=== PATIENT | female | born 1950 | race Caucasian/White ===

== ENCOUNTER 2021-03-29 17:49 | Emergency (ER) | payer OTHER ==
--- OUTSIDE RECORDS SUMMARY | 2021-03-29 17:53 | XMS REPORT | Continuity of Care Document ---
:1950 Author Organization [facility] t Address [address] [place] [address] Care Team Providers Name Role Phone PCP, DOES NOT HAVE A Primary Care Physician Unavailable JESSICA Attending Clinician Unavailable JESSICA Attending Clinician Unavailable HUGO Attending Clinician Unavailable Carlos Alberto MONK Attending Clinician Unavailable Fredo BRINK, Mykel Attending Clinician MYKEL YOO Attending Clinician Unavailable Payers Payer Name Policy Type Policy Number Effective Date Expiration Date Tammie rodríguezmiles MAUDE/ALICIA [id number] 2021 MEDICARE ADVANTAGE 00:00:00 Problems Condition Condition Condition Status Onset Resolution Last Treating Co mments Source Name Details Category Date Date Treatment Clinician Date No known No known Disease Unive rs active active ity of problems problems [facility] [place] [place] Allergies, Adverse Reactions, Alerts Allergy Allergy Status Severity Reaction(s) Onset Inactive Treating Comm ents Source Name Type Date Date Clinician Sulfa Propensi Active Rash 2020-04 Univers (Sulfona ty to 2-20 ity of mide adverse 00:00: [place] Antibiot reaction 00 Medica l ics) s Branch SULFA Drug Active Med Rash 2020-04 Univers (SULFONA Class 2-20 ity of MIDE 00:00: [place] ANTIBIOT 00 Medical ICS) Branch Social History Social Habit Start Date Stop Date Quantity Comments Source History of Cigarette Smoker Universi ty of tobacco use [facility] [place] [place] Exposure to Not sure University of SARS-CoV-2 [facility] (event) Branch Tobacco use and 2021-03-27 2021-03-27 Never used Universit y of exposure 00:00:00 00:00:[address] [facility] [place] [place] Alcohol intake 2021-03-27 2021-03-27 2 /d University of 00:00:00 00:00:00 [place] [facility] Sex [birth year] Universit y of 00:00:00 00:00:[address] [facility] [place] Smoking Status Start Date Stop Date Source Current every day smoker 2021-03-27 00:00:00 Uni [address] of [facility] [place] [place] Medications Ordered Filled Start Stop Current Ordering Indication Dosage Frequency Signature Comments Components Source Medication Medication Date Date Medication? Clinician (SIG) Name Name buPROPion 2020-04- No 100mg Take 100 Un [place] 100 mg 2-20 12-20 mg by ity of tablet 09:46: 00:00 mouth 2 [place] 09 :00 (two) Medical times Branch daily. escitalopra 2020-04- No 20mg Take 20 mg Univers m oxalate 2-20 12-20 by mouth ity o f 20 mg 09:46: 00:00 daily. [place] tablet 09 :00 Medical Branch carvediloL 2020-04- No 3.125mg Take 3.125 Univers 3.125 mg 2-20 12-20 mg by ity of tablet 09:46: 00:00 mouth 2 [place] 09 :00 (two) Medical times [place] daily with meals. alendronate 2020-04- No 70mg Take 70 mg Univers 70 mg 2-20 12-20 by mouth ity of tablet 09:46: 00:00 weekly. [place] 09 :00 Medical Branch atorvastati 2020-04- No 40mg Take 40 mg Univers n 40 mg 2-20 12-20 by mouth ity of tablet 09:46: 00:00 at [place] 09 :00 bedtime. Medical Branch buPROPion 2020-04- No 100mg Take 100 Un [place] 100 mg 2-20 12-20 mg by ity of tablet 09:46: 00:00 mouth 2 [place] 09 :00 (two) Medical times Branch daily. escitalopra 2020-04- No 20mg Take 20 mg Univers m oxalate 2-20 12-20 by mouth ity o f 20 mg 09:46: 00:00 daily. [place] tablet 09 :00 Medical Branch carvediloL 2020-04- No 3.125mg Take 3.125 Univers 3.125 mg 2-20 12-20 mg by ity of tablet 09:46: 00:00 mouth 2 [place] 09 :00 (two) Medical times Branch daily with meals. alendronate 2020-04- No 70mg Take 70 mg Univers 70 mg 2-20 12-20 by mouth ity of tablet 09:46: 00:00 weekly. [place] 09 :00 Medical Branch atorvastati 2020-04- No 40mg Take 40 mg Univers n 40 mg 2-20 12-20 by mouth ity of tablet 09:46: 00:00 at [place] 09 :00 bedtime. Medical Branch calcium 2020-04 Yes Take by Univer s carbonate 2-20 mouth. ity of (CALCIUM 09:27: [place] 500 ORAL) 22 Medical Branch calcium 2020-04 Yes Take by Univer s carbonate 2-20 mouth. ity of (CALCIUM 09:27: [place] 500 ORAL) 22 Medical Branch [place]-3-DHA 2020-04 Yes Take by Un [place] -EPA-Fish 2-20 mouth. ity of Oil (FISH 09:25: [place] OIL) 1,000 29 Medical mg (120 Branch mg-180 mg) Cap [place]-3-DHA 2020-04 Yes Take by Un [place] -EPA-Fish 2-20 mouth. ity of Oil (FISH 09:25: [place] OIL) 1,000 29 Medical mg (120 Branch mg-180 mg) Cap vitamin 2020-04 Yes 500ug Take 500 Unive rs B-12 2-20 mcg by ity of (VITAMIN 09:24: mouth [place] B-12) 500 10 daily. Medical mcg tablet Branch vitamin 2020-04 Yes 500ug Take 500 Unive rs B-12 2-20 mcg by ity of (VITAMIN 09:24: mouth [place] B-12) 500 10 daily. Medical mcg tablet Branch escitalopra 2020-04 Yes [id number] 20mg Take 1 Univers m oxalate 2-20 tablet by ity o f 20 mg 00:00: mouth [place] tablet 00 daily. Medical Branch carvediloL 2020-04 Yes [id number] 3.125mg Take 1 Univers 3.125 mg 2-20 tablet by ity of tablet 00:00: mouth 2 00 (two) Medical times Branch daily with meals. buPROPion 2020-04 Yes [id number] 100mg Take 1 U nivers 100 mg 2-20 tablet by ity of tablet 00:00: mouth 2 (two) Medical times Branch daily. atorvastati 2020-04 Yes [id number] 40mg Take 1 Univers n 40 mg 2-20 tablet by ity of tablet 00:00: mouth at [place] 00 bedtime. Medical Branch alendronate 2020-04 Yes [id number] 70mg Take 1 Univers 70 mg 2-20 tablet by ity of tablet 00:00: mouth [place] 00 weekly. Medical Branch escitalopra 2020-04 Yes [id number] 20mg Take 1 Univers m oxalate 2-20 tablet by ity o f 20 mg 00:00: mouth [place] tablet 00 daily. Medical Branch carvediloL 2020-04 Yes [id number] 3.125mg Take 1 Univers 3.125 mg 2-20 tablet by ity of tablet 00:00: mouth 2 [place] 00 (two) Medical times Branch daily with meals. buPROPion 2020-04 Yes [id number] 100mg Take 1 U nivers 100 mg 2-20 tablet by ity of tablet 00:00: mouth 2 [place] 00 (two) Medical times [place] daily. atorvastati 2020-04 Yes [id number] 40mg Take 1 Univers n 40 mg 2-20 tablet by ity of tablet 00:00: mouth at [place] 00 bedtime. Medical Branch alendronate 2020-04 Yes [id number] 70mg Take 1 Univers 70 mg 2-20 tablet by ity of tablet 00:00: mouth [place] 00 weekly. [facility] Branch Immunizations Ordered Filled Immunization Date Status Comments [facility] e Immunization Name Name Influenza High Dose 2021-02-05 Completed Unive rsity of 00:00:[address] [facility] [place] Influenza High Dose 2021-02-05 Completed Unive rsity of 00:00:[address] [facility] [place] Vital Signs Vital Name Observation Time Observation Value Comments Source Systolic blood 2021-03-27 15:16:00 132 mm[Hg] Univer sity of pressure [facility] [place] [place] Diastolic blood 2021-03-27 15:16:00 82 mm[Hg] Unive rsity of pressure [facility] [place] Heart rate 2021-03-27 15:15:00 64 /min [facility] Body temperature 2021-03-27 15:15:00 [facility].89 [facility] height 2021-03-27 15:15:00 162.6 cm [facility] Body weight 2021-03-27 15:15:00 87.091 kg [facility] BMI 2021-03-27 15:15:00 32.96 kg/m2 [facility] Procedures This patient has no known procedures. Encounters Start End Encounter Admission Attending Care Care Encounter Source Date/Time Date/Time Type Type Clinicians Facility Department ID 2021-05-19 2021-05-19 Outpatient R STEFFANIE LOPEZ [facility] [id number] Univers 08:30:00 08:30:00 STEFFANIE LOPEZ [id number] i [facility] 2021-04-19 2021-04-19 [facility] [id number] Univers 10:40:00 10:40:00 ROCIO [id number] ity o [facility] 2021-04-19 2021-04-19 [facility] [id number] Univers 10:40:00 10:40:00 ROCIO garza o [facility] 2021-04-10 2021-04-10 [facility] [id number] Univers 15:00:00 15:00:00 MOLINA [id number] [facility] 2021-04-10 2021-04-10 [facility] [id number] Univers 15:00:00 15:00:00 [facility] 2021-03-30 2021-03-30 [facility] [id number] Univers 09:45:00 09:45:00 MOLINA [id number] [facility] 2021-03-27 2021-03-27 [facility] [id number] Univers 09:30:00 10:00:00 Visit [facility] [id number] it y of Mykel CH[facility] [id number] [place] as CHRISS?BLEA [id number] [place] [address] MEDICAL OFFICE BUILDING 2021-03-27 2021-03-27 [facility] [id number] Univers 09:30:00 09:56:27 VELIA [facility] Results This patient has no known results.
[2021-03-29] MEDS ORDERED: ONDANSETRON 4 MG/2 ML VIAL ONE (18:26)
[2021-03-29] MEDS ORDERED: MORPHINE 4 MG/ML SYR ONE (18:26)
--- NOTE | 2021-03-29 19:35 | RAD REPORT ---
EXAM DESCRIPTION: CT - CTHCSPWOC - 03/29/2021 7:25 pm CLINICAL HISTORY: Trauma, head and neck injury. fall, head injury COMPARISON: <Comparisons> TECHNIQUE: Axial 5 mm thick images of the head were obtained. Axial 2 mm thick images of the cervical spine were obtained with sagittal and coronal reconstruction images generated and reviewed. All CT scans are performed using dose optimization technique as appropriate and may include automated exposure control or mA/KV adjustment according to patient size. FINDINGS: CT HEAD WITHOUT CONTRAST: No acute hemorrhage, hydrocephalus or extra-axial collection is identified.No areas of brain edema or midline shift. Cavum septum pellucidum. The paranasal sinuses and mastoids are clear.The calvarium is intact. CT CERVICAL SPINE WITHOUT CONTRAST: No fracture or subluxation.No prevertebral soft tissues swelling is identified. Multilevel cervical s pondylosis. IMPRESSION: No acute intracranial or cervical spine findings.
--- NOTE | 2021-03-29 19:49 | RAD REPORT ---
EXAM DESCRIPTION: RAD - Shoulder Right 2 View - 03/29/2021 7:21 pm CLINICAL HISTORY: fall COMPARISON: No comparisons FINDINGS: Right shoulder dislocation which is inferior and probably anterior though a transscapular view not performed to confirm. There is a defect with sclerosis at the greater tuberosity. IMPRESSION: Dislocated right shoulder. The defect at the greater tuberosity may reflect a Hill-Sachs deformity and could be chronic if the patient has had a prior dislocation.
--- NOTE | 2021-03-29 19:50 | RAD REPORT ---
EXAM DESCRIPTION: RAD - Chest Single View - 03/29/2021 7:21 pm CLINICAL HISTORY: fall COMPARISON: No comparisons FINDINGS: Lines: None. Lungs: No evidence of edema or pneumonia. Pleural: No significant pleural effusions or pneumothorax. Cardiac: The heart size is within normal limits. Bones: Right shoulder dislocation. Other: IMPRESSION: No acute cardiopulmonary disease. Right shoulder dislocation.
[2021-03-29] MEDS ORDERED: HYDROMORPHONE HCL 2 MG/ML inj ONE (19:57)
[2021-03-29] MEDS ORDERED: DIAZEPAM 10 MG/2 ML INJ SYRINGE ONE (19:58)
--- NOTE | 2021-03-29 21:07 | RAD REPORT ---
EXAM DESCRIPTION: RAD - Shoulder Right 2 View - 03/29/2021 8:50 pm CLINICAL HISTORY: post reduction COMPARISON: Shoulder Right 2 View dated 03/29/2021[place] Right 2 View dated 03/29/2021 FINDINGS/IMPRESSION: Relocated right shoulder. No definite fracture is identified.
--- NOTE | 2021-03-29 21:19 | EDPHYS ---
Physician Documentation [facility] Name: Anali Catherine Age: 70 yrs Sex: Female : 1950 Arrival Date: 03/29/2021 Time: 17:53 Bed 18 Private MD: ED Physician Gerardo Sampson HPI: 03/29 21:19 This 70 yrs old Female presents to ER via EMS with complaints of Fall Injury. jmm 21:19 Details of fall: The patient fell from an upright position, while walking. Onset: The jm symptoms/episode began/occurred acutely, just prior to arrival. Associated injuries: The patient sustained right arm, face. 70-year-old female that presents emerged part with complaints of right arm pain and right shoulder pain following a fall which occurred just prior to arrival. Patient states she slipped after drinking wine. She hit the front of her face and fell on an outstretched hand on her right arm. Historical: - Allergies: 18:14 No Known Allergies; 5 - Immunization history:: Adult Immunizations up to date. - Social history:: Smoking status: . ROS: 21:19 Constitutional: Negative for fever, chills, and weight loss, Cardiovascular: Negative jm for chest pain, palpitations, and edema, Respiratory: Negative for shortness of breath, cough, wheezing, and pleuritic chest pain. 21:19 MS/extremity: Positive for injury or acute deformity. 21:19 Neuro: Positive for headache. 21:19 All other systems are negative. Exam: 21:19 Constitutional: This is a well developed, well nourished patient who is awake, alert, jmm and in no acute distress. 21:19 Eyes: EOMI, no conjunctival erythema appreciated ENT: Moist Mucus Membranes Neck: Trachea midline, Supple Chest/axilla: Normal chest wall appearance and motion. Cardiovascular: Regular rate and rhythm. No edema appreciated Respiratory: Normal respirations, no respiratory distress appreciated Abdomen/GI: Non distended, soft Back: Normal ROM Skin: General appearance color normal 21:19 Head/face: abrasion noted to the nose. 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 Patient holding adduction and internal rotation. 21:19 Skin: Appearance: Color: normal in color. 21:19 Neuro: Orientation: is normal, Mentation: is normal. 21:19 Psych: Behavior/mood is pleasant, cooperative. Vital Signs: 17:55 BP 136 / 53; Pulse 72; Resp 17; Temp 97.6; Pulse Ox 94% ; Weight 104.33 kg; Height 5 5 ft. 6 in. (167.64 cm); Pain 10/10; 17:55 Body Mass Index 37.12 (104.33 kg, 167.64 cm) [facility] Procedures: 21:17 Reduction: of the right shoulder, using traction, manipulation, Immobilized with sling, [facility] Patient tolerated well. Post reduction film - reveals normal alignment. MDM: 18:12 Patient medically screened. [facility] 21:18 Data reviewed: vital signs, nurses notes. Counseling: I had a detailed discussion with [facility] the patient and/or guardian regarding: the historical points, exam findings, and any diagnostic results supporting the discharge/admit diagnosis, radiology results, the need for outpatient follow up, to return to the emergency department if symptoms worsen or persist or if there are any questions or concerns that arise at home. 03/29 18:17 Order name: CT Head C Spine; Complete Time: 19:43 [facility] 03/29 18:17 Order name: Shoulder Right (2 View) XRAY; Complete Time: 19:51 [facility] 03/29 18:17 Order name: Chest Single View XRAY; Complete Time: 19:51 [facility] 03/29 20:23 Order name: Shoulder Right (2 View) XRAY; Complete Time: 21:13 [facility] 03/29 18:17 Order name: Saline Lock; Complete Time: 18:38 [facility] 03/29 20:23 Order name: Sling; Complete Time: 20:31 [facility] Administered Medications: 18:37 Drug: Zofran (Ondansetron) 4 mg Route: IVP; Site: left antecubital; 5 18:38 Drug: morphine 4 mg Route: IVP; Site: left antecubital; 5 20:02 Drug: Valium (diazepam) 2 mg Route: IVP; Site: left antecubital; kd3 20:03 Drug: Dilaudid (HYDROmorphone) 1 mg Route: IVP; Site: left antecubital; kd3 21:22 CANCELLED (Duplicate Order): Propofol 100 mg IVP once [facility] Disposition: 03/30 08:16 Co-signature as Attending Physician, Gerardo Sampson MD I agree with the assessment and kdr plan of care. Disposition Summary: 03/29/21 21:19 Discharge Ordered Location: Home [facility] Condition: Stable [facility] Diagnosis - Other dislocation of right shoulder joint [facility] Followup: [facility] - With: Christoph Sanders MD - When: 2 - 3 days - Reason: Recheck today's complaints, Continuance of care, Re-evaluation by your physician Discharge Instructions: - Discharge Summary Sheet [facility] - Shoulder Dislocation [facility] Forms: - Medication Reconciliation Form [facility] - Thank You Letter [facility] - Antibiotic Education [facility] - Prescription Opioid Use [facility] Prescriptions: - Tylenol-Codeine #3 300 mg-30 mg Oral - take 1 tablet by ORAL route every 4-6 hours; 20 tablet; Refills: 0, Product jm Selection Permitted Signatures: Dispatcher [employer] EDGerardo Sanford MD MD kdr Mickail, Joel, PA PA jmm Rees, Jessica, RN RN jh5 Juliette Lozano RN RN kd3 Corrections: (The following items were deleted from the chart) 03/29 21: 20:51 Conscious Sedation ordered. [facility] 21: 20:51 Propofol 100 mg IVP once ordered. [facility]
--- NOTE | 2021-03-29 21:19 | ER ---
Nurse's Notes [facility] Name: Anali Catherine Age: 70 yrs Sex: Female : 1950 Arrival Date: 03/29/2021 Time: 17:53 Bed 18 Private MD: Diagnosis: Other dislocation of right shoulder joint Presentation: 03/29 17:55 Chief complaint: Patient states: Pt donated blood this morning, went home and consumed jh5 an entire bottle of wine. Tripped and fell onto right shoulder. 10/10 pain to right arm and ribs. Coronavirus screen: Vaccine status: Patient reports receiving the 2nd dose of the covid vaccine. Client denies travel out of the [place] in the last 14 days. Ebola Screen: Patient negative for fever greater than or equal to 101.5 degrees Fahrenheit, and additional compatible Ebola Virus Disease symptoms Patient denies exposure to infectious person. Patient denies travel to an Ebola-affected area in the 21 days before illness onset. Initial Sepsis Screen: Does the patient meet any 2 criteria? No. Patient's initial sepsis screen is negative. Does the patient have a suspected source of infection? No. Patient's initial sepsis screen is negative. Risk Assessment: Do you want to hurt yourself or someone else? Patient reports no desire to harm self or others. Onset of symptoms was March 29, 2021. 17:55 Method Of Arrival: EMS: [place] [id number] 17:55 Acuity: LUIS 3 5 Triage Assessment: 17:58 General: Appears distressed, uncomfortable, well groomed, well developed, well [facility] nourished, Behavior is calm, cooperative, appropriate for age. Pain: Complains of pain in right arm. Historical: - Allergies: 18:14 No Known Allergies; [facility] - Immunization history:: Adult Immunizations up to date. - Social history:: Smoking status: . Screenin:58 Abuse screen: Denies threats or abuse. Denies injuries from another. Nutritional [facility] screening: No deficits noted. Tuberculosis screening: No symptoms or risk factors identified. Fall Risk Fall in past 12 months (25 points). Vital Signs: 17:55 BP 136 / 53; Pulse 72; Resp 17; Temp 97.6; Pulse Ox 94% ; Weight 104.33 kg; Height 5 5 ft. 6 in. (167.64 cm); Pain 10/10; 17:55 Body Mass Index 37.12 (104.33 kg, 167.64 cm) [facility] ED Course: 17:53 Patient arrived in ED. [facility] 17:55 Rossi Kendrick, RN is Primary Nurse. [facility] 17:58 Triage completed. [facility] 17:58 [facility] 17:58 Gerardo Sampson MD is Attending Physician. [facility] 17:59 Arm band placed on left wrist. [facility] 17:59 Patient has correct armband on for positive identification. Bed in low position. Call [facility] light in reach. Side rails up X 1. 18:14 No provider procedures requiring assistance completed. 5 19:21 Shoulder Right (2 View) XRAY In Process Unspecified. EDMS 19:21 Chest Single View XRAY In Process Unspecified. EDMS 19:25 CT Head C Spine In Process Unspecified. EDMS 20:31 Sling applied to right arm. 4 20:50 Shoulder Right (2 View) XRAY In Process Unspecified. EDMS 21:18 Christoph Sanders MD is Referral Physician. m 21:37 IV discontinued. kd3 Administered Medications: 18:37 Drug: Zofran (Ondansetron) 4 mg Route: IVP; Site: left antecubital; [facility] 18:38 Drug: morphine 4 mg Route: IVP; Site: left antecubital; jh5 20:02 Drug: Valium (diazepam) 2 mg Route: IVP; Site: left antecubital; kd3 20:03 Drug: Dilaudid (HYDROmorphone) 1 mg Route: IVP; Site: left antecubital; kd3 21:22 CANCELLED (Duplicate Order): Propofol 100 mg IVP once [facility] Outcome: 21:19 Discharge ordered by . [facility] 21:37 Discharged to home via wheelchair. kd3 21:37 Condition: stable 21:37 Discharge instructions given to patient, family, Instructed on discharge instructions, follow up and referral plans. medication usage, Demonstrated understanding of instructions, follow-up care, medications, Prescriptions given X 1. 21:38 Patient left the ED. kd3 Signatures: Dispatcher [employer] EDMS Endy Armando PA PA jmm Swanson, Donovan ds4 Rossi Kendrick, RN RN jh5 uJliette Lozano, RN RN kd3
[2021-03-29 21:53] VITALS: BP 136/53; TEMP 97.6; O2SAT 94
== END 2021-03-29 21:38 | disposition home or self-care (01) ==
LOC: ER 17:49
PROC: 0RSJXZZ Reposition Right Shoulder Joint, External Approach (ICD-10-PCS; principal; 2021-03-29)
DX: S43.084A Other dislocation of right shoulder joint, initial encounter (principal); W01.0XXA Fall on same level from slipping, tripping and stumbling without subsequent striking against object, initial encounter; Y93.01 Activity, walking, marching and hiking
CPT/HCPCS: 70450; 72125; 71045; 73030 ×2; 96375; 96374; 99284; 23650; J3360; J1170; J2405

== ENCOUNTER 2022-09-29 06:11 | Emergency (ER) | payer OTHER ==
--- OUTSIDE RECORDS SUMMARY | 2022-09-29 06:23 | XMS REPORT | Continuity of Care Document ---
:1950 Author Organization [facility] t Address [address] [facility] [address] [place] [address] Care Team Providers Name Role Phone Velia Yoo MD Primary Care Physician [phone] CUBA ARIAS Attending Clinician Unavailable VELIA YOO Attending Clinician Unavailable PEMA DSOUZA Attending Clinician Unavailable Pema Dsouza MD Attending Clinician Velia Yoo MD Attending Clinician Molina Monk MD Attending Clinician Doctor Unassigned, [place] Attending Clinician Unavailable Adriana Pimentel Attending Clinician ADRIANA WINSTON Attending Clinician Unavailable FABIOLA OLIVEIRA Attending Clinician Unavailable ARJUN MUSTAFA Attending Clinician Unavailable MOLINA MONK Attending Clinician Unavailable Pob, [facility] Main Attending Clinician Unavailable Tutu Tran PT, Cindy Attending Clinician Unavailable Cuba Arias MD Attending Clinician ERIN WELLINGTON Attending Clinician Unavailable Arjun Guajardo Attending Clinician ANALI JORDAN Attending Clinician Unavailable Anali Jordan DO Attending Clinician ELENA CALDERON Attending Clinician Unavailable Bibi EVANGELISTA, Rebekah Carcamo Attending Clinician Unavailable Krishan Aguayo CRNA Attending Clinician Noe Young MD Attending Clinician [phone] Lab, Ang - Db Attending Clinician Unavailable Erin Wellington MD Attending Clinician Noe Bañuelos PA-C Attending Clinician NOE BAÑUELOS Attending Clinician Unavailable PADMINI HARDEN Attending Clinician Unavailable Candace NGO, Radha Attending Clinician Padmini Harden PHD Attending Clinician BERHANE LEDESMA Attending Clinician Unavailable Green LOAN COLLECTOR, Berhane Attending Clinician Ebrahim LOAN COLLECTOR, Rania Attending Clinician ANETONYA COPELAND Attending Clinician Unavailable Marcio LOAN COLLECTOR, Tonya Attending Clinician Steffanie Lopez DO Attending Clinician STEFFANIE LOPEZ Attending Clinician Unavailable STEFFANIE LOPEZ Attending Clinician Unavailable MOLINA MONK Admitting Clinician Unavailable Molina Mokn MD Admitting Clinician ANALI JORDAN Admitting Clinician Unavailable CUBA ARIAS Admitting Clinician Unavailable VELIA YOO Admitting Clinician Unavailable ERIN WELLINGTON Admitting Clinician Unavailable Payers Payer Name Policy Type Policy Number Effective Date Expiration Date Tammie annemiles MAUDE/ALICIA [id number] 2021 MEDICARE ADVANTAGE 00:00:00 Problems Condition Condition Condition Status Onset Resolution Last Treating Co mments Source Name Details Category Date Date Treatment Clinician Date Primary Primary Disease Active Univers osteoarthr osteoarthr 12-13 it y of itis of itis of 00:00: [place] right knee right knee 00 Me dical Branch Diarrhea, Diarrhea, Disease Active Uni vers unspecifie unspecifie 12-13 it y of d type d type 00:00: 00 Medical Branch Acute Acute Disease Active Univers nonintract nonintract 12-13 it y of able able 00:00: [place] headache, headache, 00 Medi min unspecifie unspecifie Br anch d headache d headache type type Myalgia Myalgia Disease Active Univers 12-13 ity of 00:00: 00 Medical Branch Nausea Nausea Disease Active Univers 12-13 ity of 00:00: [place] 00 Medical Branch Secondary Secondary Disease Active Uni vers osteoarthr osteoarthr 5-02 it y of itis of itis of 00:00: [place] right right 00 Medical shoulder shoulder Branch due to due to rotator rotator cuff cuff arthropath arthropath y y Chronic Chronic Disease Active Univers diarrhea diarrhea 4-08 ity of 00:00: [place] 00 Medical Branch Alcohol Alcohol Disease Active Univers abuse abuse 4-08 ity of 00:00: [place] [address] Medical Branch Primary Primary Disease Active Overview: Univ ers osteoarthr osteoarthr 3-29 Formattin ity of itis of itis of 00:00: g of this [place] right right 00 note Medical shoulder shoulder might be Bran ch different from the original. Added automatic ally from request for surgery [id number] Allergies, Adverse Reactions, Alerts Allergy Allergy Status [...] Start Date Stop Date Quantity Comments Source Exposure to 2022-07-15 2022-07-25 Not sure [facility] SARS-CoV-2 00:00:00 09:18:00 [facility] (event) Branch Alcohol intake 2022-07-25 2022-07-25 2 /d University of 00:00:00 00:00:00 [facility] Tobacco use and 2022-05-16 2022-05-16 Smokeless tobacco Un iversity of exposure 00:00:00 00:00:00 non-user [facility] Tobacco Comment 2022-05-16 2022-05-16 Patient has Universi ty of 00:00:00 00:00:00 smoked for 50 [place] Medic al years Branch History of 2021-06-26 Cigarette Smoker Universi ty of tobacco use 00:00:00 [facility] Sex [birth year] Universit y of 00:00:00 00:00:00 [facility] Smoking Status Start Date Stop Date Source Ex-smoker 2022-05-16 00:00:00 2022-05-16 00:00:00 [facility] Medical Branch Medications Ordered Filled Start Stop Current Ordering Indication Dosage Frequency Signature Comments Components Source Medication Medication Date Date Medication? Clinician (SIG) Name Name ondansetron 2022- No 4mg 4 mg, Slow Univers (ZOFRAN 09-29 IV Push, ity of (PF)) 06:45: 05:55 ONCE, 1 [place] injection 4 00 :00 dose, On Medi min mg Sat Branch 09/29/22 at 0145, CHIQUITA NaCl 0.9% 2022- No 500mL at 999 Univ ers (NS) bolus 09-29 mL/hr, 500 it y of infusion 05:45: 07:23 mL, IV [place] 500 mL 00 :00 Infusion, Medical ONCE, 1 Branch dose, On 09/29/22 at 0045, STAT morpHINE (4 No 4mg 4 mg, Slow Univers mg/mL) 09-29 IV Push, ity of injection 4 05:15: 05:12 ONCE, 1 [place] mg 00 :00 dose, On Medical Sat Branch 09/29/22 at 0015, STAT FENTanyl PF 2022- No 50ug 50 mcg, Un [place] (SUBLIMAZE 09-29 Slow IV ity o f (PF)) 04:45: 04:01 Push, [place] injection 00 :00 ONCE, 1 Medical 50 mcg dose, On Branch 09/28/22 at 2345, STAT ondansetron 2022- No 4mg 4 mg, Slow Univers (ZOFRAN 09-29 IV Push, ity of (PF)) 04:00: 04:01 ONCE, 1 [place] injection 4 00 :00 dose, On Medi min mg Fri Branch 09/28/22 at 2300, CHIQUITA ATORVASTATI Yes [id number] 40mg TAKE 1 Univers N 40 mg 5-28 TABLET BY ity of tablet 00:00: MOUTH AT [place] [address] BEDTIME [facility] Branch CARVEDILOL Yes [id number] TAKE 1 U nivers 3.125 mg 5-28 TABLET BY ity of tablet 00:00: MOUTH TWICE Medical DAILY WITH Branch MEALS ATORVASTATI Yes [id number] 40mg TAKE 1 Univers N 40 mg 5-28 TABLET BY ity of tablet 00:00: MOUTH AT 00 BEDTIME Medical Branch CARVEDILOL Yes [id number] TAKE 1 U nivers 3.125 mg 5-28 TABLET BY ity of tablet 00:00: MOUTH TWICE Medical DAILY WITH Branch MEALS betamethaso 2022- No [id number] 6mg U nivers ne acet,sod 07-25 ity of phos 15:45: 14:53 [place] (CELESTONE 00 :00 Medical SOLUSPAN) 6 Branch mg/mL injection 6 mg triamcinolo 2022- No [id number] 40mg U nivers ne 07-25 ity of acetonide 15:45: 14:53 [place] (KENALOG) 00 :00 Medical injection Branch 40 mg triamcinolo 2022- No [id number] 40mg 40 mg, Univers ne 07-25 Intramuscu ity of acetonide 15:45: 14:53 [place], ONCE, [place] (KENALOG) 00 :00 1 dose, On Medi min injection Wed Branch 40 mg 07/25/22 at 1045, Routine betamethaso 2022- No [id number] 6mg 6 mg, Univers ne acet,sod 07-25 Intramuscu i ty of phos 15:45: 14:53 lar, ONCE, [place] (CELESTONE 00 :00 1 dose, On Med ical SOLUSPAN) 6 Wed Branch mg/mL 07/25/22 at injection 6 1045, mg Routine betamethaso 2022- No [id number] 6mg U nivers ne acet,sod 07-25 ity of phos 15:45: 14:53 [place] (CELESTONE 00 :00 Medical SOLUSPAN) 6 Branch mg/mL injection 6 mg triamcinolo 2022- No [id number] 40mg U nivers ne 07-25 ity of acetonide 15:45: 14:53 [place] (KENALOG) 00 :00 Medical injection Branch 40 mg triamcinolo 2022- No [id number] 40mg 40 mg, Univers ne 07-25 Intramuscu ity of acetonide 15:45: 14:53 [place], ONCE, [place] (KENALOG) 00 :00 1 dose, On Medi min injection Wed Branch 40 mg 07/25/22 at 1045, Routine betamethaso 2022- No [id number] 6mg 6 mg, Univers ne acet,sod 07-25 Intramuscu i ty of phos 15:45: 14:53 lar, ONCE, [place] (CELESTONE 00 :00 1 dose, On Med ical SOLUSPAN) 6 Wed Branch mg/mL 07/25/22 at injection 6 1045, mg Routine loratadine/ 2022- No Take by Un [place] pseudoephed 07-25 mouth ity of rine 09:35: 00:00 daily. [place] (CLARITIN-D 06 :00 Medical 12 HOUR Branch ORAL) loratadine/ 0 2022- No Take by Un [place] pseudoephed 07-25 mouth ity of rine 09:35: 00:00 daily. [place] (CLARITIN-D 06 :00 Medical 12 HOUR Branch ORAL) montelukast 2022-0 Yes [id number] 10mg Take 1 Univers 10 mg 4-19 tablet by ity of tablet 00:00: mouth in [place] 00 the Medical morning. [place] montelukast 2022-0 Yes [id number] 10mg Take 1 Univers 10 mg 4-19 tablet by ity of tablet 00:00: mouth in [place] 00 the Medical morning. [place] montelukast 2022-0 Yes [id number] 10mg Take 1 Univers 10 mg 4-19 tablet by ity of tablet 00:00: mouth in [place] 00 the Medical morning. [place] montelukast 2022-0 Yes [id number] 10mg Take 1 Univers 10 mg 4-19 tablet by ity of tablet 00:00: mouth in [place] 00 the Medical morning. [place] montelukast 2022-0 Yes [id number] 10mg Take 1 Univers 10 mg 4-19 tablet by ity of tablet 00:00: mouth in [place] 00 the Medical morning. [place] montelukast 2022-0 Yes [id number] 10mg Take 1 Univers 10 mg 4-19 tablet by ity of tablet 00:00: mouth in [place] 00 the Medical morning. Branch vitamin 2023-0 Yes 500ug Take 1 Univers B-12 500 3-27 tablet by ity of mcg tablet 14:14: mouth in [place] 38 the Medical morning. Branch [place]-3-DHA 2023-0 Yes Take by Uni vers -EPA-Fish 3-27 mouth. ity of Oil 1,000 14:14: [place] mg (120 38 Medical mg-180 mg) Branch Cap calcium 2023-0 Yes 1{tbl} Take 1 Univer s carbonate 3-27 tablet by ity o f (CALCIUM 14:14: mouth [place] 500 ORAL) 38 daily. Medical Branch loratadine/ 2023-0 Yes Take by Uni vers pseudoephed 3-27 mouth ity of rine 14:14: daily. [place] (CLARITIN-D 38 Medical 12 HOUR Branch ORAL) vitamin 2023-0 Yes 500ug Take 1 Univers B-12 500 3-27 tablet by ity of mcg tablet 14:14: mouth in [place] 38 the Medical morning. Branch [place]-3-DHA 2023-0 Yes Take by Uni vers -EPA-Fish 3-27 mouth. ity of Oil 1,000 14:14: [place] mg (120 38 Medical mg-180 mg) Branch Cap calcium 2023-0 Yes 1{tbl} Take 1 Univer s carbonate 3-27 tablet by ity o f (CALCIUM 14:14: mouth [place] 500 ORAL) 38 daily. Medical Branch loratadine/ 2023-0 Yes Take by Uni vers pseudoephed 3-27 mouth ity of rine 14:14: daily. [place] (CLARITIN-D 38 Medical 12 HOUR Branch ORAL) vitamin 2023-0 Yes 500ug Take 1 Univers B-12 500 3-27 tablet by ity of mcg tablet 14:14: mouth in [place] 38 the Medical morning. Branch [place]-3-DHA 2023-0 Yes Take by Uni vers -EPA-Fish 3-27 mouth. ity of Oil 1,000 14:14: [place] mg (120 38 Medical mg-180 mg) Branch Cap calcium 2023-0 Yes 1{tbl} Take 1 Univer s carbonate 3-27 tablet by ity o f (CALCIUM 14:14: mouth [place] 500 ORAL) 38 daily. Medical Branch loratadine/ 2023-0 Yes Take by Uni vers pseudoephed 3-27 mouth ity of rine 14:14: daily. [place] (CLARITIN-D 38 Medical 12 HOUR Branch ORAL) vitamin 2023-0 Yes 500ug Take 1 Univers B-12 500 3-27 tablet by ity of mcg tablet 14:14: mouth in [place] 38 the Medical morning. Branch [place]-3-DHA 2023-0 Yes Take by Uni vers -EPA-Fish 3-27 mouth. ity of Oil 1,000 14:14: [place] mg (120 38 Medical mg-180 mg) Branch Cap calcium 2023-0 Yes 1{tbl} Take 1 Univer s carbonate 3-27 tablet by ity o f (CALCIUM 14:14: mouth [place] 500 ORAL) 38 daily. Medical Branch loratadine/ 2023-0 Yes Take by Uni vers pseudoephed 3-27 mouth ity of rine 14:14: daily. [place] (CLARITIN-D 38 Medical 12 HOUR Branch ORAL) vitamin 2023-0 Yes 500ug Take 1 Univers B-12 500 3-27 tablet by ity of mcg tablet 14:14: mouth in [place] 38 the Medical morning. Branch [place]-3-DHA 2023-0 Yes Take by Uni vers -EPA-Fish 3-27 mouth. ity of Oil 1,000 14:14: [place] mg (120 38 Medical mg-180 mg) Branch Cap calcium 2023-0 Yes 1{tbl} Take 1 Univer s carbonate 3-27 tablet by ity o f (CALCIUM 14:14: mouth [place] 500 ORAL) 38 daily. Medical Branch loratadine/ 2023-0 Yes Take by Uni vers pseudoephed 3-27 mouth ity of rine 14:14: daily. [place] (CLARITIN-D 38 Medical 12 HOUR Branch ORAL) vitamin 2023-0 Yes 500ug Take 1 Univers B-12 500 3-27 tablet by ity of mcg tablet 14:14: mouth in [place] 38 the Medical morning. Branch [place]-3-DHA 2023-0 Yes Take by Uni vers -EPA-Fish 3-27 mouth. ity of Oil 1,000 14:14: [place] mg (120 38 Medical mg-180 mg) Branch Cap calcium 2023-0 Yes 1{tbl} Take 1 Univer s carbonate 3-27 tablet by ity o f (CALCIUM 14:14: mouth [place] 500 ORAL) 38 daily. Medical Branch loratadine/ 2023-0 Yes Take by Uni vers pseudoephed 3-27 mouth ity of rine 14:14: daily. [place] (CLARITIN-D 38 Medical 12 HOUR Branch ORAL) vitamin 2023-0 Yes 500ug Take 1 Univers B-12 500 3-27 tablet by ity of mcg tablet 14:14: mouth in [place] 38 the Medical morning. Branch [place]-3-DHA 2023-0 Yes Take by Uni vers -EPA-Fish 3-27 mouth. ity of Oil 1,000 14:14: [place] mg (120 38 Medical mg-180 mg) Branch Cap calcium 2023-0 Yes 1{tbl} Take 1 Univer s carbonate 3-27 tablet by ity o f (CALCIUM 14:14: mouth [place] 500 ORAL) 38 daily. Medical Branch vitamin 2023-0 Yes 500ug Take 1 Univers B-12 500 3-27 tablet by ity of mcg tablet 14:14: mouth in [place] 38 the Medical morning. Branch [place]-3-DHA 3-0 Yes Take by Uni vers -EPA-Fish 3-27 mouth. ity of Oil 1,000 14:14: [place] mg (120 38 Medical mg-180 mg) Branch Cap calcium 2023-0 Yes 1{tbl} Take 1 Univer s carbonate 3-27 tablet by ity o f (CALCIUM 14:14: mouth [place] 500 ORAL) 38 daily. Medical Branch vitamin 2023-0 Yes 500ug Take 1 Univers B-12 500 3-27 tablet by ity of mcg tablet 14:14: mouth in [place] 38 the Medical morning. Branch [place]-3-DHA 2023-0 Yes Take by Uni vers -EPA-Fish 3-27 mouth. ity of Oil 1,000 14:14: [place] mg (120 38 Medical mg-180 mg) Branch Cap calcium 2023-0 Yes 1{tbl} Take 1 Univer s carbonate 3-27 tablet by ity o f (CALCIUM 14:14: mouth [place] 500 ORAL) 38 daily. Medical Branch vitamin 2023-0 Yes 500ug Take 1 Univers B-12 500 3-27 tablet by ity of mcg tablet 14:14: mouth in [place] 38 the Medical morning. Branch [place]-3-DHA 2023-0 Yes Take by Uni vers -EPA-Fish 3-27 mouth. ity of Oil 1,000 14:14: [place] mg (120 38 Medical mg-180 mg) Branch Cap calcium 2023-0 Yes 1{tbl} Take 1 Univer s carbonate 3-27 tablet by ity o f (CALCIUM 14:14: mouth [place] 500 ORAL) 38 daily. Medical Branch vitamin 2023-0 Yes 500ug Take 1 Univers B-12 500 3-27 tablet by ity of mcg tablet 14:14: mouth in [place] 38 the Medical morning. Branch [place]-3-DHA 2023-0 Yes Take by Uni vers -EPA-Fish 3-27 mouth. ity of Oil 1,000 14:14: [place] mg (120 38 Medical mg-180 mg) Branch Cap calcium 2023-0 Yes 1{tbl} Take 1 Univer s carbonate 3-27 tablet by ity o f (CALCIUM 14:14: mouth [place] 500 ORAL) 38 daily. Medical Branch vitamin 2023-0 Yes 500ug Take 1 Univers B-12 500 3-27 tablet by ity of mcg tablet 14:14: mouth in [place] 38 the Medical morning. Branch [place]-3-DHA 2023-0 Yes Take by Uni vers -EPA-Fish 3-27 mouth. ity of Oil 1,000 14:14: [place] mg (120 38 Medical mg-180 mg) Branch Cap calcium 2023-0 Yes 1{tbl} Take 1 Univer s carbonate 3-27 tablet by ity o f (CALCIUM 14:14: mouth [place] 500 ORAL) 38 daily. Medical Branch vitamin 2023-0 Yes 500ug Take 1 Univers B-12 500 3-27 tablet by ity of mcg tablet 14:14: mouth in [place] 38 the Medical morning. Branch [place]-3-DHA 2023-0 Yes Take by Uni vers -EPA-Fish 3-27 mouth. ity of Oil 1,000 14:14: [place] mg (120 38 Medical mg-180 mg) Branch Cap calcium 2023-0 Yes 1{tbl} Take 1 Univer s carbonate 3-27 tablet by ity o f (CALCIUM 14:14: mouth [place] 500 ORAL) 38 daily. Medical Branch vitamin 2023-0 Yes 500ug Take 1 Univers B-12 500 3-27 tablet by ity of mcg tablet 14:14: mouth in [place] 38 the Medical morning. Branch [place]-3-DHA 2023-0 Yes Take by Uni vers -EPA-Fish 3-27 mouth. ity of Oil 1,000 14:14: [place] mg (120 38 Medical mg-180 mg) Branch Cap calcium 3-0 Yes 1{tbl} Take 1 Univer s carbonate 3-27 tablet by ity o f (CALCIUM 14:14: mouth [place] 500 ORAL) 38 daily. Medical Branch azithromyci 3-0 Yes [id number] 500mg Take 1 Univers n 500 mg 3-27 tablet by ity of tablet 00:00: mouth in [place] 00 the Medical morning. Branch benzonatate 3-0 Yes [id number] 200mg Take 1 Univers 200 mg 3-27 capsule by ity of capsule 00:00: mouth 3 [place] (three) Medical times Branch daily as needed for Cough. azithromyci 3-0 Yes [id number] 500mg Take 1 Univers n 500 mg 3-27 tablet by ity of tablet 00:00: mouth in [place] 00 the Medical morning. Branch benzonatate 3-0 Yes [id number] 200mg Take 1 Univers 200 mg 3-27 capsule by ity of capsule 00:00: mouth 3 [place] (three) Medical times Branch daily as needed for Cough. azithromyci 3-0 Yes [id number] 500mg Take 1 Univers n 500 mg 3-27 tablet by ity of tablet 00:00: mouth in [place] 00 the Medical morning. Branch benzonatate 3-0 Yes [id number] 200mg Take 1 Univers 200 mg 3-27 capsule by ity of capsule 00:00: mouth 3 [place] (three) Medical times Branch daily as needed for Cough. azithromyci 3-0 Yes [id number] 500mg Take 1 Univers n 500 mg 3-27 tablet by ity of tablet 00:00: mouth in [place] 00 the Medical morning. Branch benzonatate 3-0 Yes [id number] 200mg Take 1 Univers 200 mg 3-27 capsule by ity of capsule 00:00: mouth 3 [place] (three) Medical times Branch daily as needed for Cough. azithromyci 3-0 Yes [id number] 500mg Take 1 Univers n 500 mg 3-27 tablet by ity of tablet 00:00: mouth in [place] 00 the Medical morning. Branch benzonatate 3-0 Yes [id number] 200mg Take 1 Univers 200 mg 3-27 capsule by ity of capsule 00:00: mouth 3 [place] 00 (three) Medical times Branch daily as needed for Cough. benzonatate 2023-0 Yes [id number] 200mg Take 1 Univers 200 mg 3-27 capsule by ity of capsule 00:00: mouth (three) Medical times Branch daily as needed for Cough. benzonatate 2023-0 Yes [id number] 200mg Take 1 Univers 200 mg 3-27 capsule by ity of capsule 00:00: mouth (three) Medical times Branch daily as needed for Cough. benzonatate 2023-0 Yes [id number] 200mg Take 1 Univers 200 mg 3-27 capsule by ity of capsule 00:00: mouth (three) Medical times Branch daily as needed for Cough. benzonatate 2023-0 Yes [id number] 200mg Take 1 Univers 200 mg 3-27 capsule by ity of capsule 00:00: mouth (three) Medical times Branch daily as needed for Cough. benzonatate 2023-0 Yes [id number] 200mg Take 1 Univers 200 mg 3-27 capsule by ity of capsule 00:00: mouth (three) Medical times Branch daily as needed for Cough. benzonatate 2023-0 Yes [id number] 200mg Take 1 Univers 200 mg 3-27 capsule by ity of capsule 00:00: mouth (three) Medical times Branch daily as needed for Cough. benzonatate 2023-0 Yes [id number] 200mg Take 1 Univers 200 mg 3-27 capsule by ity of capsule 00:00: mouth (three) Medical times Branch daily as needed for Cough. benzonatate 2023-0 Yes [id number] 200mg Take 1 Univers 200 mg 3-27 capsule by ity of capsule 00:00: mouth (three) Medical times Branch daily as needed for Cough. azithromyci 2023-0 2023- No [id number] 500mg Take 1 Univers n 500 mg 3-27 04-19 tablet by ity o f tablet 00:00: 00:00 mouth in [place] 00 :00 the Medical morning. Branch azithromyci 2023-0 2023- No [id number] 500mg Take 1 Univers n 500 mg 3-27 04-19 tablet by ity o f tablet 00:00: 00:00 mouth in [place] 00 :00 the Medical morning. Branch acetaminoph 2023-0 Yes [id number] 1{tbl} Take 1 [facility] [place] en-codeine 2-27 tablet by ity of (TYLENOL-CO 00:00: mouth [place] DEINE #3) 00 every 4 Medical 300-30 mg (four) Branch tablet hours as needed for Pain (scale 4-6) or Pain (scale 7-10). Indication s: acute pain acetaminoph 2023-0 Yes [id number] 1{tbl} Take 1 [facility] [place] en-codeine 2-27 tablet by ity of (TYLENOL-CO 00:00: mouth [place] DEINE #3) 00 every 4 Medical 300-30 mg (four) Branch tablet hours as needed for Pain (scale 4-6) or Pain (scale 7-10). Indication s: acute pain acetaminoph 2023-0 Yes [id number] 1{tbl} Take 1 [place] en-codeine 2-27 tablet by ity of (TYLENOL-CO 00:00: mouth [place] DEINE #3) 00 every 4 Medical 300-30 mg (four) Branch tablet hours as needed for Pain (scale 4-6) or Pain (scale 7-10). Indication s: acute pain acetaminoph 2023-0 Yes [id number] 1{tbl} Take 1 [facility] [place] en-codeine 2-27 tablet by ity of (TYLENOL-CO 00:00: mouth [place] DEINE #3) 00 every 4 Medical 300-30 mg (four) Branch tablet hours as needed for Pain (scale 4-6) or Pain (scale 7-10). Indication s: acute pain acetaminoph 2023-0 Yes [id number] 1{tbl} Take 1 [facility] [place] en-codeine 2-27 tablet by ity of (TYLENOL-CO 00:00: mouth [place] DEINE #3) 00 every 4 Medical 300-30 mg (four) Branch tablet hours as needed for Pain (scale 4-6) or Pain (scale 7-10). Indication s: acute pain acetaminoph 2023-0 Yes [id number] 1{tbl} Take 1 [place] en-codeine 2-27 tablet by ity of (TYLENOL-CO 00:00: mouth [place] DEINE #3) 00 every 4 Medical 300-30 mg (four) Branch tablet hours as needed for Pain (scale 4-6) or Pain (scale 7-10). Indication s: acute pain acetaminoph 2022-2022- No 4647 1{tbl} Take 1 U nivers en-codeine 06-04- tablet by ity of (TYLENOL-CO 00:00: 00:00 [place] DEINE #3) 00 :00 every 4 Medical 300-30 mg (four) Branch tablet hours as needed for Pain (scale 4-6) or Pain (scale 7-10). Indication s: acute pain acetaminoph 2022- No 4647 1{tbl} Take 1 U nivers en-codeine 06-04- tablet by ity of (TYLENOL-CO 00:00: 00:00 [place] DEINE #3) 00 :00 every 4 Medical 300-30 mg (four) Branch tablet hours as needed for Pain (scale 4-6) or Pain (scale 7-10). Indication s: acute pain lactated Yes 1000mL at 75 Univer s ringers IV 2-20 mL/hr, ity of infusion 17:00: 1,000 mL, [place] 1,000 [place] 00 IV Medical Infusion, Branch CONTINUOUS , Starting on Sat05/28/22 at 1100, Until Discontinu ed, Routine, PACU HYDROcodone 2022-2022- No 1{tbl} 1 tablet, Univers -acetaminop 2-20 02-20 Oral, ity of hen (NORCO 17:00: 19:22 ONCE, 1 [place] 5) 5-325 mg 00 :00 dose, On Medi min tablet 1 Sat Branch tablet 05/28/22 at 1100, Routine, PACU HYDROcodone 2022-0 2022- No 1{tbl} 1 tablet, Univers -acetaminop 2-20 02-20 Oral, ity of hen (NORCO 17:00: 19:22 ONCE, 1 [place] 5) 5-325 mg 00 :00 dose, On Medi min tablet 1 Sat Branch tablet 05/28/22 at 1100, Routine, PACU lactated 2022-0 2022- No 1000mL at 75 Unive rs ringers IV 2-20 02-20 mL/hr, ity of infusion 17:00: 21:55 1,000 mL, [place] 1,000 mL 00 :16 IV Medical Infusion, Branch CONTINUOUS , Starting on Sat05/28/22 at 1100, Until Sat05/28/22 at 1555, Routine, PACU FENTanyl PF 2022-0 Yes 25ug 25 mcg, Uni vers (SUBLIMAZE 2-20 Slow IV ity of (PF)) 16:46: Push, [place] injection 58 Q5MIN PRN, Medi min 25 mcg 4 doses, Branch Starting on Sat05/28/22 at 1046, Until Discontinu ed, Routine, Pain (scale 4-6), PACU HYDROmorphO 0 Yes .2mg 0.2 mg, Uni vers ne 2-20 Slow IV ity of (DILAUDID) 16:46: Push, [place] injection 58 Q5MIN PRN, Medi min 0.2 mg 10 doses, Branch Starting on Sat05/28/22 at 1046, Until Discontinu ed, Routine, Pain (scale 7-10), PACU
Us e approved by (Faculty): PACU USE -ANESTHESI A SERVICE-HY DROMORPHON E INJECTIONS ondansetron 0 Yes 4mg 4 mg, Slow Univers (ZOFRAN 2-20 IV Push, ity of (PF)) 16:46: PRN, 1 [place] injection 4 58 dose, Medical mg Starting Branch on Sat05/28/22 at 1046, Until Discontinu ed, Routine, Nausea and Vomiting (N/V), PACU FENTanyl PF 2022-0 202- No 25ug 25 mcg, [place] (SUBLIMAZE 2-20 02-20 Slow IV ity o f (PF)) 16:46: 21:55 Push, [place] injection 58 :16 Q5MIN PRN, Medi min 25 mcg 4 doses, Branch Starting on Sat05/28/22 at 1046, Until Sat05/28/22 at 1555, Routine, Pain (scale 4-6), PACU HYDROmorphO 2022-0 2022- No .2mg 0.2 mg, [place] ne 2-20 02-20 Slow IV ity of (DILAUDID) 16:46: 21:55 Push, [place] injection 58 :16 Q5MIN PRN, Medi min 0.2 mg 10 doses, Branch Starting on Sat05/28/22 at 1046, Until Sat05/28/22 at 1555, Routine, Pain (scale 7-10), PACU
Us e approved by (Faculty): PACU USE -ANESTHESI A SERVICE-HY DROMORPHON E INJECTIONS ondansetron 2022- No 4mg 4 mg, Slow Univers (ZOFRAN 05-28 IV Push, ity of (PF)) 16:46: 21:55 PRN, 1 [place] injection 4 58 :16 dose, Medical mg Starting Branch on Sat05/28/22 at 1046, Until Sat05/28/22 at 1555, Routine, Nausea and Vomiting (N/V), PACU bupivacaine 2022- No PRN, Unive rs (preserv 05-28 Starting ity of free) 15:12: 16:42 on Sat (SENSORCAIN 00 :41 05/28/22 at [place] dical E MPF) 0.25 0912, Branch % (2.5 Intra-op mg/mL) 30 mL, bupivacaine liposome (PF) (EXPAREL (PF)) 1.3 % (13.3 mg/mL) 20 mg, NaCl 0.9% (NS) 70 mL sodium 2022- No PRN, [facility] chloride 05-28 Starting ity of 0.9 % 14:51: 16:42 on Sat irrigation 00 :41 05/28/22 at Med ical solution 0851, Branch Until Sat05/28/22 at 1042, Intra-op vitamin Yes 500ug Take 500 Unive rs B-12 500 2-20 mcg by ity of mcg tablet 13:55: mouth [place] 12 daily. Medical Branch [place]-3-DHA Yes Take by Uni vers -EPA-Fish 2-20 mouth. ity of Oil 1,000 13:55: [place] mg (120 12 Medical mg-180 mg) Branch Cap calcium Yes 1{tbl} Take 1 Univer s carbonate 2-20 tablet by ity o f (CALCIUM 13:55: mouth [place] 500 ORAL) 12 daily. Medical Branch loratadine/ Yes Take by Uni vers pseudoephed 2-20 mouth ity of rine 13:55: daily. [place] (CLARITIN-D 12 Medical 12 HOUR Branch ORAL) vitamin 2023-0 Yes 500ug Take 500 Unive rs B-12 500 2-20 mcg by ity of mcg tablet 13:55: mouth [place] 12 daily. Medical Branch [place]-3-DHA 2022-0 Yes Take by Uni vers -EPA-Fish 2-20 mouth. ity of Oil 1,000 13:55: [place] mg (120 12 Medical mg-180 mg) Branch Cap calcium 3-0 Yes 1{tbl} Take 1 Univer s carbonate 2-20 tablet by ity o f (CALCIUM 13:55: mouth [place] 500 ORAL) 12 daily. Medical Branch loratadine/ 2022-0 Yes Take by Uni vers pseudoephed 2-20 mouth ity of rine 13:55: daily. [place] (CLARITIN-D 12 Medical 12 HOUR Branch ORAL) vitamin 2023-0 Yes 500ug Take 500 Unive rs B-12 500 2-20 mcg by ity of mcg tablet 13:55: mouth [place] 12 daily. Medical Branch [place]-3-DHA 2022-0 Yes Take by Uni vers -EPA-Fish 2-20 mouth. ity of Oil 1,000 13:55: [place] mg (120 12 Medical mg-180 mg) Branch Cap calcium 2022-0 Yes 1{tbl} Take 1 Univer s carbonate 2-20 tablet by ity o f (CALCIUM 13:55: mouth [place] 500 ORAL) 12 daily. Medical Branch loratadine/ 2022-0 Yes Take by Uni vers pseudoephed 2-20 mouth ity of rine 13:55: daily. [place] (CLARITIN-D 12 Medical 12 HOUR Branch ORAL) vitamin 2023-0 Yes 500ug Take 500 Unive rs B-12 500 2-20 mcg by ity of mcg tablet 13:55: mouth [place] 12 daily. Medical Branch [place]-3-DHA 3-0 Yes Take by Uni vers -EPA-Fish 2-20 mouth. ity of Oil 1,000 13:55: [place] mg (120 12 Medical mg-180 mg) Branch Cap calcium 3-0 Yes 1{tbl} Take 1 Univer s carbonate 2-20 tablet by ity o f (CALCIUM 13:55: mouth [place] 500 ORAL) 12 daily. Medical Branch loratadine/ 3-0 Yes Take by Uni vers pseudoephed 2-20 mouth ity of rine 13:55: daily. [place] (CLARITIN-D 12 Medical 12 HOUR Branch ORAL) vitamin 2023-0 Yes 500ug Take 500 Unive rs B-12 500 2-20 mcg by ity of mcg tablet 13:55: mouth [place] 12 daily. Medical Branch [place]-3-DHA 2023-0 Yes Take by Uni vers -EPA-Fish 2-20 mouth. ity of Oil 1,000 13:55: [place] mg (120 12 Medical mg-180 mg) Branch Cap calcium 2023-0 Yes 1{tbl} Take 1 Univer s carbonate 2-20 tablet by ity o f (CALCIUM 13:55: mouth [place] 500 ORAL) 12 daily. Medical Branch loratadine/ 3-0 Yes Take by Uni vers pseudoephed 2-20 mouth ity of rine 13:55: daily. [place] (CLARITIN-D 12 Medical 12 HOUR Branch ORAL) vitamin 2023-0 Yes 500ug Take 500 Unive rs B-12 500 2-20 mcg by ity of mcg tablet 13:55: mouth [place] 12 daily. Medical Branch [place]-3-DHA 3-0 Yes Take by Uni vers -EPA-Fish 2-20 mouth. ity of Oil 1,000 13:55: [place] mg (120 12 Medical mg-180 mg) Branch Cap calcium 3-0 Yes 1{tbl} Take 1 Univer s carbonate 2-20 tablet by ity o f (CALCIUM 13:55: mouth [place] 500 ORAL) 12 daily. Medical Branch loratadine/ 3-0 Yes Take by Uni vers pseudoephed 2-20 mouth ity of rine 13:55: daily. [place] (CLARITIN-D 12 Medical 12 HOUR Branch ORAL) vitamin 2023-0 Yes 500ug Take 500 Unive rs B-12 500 2-20 mcg by ity of mcg tablet 13:55: mouth [place] 12 daily. Medical Branch [place]-3-DHA 2023-0 Yes Take by Uni vers -EPA-Fish 2-20 mouth. ity of Oil 1,000 13:55: [place] mg (120 12 Medical mg-180 mg) Branch Cap calcium 2023-0 Yes 1{tbl} Take 1 Univer s carbonate 2-20 tablet by ity o f (CALCIUM 13:55: mouth [place] 500 ORAL) 12 daily. Medical Branch loratadine/ 2023-0 Yes Take by Uni vers pseudoephed 2-20 mouth ity of rine 13:55: daily. [place] (CLARITIN-D 12 Medical 12 HOUR Branch ORAL) vitamin 2023-0 Yes 500ug Take 500 Unive rs B-12 500 2-20 mcg by ity of mcg tablet 13:55: mouth [place] 12 daily. Medical Branch [place]-3-DHA 2023-0 Yes Take by Uni vers -EPA-Fish 2-20 mouth. ity of Oil 1,000 13:55: [place] mg (120 12 Medical mg-180 mg) Branch Cap calcium 2023-0 Yes 1{tbl} Take 1 Univer s carbonate 2-20 tablet by ity o f (CALCIUM 13:55: mouth [place] 500 ORAL) 12 daily. Medical Branch loratadine/ 3-0 Yes Take by Uni vers pseudoephed 2-20 mouth ity of rine 13:55: daily. [place] (CLARITIN-D 12 Medical 12 HOUR Branch ORAL) vitamin 2023-0 Yes 500ug Take 500 Unive rs B-12 500 2-20 mcg by ity of mcg tablet 13:55: mouth [place] 12 daily. Medical Branch [place]-3-DHA 2023-0 Yes Take by Uni vers -EPA-Fish 2-20 mouth. ity of Oil 1,000 13:55: [place] mg (120 12 Medical mg-180 mg) Branch Cap calcium 2023-0 Yes 1{tbl} Take 1 Univer s carbonate 2-20 tablet by ity o f (CALCIUM 13:55: mouth [place] 500 ORAL) 12 daily. Medical Branch loratadine/ 3-0 Yes Take by Uni vers pseudoephed 2-20 mouth ity of rine 13:55: daily. [place] (CLARITIN-D 12 Medical 12 HOUR Branch ORAL) vitamin 2023-0 Yes 500ug Take 500 Unive rs B-12 500 2-20 mcg by ity of mcg tablet 13:55: mouth [place] 12 daily. Medical Branch [place]-3-DHA 2023-0 Yes Take by Uni vers -EPA-Fish 2-20 mouth. ity of Oil 1,000 13:55: [place] mg (120 12 Medical mg-180 mg) Branch Cap calcium 2023-0 Yes 1{tbl} Take 1 Univer s carbonate 2-20 tablet by ity o f (CALCIUM 13:55: mouth [place] 500 ORAL) 12 daily. Medical Branch loratadine/ 3-0 Yes Take by Uni vers pseudoephed 2-20 mouth ity of rine 13:55: daily. [place] (CLARITIN-D 12 Medical 12 HOUR Branch ORAL) vitamin 2023-0 Yes 500ug Take 500 Unive rs B-12 500 2-20 mcg by ity of mcg tablet 13:55: mouth [place] 12 daily. Medical Branch [place]-3-DHA 3-0 Yes Take by Uni vers -EPA-Fish 2-20 mouth. ity of Oil 1,000 13:55: [place] mg (120 12 Medical mg-180 mg) Branch Cap calcium 2023-0 Yes 1{tbl} Take 1 Univer s carbonate 2-20 tablet by ity o f (CALCIUM 13:55: mouth [place] 500 ORAL) 12 daily. Medical Branch loratadine/ 3-0 Yes Take by Uni vers pseudoephed 2-20 mouth ity of rine 13:55: daily. [place] (CLARITIN-D 12 Medical 12 HOUR Branch ORAL) vitamin 2023-0 Yes 500ug Take 500 Unive rs B-12 500 2-20 mcg by ity of mcg tablet 13:55: mouth [place] 12 daily. Medical Branch [place]-3-DHA 3-0 Yes Take by Uni vers -EPA-Fish 2-20 mouth. ity of Oil 1,000 13:55: [place] mg (120 12 Medical mg-180 mg) Branch Cap calcium 2023-0 Yes 1{tbl} Take 1 Univer s carbonate 2-20 tablet by ity o f (CALCIUM 13:55: mouth [place] 500 ORAL) 12 daily. Medical Branch loratadine/ 3-0 Yes Take by Uni vers pseudoephed 2-20 mouth ity of rine 13:55: daily. [place] (CLARITIN-D 12 Medical 12 HOUR Branch ORAL) vitamin 2023-0 Yes 500ug Take 500 Unive rs B-12 500 2-20 mcg by ity of mcg tablet 13:55: mouth [place] 12 daily. Medical Branch [place]-3-DHA 2023-0 Yes Take by Uni vers -EPA-Fish 2-20 mouth. ity of Oil 1,000 13:55: [place] mg (120 12 Medical mg-180 mg) Branch Cap calcium 2023-0 Yes 1{tbl} Take 1 Univer s carbonate 2-20 tablet by ity o f (CALCIUM 13:55: mouth [place] 500 ORAL) 12 daily. Medical Branch loratadine/ Yes Take by Uni vers pseudoephed 2-20 mouth ity of rine 13:55: daily. [place] (CLARITIN-D 12 [facility] 12 HOUR Branch ORAL) oxyCODONE-a 2022- No 2{tbl} 2 tablet, [facility] cetaminophe 05-28 Oral, ity of n 13:15: 13:09 ONCE, 1 [place] (PERCOCET) 00 :00 dose, On Medic al 5-325 mg Mon Branch per tablet 05/28/22 at 2 tablet 0715, Routine, DSU Pre-op celecoxib 2022- No 400mg 400 mg, Uni vers (CELEBREX) 05-28 Oral, ity of capsule 400 13:15: 13:09 ONCE, 1 [place] mg 00 :00 dose, On [facility] Branch 05/28/22 at 0715, Routine, DSU Pre-op gabapentin 2022- No 300mg 300 mg, Un [place] (NEURONTIN) 05-28 Oral, ity of tablet 300 13:15: 13:15 ONCE, 1 [place] mg 00 :00 dose, On [facility] Branch 05/28/22 at 0715, Routine, DSU Pre-op lactated 2022- No 1000mL at 42 Unive rs ringers IV 05-28 02-20 mL/hr, ity of infusion 13:15: 13:26 1,000 mL, [place] as 1,000 mL 00 :00 IV Medical Infusion, Branch ONCE, 1 dose, On [facility] 05/28/22 at 0715, Routine, DSU Pre-op oxyCODONE-a 2022- No 2{tbl} 2 tablet, [facility] cetaminophe 05-28 Oral, ity of n 13:15: 13:09 ONCE, 1 [place] (PERCOCET) 00 :00 dose, On Medic al 5-325 mg Mon Branch per tablet 05/28/22 at 2 tablet 0715, Routine, DSU Pre-op celecoxib 2022- No 400mg 400 mg, Uni vers (CELEBREX) 05-28 Oral, ity of capsule 400 13:15: 13:09 ONCE, 1 [place] mg 00 :00 dose, On Medical Mon Branch 05/28/22 at 0715, Routine, DSU Pre-op gabapentin 2022- No 300mg 300 mg, Un [place] (NEURONTIN) 05-2820 Oral, ity of tablet 300 13:15: 13:15 ONCE, 1 [place] mg 00 :00 dose, On Medical [facility] Branch 05/28/22 at 0715, Routine, DSU Pre-op lactated 2022- No 1000mL at 42 Unive rs ringers IV 05-2820 mL/hr, ity of infusion 13:15: 13:26 1,000 mL, [place] 1,000 mL 00 :00 IV Medical Infusion, Branch ONCE, 1 dose, On [facility] 05/28/22 at 0715, Routine, DSU Pre-op aspirin 325 2022-2022- No [id number] 325mg Take 1 [facility] mg tablet 05-28 9100 tablet by ity of 00:00: 04:59 mouth in [place] 00 :00 [facility] and 1 tablet in the evening. Take with meals. Do all this for 28 days. aspirin 325 2022-0 2022- No [id number] 325mg Take 1 [facility] mg tablet 05-28 9100 tablet by ity of 00:00: 04:59 mouth in [place] 00 :00 [facility] and 1 tablet in the evening. Take with meals. Do all this for 28 days. aspirin 325 2022-0 2022- No [id number] 325mg Take 1 [facility] mg tablet 05-28 9100 tablet by ity of 00:00: 04:59 mouth in [place] 00 :00 [facility] and 1 tablet in the evening. Take with meals. Do all this for 28 days. aspirin 325 2022-0 2022- No [id number] 325mg Take 1 [facility] mg tablet 05-28- 9100 tablet by ity of 00:00: 04:59 mouth in [place] 00 :00 [facility] and 1 tablet in the evening. Take with meals. Do all this for 28 days. aspirin 325 2022-0 2022- No [id number] 325mg Take 1 [facility] mg tablet 05-28 9100 tablet by ity of 00:00: 04:59 mouth in [place] 00 :00 the Medical morning Branch and 1 tablet in the evening. Take with meals. Do all this for 28 days. aspirin 325 2023-0 2023- No [id number] 325mg Take 1 [facility] mg tablet 2- 9100 tablet by ity of 00:00: 04:59 mouth in [place] 00 :00 the Medical morning Branch and 1 tablet in the evening. Take with meals. Do all this for 28 days. aspirin 325 2023-0 2023- No [id number] 325mg Take 1 [facility] mg tablet 2- 9100 tablet by ity of 00:00: 04:59 mouth in [place] 00 :00 the [facility] morning Branch and 1 tablet in the evening. Take with meals. Do all this for 28 days. aspirin 325 2023-0 2023- No [id number] 325mg Take 1 [facility] mg tablet 206-26 9100 tablet by ity of 00:00: 04:59 mouth in [place] 00 :00 the [facility] and 1 tablet in the evening. Take with meals. Do all this for 28 days. aspirin 325 2023-0 2023- No [id number] 325mg Take 1 [facility] mg tablet 05-28 9100 tablet by ity of 00:00: 04:59 mouth in [place] 00 :00 the [facility] and 1 tablet in the evening. Take with meals. Do all this for 28 days. aspirin 325 2023-0 2023- No [id number] 325mg Take 1 [facility] mg tablet 206-26 9100 tablet by ity of 00:00: 04:59 mouth in [place] 00 :00 the [facility] and 1 tablet in the evening. Take with meals. Do all this for 28 days. aspirin 325 2023-0 2023- No [id number] 325mg Take 1 [facility] mg tablet 2- 9100 tablet by ity of 00:00: 04:59 mouth in [place] 00 :00 the [facility] and 1 tablet in the evening. Take with meals. Do all this for 28 days. aspirin 325 2023-0 2023- No [id number] 325mg Take 1 [facility] mg tablet 2- 9100 tablet by ity of 00:00: 04:59 mouth in [place] 00 :00 the Medical morning Branch and 1 tablet in the evening. Take with meals. Do all this for 28 days. HYDROcodone 2022- No 4647 1{tbl} Take 1 U nivers -acetaminop 2-20 02-28 tablet by it y of hen 10-325 00:00: 05:59 mouth [place] mg tablet 00 :00 every 6 Medical (six) Branch hours as needed for Pain (scale 4-6) or Pain (scale 7-10) for up to 7 days. Indication s: acute pain HYDROcodone 2022- No 4647 1{tbl} Take 1 U nivers -acetaminop 2-20 02-28 tablet by it y of hen 10-325 00:00: 05:59 mouth [place] mg tablet 00 :00 every 6 Medical (six) Branch hours as needed for Pain (scale 4-6) or Pain (scale 7-10) for up to 7 days. Indication s: acute pain HYDROcodone No 4647 1{tbl} Take 1 U nivers -acetaminop 2-20 02-28 tablet by it y of hen 10-325 00:00: 05:59 mouth [place] mg tablet 00 :00 every 6 Medical (six) Branch hours as needed for Pain (scale 4-6) or Pain (scale 7-10) for up to 7 days. Indication s: acute pain HYDROcodone 2022- No 4647 1{tbl} Take 1 U nivers -acetaminop 2-20 02-28 tablet by it y of hen 10-325 00:00: 05:59 mouth [place] mg tablet 00 :00 every 6 Medical (six) Branch hours as needed for Pain (scale 4-6) or Pain (scale 7-10) for up to 7 days. Indication s: acute pain HYDROcodone 2022- No 4647 1{tbl} Take 1 U nivers -acetaminop 2-20 02-28 tablet by it y of hen 10-325 00:00: 05:59 mouth [place] mg tablet 00 :00 every 6 Medical (six) Branch hours as needed for Pain (scale 4-6) or Pain (scale 7-10) for up to 7 days. Indication s: acute pain HYDROcodone 2022- No 4647 1{tbl} Take 1 U nivers -acetaminop 2-20 02-28 tablet by it y of hen 10-325 00:00: 05:59 mouth [place] mg tablet 00 :00 every 6 Medical (six) Branch hours as needed for Pain (scale 4-6) or Pain (scale 7-10) for up to 7 days. Indication s: acute pain HYDROcodone 2022-0 2023- No 4647 1{tbl} Take 1 U nivers -acetaminop 2-20 02-28 tablet by it y of hen 10-325 00:00: 05:59 mouth [place] mg tablet 00 :00 every 6 Medical (six) Branch hours as needed for Pain (scale 4-6) or Pain (scale 7-10) for up to 7 days. Indication s: acute pain vitamin 2023-0 Yes 500ug Take 500 Unive rs B-12 500 2-08 mcg by ity of mcg tablet 10:12: mouth [place] 54 daily. Medical Branch [place]-3-DHA 2022-0 Yes Take by Uni vers -EPA-Fish 2-08 mouth. ity of Oil 1,000 10:12: [place] mg (120 54 Medical mg-180 mg) Branch Cap calcium 2022-0 Yes 1{tbl} Take 1 Univer s carbonate 2-08 tablet by ity o f (CALCIUM 10:12: mouth [place] 500 ORAL) 54 daily. Medical Branch loratadine/ 2022-0 Yes Take by Uni vers pseudoephed 2-08 mouth ity of rine 10:12: daily. [place] (CLARITIN-D 54 Medical 12 HOUR Branch ORAL) vitamin 3-0 Yes 500ug Take 500 Unive rs B-12 500 2-08 mcg by ity of mcg tablet 10:12: mouth [place] 54 daily. Medical Branch [place]-3-DHA 2022-0 Yes Take by Uni vers -EPA-Fish 2-08 mouth. ity of Oil 1,000 10:12: [place] mg (120 54 Medical mg-180 mg) Branch Cap calcium 3-0 Yes 1{tbl} Take 1 Univer s carbonate 2-08 tablet by ity o f (CALCIUM 10:12: mouth [place] 500 ORAL) 54 daily. Medical Branch loratadine/ 2022-0 Yes Take by Uni vers pseudoephed 2-08 mouth ity of rine 10:12: daily. [place] (CLARITIN-D 54 Medical 12 HOUR Branch ORAL) vitamin 2023-0 Yes 500ug Take 500 Unive rs B-12 500 2-08 mcg by ity of mcg tablet 10:12: mouth [place] 54 daily. Medical Branch [place]-3-DHA 2023-0 Yes Take by Uni vers -EPA-Fish 2-08 mouth. ity of Oil 1,000 10:12: [place] mg (120 54 Medical mg-180 mg) Branch Cap calcium 2023-0 Yes 1{tbl} Take 1 Univer s carbonate 2-08 tablet by ity o f (CALCIUM 10:12: mouth [place] 500 ORAL) 54 daily. Medical Branch loratadine/ 3-0 Yes Take by Uni vers pseudoephed 2-08 mouth ity of rine 10:12: daily. [place] (CLARITIN-D 54 Medical 12 HOUR Branch ORAL) vitamin 2023-0 Yes 500ug Take 500 Unive rs B-12 500 2-08 mcg by ity of mcg tablet 10:12: mouth [place] 54 daily. Medical Branch [place]-3-DHA 3-0 Yes Take by Uni vers -EPA-Fish 2-08 mouth. ity of Oil 1,000 10:12: [place] mg (120 54 Medical mg-180 mg) Branch Cap calcium 3-0 Yes 1{tbl} Take 1 Univer s carbonate 2-08 tablet by ity o f (CALCIUM 10:12: mouth [place] 500 ORAL) 54 daily. Medical Branch loratadine/ 3-0 Yes Take by Uni vers pseudoephed 2-08 mouth ity of rine 10:12: daily. [place] (CLARITIN-D 54 Medical 12 HOUR Branch ORAL) vitamin 2023-0 Yes 500ug Take 500 Unive rs B-12 500 2-08 mcg by ity of mcg tablet 10:12: mouth [place] 54 daily. Medical Branch [place]-3-DHA 2023-0 Yes Take by Uni vers -EPA-Fish 2-08 mouth. ity of Oil 1,000 10:12: [place] mg (120 54 Medical mg-180 mg) Branch Cap calcium 2023-0 Yes 1{tbl} Take 1 Univer s carbonate 2-08 tablet by ity o f (CALCIUM 10:12: mouth [place] 500 ORAL) 54 daily. Medical Branch loratadine/ 2023-0 Yes Take by Uni vers pseudoephed 2-08 mouth ity of rine 10:12: daily. [place] (CLARITIN-D 54 Medical 12 HOUR Branch ORAL) buPROPion 2023-0 Yes [id number] 100mg Take 1 U nivers 100 mg 1-26 tablet by ity of tablet 00:00: mouth in [place] 00 the Medical morning Branch and 1 tablet in the evening. escitalopra 2023-0 Yes [id number] 20mg Take 1 [facility] m oxalate 1-26 tablet by ity o f 20 mg 00:00: mouth in [place] tablet 00 the Medical morning. Branch buPROPion 2023-0 Yes [id number] 100mg Take 1 U nivers 100 mg 1-26 tablet by ity of tablet 00:00: mouth in [place] 00 the Medical morning Branch and 1 tablet in the evening. escitalopra 2023-0 Yes [id number] 20mg Take 1 [facility] m oxalate 1-26 tablet by ity o f 20 mg 00:00: mouth in [place] tablet 00 the Medical morning. Branch buPROPion 3-0 Yes [id number] 100mg Take 1 U nivers 100 mg 1-26 tablet by ity of tablet 00:00: mouth in [place] 00 the Medical morning Branch and 1 tablet in the evening. escitalopra 2023-0 Yes [id number] 20mg Take 1 [facility] m oxalate 1-26 tablet by ity o f 20 mg 00:00: mouth in [place] tablet 00 the Medical morning. Branch buPROPion 3-0 Yes [id number] 100mg Take 1 U nivers 100 mg 1-26 tablet by ity of tablet 00:00: mouth in [place] 00 the Medical morning Branch and 1 tablet in the evening. escitalopra 2023-0 Yes [id number] 20mg Take 1 [facility] m oxalate 1-26 tablet by ity o f 20 mg 00:00: mouth in [place] tablet 00 the Medical morning. Branch buPROPion 3-0 Yes [id number] 100mg Take 1 U nivers 100 mg 1-26 tablet by ity of tablet 00:00: mouth in [place] 00 the Medical morning Branch and 1 tablet in the evening. escitalopra 2023-0 Yes [id number] 20mg Take 1 [facility] m oxalate 1-26 tablet by ity o f 20 mg 00:00: mouth in [place] tablet 00 the Medical morning. Branch buPROPion 2023-0 Yes [id number] 100mg Take 1 U nivers 100 mg 1-26 tablet by ity of tablet 00:00: mouth in [place] 00 the Medical morning Branch and 1 tablet in the evening. escitalopra 2023-0 Yes [id number] 20mg Take 1 [facility] m oxalate 1-26 tablet by ity o f 20 mg 00:00: mouth in [place] tablet 00 the Medical morning. Branch buPROPion 2023-0 Yes [id number] 100mg Take 1 U nivers 100 mg 1-26 tablet by ity of tablet 00:00: mouth in [place] 00 the Medical morning Branch and 1 tablet in the evening. escitalopra 2023-0 Yes [id number] 20mg Take 1 [facility] m oxalate 1-26 tablet by ity o f 20 mg 00:00: mouth in [place] tablet 00 the Medical morning. Branch buPROPion 2023-0 Yes [id number] 100mg Take 1 U nivers 100 mg 1-26 tablet by ity of tablet 00:00: mouth in [place] 00 the Medical morning Branch and 1 tablet in the evening. escitalopra 2023-0 Yes [id number] 20mg Take 1 [facility] m oxalate 1-26 tablet by ity o f 20 mg 00:00: mouth in [place] tablet 00 the Medical morning. Branch buPROPion 3-0 Yes [id number] 100mg Take 1 U nivers 100 mg 1-26 tablet by ity of tablet 00:00: mouth in [place] 00 the Medical morning Branch and 1 tablet in the evening. escitalopra 2023-0 Yes [id number] 20mg Take 1 [facility] m oxalate 1-26 tablet by ity o f 20 mg 00:00: mouth in [place] tablet 00 the Medical morning. Branch buPROPion 2023-0 Yes [id number] 100mg Take 1 U nivers 100 mg 1-26 tablet by ity of tablet 00:00: mouth in [place] 00 the Medical morning Branch and 1 tablet in the evening. escitalopra 2023-0 Yes [id number] 20mg Take 1 [facility] m oxalate 1-26 tablet by ity o f 20 mg 00:00: mouth in [place] tablet 00 the Medical morning. Branch buPROPion 2023-0 Yes [id number] 100mg Take 1 U nivers 100 mg 1-26 tablet by ity of tablet 00:00: mouth in [place] 00 the Medical morning Branch and 1 tablet in the evening. escitalopra 2023-0 Yes [id number] 20mg Take 1 [facility] m oxalate 1-26 tablet by ity o f 20 mg 00:00: mouth in [place] tablet 00 the Medical morning. Branch buPROPion 3-0 Yes [id number] 100mg Take 1 U nivers 100 mg 1-26 tablet by ity of tablet 00:00: mouth in [place] 00 the Medical morning Branch and 1 tablet in the evening. escitalopra 3-0 Yes [id number] 20mg Take 1 [facility] m oxalate 1-26 tablet by ity o f 20 mg 00:00: mouth in [place] tablet 00 the Medical morning. Branch buPROPion 3-0 Yes [id number] 100mg Take 1 U nivers 100 mg 1-26 tablet by ity of tablet 00:00: mouth in [place] 00 the Medical morning Branch and 1 tablet in the evening. escitalopra 3-0 Yes [id number] 20mg Take 1 [facility] m oxalate 1-26 tablet by ity o f 20 mg 00:00: mouth in [place] tablet 00 the Medical morning. Branch buPROPion 2022-0 Yes [id number] 100mg Take 1 U nivers 100 mg 1-26 tablet by ity of tablet 00:00: mouth in [place] 00 the Medical morning Branch and 1 tablet in the evening. escitalopra 3-0 Yes [id number] 20mg Take 1 [facility] m oxalate 1-26 tablet by ity o f 20 mg 00:00: mouth in [place] tablet 00 the Medical morning. Branch buPROPion 3-0 Yes [id number] 100mg Take 1 U nivers 100 mg 1-26 tablet by ity of tablet 00:00: mouth in [place] 00 the Medical morning Branch and 1 tablet in the evening. escitalopra 3-0 Yes [id number] 20mg Take 1 [facility] m oxalate 1-26 tablet by ity o f 20 mg 00:00: mouth in [place] tablet 00 the Medical morning. Branch buPROPion 3-0 Yes [id number] 100mg Take 1 U nivers 100 mg 1-26 tablet by ity of tablet 00:00: mouth in [place] 00 the Medical morning Branch and 1 tablet in the evening. escitalopra 2023-0 Yes [id number] 20mg Take 1 [facility] m oxalate 1-26 tablet by ity o f 20 mg 00:00: mouth in [place] tablet 00 the Medical morning. Branch buPROPion 3-0 Yes [id number] 100mg Take 1 U nivers 100 mg 1-26 tablet by ity of tablet 00:00: mouth in [place] 00 the Medical morning Branch and 1 tablet in the evening. escitalopra 3-0 Yes [id number] 20mg Take 1 [facility] m oxalate 1-26 tablet by ity o f 20 mg 00:00: mouth in [place] tablet 00 the Medical morning. Branch buPROPion 3-0 Yes [id number] 100mg Take 1 U nivers 100 mg 1-26 tablet by ity of tablet 00:00: mouth in [place] 00 the Medical morning Branch and 1 tablet in the evening. escitalopra 3-0 Yes [id number] 20mg Take 1 [facility] m oxalate 1-26 tablet by ity o f 20 mg 00:00: mouth in [place] tablet 00 the Medical morning. Branch buPROPion 3-0 Yes [id number] 100mg Take 1 U nivers 100 mg 1-26 tablet by ity of tablet 00:00: mouth in [place] 00 the Medical morning Branch and 1 tablet in the evening. escitalopra 3-0 Yes [id number] 20mg Take 1 [facility] m oxalate 1-26 tablet by ity o f 20 mg 00:00: mouth in [place] tablet 00 the Medical morning. Branch buPROPion 2022-0 Yes [id number] 100mg Take 1 U nivers 100 mg 1-26 tablet by ity of tablet 00:00: mouth in [place] 00 the Medical morning Branch and 1 tablet in the evening. escitalopra 3-0 Yes [id number] 20mg Take 1 [facility] m oxalate 1-26 tablet by ity o f 20 mg 00:00: mouth in [place] tablet 00 the Medical morning. Branch buPROPion 3-0 Yes [id number] 100mg Take 1 U nivers 100 mg 1-26 tablet by ity of tablet 00:00: mouth in [place] 00 the Medical morning Branch and 1 tablet in the evening. escitalopra 2023-0 Yes [id number] 20mg Take 1 [facility] m oxalate 1-26 tablet by ity o f 20 mg 00:00: mouth in [place] tablet 00 the Medical morning. Branch buPROPion 3-0 Yes [id number] 100mg Take 1 U nivers 100 mg 1-26 tablet by ity of tablet 00:00: mouth in [place] 00 the Medical morning Branch and 1 tablet in the evening. escitalopra 2023-0 Yes [id number] 20mg Take 1 [facility] m oxalate 1-26 tablet by ity o f 20 mg 00:00: mouth in [place] tablet 00 the Medical morning. Branch buPROPion 2023-0 Yes [id number] 100mg Take 1 U nivers 100 mg 1-26 tablet by ity of tablet 00:00: mouth in [place] 00 the Medical morning Branch and 1 tablet in the evening. escitalopra 2023-0 Yes [id number] 20mg Take 1 [facility] m oxalate 1-26 tablet by ity o f 20 mg 00:00: mouth in [place] tablet 00 the Medical morning. Branch buPROPion 2023-0 Yes [id number] 100mg Take 1 U nivers 100 mg 1-26 tablet by ity of tablet 00:00: mouth in [place] 00 the Medical morning Branch and 1 tablet in the evening. escitalopra 2023-0 Yes [id number] 20mg Take 1 [facility] oxalate 1-26 tablet by [facility] o f 20 mg 00:00: mouth in [place] tablet 00 the Medical morning. Branch buPROPion 3-0 Yes [id number] 100mg Take 1 [facility] nivers 100 mg 1-26 tablet by ity of tablet 00:00: mouth in [place] 00 the Medical morning Branch and 1 tablet in the evening. escitalopra 2023-0 Yes [id number] 20mg Take 1 [facility] oxalate 1-26 tablet by ity o f 20 mg 00:00: mouth in [place] tablet 00 the Medical morning. Branch buPROPion 3-0 Yes [id number] 100mg Take 1 [facility] n[facility] 100 mg 1-26 tablet by it[facility] of tablet 00:00: mouth in [place] 00 the Medical morning Branch and 1 tablet in the evening. escitalopra 2023-0 Yes [id number] 20mg Take 1 [facility] oxalate 1-26 tablet by ity o f 20 mg 00:00: mouth in [place] tablet 00 the Medical morning. Branch buPROPion 2023-0 Yes [id number] 100mg Take 1 [facility] 100 mg 1-26 tablet by it[facility] of tablet 00:00: mouth in [place] 00 the Medical morning Branch and 1 tablet in the evening. escitalopra 2023-0 Yes [id number] 20mg Take 1 [facility] oxalate 1-26 tablet by ity o f 20 mg 00:00: mouth in [place] tablet 00 the Medical morning. Branch buPROPion 2023-0 Yes [id number] 100mg Take 1 [facility] 100 mg 1-26 tablet by it[facility] of tablet 00:00: mouth in [place] 00 the Medical morning Branch and 1 tablet in the evening. escitalopra 2023-0 Yes [id number] 20mg Take 1 [facility] oxalate 1-26 tablet by ity o f 20 mg 00:00: mouth in [place] tablet 00 the Medical morning. Branch buPROPion 2023-0 Yes [id number] 100mg Take 1 [facility] 100 mg 1-26 tablet by it[facility] of tablet 00:00: mouth in [place] 00 the Medical morning Branch and 1 tablet in the evening. escitalopra 2023-0 Yes [id number] 20mg Take 1 [facility] oxalate 1-26 tablet by ity o f 20 mg 00:00: mouth in [place] tablet 00 the Medical morning. Branch buPROPion 3-0 Yes [id number] 100mg Take 1 [facility] 100 mg 1-26 tablet by [facility] of tablet 00:00: mouth in [place] 00 the Medical morning Branch and 1 tablet in the evening. escitalopra 3-0 Yes [id number] 20mg Take 1 [facility] oxalate 1-26 tablet by ity o f 20 mg 00:00: mouth in [place] tablet 00 the Medical morning. Branch buPROPion 3-0 Yes [id number] 100mg Take 1 [facility] 100 mg 1-26 tablet by [facility] of tablet 00:00: mouth in [place] 00 the Medical morning Branch and 1 tablet in the evening. escitalopra 2023-0 Yes [id number] 20mg Take 1 [facility] oxalate 1-26 tablet by ity o f 20 mg 00:00: mouth in [place] tablet 00 the Medical morning. Branch buPROPion 3-0 Yes [id number] 100mg Take 1 [facility] 100 mg 1-26 tablet by [facility] of tablet 00:00: mouth in [place] 00 the Medical morning Branch and 1 tablet in the evening. escitalopra 2023-0 Yes [id number] 20mg Take 1 [facility] oxalate 1-26 tablet by ity o f 20 mg 00:00: mouth in [place] tablet 00 the Medical morning. Branch buPROPion 2023-0 Yes [id number] 100mg Take 1 [facility] 100 mg 1-26 tablet by it[facility] of tablet 00:00: mouth in [place] 00 the Medical morning Branch and 1 tablet in the evening. escitalopra 2023-0 Yes [id number] 20mg Take 1 [facility] oxalate 1-26 tablet by ity o f 20 mg 00:00: mouth in [place] tablet 00 the Medical morning. Branch buPROPion 3-0 Yes [id number] 100mg Take 1 [facility] 100 mg 1-26 tablet by [facility] of tablet 00:00: mouth in [place] 00 the Medical morning Branch and 1 tablet in the evening. escitalopra 2023-0 Yes [id number] 20mg Take 1 [facility] oxalate 1-26 tablet by ity o f 20 mg 00:00: mouth in [place] tablet 00 the Medical morning. Branch buPROPion 3-0 Yes [id number] 100mg Take 1 [facility] 100 mg 1-26 tablet by [facility] of tablet 00:00: mouth in [place] 00 the Medical morning Branch and 1 tablet in the evening. escitalopra 3-0 Yes [id number] 20mg Take 1 [facility] oxalate 1-26 tablet by ity o f 20 mg 00:00: mouth in [place] tablet 00 the Medical morning. Branch ALENDRONATE 2021-1 Yes [id number] 70mg TAKE 1 [facility] 70 mg 2-12 TABLET BY it[facility] of tablet 00:00: MOUTH [place] 00 WEEKLY. Medical Branch ALENDRONATE 2021-1 Yes [id number] 70mg TAKE 1 [facility] 70 mg 2-12 TABLET BY [facility] of tablet 00:00: MOUTH [place] 00 WEEKLY. Medical Branch ALENDRONATE 2021-1 Yes [id number] 70mg TAKE 1 [facility] 70 mg 2-12 TABLET BY it[facility] of tablet 00:00: MOUTH [place] 00 WEEKLY. Medical Branch ALENDRONATE 2021-1 Yes [id number] 70mg TAKE 1 [facility] 70 mg 2-12 TABLET BY ity of tablet 00:00: MOUTH [place] 00 WEEKLY. Medical Branch ALENDRONATE 2-1 Yes [id number] 70mg TAKE 1 [facility] 70 mg 2-12 TABLET BY ity of tablet 00:00: MOUTH [place] 00 WEEKLY. Medical Branch ALENDRONATE 2-1 Yes [id number] 70mg TAKE 1 [facility] 70 mg 2-12 TABLET BY [facility]y of tablet 00:00: MOUTH [place] 00 WEEKLY. Medical Branch ALENDRONATE 2-1 Yes [id number] 70mg TAKE 1 [facility] 70 mg 2-12 TABLET BY it[facility] of tablet 00:00: MOUTH [place] 00 WEEKLY. Medical Branch ALENDRONATE 2-1 Yes [id number] 70mg TAKE 1 [facility] 70 mg 2-12 TABLET BY ity of tablet 00:00: MOUTH [place] 00 WEEKLY. Medical Branch ALENDRONATE 2-1 Yes [id number] 70mg TAKE 1 [facility] 70 mg 2-12 TABLET BY [facility]y of tablet 00:00: MOUTH [place] 00 WEEKLY. Medical Branch ALENDRONATE 2-1 Yes [id number] 70mg TAKE 1 [facility] 70 mg 2-12 TABLET BY [facility]y of tablet 00:00: MOUTH [place] 00 WEEKLY. Medical Branch ALENDRONATE 2-1 Yes [id number] 70mg TAKE 1 [facility] 70 mg 2-12 TABLET BY [facility] of tablet 00:00: MOUTH [place] 00 WEEKLY. Medical Branch ALENDRONATE 2-1 Yes [id number] 70mg TAKE 1 [facility] 70 mg 2-12 TABLET BY [facility]y of tablet 00:00: MOUTH [place] 00 WEEKLY. Medical Branch ALENDRONATE 2-1 Yes [id number] 70mg TAKE 1 [facility] 70 mg 2-12 TABLET BY [facility] of tablet 00:00: MOUTH [place] 00 WEEKLY. Medical Branch ALENDRONATE 2-1 Yes [id number] 70mg TAKE 1 [facility] 70 mg 2-12 TABLET BY [facility] of tablet 00:00: MOUTH [place] 00 WEEKLY. Medical Branch ALENDRONATE 2-1 Yes [id number] 70mg TAKE 1 [facility] 70 mg 2-12 TABLET BY [facility] of tablet 00:00: MOUTH [place] 00 WEEKLY. Medical Branch ALENDRONATE 2-1 Yes [id number] 70mg TAKE 1 [facility] 70 mg 2-12 TABLET BY ity of tablet 00:00: MOUTH [place] 00 WEEKLY. Medical Branch ALENDRONATE 2-1 Yes [id number] 70mg TAKE 1 [facility] 70 mg 2-12 TABLET BY ity of tablet 00:00: MOUTH [place] 00 WEEKLY. Medical Branch ALENDRONATE 2-1 Yes [id number] 70mg TAKE 1 [facility] 70 mg 2-12 TABLET BY [facility]y of tablet 00:00: MOUTH [place] 00 WEEKLY. Medical Branch ALENDRONATE 2-1 Yes [id number] 70mg TAKE 1 [facility] 70 mg 2-12 TABLET BY ity of tablet 00:00: MOUTH [place] 00 WEEKLY. Medical Branch ALENDRONATE 2-1 Yes [id number] 70mg TAKE 1 [facility] 70 mg 2-12 TABLET BY ity of tablet 00:00: MOUTH [place] 00 WEEKLY. Medical Branch ALENDRONATE 2-1 Yes [id number] 70mg TAKE 1 [facility] 70 mg 2-12 TABLET BY ity of tablet 00:00: MOUTH [place] 00 WEEKLY. Medical Branch ALENDRONATE 2-1 Yes [id number] 70mg TAKE 1 [facility] 70 mg 2-12 TABLET BY ity of tablet 00:00: MOUTH [place] 00 WEEKLY. Medical Branch ALENDRONATE 2-1 Yes [id number] 70mg TAKE 1 [facility] 70 mg 2-12 TABLET BY ity of tablet 00:00: MOUTH [place] 00 WEEKLY. Medical Branch ALENDRONATE 2021-1 Yes [id number] 70mg TAKE 1 [facility] 70 mg 2-12 TABLET BY ity of tablet 00:00: MOUTH [place] 00 WEEKLY. Medical Branch ALENDRONATE 2021-1 Yes [id number] 70mg TAKE 1 [facility] 70 mg 2-12 TABLET BY ity of tablet 00:00: MOUTH [place] 00 WEEKLY. Medical Branch ALENDRONATE 2021-1 Yes [id number] 70mg TAKE 1 [facility] 70 mg 2-12 TABLET BY ity of tablet 00:00: MOUTH [place] 00 WEEKLY. Medical Branch ALENDRONATE 2021-1 Yes [id number] 70mg TAKE 1 [facility] 70 mg 2-12 TABLET BY ity of tablet 00:00: MOUTH [place] 00 WEEKLY. Medical Branch ALENDRONATE 2-1 Yes [id number] 70mg TAKE 1 [facility] 70 mg 2-12 TABLET BY ity of tablet 00:00: MOUTH [place] 00 WEEKLY. Medical Branch ALENDRONATE 2-1 Yes [id number] 70mg TAKE 1 [facility] 70 mg 2-12 TABLET BY ity of tablet 00:00: MOUTH [place] 00 WEEKLY. Medical Branch ALENDRONATE 2-1 Yes [id number] 70mg TAKE 1 [facility] 70 mg 2-12 TABLET BY ity of tablet 00:00: MOUTH [place] 00 WEEKLY. Medical Branch ALENDRONATE 2-1 Yes [id number] 70mg TAKE 1 [facility] 70 mg 2-12 TABLET BY ity of tablet 00:00: MOUTH [place] 00 WEEKLY. Medical Branch ALENDRONATE 2-1 Yes [id number] 70mg TAKE 1 [facility] 70 mg 2-12 TABLET BY ity of tablet 00:00: MOUTH [place] 00 WEEKLY. Medical Branch ALENDRONATE 2-1 Yes [id number] 70mg TAKE 1 [facility] 70 mg 2-12 TABLET BY ity of tablet 00:00: MOUTH [place] 00 WEEKLY. Medical Branch ALENDRONATE 2022-1 Yes [id number] 70mg TAKE 1 [facility] 70 mg 2-12 TABLET BY ity of tablet 00:00: MOUTH [place] 00 WEEKLY. Medical Branch ALENDRONATE 2021- Yes [id number] 70mg TAKE 1 [facility] 70 mg 2-12 TABLET BY ity of tablet 00:00: MOUTH [place] 00 WEEKLY. Medical Branch ALENDRONATE 2021- Yes [id number] 70mg TAKE 1 [facility] 70 mg 2-12 TABLET BY ity of tablet 00:00: MOUTH [place] 00 WEEKLY. Medical Branch ALENDRONATE 2021- Yes [id number] 70mg TAKE 1 [facility] 70 mg 2-12 TABLET BY ity of tablet 00:00: MOUTH [place] 00 WEEKLY. Medical Branch ALENDRONATE 2021- Yes [id number] 70mg TAKE 1 [facility] 70 mg 2-12 TABLET BY ity of tablet 00:00: MOUTH [place] 00 WEEKLY. Medical Branch ALENDRONATE 2021- Yes [id number] 70mg TAKE 1 [facility] 70 mg 2-12 TABLET BY ity of tablet 00:00: MOUTH [place] 00 WEEKLY. Medical Branch ALENDRONATE 2021- Yes [id number] 70mg TAKE 1 [facility] 70 mg 2-12 TABLET BY ity of tablet 00:00: MOUTH [place] 00 WEEKLY. Medical Branch ALENDRONATE 2021- Yes [id number] 70mg TAKE 1 [facility] 70 mg 2-12 TABLET BY ity of tablet 00:00: MOUTH [place] 00 WEEKLY. Medical Branch ALENDRONATE 2021- Yes [id number] 70mg TAKE 1 [facility] 70 mg 2-12 TABLET BY ity of tablet 00:00: MOUTH [place] 00 WEEKLY. Medical Branch ALENDRONATE 2021- Yes [id number] 70mg TAKE 1 [facility] 70 mg 2-12 TABLET BY ity of tablet 00:00: MOUTH [place] 00 WEEKLY. Medical Branch triamcinolo 2021- Yes [id number] Apply to [facility] ne 1-29 area(s) 2 ity of acetonide 00:00: (two) [place] 0.1 % 00 times Medical ointment daily. Branch triamcinolo 2021- Yes [id number] Apply to [facility] ne 1-29 area(s) 2 ity of acetonide 00:00: (two) [place] 0.1 % 00 times Medical ointment daily. Branch triamcinolo 2021- Yes [id number] Apply to [facility] ne 1-29 area(s) 2 ity of acetonide 00:00: (two) [place] 0.1 % 00 times Medical ointment daily. Branch triamcinolo 2021-04 Yes [id number] Apply to [facility] ne 1-29 area(s) 2 ity of acetonide 00:00: (two) [place] 0.1 % 00 times Medical ointment daily. Branch triamcinolo 2021-04 Yes [id number] Apply to [facility] ne 1-29 area(s) 2 ity of acetonide 00:00: (two) [place] 0.1 % 00 times Medical ointment daily. Branch triamcinolo 2021-04 Yes [id number] Apply to [facility] ne 1-29 area(s) 2 ity of acetonide 00:00: (two) [place] 0.1 % 00 times Medical ointment daily. Branch triamcinolo 2021-04 Yes [id number] Apply to [facility] ne 1-29 area(s) 2 ity of acetonide 00:00: (two) [place] 0.1 % 00 times Medical ointment daily. Branch triamcineladio 2021-04 Yes [id number] Apply to [facility] ne 1-29 area(s) 2 ity of acetonide 00:00: (two) [place] 0.1 % 00 times Medical ointment daily. Branch triamcineladio 2021-04 Yes [id number] Apply to [facility] ne 1-29 area(s) 2 ity of acetonide 00:00: (two) [place] 0.1 % 00 times Medical ointment daily. Branch triamcineladio 2021-04 Yes [id number] Apply to [facility] ne 1-29 area(s) 2 ity of acetonide 00:00: (two) [place] 0.1 % 00 times Medical ointment daily. Branch triamcinolo 2021-04 Yes [id number] Apply to [facility] ne 1-29 area(s) 2 ity of acetonide 00:00: (two) [place] 0.1 % 00 times Medical ointment daily. Branch triamcinolo 2021-04 Yes [id number] Apply to [facility] ne 1-29 area(s) 2 ity of acetonide 00:00: (two) [place] 0.1 % 00 times Medical ointment daily. Branch triamcinolo 2021- Yes [id number] Apply to [facility] ne 1-29 area(s) 2 ity of acetonide 00:00: (two) [place] 0.1 % 00 times Medical ointment daily. Branch triamcinolo 2021-04 Yes [id number] Apply to [facility] ne 1-29 area(s) 2 ity of acetonide 00:00: (two) [place] 0.1 % 00 times Medical ointment daily. Branch triamcinolo 2021-04 Yes [id number] Apply to [facility] ne 1-29 area(s) 2 ity of acetonide 00:00: (two) [place] 0.1 % 00 times Medical ointment daily. Branch triamcinolo 2021-04 Yes [id number] Apply to [facility] ne 1-29 area(s) 2 ity of acetonide 00:00: (two) [place] 0.1 % 00 times Medical ointment daily. Branch triamcinolo 2021-04 Yes [id number] Apply to [facility] ne 1-29 area(s) 2 ity of acetonide 00:00: (two) [place] 0.1 % 00 times Medical ointment daily. Branch triamcineladio 2021-04 Yes [id number] Apply to [facility] ne 1-29 area(s) 2 ity of acetonide 00:00: (two) [place] 0.1 % 00 times Medical ointment daily. Branch triamcineladio 2021-04 Yes [id number] Apply to [facility] ne 1-29 area(s) 2 ity of acetonide 00:00: (two) [place] 0.1 % 00 times Medical ointment daily. Branch triamcineladio 2021-04 Yes [id number] Apply to [facility] ne 1-29 area(s) 2 ity of acetonide 00:00: (two) [place] 0.1 % 00 times Medical ointment daily. Branch triamcinolo 2021-04 Yes [id number] Apply to [facility] ne 1-29 area(s) 2 ity of acetonide 00:00: (two) [place] 0.1 % 00 times Medical ointment daily. Branch triamcinolo 2021-04 Yes [id number] Apply to [facility] ne 1-29 area(s) 2 ity of acetonide 00:00: (two) [place] 0.1 % 00 times Medical ointment daily. Branch triamcinolo 2021- Yes [id number] Apply to [facility] ne 1-29 area(s) 2 ity of acetonide 00:00: (two) [place] 0.1 % 00 times Medical ointment daily. Branch triamcinolo 2021-04 Yes [id number] Apply to [facility] ne 1-29 area(s) 2 ity of acetonide 00:00: (two) [place] 0.1 % 00 times Medical ointment daily. Branch triamcinolo 2021-04 Yes [id number] Apply to [facility] ne 1-29 area(s) 2 ity of acetonide 00:00: (two) [place] 0.1 % 00 times Medical ointment daily. Branch triamcinolo 2021-04 Yes [id number] Apply to [facility] ne 1-29 area(s) 2 ity of acetonide 00:00: (two) [place] 0.1 % 00 times Medical ointment daily. Branch triamcinolo 2021-04 Yes [id number] Apply to [facility] ne 1-29 area(s) 2 ity of acetonide 00:00: (two) [place] 0.1 % 00 times Medical ointment daily. Branch triamcineladio 2021-04 Yes [id number] Apply to [facility] ne 1-29 area(s) 2 ity of acetonide 00:00: (two) [place] 0.1 % 00 times Medical ointment daily. Branch triamcineladio 2021-04 Yes [id number] Apply to [facility] ne 1-29 area(s) 2 ity of acetonide 00:00: (two) [place] 0.1 % 00 times Medical ointment daily. Branch triamcineladio 2021-04 Yes [id number] Apply to [facility] ne 1-29 area(s) 2 ity of acetonide 00:00: (two) [place] 0.1 % 00 times Medical ointment daily. Branch triamcinolo 2021-04 Yes [id number] Apply to [facility] ne 1-29 area(s) 2 ity of acetonide 00:00: (two) [place] 0.1 % 00 times Medical ointment daily. Branch triamcinolo 2021-04 Yes [id number] Apply to [facility] ne 1-29 area(s) 2 ity of acetonide 00:00: (two) [place] 0.1 % 00 times Medical ointment daily. Branch triamcinolo 2021- Yes [id number] Apply to [facility] ne 1-29 area(s) 2 ity of acetonide 00:00: (two) [place] 0.1 % 00 times Medical ointment daily. Branch triamcinolo 2021-04 Yes [id number] Apply to [facility] ne 1-29 area(s) 2 ity of acetonide 00:00: (two) [place] 0.1 % 00 times Medical ointment daily. Branch triamcinolo 2021-04 Yes [id number] Apply to [facility] ne 1-29 area(s) 2 ity of acetonide 00:00: (two) [place] 0.1 % 00 times Medical ointment daily. Branch triamcinolo 2021-04 Yes [id number] Apply to [facility] ne 1-29 area(s) 2 ity of acetonide 00:00: (two) [place] 0.1 % 00 times Medical ointment daily. Branch triamcinolo 2021-04 Yes [id number] Apply to [facility] ne 1-29 area(s) 2 ity of acetonide 00:00: (two) [place] 0.1 % 00 times Medical ointment daily. Branch triamcineladio 2021-04 Yes [id number] Apply to [facility] ne 1-29 area(s) 2 ity of acetonide 00:00: (two) [place] 0.1 % 00 times Medical ointment daily. Branch triamcineladio 2021-04 Yes [id number] Apply to [facility] ne 1-29 area(s) 2 ity of acetonide 00:00: (two) [place] 0.1 % 00 times Medical ointment daily. Branch triamcineladio 2021-04 Yes [id number] Apply to [facility] ne 1-29 area(s) 2 ity of acetonide 00:00: (two) [place] 0.1 % 00 times Medical ointment daily. Branch triamcinolo 2021-04 Yes [id number] Apply to [facility] ne 1-29 area(s) 2 ity of acetonide 00:00: (two) [place] 0.1 % 00 times Medical ointment daily. Branch triamcinolo 2021-04 Yes [id number] Apply to [facility] ne 1-29 area(s) 2 ity of acetonide 00:00: (two) [place] 0.1 % 00 times Medical ointment daily. Branch triamcinolo 2021- Yes [id number] Apply to [facility] ne 1-29 area(s) 2 ity of acetonide 00:00: (two) [place] 0.1 % 00 times Medical ointment daily. Branch triamcinolo 2021-04 Yes [id number] Apply to [facility] ne 1-29 area(s) 2 ity of acetonide 00:00: (two) [place] 0.1 % 00 times Medical ointment daily. Branch triamcinolo 2021-04 [id number] Apply to [facility] ne 1-29 area(s) 2 ity of acetonide 00:00: (two) [place] 0.1 % 00 times Medical ointment daily. Branch PANTOPRAZOL Yes [id number] 40mg TAKE 1 [facility] E 40 mg EC 9-23 TABLET BY ity of tablet 00:00: [facility] DAILY Medical Branch PANTOPRAZOL Yes [id number] 40mg TAKE 1 [facility] E 40 mg EC 9-23 TABLET BY ity of tablet 00:00: [facility] DAILY Medical Branch PANTOPRAZOL 0 Yes [id number] 40mg TAKE 1 [facility] E 40 mg EC 9-23 TABLET BY ity of tablet 00:00: [facility] DAILY Medical Branch PANTOPRAZOL 2021-0 Yes [id number] 40mg TAKE 1 [facility] E 40 mg EC 9-23 TABLET BY ity of tablet 00:00: [facility] DAILY Medical Branch PANTOPRAZOL 2021-0 Yes [id number] 40mg TAKE 1 [facility] E 40 mg EC 9-23 TABLET BY ity of tablet 00:00: [facility] DAILY Medical Branch PANTOPRAZOL 2021-0 Yes [id number] 40mg TAKE 1 [facility] E 40 mg EC 9-23 TABLET BY ity of tablet 00:00: [facility] DAILY Medical Branch PANTOPRAZOL 2021-0 Yes [id number] 40mg TAKE 1 [facility] E 40 mg EC 9-23 TABLET BY ity of tablet 00:00: [facility] DAILY Medical Branch PANTOPRAZOL 2021-0 Yes [id number] 40mg TAKE 1 [facility] E 40 mg EC 9-23 TABLET BY ity of tablet 00:00: [facility] DAILY Medical Branch PANTOPRAZOL 2021-0 Yes [id number] 40mg TAKE 1 [facility] E 40 mg EC 9-23 TABLET BY ity of tablet 00:00: [facility] DAILY Medical Branch PANTOPRAZOL 2021-0 Yes [id number] 40mg TAKE 1 [facility] E 40 mg EC 9-23 TABLET BY ity of tablet 00:00: [facility] DAILY Medical Branch PANTOPRAZOL 2021-0 Yes [id number] 40mg TAKE 1 [facility] E 40 mg EC 9-23 TABLET BY ity of tablet 00:00: [facility] DAILY Medical Branch PANTOPRAZOL 0 Yes [id number] 40mg TAKE 1 [facility] E 40 mg EC 9-23 TABLET BY ity of tablet 00:00: [facility] DAILY Medical Branch PANTOPRAZOL 2021-0 Yes [id number] 40mg TAKE 1 [facility] E 40 mg EC 9-23 TABLET BY ity of tablet 00:00: [facility] DAILY Medical Branch PANTOPRAZOL Yes [id number] 40mg TAKE 1 [facility] E 40 mg EC 9-23 TABLET BY ity of tablet 00:00: [facility] DAILY Medical Branch PANTOPRAZOL 0 Yes [id number] 40mg TAKE 1 [facility] E 40 mg EC 9-23 TABLET BY ity of tablet 00:00: [facility] DAILY Medical Branch PANTOPRAZOL 2021-0 Yes [id number] 40mg TAKE 1 [facility] E 40 mg EC 9-23 TABLET BY ity of tablet 00:00: [facility] DAILY Medical Branch PANTOPRAZOL 2021-0 Yes [id number] 40mg TAKE 1 [facility] E 40 mg EC 9-23 TABLET BY ity of tablet 00:00: [facility] DAILY Medical Branch PANTOPRAZOL 2021-0 Yes [id number] 40mg TAKE 1 [facility] E 40 mg EC 9-23 TABLET BY ity of tablet 00:00: [facility] DAILY Medical Branch PANTOPRAZOL 2021-0 Yes [id number] 40mg TAKE 1 [facility] E 40 mg EC 9-23 TABLET BY ity of tablet 00:00: [facility] DAILY Medical Branch PANTOPRAZOL 2021-0 Yes [id number] 40mg TAKE 1 [facility] E 40 mg EC 9-23 TABLET BY ity of tablet 00:00: [facility] DAILY Medical Branch PANTOPRAZOL 2021-0 Yes [id number] 40mg TAKE 1 [facility] E 40 mg EC 9-23 TABLET BY ity of tablet 00:00: [facility] DAILY Medical Branch PANTOPRAZOL 2021-0 Yes [id number] 40mg TAKE 1 [facility] E 40 mg EC 9-23 TABLET BY ity of tablet 00:00: [facility] DAILY Medical Branch PANTOPRAZOL 2021-0 Yes [id number] 40mg TAKE 1 [facility] E 40 mg EC 9-23 TABLET BY ity of tablet 00:00: [facility] DAILY Medical Branch PANTOPRAZOL 2021-0 Yes [id number] 40mg TAKE 1 [facility] E 40 mg EC 9-23 TABLET BY ity of tablet 00:00: [facility] DAILY Medical Branch PANTOPRAZOL 2021-0 Yes [id number] 40mg TAKE 1 [facility] E 40 mg EC 9-23 TABLET BY ity of tablet 00:00: [facility] DAILY Medical Branch PANTOPRAZOL 2021-0 Yes [id number] 40mg TAKE 1 [facility] E 40 mg EC 9-23 TABLET BY ity of tablet 00:00: [facility] DAILY Medical Branch PANTOPRAZOL 2021-0 Yes [id number] 40mg TAKE 1 [facility] E 40 mg EC 9-23 TABLET BY ity of tablet 00:00: [facility] DAILY Medical Branch PANTOPRAZOL 2021-0 Yes [id number] 40mg TAKE 1 [facility] E 40 mg EC 9-23 TABLET BY ity of tablet 00:00: [facility] DAILY Medical Branch PANTOPRAZOL 2021-0 Yes [id number] 40mg TAKE 1 [facility] E 40 mg EC 9-23 TABLET BY ity of tablet 00:00: [facility] DAILY Medical Branch PANTOPRAZOL 2021-0 Yes [id number] 40mg TAKE 1 [facility] E 40 mg EC 9-23 TABLET BY ity of tablet 00:00: [facility] DAILY Medical Branch PANTOPRAZOL 2021-0 Yes [id number] 40mg TAKE 1 [facility] E 40 mg EC 9-23 TABLET BY ity of tablet 00:00: [facility] DAILY Medical Branch PANTOPRAZOL 2021-0 Yes [id number] 40mg TAKE 1 [facility] E 40 mg EC 9-23 TABLET BY ity of tablet 00:00: [facility] DAILY Medical Branch PANTOPRAZOL 2021-0 Yes [id number] 40mg TAKE 1 [facility] E 40 mg EC 9-23 TABLET BY ity of tablet 00:00: [facility] DAILY Medical Branch PANTOPRAZOL 2021-0 Yes [id number] 40mg TAKE 1 [facility] E 40 mg EC 9-23 TABLET BY ity of tablet 00:00: [facility] DAILY Medical Branch PANTOPRAZOL 2021-0 Yes [id number] 40mg TAKE 1 [facility] E 40 mg EC 9-23 TABLET BY ity of tablet 00:00: [facility] DAILY Medical Branch PANTOPRAZOL 2021-0 Yes [id number] 40mg TAKE 1 [facility] E 40 mg EC 9-23 TABLET BY ity of tablet 00:00: [facility] DAILY Medical Branch PANTOPRAZOL 0 Yes [id number] 40mg TAKE 1 [facility] E 40 mg EC 9-23 TABLET BY ity of tablet 00:00: [facility] DAILY Medical Branch PANTOPRAZOL 2021-0 Yes [id number] 40mg TAKE 1 [facility] E 40 mg EC 9-23 TABLET BY ity of tablet 00:00: [facility] DAILY Medical Branch PANTOPRAZOL Yes [id number] 40mg TAKE 1 [facility] E 40 mg EC 9-23 TABLET BY ity of tablet 00:00: [facility] DAILY Medical Branch PANTOPRAZOL 0 Yes [id number] 40mg TAKE 1 [facility] E 40 mg EC 9-23 TABLET BY ity of tablet 00:00: [facility] DAILY Medical Branch PANTOPRAZOL 2021-0 Yes [id number] 40mg TAKE 1 [facility] E 40 mg EC 9-23 TABLET BY ity of tablet 00:00: [facility] DAILY Medical Branch PANTOPRAZOL 2021-0 Yes [id number] 40mg TAKE 1 [facility] E 40 mg EC 9-23 TABLET BY ity of tablet 00:00: [facility] DAILY Medical Branch PANTOPRAZOL 2021-0 Yes [id number] 40mg TAKE 1 [facility] E 40 mg EC 9-23 TABLET BY ity of tablet 00:00: [facility] DAILY Medical Branch PANTOPRAZOL 2021-0 Yes [id number] 40mg TAKE 1 [facility] E 40 mg EC 9-23 TABLET BY ity of tablet 00:00: [facility] DAILY Medical Branch PANTOPRAZOL 2021-0 Yes [id number] 40mg TAKE 1 [facility] E 40 mg EC 9-23 TABLET BY ity of tablet 00:00: [facility] DAILY Medical Branch PANTOPRAZOL 2021-0 Yes [id number] 40mg TAKE 1 [facility] E 40 mg EC 9-23 TABLET BY ity of tablet 00:00: [facility] DAILY Medical Branch PANTOPRAZOL 2021-0 Yes [id number] 40mg TAKE 1 [facility] E 40 mg EC 9-23 TABLET BY ity of tablet 00:00: [facility] DAILY Medical Branch PANTOPRAZOL 0 Yes [id number] 40mg TAKE 1 [facility] E 40 mg EC 9-23 TABLET BY ity of tablet 00:00: MOUTH DAILY Medical Branch PANTOPRAZOL Yes [id number] 40mg TAKE 1 [facility] E 40 mg EC 9-23 TABLET BY ity of tablet 00:00: MOUTH DAILY Medical Branch betamethaso 0 2021- No [id number] 6mg U nivers ne acet,sod 12-20 ity of phos 21:15: 20:21 [place] (CELESTONE 00 :00 Medical SOLUSPAN) 6 Branch mg/mL injection 6 mg triamcinolo 2021- No [id number] 40mg U nivers ne 12-20 ity of acetonide 21:15: 20:22 [place] (KENALOG) 00 :00 Medical injection Branch 40 mg triamcinolo 2021- No [id number] 40mg 40 mg, [facility] ne 12-20 Intramuscu ity of acetonide 21:15: 20:22 [place], [place]CE, [place]KENALOG[place] 00 :00 1 dose, On Medi min injection Wed Branch 40 mg 12/20/21 at 1615, Routine betamethaso 2021- No [id number] 6mg 6 mg, [facility] ne acet,sod 12-20 Intramuscu i ty of phos 21:15: 20:21 lar, ONCE, [place] (CELESTONE 00 :00 1 dose, On Med ical SOLUSPAN) 6 Wed Branch mg/mL 12/20/21 at injection 6 1615, mg Routine azithromyci Yes [id number] 500mg Take 1 [facility] n 500 mg 9-14 tablet by ity of tablet 00:00: mouth in [place] 00 the Medical morning. Branch azithromyci Yes [id number] 500mg Take 1 [facility] n 500 mg 9-14 tablet by ity of tablet 00:00: mouth in [place] 00 the Medical morning. Branch azithromyci 0 Yes [id number] 500mg Take 1 [facility] n 500 mg 9-14 tablet by ity of tablet 00:00: mouth in [place] 00 the Medical morning. Branch azithromyci Yes [id number] 500mg Take 1 [facility] 500 mg 9-14 tablet by [facility] of tablet 00:00: mouth in [place] 00 the Medical morning. Branch azithromyci Yes [id number] 500mg Take 1 [facility] 500 mg 9-14 tablet by ity of tablet 00:00: mouth in [place] 00 the Medical morning. Branch azithromyci 2021- No [id number] 500mg Take 1 [facility] n 500 mg 9-14 11-29 tablet by ity o f tablet 00:00: 00:00 mouth in [place] 00 :00 the Medical morning. Branch azithromyci 2021- No [id number] 500mg Take 1 [facility] n 500 mg 9-14 -29 tablet by ity o f tablet 00:00: 00:00 mouth in [place] 00 :00 the Medical morning. Branch ondansetron 2021- No [id number] 4mg Take 1 [facility] (ZOFRAN) 4 12-1318 tablet by ity of mg tablet 00:00: 04:59 mouth [place] 00 :00 every 8 Medical (eight) Branch hours as needed for Nausea and Vomiting (N/V) for up to 10 days. ATORVASTATI Yes [id number] 40mg TAKE 1 [facility] N 40 mg 8-22 TABLET BY ity of tablet 00:00: MOUTH AT [place] [address] BEDTIME Medical Branch CARVEDILOL Yes [id number] TAKE 1 [facility] 3.125 mg 8-22 TABLET BY ity of tablet 00:00: MOUTH [place] 00 TWICE Medical DAILY WITH Branch MEALS ATORVASTATI Yes [id number] 40mg TAKE 1 [facility] N 40 mg 8-22 TABLET BY ity of tablet 00:00: MOUTH AT [place] [address] BEDTIME Medical Branch CARVEDILOL Yes [id number] TAKE 1 [facility] 3.125 mg 8-22 TABLET BY ity of tablet 00:00: MOUTH [place] 00 TWICE Medical DAILY WITH Branch MEALS ATORVASTATI Yes [id number] 40mg TAKE 1 [facility] N 40 mg 8-22 TABLET BY ity of tablet 00:00: MOUTH AT [place] [address] BEDTIME Medical Branch CARVEDILOL Yes [id number] TAKE 1 [facility] 3.125 mg 8-22 TABLET BY ity of tablet 00:00: MOUTH TWICE Medical DAILY WITH Branch MEALS ATORVASTATI Yes [id number] 40mg TAKE 1 [facility] N 40 mg 8-22 TABLET BY ity of tablet 00:00: MOUTH AT [place] BEDTIME Medical Branch CARVEDILOL Yes [id number] TAKE 1 [facility] 3.125 mg 8-22 TABLET BY ity of tablet 00:00: MOUTH TWICE Medical DAILY WITH Branch MEALS ATORVASTATI Yes [id number] 40mg TAKE 1 [facility] N 40 mg 8-22 TABLET BY ity of tablet 00:00: MOUTH AT [place] BEDTIME Medical Branch CARVEDILOL Yes [id number] TAKE 1 [facility] 3.125 mg 8-22 TABLET BY ity of tablet 00:00: MOUTH TWICE Medical DAILY WITH Branch MEALS ATORVASTATI Yes [id number] 40mg TAKE 1 [facility] 40 mg 8-22 TABLET BY ity of tablet 00:00: MOUTH AT [place] BEDTIME Medical Branch CARVEDILOL Yes [id number] TAKE 1 [facility] 3.125 mg 8-22 TABLET BY ity of tablet 00:00: MOUTH TWICE Medical DAILY WITH Branch MEALS ATORVASTATI Yes [id number] 40mg TAKE 1 [facility] 40 mg 8-22 TABLET BY ity of tablet 00:00: MOUTH AT [place] BEDTIME Medical Branch CARVEDILOL Yes [id number] TAKE 1 [facility] 3.125 mg 8-22 TABLET BY ity of tablet 00:00: MOUTH TWICE Medical DAILY WITH Branch MEALS ATORVASTATI Yes [id number] 40mg TAKE 1 [facility] 40 mg 8-22 TABLET BY ity of tablet 00:00: MOUTH AT [place] BEDTIME Medical Branch CARVEDILOL Yes [id number] TAKE 1 [facility] 3.125 mg 8-22 TABLET BY ity of tablet 00:00: MOUTH TWICE Medical DAILY WITH Branch MEALS ATORVASTATI Yes [id number] 40mg TAKE 1 [facility] 40 mg 8-22 TABLET BY ity of tablet 00:00: MOUTH AT [place] BEDTIME Medical Branch CARVEDILOL Yes [id number] TAKE 1 [facility] 3.125 mg 8-22 TABLET BY ity of tablet 00:00: MOUTH TWICE Medical DAILY WITH Branch MEALS ATORVASTATI Yes [id number] 40mg TAKE 1 [facility] 40 mg 8-22 TABLET BY ity of tablet 00:00: MOUTH AT [place] BEDTIME Medical Branch CARVEDILOL Yes [id number] TAKE 1 [facility] 3.125 mg 8-22 TABLET BY ity of tablet 00:00: MOUTH TWICE Medical DAILY WITH Branch MEALS ATORVASTATI Yes [id number] 40mg TAKE 1 [facility] 40 mg 8-22 TABLET BY ity of tablet 00:00: MOUTH AT [place] BEDTIME Medical Branch CARVEDILOL Yes [id number] TAKE 1 [facility] 3.125 mg 8-22 TABLET BY ity of tablet 00:00: MOUTH TWICE Medical DAILY WITH Branch MEALS ATORVASTATI Yes [id number] 40mg TAKE 1 [facility] 40 mg 8-22 TABLET BY ity of tablet 00:00: MOUTH AT [place] BEDTIME Medical Branch CARVEDILOL Yes [id number] TAKE 1 [facility] 3.125 mg 8-22 TABLET BY ity of tablet 00:00: MOUTH [place] TWICE Medical DAILY WITH Branch MEALS ATORVASTATI Yes [id number] 40mg TAKE 1 [facility] 40 mg 8-22 TABLET BY ity of tablet 00:00: MOUTH AT [place] BEDTIME Medical Branch CARVEDILOL Yes [id number] TAKE 1 [facility] 3.125 mg 8-22 TABLET BY ity of tablet 00:00: MOUTH [place] TWICE Medical DAILY WITH Branch MEALS ATORVASTATI Yes [id number] 40mg TAKE 1 [facility] 40 mg 8-22 TABLET BY ity of tablet 00:00: MOUTH AT [place] BEDTIME Medical Branch CARVEDILOL Yes [id number] TAKE 1 [facility] 3.125 mg 8-22 TABLET BY ity of tablet 00:00: MOUTH TWICE Medical DAILY WITH Branch MEALS ATORVASTATI Yes [id number] 40mg TAKE 1 [facility] 40 mg 8-22 TABLET BY ity of tablet 00:00: MOUTH AT [place] BEDTIME Medical Branch CARVEDILOL Yes [id number] TAKE 1 [facility] 3.125 mg 8-22 TABLET BY ity of tablet 00:00: MOUTH TWICE Medical DAILY WITH Branch MEALS ATORVASTATI Yes [id number] 40mg TAKE 1 [facility] 40 mg 8-22 TABLET BY ity of tablet 00:00: MOUTH AT [place] BEDTIME Medical Branch CARVEDILOL Yes [id number] TAKE 1 [facility] 3.125 mg 8-22 TABLET BY ity of tablet 00:00: MOUTH TWICE Medical DAILY WITH Branch MEALS ATORVASTATI Yes [id number] 40mg TAKE 1 [facility] 40 mg 8-22 TABLET BY ity of tablet 00:00: MOUTH AT [place] BEDTIME Medical Branch CARVEDILOL Yes [id number] TAKE 1 [facility] 3.125 mg 8-22 TABLET BY ity of tablet 00:00: MOUTH TWICE Medical DAILY WITH Branch MEALS ATORVASTATI Yes [id number] 40mg TAKE 1 [facility] 40 mg 8-22 TABLET BY ity of tablet 00:00: MOUTH AT [place] BEDTIME Medical Branch CARVEDILOL Yes [id number] TAKE 1 [facility] 3.125 mg 8-22 TABLET BY ity of tablet 00:00: MOUTH [place] TWICE Medical DAILY WITH Branch MEALS ATORVASTATI Yes [id number] 40mg TAKE 1 [facility] 40 mg 8-22 TABLET BY ity of tablet 00:00: MOUTH AT [place] BEDTIME Medical Branch CARVEDILOL Yes [id number] TAKE 1 [facility] 3.125 mg 8-22 TABLET BY ity of tablet 00:00: MOUTH TWICE Medical DAILY WITH Branch MEALS ATORVASTATI Yes [id number] 40mg TAKE 1 [facility] 40 mg 8-22 TABLET BY ity of tablet 00:00: MOUTH AT [place] BEDTIME Medical Branch CARVEDILOL Yes [id number] TAKE 1 [facility] 3.125 mg 8-22 TABLET BY ity of tablet 00:00: MOUTH [place] TWICE Medical DAILY WITH Branch MEALS ATORVASTATI Yes [id number] 40mg TAKE 1 [facility] 40 mg 8-22 TABLET BY ity of tablet 00:00: MOUTH AT [place] BEDTIME Medical Branch CARVEDILOL Yes [id number] TAKE 1 [facility] 3.125 mg 8-22 TABLET BY ity of tablet 00:00: MOUTH TWICE Medical DAILY WITH Branch MEALS ATORVASTATI Yes [id number] 40mg TAKE 1 [facility] 40 mg 8-22 TABLET BY ity of tablet 00:00: MOUTH AT [place] BEDTIME Medical Branch CARVEDILOL Yes [id number] TAKE 1 [facility] 3.125 mg 8-22 TABLET BY ity of tablet 00:00: MOUTH TWICE Medical DAILY WITH Branch MEALS ATORVASTATI Yes [id number] 40mg TAKE 1 [facility] 40 mg 8-22 TABLET BY ity of tablet 00:00: MOUTH AT [place] BEDTIME Medical Branch CARVEDILOL Yes [id number] TAKE 1 [facility] 3.125 mg 8-22 TABLET BY ity of tablet 00:00: MOUTH TWICE Medical DAILY WITH Branch MEALS ATORVASTATI Yes [id number] 40mg TAKE 1 [facility] 40 mg 8-22 TABLET BY ity of tablet 00:00: MOUTH AT [place] BEDTIME Medical Branch CARVEDILOL Yes [id number] TAKE 1 [facility] 3.125 mg 8-22 TABLET BY ity of tablet 00:00: MOUTH [place] TWICE Medical DAILY WITH Branch MEALS ATORVASTATI Yes [id number] 40mg TAKE 1 [facility] 40 mg 8-22 TABLET BY ity of tablet 00:00: [facility] [place] [facility] CARVEDILOL Yes [id number] TAKE 1 [facility] 3.125 mg 8-22 TABLET BY ity of tablet 00:00: MOUTH TWICE Medical DAILY WITH Branch MEALS ATORVASTATI Yes [id number] 40mg TAKE 1 [facility] 40 mg 8-22 TABLET BY ity of tablet 00:00: MOUTH AT [place] BEDTIME Medical Branch CARVEDILOL Yes [id number] TAKE 1 [facility] 3.125 mg 8-22 TABLET BY ity of tablet 00:00: MOUTH [place] TWICE Medical DAILY WITH Branch MEALS ATORVASTATI Yes [id number] 40mg TAKE 1 [facility] 40 mg 8-22 TABLET BY ity of tablet 00:00: MOUTH AT [place] BEDTIME Medical Branch CARVEDILOL Yes [id number] TAKE 1 [facility] 3.125 mg 8-22 TABLET BY ity of tablet 00:00: MOUTH TWICE Medical DAILY WITH Branch MEALS ATORVASTATI Yes [id number] 40mg TAKE 1 [facility] 40 mg 8-22 TABLET BY ity of tablet 00:00: MOUTH AT [place] BEDTIME Medical Branch CARVEDILOL Yes [id number] TAKE 1 [facility] 3.125 mg 8-22 TABLET BY ity of tablet 00:00: MOUTH TWICE Medical DAILY WITH Branch MEALS ATORVASTATI Yes [id number] 40mg TAKE 1 [facility] 40 mg 8-22 TABLET BY ity of tablet 00:00: MOUTH AT [place] BEDTIME Medical Branch CARVEDILOL Yes [id number] TAKE 1 [facility] 3.125 mg 8-22 TABLET BY ity of tablet 00:00: MOUTH TWICE Medical DAILY WITH Branch MEALS ATORVASTATI Yes [id number] 40mg TAKE 1 [facility] 40 mg 8-22 TABLET BY ity of tablet 00:00: [facility]OUTH AT [place] [facility] CARVEDILOL Yes [id number] TAKE 1 [facility] 3.125 mg 8-22 TABLET BY ity of tablet 00:00: MOUTH TWICE Medical DAILY WITH Branch MEALS ATORVASTATI Yes [id number] 40mg TAKE 1 [facility] 40 mg 8-22 TABLET BY ity of tablet 00:00: MOUTH AT [place] BEDTIME Medical Branch CARVEDILOL Yes [id number] TAKE 1 [facility] 3.125 mg 8-22 TABLET BY ity of tablet 00:00: MOUTH TWICE Medical DAILY WITH Branch MEALS ATORVASTATI Yes [id number] 40mg TAKE 1 [facility] 40 mg 8-22 TABLET BY ity of tablet 00:00: MOUTH AT [place] BEDTIME Medical Branch CARVEDILOL Yes [id number] TAKE 1 [facility] 3.125 mg 8-22 TABLET BY ity of tablet 00:00: MOUTH [place] TWICE Medical DAILY WITH Branch MEALS ATORVASTATI Yes [id number] 40mg TAKE 1 [facility] 40 mg 8-22 TABLET BY ity of tablet 00:00: MOUTH AT [place] BEDTIME Medical Branch CARVEDILOL Yes [id number] TAKE 1 [facility] 3.125 mg 8-22 TABLET BY ity of tablet 00:00: MOUTH TWICE Medical DAILY WITH Branch MEALS ATORVASTATI Yes [id number] 40mg TAKE 1 [facility] 40 mg 8-22 TABLET BY ity of tablet 00:00: MOUTH AT [place] BEDTIME Medical Branch CARVEDILOL Yes [id number] TAKE 1 [facility] 3.125 mg 8-22 TABLET BY ity of tablet 00:00: MOUTH [place] TWICE Medical DAILY WITH Branch MEALS ATORVASTATI Yes [id number] 40mg TAKE 1 [facility] 40 mg 8-22 TABLET BY ity of tablet 00:00: MOUTH AT [place] BEDTIME Medical Branch CARVEDILOL Yes [id number] TAKE 1 [facility] 3.125 mg 8-22 TABLET BY ity of tablet 00:00: MOUTH [place] TWICE Medical DAILY WITH Branch MEALS ATORVASTATI Yes [id number] 40mg TAKE 1 [facility] 40 mg 8-22 TABLET BY ity of tablet 00:00: MOUTH AT [place] BEDTIME Medical Branch CARVEDILOL Yes [id number] TAKE 1 [facility] 3.125 mg 8-22 TABLET BY ity of tablet 00:00: MOUTH [place] TWICE Medical DAILY WITH Branch MEALS ATORVASTATI Yes [id number] 40mg TAKE 1 [facility] 40 mg 8-22 TABLET BY ity of tablet 00:00: MOUTH AT [place] BEDTIME Medical Branch CARVEDILOL Yes [id number] TAKE 1 [facility] 3.125 mg 8-22 TABLET BY ity of tablet 00:00: MOUTH [place] TWICE Medical DAILY WITH Branch MEALS ATORVASTATI Yes [id number] 40mg TAKE 1 [facility] 40 mg 8-22 TABLET BY ity of tablet 00:00: MOUTH AT [place] BEDTIME Medical Branch CARVEDILOL Yes [id number] TAKE 1 [facility] 3.125 mg 8-22 TABLET BY ity of tablet 00:00: MOUTH [place] TWICE Medical DAILY WITH Branch MEALS ATORVASTATI Yes [id number] 40mg TAKE 1 [facility] 40 mg 8-22 TABLET BY ity of tablet 00:00: MOUTH AT [place] BEDTIME Medical Branch CARVEDILOL Yes [id number] TAKE 1 [facility] 3.125 mg 8-22 TABLET BY ity of tablet 00:00: MOUTH TWICE Medical DAILY WITH Branch MEALS ATORVASTATI Yes [id number] 40mg TAKE 1 [facility] 40 mg 8-22 TABLET BY ity of tablet 00:00: MOUTH AT [place] BEDTIME Medical Branch CARVEDILOL Yes [id number] TAKE 1 [facility] 3.125 mg 8-22 TABLET BY ity of tablet 00:00: MOUTH TWICE Medical DAILY WITH Branch MEALS ATORVASTATI Yes [id number] 40mg TAKE 1 [facility] 40 mg 8-22 TABLET BY ity of tablet 00:00: MOUTH AT [place] BEDTIME Medical Branch CARVEDILOL Yes [id number] TAKE 1 [facility] 3.125 mg 8-22 TABLET BY ity of tablet 00:00: MOUTH [place] TWICE Medical DAILY WITH Branch MEALS ATORVASTATI Yes [id number] 40mg TAKE 1 [facility] 40 mg 8-22 TABLET BY ity of tablet 00:00: MOUTH AT [place] BEDTIME Medical Branch CARVEDILOL Yes [id number] TAKE 1 [facility] 3.125 mg 8-22 TABLET BY ity of tablet 00:00: MOUTH [place] TWICE Medical DAILY WITH Branch MEALS ATORVASTATI Yes [id number] 40mg TAKE 1 [facility] 40 mg 8-22 TABLET BY ity of tablet 00:00: MOUTH AT [place] BEDTIME Medical Branch CARVEDILOL Yes [id number] TAKE 1 [facility] 3.125 mg 8-22 TABLET BY ity of tablet 00:00: MOUTH TWICE Medical DAILY WITH Branch MEALS ATORVASTATI Yes [id number] 40mg TAKE 1 [facility] 40 mg 8-22 TABLET BY ity of tablet 00:00: MOUTH AT [place] BEDTIME Medical Branch CARVEDILOL Yes [id number] TAKE 1 [facility] 3.125 mg 8-22 TABLET BY ity of tablet 00:00: MOUTH [place] TWICE Medical DAILY WITH Branch MEALS ATORVASTATI Yes [id number] 40mg TAKE 1 [facility] 40 mg 8-22 TABLET BY ity of tablet 00:00: MOUTH AT [place] 00 BEDTIME Medical Branch CARVEDILOL Yes [id number] TAKE 1 [facility] 3.125 mg 8-22 TABLET BY ity of tablet 00:00: MOUTH [place] 00 TWICE Medical DAILY WITH Branch MEALS ATORVASTATI Yes [id number] 40mg TAKE 1 [facility] 40 mg 8-22 TABLET BY ity of tablet 00:00: MOUTH AT [place] BEDTIME Medical Branch CARVEDILOL Yes [id number] TAKE 1 [facility] 3.125 mg 8-22 TABLET BY ity of tablet 00:00: MOUTH [place] 00 TWICE Medical DAILY WITH Branch MEALS ATORVASTATI Yes [id number] 40mg TAKE 1 [facility] 40 mg 8-22 TABLET BY ity of tablet 00:00: MOUTH AT [place] 00 BEDTIME Medical Branch CARVEDILOL Yes [id number] TAKE 1 [facility] 3.125 mg 8-22 TABLET BY ity of tablet 00:00: MOUTH [place] 00 TWICE Medical DAILY WITH Branch MEALS ATORVASTATI Yes [id number] 40mg TAKE 1 [facility] 40 mg 8-22 TABLET BY ity of tablet 00:00: MOUTH AT [place] 00 BEDTIME Medical Branch CARVEDILOL Yes [id number] TAKE 1 [facility]ivers 3.125 mg 8-22 TABLET BY ity of tablet 00:00: MOUTH [place] 00 TWICE Medical DAILY WITH Branch MEALS CARVEDILOL 0 3- No [id number] TAKE 1 [facility] 3.125 mg 8-22 05-28 TABLET BY ity o f tablet 00:00: 00:00 MOUTH [place] 00 :00 TWICE Medical DAILY WITH Branch MEALS ATORVASTATI 0 2022- No [id number] 40mg TAKE 1 [facility] N 40 mg 8-22 05-28 TABLET BY ity of tablet 00:00: 23:18 MOUTH AT [place] 00 :10 BEDTIME Medical Branch vitamin Yes 500ug Take 500 Un[facility] rs B-12 6-15 mcg by ity of (VITAMIN 13:50: mouth [place] B-12) 500 17 daily. Medical mcg tablet Branch [place]-3-DHA Yes Take by [facility] vers -EPA-Fish 6-15 mouth. ity of Oil (FISH 13:50: [place] OIL) 1,000 17 Medical mg (120 Branch mg-180 mg) Cap calcium 2022-0 Yes Take by [facility] carbonate 6-15 mouth. ity of (CALCIUM 13:50: [place] 500 ORAL) 17 Medical Branch loratadine/ 2-0 Yes Take by [facility] vers pseudoephed 6-15 mouth ity of rine 13:50: daily. [place] (CLARITIN-D 17 Medical 12 HOUR Branch ORAL) vitamin 2022-0 Yes 500ug Take 500 [facility] rs B-12 6-15 mcg by ity of (VITAMIN 13:50: mouth [place] B-12) 500 17 daily. Medical mcg tablet Branch [place]-3-DHA 2022-0 Yes Take by [facility] vers -EPA-Fish 6-15 mouth. ity of Oil (FISH 13:50: [place] OIL) 1,000 17 Medical mg (120 Branch mg-180 mg) Cap calcium 2022-0 Yes Take by [facility] carbonate 6-15 mouth. ity of (CALCIUM 13:50: [place] 500 ORAL) 17 Medical Branch loratadine/ 2-0 Yes Take by [facility] vers pseudoephed 6-15 mouth ity of rine 13:50: daily. [place] (CLARITIN-D 17 Medical 12 HOUR Branch ORAL) vitamin 2022-0 Yes 500ug Take 500 [facility] rs B-12 6-15 mcg by ity of (VITAMIN 13:50: mouth [place] B-12) 500 17 daily. Medical mcg tablet Branch [place]-3-DHA 2022-0 Yes Take by [facility] vers -EPA-Fish 6-15 mouth. ity of Oil (FISH 13:50: [place] OIL) 1,000 17 Medical mg (120 Branch mg-180 mg) Cap calcium 2022-0 Yes Take by [facility] carbonate 6-15 mouth. ity of (CALCIUM 13:50: [place] 500 ORAL) 17 Medical Branch loratadine/ 2022-0 Yes Take by [facility] vers pseudoephed 6-15 mouth ity of rine 13:50: daily. [place] (CLARITIN-D 17 Medical 12 HOUR Branch ORAL) vitamin 2022-0 Yes 500ug Take 500 Un[facility] rs B-12 6-15 mcg by ity of (VITAMIN 13:50: mouth [place] B-12) 500 17 daily. Medical mcg tablet Branch [place]-3-DHA 2022-0 Yes Take by [facility] vers -EPA-Fish 6-15 mouth. ity of Oil (FISH 13:50: [place] OIL) 1,000 17 Medical mg (120 Branch mg-180 mg) Cap calcium 2022-0 Yes Take by [facility] carbonate 6-15 mouth. ity of (CALCIUM 13:50: [place] 500 ORAL) 17 Medical Branch loratadine/ 2022-0 Yes Take by [facility] pseudoephed 6-15 mouth ity of rine 13:50: daily. [place] (CLARITIN-D 17 Medical 12 HOUR Branch ORAL) vitamin 2022-0 Yes 500ug Take 500 Un[facility] rs B-12 6-15 mcg by ity of (VITAMIN 13:50: mouth [place] B-12) 500 17 daily. Medical mcg tablet Branch [place]-3-DHA 2022-0 Yes Take by [facility] vers -EPA-Fish 6-15 mouth. ity of Oil (FISH 13:50: [place] OIL) 1,000 17 Medical mg (120 Branch mg-180 mg) Cap calcium 2022-0 Yes Take by [facility] carbonate 6-15 mouth. ity of (CALCIUM 13:50: [place] 500 ORAL) 17 Medical Branch loratadine/ 2-0 Yes Take by [facility] pseudoephed 6-15 mouth ity of rine 13:50: daily. [place] (CLARITIN-D 17 Medical 12 HOUR Branch ORAL) vitamin 2022-0 Yes 500ug Take 500 [facility] rs B-12 6-15 mcg by ity of (VITAMIN 13:50: mouth [place] B-12) 500 17 daily. Medical mcg tablet Branch [place]-3-DHA 2022-0 Yes Take by [facility] vers -EPA-Fish 6-15 mouth. ity of Oil (FISH 13:50: [place] OIL) 1,000 17 Medical mg (120 Branch mg-180 mg) Cap calcium 2022-0 Yes Take by [facility] carbonate 6-15 mouth. ity of (CALCIUM 13:50: [place] 500 ORAL) 17 Medical Branch loratadine/ 2022-0 Yes Take by [facility] pseudoephed 6-15 mouth ity of rine 13:50: daily. [place] (CLARITIN-D 17 Medical 12 HOUR Branch ORAL) vitamin 2022-0 Yes 500ug Take 500 Un[facility] rs B-12 6-15 mcg by ity of (VITAMIN 13:50: mouth [place] B-12) 500 17 daily. Medical mcg tablet Branch [place]-3-DHA 2022-0 Yes Take by [facility] vers -EPA-Fish 6-15 mouth. ity of Oil (FISH 13:50: [place] OIL) 1,000 17 Medical mg (120 Branch mg-180 mg) Cap calcium 2022-0 Yes Take by [facility] carbonate 6-15 mouth. ity of (CALCIUM 13:50: [place] 500 ORAL) 17 Medical Branch loratadine/ 2022-0 Yes Take by [facility] pseudoephed 6-15 mouth ity of rine 13:50: daily. [place] (CLARITIN-D 17 Medical 12 HOUR Branch ORAL) vitamin 2022-0 Yes 500ug Take 500 Un[facility] rs B-12 6-15 mcg by ity of (VITAMIN 13:50: mouth [place] B-12) 500 17 daily. Medical mcg tablet Branch [place]-3-DHA 2022-0 Yes Take by [facility] vers -EPA-Fish 6-15 mouth. ity of Oil (FISH 13:50: [place] OIL) 1,000 17 Medical mg (120 Branch mg-180 mg) Cap calcium 2022-0 Yes Take by [facility] carbonate 6-15 mouth. ity of (CALCIUM 13:50: [place] 500 ORAL) 17 Medical Branch loratadine/ 2-0 Yes Take by [facility] pseudoephed 6-15 mouth ity of rine 13:50: daily. [place] (CLARITIN-D 17 Medical 12 HOUR Branch ORAL) vitamin 2022-0 Yes 500ug Take 500 Un[facility] rs B-12 6-15 mcg by ity of (VITAMIN 13:50: mouth [place] B-12) 500 17 daily. Medical mcg tablet Branch [place]-3-DHA 2022-0 Yes Take by [facility] vers -EPA-Fish 6-15 mouth. ity of Oil (FISH 13:50: [place] OIL) 1,000 17 Medical mg (120 Branch mg-180 mg) Cap calcium 2022-0 Yes Take by [facility] carbonate 6-15 mouth. ity of (CALCIUM 13:50: [place] 500 ORAL) 17 Medical Branch loratadine/ 2022-0 Yes Take by [facility] pseudoephed 6-15 mouth ity of rine 13:50: daily. [place] (CLARITIN-D 17 Medical 12 HOUR Branch ORAL) vitamin 2022-0 Yes 500ug Take 500 Un[facility] rs B-12 6-15 mcg by ity of (VITAMIN 13:50: mouth [place] B-12) 500 17 daily. Medical mcg tablet Branch [place]-3-DHA 2022-0 Yes Take by [facility] vers -EPA-Fish 6-15 mouth. ity of Oil (FISH 13:50: [place] OIL) 1,000 17 Medical mg (120 Branch mg-180 mg) Cap calcium 2022-0 Yes Take by [facility] carbonate 6-15 mouth. ity of (CALCIUM 13:50: [place] 500 ORAL) 17 Medical Branch loratadine/ 2-0 Yes Take by [facility] vers pseudoephed 6-15 mouth ity of rine 13:50: daily. [place] (CLARITIN-D 17 Medical 12 HOUR Branch ORAL) vitamin 2022-0 Yes 500ug Take 500 Un[facility] rs B-12 6-15 mcg by ity of (VITAMIN 13:50: mouth [place] B-12) 500 17 daily. Medical mcg tablet Branch [place]-3-DHA 2022-0 Yes Take by [facility] vers -EPA-Fish 6-15 mouth. ity of Oil (FISH 13:50: [place] OIL) 1,000 17 Medical mg (120 Branch mg-180 mg) Cap calcium 2022-0 Yes Take by [facility] carbonate 6-15 mouth. ity of (CALCIUM 13:50: [place] 500 ORAL) 17 Medical Branch loratadine/ 2-0 Yes Take by [facility] pseudoephed 6-15 mouth ity of rine 13:50: daily. [place] (CLARITIN-D 17 Medical 12 HOUR Branch ORAL) vitamin 2022-0 Yes 500ug Take 500 Un[facility] rs B-12 6-15 mcg by ity of (VITAMIN 13:50: mouth [place] B-12) 500 17 daily. Medical mcg tablet Branch [place]-3-DHA 2022-0 Yes Take by [facility] vers -EPA-Fish 6-15 mouth. ity of Oil (FISH 13:50: [place] OIL) 1,000 17 Medical mg (120 Branch mg-180 mg) Cap calcium 2022-0 Yes Take by [facility] carbonate 6-15 mouth. ity of (CALCIUM 13:50: [place] 500 ORAL) 17 Medical Branch loratadine/ 2-0 Yes Take by [facility] pseudoephed 6-15 mouth ity of rine 13:50: daily. [place] (CLARITIN-D 17 Medical 12 HOUR Branch ORAL) vitamin 2022-0 Yes 500ug Take 500 Un[facility] rs B-12 6-15 mcg by ity of (VITAMIN 13:50: mouth [place] B-12) 500 17 daily. Medical mcg tablet Branch [place]-3-DHA 2022-0 Yes Take by [facility] vers -EPA-Fish 6-15 mouth. ity of Oil (FISH 13:50: [place] OIL) 1,000 17 Medical mg (120 Branch mg-180 mg) Cap calcium 2022-0 Yes Take by [facility] carbonate 6-15 mouth. ity of (CALCIUM 13:50: [place] 500 ORAL) 17 Medical Branch loratadine/ 2022-0 Yes Take by [facility] vers pseudoephed 6-15 mouth ity of rine 13:50: daily. [place] (CLARITIN-D 17 Medical 12 HOUR Branch ORAL) vitamin 2022-0 Yes 500ug Take 500 Un[facility] rs B-12 6-15 mcg by ity of (VITAMIN 13:50: mouth [place] B-12) 500 17 daily. Medical mcg tablet Branch [place]-3-DHA 2022-0 Yes Take by [facility] vers -EPA-Fish 6-15 mouth. ity of Oil (FISH 13:50: [place] OIL) 1,000 17 Medical mg (120 Branch mg-180 mg) Cap calcium 2022-0 Yes Take by [facility] carbonate 6-15 mouth. ity of (CALCIUM 13:50: [place] 500 ORAL) 17 Medical Branch loratadine/ 2-0 Yes Take by [facility] vers pseudoephed 6-15 mouth ity of rine 13:50: daily. [place] (CLARITIN-D 17 Medical 12 HOUR Branch ORAL) vitamin 2022-0 Yes 500ug Take 500 Unive rs B-12 6-15 mcg by ity of (VITAMIN 13:50: mouth [place] B-12) 500 17 daily. Medical mcg tablet Branch [place]-3-DHA 2022-0 Yes Take by [facility] vers -EPA-Fish 6-15 mouth. ity of Oil (FISH 13:50: [place] OIL) 1,000 17 Medical mg (120 Branch mg-180 mg) Cap calcium 2022-0 Yes Take by [facility] carbonate 6-15 mouth. ity of (CALCIUM 13:50: [place] 500 ORAL) 17 Medical Branch loratadine/ 2022-0 Yes Take by [facility] vers pseudoephed 6-15 mouth ity of rine 13:50: daily. [place] (CLARITIN-D 17 Medical 12 HOUR Branch ORAL) vitamin 2022-0 Yes 500ug Take 500 Unive rs B-12 6-15 mcg by ity of (VITAMIN 13:50: mouth [place] B-12) 500 17 daily. Medical mcg tablet Branch [place]-3-DHA 2022-0 Yes Take by [facility] vers -EPA-Fish 6-15 mouth. ity of Oil (FISH 13:50: [place] OIL) 1,000 17 Medical mg (120 Branch mg-180 mg) Cap calcium 2022-0 Yes Take by [facility] carbonate 6-15 mouth. ity of (CALCIUM 13:50: [place] 500 ORAL) 17 Medical Branch loratadine/ 2-0 Yes Take by [facility] vers pseudoephed 6-15 mouth ity of rine 13:50: daily. [place] (CLARITIN-D 17 Medical 12 HOUR Branch ORAL) vitamin 2022-0 Yes 500ug Take 500 Unive rs B-12 6-15 mcg by ity of (VITAMIN 13:50: mouth [place] B-12) 500 17 daily. Medical mcg tablet Branch [place]-3-DHA 2022-0 Yes Take by [facility] vers -EPA-Fish 6-15 mouth. ity of Oil (FISH 13:50: [place] OIL) 1,000 17 Medical mg (120 Branch mg-180 mg) Cap calcium 2022-0 Yes Take by [facility] carbonate 6-15 mouth. ity of (CALCIUM 13:50: [place] 500 ORAL) 17 Medical Branch loratadine/ 2021-0 Yes Take by [facility] vers pseudoephed 6-15 mouth ity of rine 13:50: daily. [place] (CLARITIN-D 17 Medical 12 HOUR Branch ORAL) vitamin 2022-0 Yes 500ug Take 500 Unive rs B-12 6-15 mcg by ity of (VITAMIN 13:50: mouth [place] B-12) 500 17 daily. Medical mcg tablet Branch [place]-3-DHA 2-0 Yes Take by [facility] vers -EPA-Fish 6-15 mouth. ity of Oil (FISH 13:50: [place] OIL) 1,000 17 Medical mg (120 Branch mg-180 mg) Cap calcium 2022-0 Yes Take by [facility] carbonate 6-15 mouth. ity of (CALCIUM 13:50: [place] 500 ORAL) 17 Medical Branch loratadine/ 2-0 Yes Take by [facility] vers pseudoephed 6-15 mouth ity of rine 13:50: daily. [place] (CLARITIN-D 17 Medical 12 [facility] ORAL) pantoprazol 2022-0 Yes [id number] 40mg Take 1 [facility] 40 mg EC 3-29 tablet by [facility] tablet 00:00: mouth 00 daily. [facility] pantoprazol 2021-0 2021- No [id number] 40mg Take 1 [facility] 40 mg EC 3-29 - tablet by [facility] tablet 00:00: 00:00 mouth [place] 00 :00 daily. [facility] dicyclomine 2021-0 Yes [id number] 20mg Take 1 [facility] 20 mg 3-24 tablet by [facility] tablet 00:00: mouth (three) Medical times Branch daily as needed for Abdominal pain. dicyclomine 2021-0 Yes [id number] 20mg Take 1 [facility] 20 mg 3-24 tablet by [facility] tablet 00:00: mouth (three) Medical times [facility] daily as needed for Abdominal pain. dicyclomine 2021-0 Yes [id number] 20mg Take 1 [facility] 20 mg 3-24 tablet by [facility] tablet 00:00: mouth (three) [facility] times [facility] daily as needed for Abdominal pain. dicyclomine 2021-0 Yes [id number] 20mg Take 1 [facility] 20 mg 3-24 tablet by [facility] tablet 00:00: mouth (three) Medical times [facility] daily as needed for Abdominal pain. dicyclomine 2021-0 Yes [id number] 20mg Take 1 [facility] 20 mg 3-24 tablet by [facility] tablet 00:00: mouth (three) Medical times [facility] daily as needed for Abdominal pain. dicyclomine 2021-0 Yes [id number] 20mg Take 1 [facility] 20 mg 3-24 tablet by [facility] tablet 00:00: mouth (three) Medical times [facility] daily as needed for Abdominal pain. dicyclomine 2021-0 Yes [id number] 20mg Take 1 [facility] 20 mg 3-24 tablet by [facility] tablet 00:00: mouth (three) Medical times [facility] daily as needed for Abdominal pain. dicyclomine 2022-0 Yes [id number] 20mg Take 1 [facility] 20 mg 3-24 tablet by [facility] tablet 00:00: mouth (three) Medical times [facility] daily as needed for Abdominal pain. dicyclomine 2-0 Yes [id number] 20mg Take 1 [facility] 20 mg 3-24 tablet by [facility] tablet 00:00: mouth (three) Medical times [facility] daily as needed for Abdominal pain. dicyclomine 2022-0 Yes [id number] 20mg Take 1 [facility] 20 mg 3-24 tablet by [facility] tablet 00:00: mouth (three) Medical times [facility] daily as needed for Abdominal pain. dicyclomine 2022-0 Yes [id number] 20mg Take 1 [facility] 20 mg 3-24 tablet by [facility] tablet 00:00: mouth (three) Medical times [facility] daily as needed for Abdominal pain. dicyclomine 2022-0 Yes [id number] 20mg Take 1 [facility] 20 mg 3-24 tablet by [facility] tablet 00:00: mouth (three) Medical times [facility] daily as needed for Abdominal pain. dicyclomine 2022-0 Yes [id number] 20mg Take 1 [facility] 20 mg 3-24 tablet by [facility] tablet 00:00: mouth (three) Medical times [facility] daily as needed for Abdominal pain. dicyclomine 2022-0 Yes [id number] 20mg Take 1 [facility] 20 mg 3-24 tablet by [facility] tablet 00:00: mouth (three) Medical times [facility] daily as needed for Abdominal pain. dicyclomine 2022-0 Yes [id number] 20mg Take 1 [facility] 20 mg 3-24 tablet by [facility] tablet 00:00: mouth (three) Medical times [facility] daily as needed for Abdominal pain. dicyclomine 2022-0 Yes [id number] 20mg Take 1 [facility] 20 mg 3-24 tablet by [facility] tablet 00:00: mouth (three) Medical times [facility] daily as needed for Abdominal pain. dicyclomine 2022-0 Yes [id number] 20mg Take 1 [facility] 20 mg 3-24 tablet by [facility] tablet 00:00: mouth (three) Medical times [facility] daily as needed for Abdominal pain. dicyclomine 2022-0 Yes [id number] 20mg Take 1 [facility] 20 mg 3-24 tablet by [facility] tablet 00:00: mouth (three) Medical times [facility] daily as needed for Abdominal pain. dicyclomine 2022-0 Yes [id number] 20mg Take 1 [facility] 20 mg 3-24 tablet by [facility] tablet 00:00: mouth (three) Medical times [facility] daily as needed for Abdominal pain. dicyclomine 2022-0 Yes [id number] 20mg Take 1 [facility] 20 mg 3-24 tablet by [facility] tablet 00:00: mouth (three) Medical times [facility] daily as needed for Abdominal pain. dicyclomine 2022-0 Yes [id number] 20mg Take 1 [facility] 20 mg 3-24 tablet by [facility] tablet 00:00: mouth (three) Medical times [facility] daily as needed for Abdominal pain. dicyclomine 2022-0 Yes [id number] 20mg Take 1 [facility] 20 mg 3-24 tablet by [facility] tablet 00:00: mouth (three) Medical times [facility] daily as needed for Abdominal pain. dicyclomine 2022-0 Yes [id number] 20mg Take 1 [facility] 20 mg 3-24 tablet by [facility] tablet 00:00: mouth (three) Medical times [facility] daily as needed for Abdominal pain. dicyclomine 2022-0 Yes [id number] 20mg Take 1 [facility] 20 mg 3-24 tablet by [facility] tablet 00:00: mouth (three) Medical times [facility] daily as needed for Abdominal pain. dicyclomine 2022-0 Yes [id number] 20mg Take 1 [facility] 20 mg 3-24 tablet by [facility] tablet 00:00: mouth (three) Medical times [facility] daily as needed for Abdominal pain. dicyclomine 2022-0 Yes [id number] 20mg Take 1 [facility] 20 mg 3-24 tablet by [facility] tablet 00:00: mouth (three) Medical times [facility] daily as needed for Abdominal pain. dicyclomine 2022-0 Yes [id number] 20mg Take 1 [facility] 20 mg 3-24 tablet by [facility] tablet 00:00: mouth (three) Medical times [facility] daily as needed for Abdominal pain. dicyclomine 2022-0 Yes [id number] 20mg Take 1 [facility] 20 mg 3-24 tablet by [facility] tablet 00:00: mouth (three) Medical times [facility] daily as needed for Abdominal pain. dicyclomine 2022-0 Yes [id number] 20mg Take 1 [facility] 20 mg 3-24 tablet by [facility] tablet 00:00: mouth (three) Medical times [facility] daily as needed for Abdominal pain. dicyclomine 2022-0 Yes [id number] 20mg Take 1 [facility] 20 mg 3-24 tablet by [facility] tablet 00:00: mouth (three) Medical times [facility] daily as needed for Abdominal pain. dicyclomine 2022-0 Yes [id number] 20mg Take 1 [facility] 20 mg 3-24 tablet by [facility] tablet 00:00: mouth (three) Medical times [facility] daily as needed for Abdominal pain. dicyclomine 2022-0 Yes [id number] 20mg Take 1 [facility] 20 mg 3-24 tablet by [facility] tablet 00:00: mouth (three) Medical times [facility] daily as needed for Abdominal pain. dicyclomine 2022-0 Yes [id number] 20mg Take 1 [facility] 20 mg 3-24 tablet by [facility] tablet 00:00: mouth (three) Medical times [facility] daily as needed for Abdominal pain. dicyclomine 2022-0 Yes [id number] 20mg Take 1 [facility] 20 mg 3-24 tablet by [facility] tablet 00:00: mouth (three) Medical times [facility] daily as needed for Abdominal pain. dicyclomine 2022-0 Yes [id number] 20mg Take 1 [facility] 20 mg 3-24 tablet by [facility] tablet 00:00: mouth (three) [facility] times [facility] daily as needed for Abdominal pain. dicyclomine 2022-0 Yes [id number] 20mg Take 1 [facility] 20 mg 3-24 tablet by [facility] tablet 00:00: mouth (three) Medical times [facility] daily as needed for Abdominal pain. dicyclomine 2022-0 Yes [id number] 20mg Take 1 [facility] 20 mg 3-24 tablet by [facility] tablet 00:00: mouth (three) [facility] times [facility] daily as needed for Abdominal pain. dicyclomine 2022-0 Yes [id number] 20mg Take 1 [facility] 20 mg 3-24 tablet by [facility] tablet 00:00: mouth (three) Medical times [facility] daily as needed for Abdominal pain. dicyclomine 2022-0 Yes [id number] 20mg Take 1 [facility] 20 mg 3-24 tablet by [facility] tablet 00:00: mouth (three) Medical times [facility] daily as needed for Abdominal pain. dicyclomine 2022-0 Yes [id number] 20mg Take 1 [facility] 20 mg 3-24 tablet by [facility] tablet 00:00: mouth (three) Medical times [facility] daily as needed for Abdominal pain. dicyclomine 2022-0 Yes [id number] 20mg Take 1 [facility] 20 mg 3-24 tablet by [facility] tablet 00:00: mouth (three) Medical times [facility] daily as needed for Abdominal pain. dicyclomine 2022-0 Yes [id number] 20mg Take 1 [facility] 20 mg 3-24 tablet by [facility] tablet 00:00: mouth (three) Medical times [facility] daily as needed for Abdominal pain. dicyclomine 2022-0 Yes [id number] 20mg Take 1 [facility] 20 mg 3-24 tablet by [facility] tablet 00:00: mouth (three) Medical times [facility] daily as needed for Abdominal pain. dicyclomine 2022-0 Yes [id number] 20mg Take 1 [facility] 20 mg 3-24 tablet by [facility] tablet 00:00: mouth (three) Medical times [facility] daily as needed for Abdominal pain. dicyclomine 2022-0 Yes [id number] 20mg Take 1 [facility] 20 mg 3-24 tablet by [facility] tablet 00:00: mouth (three) Medical times [facility] daily as needed for Abdominal pain. dicyclomine 2022-0 Yes [id number] 20mg Take 1 [facility] 20 mg 3-24 tablet by [facility] tablet 00:00: mouth (three) Medical times [facility] daily as needed for Abdominal pain. dicyclomine 2022-0 Yes [id number] 20mg Take 1 [facility] 20 mg 3-24 tablet by [facility] tablet 00:00: mouth (three) Medical times [facility] daily as needed for Abdominal pain. dicyclomine 2022-0 Yes [id number] 20mg Take 1 [facility] 20 mg 3-24 tablet by [facility] tablet 00:00: mouth (three) Medical times [facility] daily as needed for Abdominal pain. dicyclomine 2022-0 Yes [id number] 20mg Take 1 [facility] 20 mg 3-24 tablet by [facility] tablet 00:00: mouth (three) Medical times [facility] daily as needed for Abdominal pain. dicyclomine Yes [id number] 20mg Take 1 [facility] 20 mg 3-24 tablet by [facility] tablet 00:00: mouth 3 [place] 00 (three) Medical times [facility] daily as needed for Abdominal pain. escitalopra 2020-04 Yes [id number] 20mg Take 1 [facility] oxalate 2-20 tablet by [facility] o f 20 mg 00:00: mouth [place] tablet 00 daily. [facility] buPROPion 2020-04 Yes [id number] 100mg Take 1 [facility] 100 mg 2-20 tablet by [facility] tablet 00:00: mouth 2 [place] 00 (two) Medical times [facility] daily. alendronate 2020-04 Yes [id number] 70mg Take 1 [facility] 70 mg 2-20 tablet by [facility] tablet 00:00: mouth [place] 00 weekly. [facility] escitalopra 2020-04 Yes [id number] 20mg Take 1 [facility] oxalate 2-20 tablet by [facility] o f 20 mg 00:00: mouth [place] tablet 00 daily. [facility] buPROPion 2020-04 Yes [id number] 100mg Take 1 [facility] 100 mg 2-20 tablet by [facility] tablet 00:00: mouth 2 [place] 00 (two) Medical times [facility] daily. alendronate 2020-04 Yes [id number] 70mg Take 1 [facility] 70 mg 2-20 tablet by [facility] tablet 00:00: mouth [place] 00 weekly. [facility] escitalopra 2020-04 Yes [id number] 20mg Take 1 [facility] oxalate 2-20 tablet by [facility] o f 20 mg 00:00: mouth [place] tablet 00 daily. [facility] buPROPion 2020-04 Yes [id number] 100mg Take 1 [facility] 100 mg 2-20 tablet by [facility] tablet 00:00: mouth 2 [place] 00 (two) Medical times [facility] daily. alendronate 2020-04 Yes [id number] 70mg Take 1 [facility] 70 mg 2-20 tablet by [facility] tablet 00:00: mouth [place] 00 weekly. [facility] escitalopra 2020-04 Yes [id number] 20mg Take 1 [facility] oxalate 2-20 tablet by [facility] o f 20 mg 00:00: mouth [place] tablet 00 daily. [facility] buPROPion 2020-04 Yes [id number] 100mg Take 1 [facility] 100 mg 2-20 tablet by [facility] tablet 00:00: mouth 2 [place] 00 (two) Medical times [facility] daily. alendronate 2020-04 Yes [id number] 70mg Take 1 [facility] 70 mg 2-20 tablet by [facility] tablet 00:00: mouth [place] 00 weekly. [facility] escitalopra 2020-04 Yes [id number] 20mg Take 1 [facility] oxalate 2-20 tablet by [facility] o f 20 mg 00:00: mouth [place] tablet 00 daily. [facility] buPROPion 2020-04 Yes [id number] 100mg Take 1 [facility] 100 mg 2-20 tablet by [facility] tablet 00:00: mouth 2 [place] 00 (two) Medical times [facility] daily. alendronate 2020-04 Yes [id number] 70mg Take 1 [facility] 70 mg 2-20 tablet by [facility] tablet 00:00: mouth [place] 00 weekly. [facility] escitalopra 2020-04 Yes [id number] 20mg Take 1 [facility] oxalate 2-20 tablet by [facility] o f 20 mg 00:00: mouth [place] tablet 00 daily. [facility] buPROPion 2020-04 Yes [id number] 100mg Take 1 [facility] 100 mg 2-20 tablet by [facility] tablet 00:00: mouth 2 [place] 00 (two) Medical times [facility] daily. alendronate 2020-04 Yes [id number] 70mg Take 1 [facility] 70 mg 2-20 tablet by [facility] tablet 00:00: mouth [place] 00 weekly. [facility] escitalopra 2020-04 Yes [id number] 20mg Take 1 [facility] oxalate 2-20 tablet by [facility] o f 20 mg 00:00: mouth [place] tablet 00 daily. [facility] buPROPion 2020-04 Yes [id number] 100mg Take 1 [facility] 100 mg 2-20 tablet by [facility] tablet 00:00: mouth 2 [place] 00 (two) Medical times [facility] daily. alendronate 2020-04 Yes [id number] 70mg Take 1 [facility] 70 mg 2-20 tablet by [facility] tablet 00:00: mouth [place] 00 weekly. [facility] escitalopra 2020-04 Yes [id number] 20mg Take 1 [facility] oxalate 2-20 tablet by [facility] o f 20 mg 00:00: mouth [place] tablet 00 daily. [facility] buPROPion 2020-04 Yes [id number] 100mg Take 1 [facility] 100 mg 2-20 tablet by [facility] tablet 00:00: mouth 2 [place] 00 (two) Medical times [facility] daily. escitalopra 2020-04 Yes [id number] 20mg Take 1 [facility] oxalate 2-20 tablet by [facility] o f 20 mg 00:00: mouth [place] tablet 00 daily. [facility] buPROPion 2020-04 Yes [id number] 100mg Take 1 [facility] 100 mg 2-20 tablet by [facility] tablet 00:00: mouth 2 [place] 00 (two) Medical times [facility] daily. escitalopra 2020-04 Yes [id number] 20mg Take 1 [facility] oxalate 2-20 tablet by [facility] o f 20 mg 00:00: mouth [place] tablet 00 daily. [facility] buPROPion 2020-04 Yes [id number] 100mg Take 1 [facility] 100 mg 2-20 tablet by [facility] tablet 00:00: mouth 2 [place] 00 (two) Medical times [facility] daily. escitalopra 2020-04 Yes [id number] 20mg Take 1 [facility] oxalate 2-20 tablet by [facility] o f 20 mg 00:00: mouth [place] tablet 00 daily. [facility] buPROPion 2020-04 Yes [id number] 100mg Take 1 [facility] 100 mg 2-20 tablet by [facility] tablet 00:00: mouth 2 [place] 00 (two) Medical times [facility] daily. escitalopra 2020-04 Yes [id number] 20mg Take 1 [facility] oxalate 2-20 tablet by [facility] o f 20 mg 00:00: mouth [place] tablet 00 daily. [facility] buPROPion 2020-04 Yes [id number] 100mg Take 1 [facility] 100 mg 2-20 tablet by [facility] tablet 00:00: mouth 2 [place] 00 (two) Medical times [facility] daily. escitalopra 2020-04 Yes [id number] 20mg Take 1 [facility] oxalate 2-20 tablet by [facility] o f 20 mg 00:00: mouth [place] tablet 00 daily. [facility] buPROPion 2020-04 Yes [id number] 100mg Take 1 [facility] 100 mg 2-20 tablet by [facility] tablet 00:00: mouth 2 [place] 00 (two) Medical times Branch daily. escitalopra 2020-04 Yes [id number] 20mg Take 1 [facility] oxalate 2-20 tablet by [facility] o f 20 mg 00:00: mouth [place] tablet 00 daily. [facility] buPROPion 2020-04 Yes [id number] 100mg Take 1 [facility] 100 mg 2-20 tablet by [facility] of tablet 00:00: mouth 2 [place] 00 (two) Medical times Branch daily. escitalopra 2020-04 Yes [id number] 20mg Take 1 [facility] oxalate 2-20 tablet by [facility] o f 20 mg 00:00: mouth [place] tablet 00 daily. [facility] buPROPion 2020-04 Yes [id number] 100mg Take 1 [facility] 100 mg 2-20 tablet by [facility] of tablet 00:00: mouth 2 [place] 00 (two) Medical times Branch daily. escitalopra 2020-04- No [id number] 20mg Take 1 [facility] oxalate 2-20 -26 tablet by [facility] of 20 mg 00:00: 00:00 mouth [place] tablet 00 :00 daily. [facility] buPROPion 2020-04- No [id number] 100mg Take 1 [facility] 100 mg 2-20 -26 tablet by [facility] of tablet 00:00: 00:00 mouth 2 [place] 00 :00 (two) Medical times Branch daily. alendronate 2020-04- No [id number] 70mg Take 1 [facility] 70 mg 2-20 12-12 tablet by [facility] tablet 00:00: 00:00 mouth [place] 00 :00 weekly. [facility] Immunizations Ordered Filled Immunization Date Status Comments [facility] e Immunization Name Name Influenza High Dose 2021-12-07 Completed [facility]:00 [facility] Influenza High Dose 2021-12-07 Completed [facility] 00:00:00 [facility] Influenza High Dose 2021-12-07 Completed [facility] 00:00:00 [facility] Influenza High Dose 2021-12-07 Completed [facility] 00:00:00 [facility] Influenza High Dose 2021-12-07 Completed [facility] 00:00:00 [facility] Influenza High Dose 2021-12-07 Completed [facility] 00:00:00 [facility] Influenza High Dose 2021-12-07 Completed [facility] 00:00:00 [facility] Influenza High Dose 2021-12-07 Completed [facility] 00:00:00 [place] [facility] Influenza High Dose 2021-12-07 Completed [facility] 00:00:00 [place] [facility] Influenza High Dose 2021-12-07 Completed [facility] 00:00:00 [place] [facility] Influenza High Dose 2021-12-07 Completed [facility] 00:00:00 [place] [facility] Influenza High Dose 2021-12-07 Completed [facility] 00:00:00 [place] [facility] Influenza High Dose 2021-12-07 Completed [facility] 00:00:00 [place] [facility] Influenza High Dose 2021-12-07 Completed [facility] 00:00:00 [place] [facility] Influenza High Dose 2021-12-07 Completed [facility] 00:00:00 [place] [facility] Influenza High Dose 2021-12-07 Completed [facility] 00:00:00 [place] [facility] Influenza High Dose 2021-12-07 Completed [facility] 00:00:00 [place] [facility] Influenza High Dose 2021-12-07 Completed [facility] 00:00:00 [place] [facility] Influenza High Dose 2021-12-07 Completed [facility] 00:00:00 [place] [facility] Influenza High Dose 2021-12-07 Completed [facility] 00:00:00 [place] [facility] Influenza High Dose 2021-12-07 Completed [facility] 00:00:00 [place] [facility] Influenza High Dose 2021-12-07 Completed [facility] 00:00:00 [place] [facility] Influenza High Dose 2021-12-07 Completed [facility] 00:00:00 [place] [facility] Influenza High Dose 2021-12-07 Completed [facility] 00:00:00 [place] [facility] Influenza High Dose 2021-12-07 Completed [facility] 00:00:00 [place] [facility] Influenza High Dose 2021-12-07 Completed [facility] 00:00:00 [place] [facility] Influenza High Dose 2021-12-07 Completed [facility] 00:00:00 [place] [facility] Influenza High Dose 2021-12-07 Completed [facility] 00:00:00 [place] [facility] Influenza High Dose 2021-12-07 Completed [facility] 00:00:00 [place] [facility] Influenza High Dose 2021-12-07 Completed [facility] 00:00:00 [place] [facility] Influenza High Dose 2021-12-07 Completed [facility] 00:00:00 [place] [facility] Influenza High Dose 2021-12-07 Completed [facility] 00:00:00 [place] [facility] Influenza High Dose 2021-12-07 Completed [facility] 00:00:00 [place] [facility] Influenza High Dose 2021-12-07 Completed [facility] 00:00:00 [place] [facility] Influenza High Dose 2021-12-07 Completed [facility] 00:00:00 [place] [facility] Influenza High Dose 2021-12-07 Completed [facility] 00:00:00 [place] [facility] Influenza High Dose 2021-12-07 Completed [facility] 00:00:00 [place] [facility] Influenza High Dose 2021-12-07 Completed [facility] 00:00:00 [place] [facility] Influenza High Dose 2021-12-07 Completed [facility] 00:00:00 [place] [facility] Influenza High Dose 2021-12-07 Completed [facility] 00:00:00 [place] [facility] Influenza High Dose 2021-12-07 Completed [facility] 00:00:00 [place] [facility] Influenza High Dose 2021-12-07 Completed [facility] 00:00:00 [place] [facility] Influenza High Dose 2021-12-07 Completed [facility] 00:00:00 [place] [facility] Influenza High Dose 2021-12-07 Completed [facility] 00:00:00 [place] [facility] Influenza High Dose 2021-12-07 Completed [facility] 00:00:00 [place] [facility] Influenza High Dose 2021-12-07 Completed [facility] 00:00:00 [place] [facility] Influenza High Dose 2021-12-07 Completed [facility] 00:00:00 [place] [facility] Influenza High Dose 2021-12-07 Completed [facility] 00:00:00 [place] [facility] Influenza High Dose 2021-12-07 Completed [facility] 00:00:00 [place] [facility] Influenza High Dose 2021-12-07 Completed [facility] 00:00:00 [place] [facility] Td 2021-12-02 Completed [facility] 00:00:00 [place] [facility] Td 2021-12-02 Completed [facility] 00:00:00 [place] [facility] Td 2021-12-02 Completed [facility] 00:00:00 [place] [facility] Td 2021-12-02 Completed [facility] 00:00:00 [place] [facility] Td 2021-12-02 Completed [facility] 00:00:00 [place] [facility] Td 2021-12-02 Completed [facility] 00:00:00 [place] [facility] Td 2021-12-02 Completed [facility] 00:00:00 [place] [facility] Td 2021-12-02 Completed [facility] 00:00:00 [place] [facility] TD, NOS 2021-12-02 Completed [facility] 00:00:00 [place] [facility] TD, NOS 2021-12-02 Completed [facility] 00:00:00 [place] [facility] TD, NOS 2021-12-02 Completed [facility] 00:00:00 [place] [facility] TD, NOS 2021-12-02 Completed [facility] 00:00:00 [place] [facility] TD, NOS 2021-12-02 Completed [facility] 00:00:00 [place] [facility] TD, NOS 2021-12-02 Completed [facility] 00:00:00 [place] [facility] TD, NOS 2021-12-02 Completed [facility] 00:00:00 [place] [facility] TD, NOS 2021-12-02 Completed [facility] 00:00:00 [place] [facility] TD, NOS 2021-12-02 Completed [facility] 00:00:00 [place] [facility] TD, NOS 2021-12-02 Completed [facility] 00:00:00 [place] [facility] TD, NOS 2021-12-02 Completed [facility] 00:00:00 [place] [facility] TD, NOS 2021-12-02 Completed [facility] 00:00:00 [place] [facility] TD, NOS 2021-12-02 Completed [facility] 00:00:00 [place] [facility] TD, NOS 2021-12-02 Completed [facility] 00:00:00 [place] [facility] TD, NOS 2021-12-02 Completed [facility] 00:00:00 [place] [facility] TD, NOS 2021-12-02 Completed [facility] 00:00:00 [place] [facility] TD, NOS 2021-12-02 Completed [facility] 00:00:00 [place] [facility] TD, NOS 2021-12-02 Completed [facility] 00:00:00 [place] [facility] TD, NOS 2021-12-02 Completed [facility] 00:00:00 [place] [facility] TD, NOS 2021-12-02 Completed [facility] 00:00:00 [place] [facility] TD, NOS 2021-12-02 Completed [facility] 00:00:00 [place] [facility] TD, NOS 2021-12-02 Completed [facility] 00:00:00 [place] [facility] TD, NOS 2021-12-02 Completed [facility] 00:00:00 [place] [facility] TD, NOS 2021-12-02 Completed [facility] 00:00:00 [place] [facility] TD, NOS 2021-12-02 Completed [facility] 00:00:00 [facility] TD, NOS 2021-12-02 Completed [facility] of 00:00:00 [place] [facility] TD, NOS 2021-12-02 Completed [facility] 00:00:00 [place] [facility] TD, NOS 2021-12-02 Completed [facility] of 00:00:00 [facility] TD, NOS 2021-12-02 Completed [facility] 00:00:00 [place] [facility] TD, NOS 2021-12-02 Completed [facility] of 00:00:00 [place] [facility] TD, NOS 2021-12-02 Completed [facility] of 00:00:00 [facility] TD, NOS 2021-12-02 Completed [facility] 00:00:00 [place] [facility] TD, NOS 2021-12-02 Completed [facility] of 00:00:00 [facility] TD, NOS 2021-12-02 Completed [facility] of 00:00:00 [facility] TD, NOS 2021-12-02 Completed [facility] of 00:00:00 [place] [facility] TD, NOS 2021-12-02 Completed [facility] 00:00:00 [place] [facility] TD, NOS 2021-12-02 Completed [facility] of 00:00:00 [facility] Branch TD, NOS 2021-12-02 Completed [facility] of 00:00:00 [facility] Branch TD, NOS 2021-12-02 Completed [facility] of 00:00:00 [facility] Branch TD, NOS 2021-12-02 Completed [facility] of 00:00:00 [facility] Branch TD, NOS 2021-12-02 Completed [facility] of 00:00:00 [facility] TD, NOS 2021-12-02 Completed [facility] of 00:00:00 [facility] SARS-COV-2 COVID-19 2021-09-19 Completed Unive rsity of MODERNA 0.25ML 00:00:00 [place] [facility] BOOSTER VACCINE Branch SARS-COV-2 COVID-19 2021-09-19 Completed [facility]ive rsity of MODERNA 0.25ML 00:00:00 [place] [facility] BOOSTER VACCINE Branch SARS-COV-2 COVID-19 2021-09-19 Completed Unive rsity of MODERNA 0.25ML 00:00:00 [place] [facility] BOOSTER VACCINE Branch SARS-COV-2 COVID-19 2021-09-19 Completed [facility]ive rs[facility] of MODERNA 0.25ML 00:00:00 [place] [facility] BOOSTER VACCINE Branch SARS-COV-2 COVID-19 2021-09-19 Completed [facility]ive rsity of MODERNA 0.25ML 00:00:00 [place] [facility] BOOSTER VACCINE Branch SARS-COV-2 COVID-19 2021-09-19 Completed [facility]ive rs[facility] of MODERNA 0.25ML 00:00:00 [place] [facility] BOOSTER VACCINE Branch SARS-COV-2 COVID-19 2021-09-19 Completed [facility]ive rs[facility] of MODERNA 0.25ML 00:00:00 [place] [facility] BOOSTER VACCINE Branch SARS-COV-2 COVID-19 2021-09-19 Completed [facility] MODERNA 0.25ML 00:00:00 [facility] SARS-COV-2 COVID-19 2021-09-19 Completed [facility] MODERNA 0.25ML 00:00:00 [facility] SARS-COV-2 COVID-19 2021-09-19 Completed [facility] MODERNA 0.25ML 00:00:00 [facility] SARS-COV-2 COVID-19 2021-09-19 Completed [facility] MODERNA 0.25ML 00:00:00 [place] [facility] SARS-COV-2 COVID-19 2021-09-19 Completed [facility] MODERNA 0.25ML 00:00:00 [place] [facility] SARS-COV-2 COVID-19 2021-09-19 Completed [facility] MODERNA 0.25ML 00:00:00 [facility] SARS-COV-2 COVID-19 2021-09-19 Completed [facility] MODERNA 0.25ML 00:00:00 [facility] SARS-COV-2 COVID-19 2021-09-19 Completed [facility] MODERNA 0.25ML 00:00:00 [facility] SARS-COV-2 COVID-19 2021-09-19 Completed [facility] MODERNA 0.25ML 00:00:00 [facility] SARS-COV-2 COVID-19 2021-09-19 Completed [facility] MODERNA 0.25ML 00:00:00 [facility] SARS-COV-2 COVID-19 2021-09-19 Completed [facility] MODERNA 0.25ML 00:00:00 [facility] SARS-COV-2 COVID-19 2021-09-19 Completed [facility] MODERNA 0.25ML 00:00:00 [facility] SARS-COV-2 COVID-19 2021-09-19 Completed [facility] MODERNA 0.25ML 00:00:00 [facility] SARS-COV-2 COVID-19 2021-09-19 Completed [facility] MODERNA 0.25ML 00:00:00 [place] [facility] SARS-COV-2 COVID-19 2021-09-19 Completed [facility] MODERNA 0.25ML 00:00:00 [place] [facility] SARS-COV-2 COVID-19 2021-09-19 Completed [facility] MODERNA 0.25ML 00:00:00 [place] [facility] SARS-COV-2 COVID-19 2021-09-19 Completed [facility] MODERNA 0.25ML 00:00:00 [place] [facility] SARS-COV-2 COVID-19 2021-09-19 Completed [facility] MODERNA 0.25ML 00:00:00 [place] [facility] SARS-COV-2 COVID-19 2021-09-19 Completed [facility] MODERNA 0.25ML 00:00:00 [place] [facility] SARS-COV-2 COVID-19 2021-09-19 Completed [facility] MODERNA 0.25ML 00:00:00 [place] [facility] SARS-COV-2 COVID-19 2021-09-19 Completed [facility] MODERNA 0.25ML 00:00:00 [facility] SARS-COV-2 COVID-19 2021-09-19 Completed [facility] MODERNA 0.25ML 00:00:00 [place] [facility] SARS-COV-2 COVID-19 2021-09-19 Completed [facility] MODERNA 0.25ML 00:00:00 [place] [facility] SARS-COV-2 COVID-19 2021-09-19 Completed [facility] MODERNA 0.25ML 00:00:00 [place] [facility] SARS-COV-2 COVID-19 2021-09-19 Completed [facility] MODERNA 0.25ML 00:00:00 [place] [facility] SARS-COV-2 COVID-19 2021-09-19 Completed [facility] MODERNA 0.25ML 00:00:00 [facility] SARS-COV-2 COVID-19 2021-09-19 Completed [facility] MODERNA 0.25ML 00:00:00 [facility] SARS-COV-2 COVID-19 2021-09-19 Completed [facility] MODERNA 0.25ML 00:00:00 [place] [facility] SARS-COV-2 COVID-19 2021-09-19 Completed [facility] MODERNA 0.25ML 00:00:00 [place] [facility] SARS-COV-2 COVID-19 2021-09-19 Completed [facility] MODERNA 0.25ML 00:00:00 [place] [facility] SARS-COV-2 COVID-19 2021-09-19 Completed [facility] MODERNA 0.25ML 00:00:00 [place] [facility] SARS-COV-2 COVID-19 2021-09-19 Completed [facility] MODERNA 0.25ML 00:00:00 [place] [facility] SARS-COV-2 COVID-19 2021-09-19 Completed [facility] MODERNA 0.25ML 00:00:00 [place] [facility] SARS-COV-2 COVID-19 2021-09-19 Completed [facility] MODERNA 0.25ML 00:00:00 [place] [facility] SARS-COV-2 COVID-19 2021-09-19 Completed [facility] MODERNA 0.25ML 00:00:00 [place] [facility] SARS-COV-2 COVID-19 2021-09-19 Completed [facility] MODERNA 0.25ML 00:00:00 [place] [facility] SARS-COV-2 COVID-19 2021-09-19 Completed [facility] MODERNA 0.25ML 00:00:00 [place] [facility] SARS-COV-2 COVID-19 2021-09-19 Completed [facility] MODERNA 0.25ML 00:00:00 [place] [facility] SARS-COV-2 COVID-19 2021-09-19 Completed [facility] MODERNA 0.25ML 00:00:00 [place] [facility] SARS-COV-2 COVID-19 2021-09-19 Completed [facility] MODERNA 0.25ML 00:00:00 [place] [facility] SARS-COV-2 COVID-19 2021-09-19 Completed [facility] MODERNA 0.25ML 00:00:00 [place] [facility] SARS-COV-2 COVID-19 2021-09-19 Completed [facility] MODERNA 0.25ML 00:00:00 [place] [facility] SARS-COV-2 COVID-19 2021-09-19 Completed [facility] MODERNA 0.25ML 00:00:00 [place] [facility] Influenza High Dose 2021-02-05 Completed [facility] 00:00:00 [facility] Influenza High Dose 2021-02-05 Completed [facility] 00:00:00 [facility] Influenza High Dose 2021-02-05 Completed [facility] 00:00:00 [facility] Influenza High Dose 2021-02-05 Completed [facility] 00:00:00 [facility] Influenza High Dose 2021-02-05 Completed [facility] 00:00:00 [facility] Influenza High Dose 2021-02-05 Completed [facility] 00:00:00 [facility] Influenza High Dose 2021-02-05 Completed [facility] 00:00:00 [facility] Influenza High Dose 2021-02-05 Completed [facility] 00:00:00 [facility] Influenza High Dose 2021-02-05 Completed [facility] 00:00:00 [facility] Influenza High Dose 2021-02-05 Completed [facility] 00:00:00 [facility] Influenza High Dose 2021-02-05 Completed [facility] 00:00:00 [facility] Influenza High Dose 2021-02-05 Completed [facility] 00:00:00 [facility] Influenza High Dose 2021-02-05 Completed [facility] 00:00:00 [facility] Influenza High Dose 2021-02-05 Completed [facility] 00:00:00 [facility] Influenza High Dose 2021-02-05 Completed [facility] 00:00:00 [facility] Influenza High Dose 2021-02-05 Completed [facility] 00:00:00 [facility] Influenza High Dose 2021-02-05 Completed [facility] 00:00:00 [facility] Influenza High Dose 2021-02-05 Completed [facility] 00:00:00 [facility] Influenza High Dose 2021-02-05 Completed [facility] 00:00:00 [facility] Influenza High Dose 2021-02-05 Completed [facility] 00:00:00 [facility] Influenza High Dose 2021-02-05 Completed [facility] 00:00:00 [facility] Influenza High Dose 2021-02-05 Completed [facility] 00:00:00 [facility] Influenza High Dose 2021-02-05 Completed [facility] 00:00:00 [facility] Influenza High Dose 2021-02-05 Completed [facility] 00:00:00 [facility] Influenza High Dose 2021-02-05 Completed [facility] 00:00:00 [facility] Influenza High Dose 2021-02-05 Completed [facility] 00:00:00 [facility] Influenza High Dose 2021-02-05 Completed [facility] 00:00:00 [facility] Influenza High Dose 2021-02-05 Completed [facility] 00:00:00 [facility] Influenza High Dose 2021-02-05 Completed [facility] 00:00:00 [facility] Influenza High Dose 2021-02-05 Completed [facility] 00:00:00 [facility] Influenza High Dose 2021-02-05 Completed [facility] 00:00:00 [facility] Influenza High Dose 2021-02-05 Completed [facility] 00:00:00 [facility] Influenza High Dose 2021-02-05 Completed [facility] 00:00:00 [facility] Influenza High Dose 2021-02-05 Completed [facility] 00:00:00 [facility] Influenza High Dose 2021-02-05 Completed [facility] 00:00:00 [facility] Influenza High Dose 2021-02-05 Completed [facility] 00:00:00 [facility] Influenza High Dose 2021-02-05 Completed [facility] 00:00:00 [facility] Influenza High Dose 2021-02-05 Completed [facility] 00:00:00 [facility] Influenza High Dose 2021-02-05 Completed [facility] 00:00:00 [facility] Influenza High Dose 2021-02-05 Completed [facility] 00:00:00 [facility] Influenza High Dose 2021-02-05 Completed [facility] 00:00:00 [facility] Influenza High Dose 2021-02-05 Completed [facility] 00:00:00 [facility] Influenza High Dose 2021-02-05 Completed [facility] 00:00:00 [facility] Influenza High Dose 2021-02-05 Completed [facility] 00:00:00 [facility] Influenza High Dose 2021-02-05 Completed [facility] 00:00:00 [facility] Influenza High Dose 2021-02-05 Completed [facility] 00:00:00 [facility] Influenza High Dose 2021-02-05 Completed [facility] 00:00:00 [facility] Influenza High Dose 2021-02-05 Completed [facility] 00:00:00 [facility] Influenza High Dose 2021-02-05 Completed [facility] 00:00:00 [facility] Influenza High Dose 2021-02-05 Completed [facility] of 00:00:00 [facility] SARS-COV-2 COVID-19 2021-01-18 Completed [facility] MODERNA 12+ YRS 00:00:00 [place] [facility] SARS-COV-2 COVID-19 2021-01-18 Completed [facility] MODERNA 12+ YRS 00:00:00 [place] [facility] SARS-COV-2 COVID-19 2021-01-18 Completed [facility] MODERNA 12+ YRS 00:00:00 [place] [facility] SARS-COV-2 COVID-19 2021-01-18 Completed [facility] MODERNA 12+ YRS 00:00:00 [place] [facility] SARS-COV-2 COVID-19 2021-01-18 Completed [facility] MODERNA 12+ YRS 00:00:00 [place] [facility] SARS-COV-2 COVID-19 2021-01-18 Completed [facility] MODERNA 12+ YRS 00:00:00 [place] [facility] SARS-COV-2 COVID-19 2021-01-18 Completed [facility] MODERNA 12+ YRS 00:00:00 [place] [facility] SARS-COV-2 COVID-19 2021-01-18 Completed [facility] MODERNA 12+ YRS 00:00:00 [place] [facility] SARS-COV-2 COVID-19 2021-01-18 Completed [facility] MODERNA 12+ YRS 00:00:00 [place] [facility] SARS-COV-2 COVID-19 2021-01-18 Completed [facility] MODERNA 12+ YRS 00:00:00 [place] [facility] SARS-COV-2 COVID-19 2021-01-18 Completed [facility] MODERNA 12+ YRS 00:00:00 [place] [facility] SARS-COV-2 COVID-19 2021-01-18 Completed [facility] MODERNA 12+ YRS 00:00:00 [place] [facility] SARS-COV-2 COVID-19 2021-01-18 Completed [facility] MODERNA 12+ YRS 00:00:00 [place] [facility] SARS-COV-2 COVID-19 2021-01-18 Completed [facility] MODERNA 12+ YRS 00:00:00 [place] [facility] SARS-COV-2 COVID-19 2021-01-18 Completed [facility] MODERNA 12+ YRS 00:00:00 [place] [facility] SARS-COV-2 COVID-19 2021-01-18 Completed [facility] MODERNA 12+ YRS 00:00:00 [place] [facility] SARS-COV-2 COVID-19 2021-01-18 Completed [facility] MODERNA 12+ YRS 00:00:00 [place] [facility] SARS-COV-2 COVID-19 2021-01-18 Completed [facility] MODERNA 12+ YRS 00:00:00 [place] [facility] SARS-COV-2 COVID-19 2021-01-18 Completed [facility] MODERNA 12+ YRS 00:00:00 [place] [facility] SARS-COV-2 COVID-19 2021-01-18 Completed [facility] MODERNA 12+ YRS 00:00:00 [place] [facility] SARS-COV-2 COVID-19 2021-01-18 Completed [facility] MODERNA 12+ YRS 00:00:00 [place] [facility] SARS-COV-2 COVID-19 2021-01-18 Completed [facility] MODERNA 12+ YRS 00:00:00 [place] [facility] SARS-COV-2 COVID-19 2021-01-18 Completed [facility] MODERNA 12+ YRS 00:00:00 [place] [facility] SARS-COV-2 COVID-19 2021-01-18 Completed [facility] MODERNA 12+ YRS 00:00:00 [place] [facility] SARS-COV-2 COVID-19 2021-01-18 Completed [facility] MODERNA 12+ YRS 00:00:00 [place] [facility] SARS-COV-2 COVID-19 2021-01-18 Completed [facility] MODERNA 12+ YRS 00:00:00 [place] [facility] SARS-COV-2 COVID-19 2021-01-18 Completed [facility] MODERNA 12+ YRS 00:00:00 [place] [facility] SARS-COV-2 COVID-19 2021-01-18 Completed [facility] MODERNA 12+ YRS 00:00:00 [place] [facility] SARS-COV-2 COVID-19 2021-01-18 Completed [facility] MODERNA 12+ YRS 00:00:00 [place] [facility] SARS-COV-2 COVID-19 2021-01-18 Completed [facility] MODERNA 12+ YRS 00:00:00 [place] [facility] SARS-COV-2 COVID-19 2021-01-18 Completed [facility] MODERNA 12+ YRS 00:00:00 [place] [facility] SARS-COV-2 COVID-19 2021-01-18 Completed [facility] MODERNA 12+ YRS 00:00:00 [place] [facility] SARS-COV-2 COVID-19 2021-01-18 Completed [facility] MODERNA 12+ YRS 00:00:00 [place] [facility] SARS-COV-2 COVID-19 2021-01-18 Completed [facility] MODERNA 12+ YRS 00:00:00 [place] [facility] SARS-COV-2 COVID-19 2021-01-18 Completed [facility] MODERNA 12+ YRS 00:00:00 [place] [facility] SARS-COV-2 COVID-19 2021-01-18 Completed [facility] MODERNA 12+ YRS 00:00:00 [place] [facility] SARS-COV-2 COVID-19 2021-01-18 Completed [facility] MODERNA 12+ YRS 00:00:00 [place] [facility] SARS-COV-2 COVID-19 2021-01-18 Completed [facility] MODERNA 12+ YRS 00:00:00 [place] [facility] SARS-COV-2 COVID-19 2021-01-18 Completed [facility] MODERNA 12+ YRS 00:00:00 [place] [facility] SARS-COV-2 COVID-19 2021-01-18 Completed [facility] MODERNA 12+ YRS 00:00:00 [place] [facility] SARS-COV-2 COVID-19 2021-01-18 Completed [facility] MODERNA 12+ YRS 00:00:00 [place] [facility] SARS-COV-2 COVID-19 2021-01-18 Completed [facility] MODERNA 12+ YRS 00:00:00 [place] [facility] SARS-COV-2 COVID-19 2021-01-18 Completed [facility] MODERNA 12+ YRS 00:00:00 [place] [facility] SARS-COV-2 COVID-19 2021-01-18 Completed [facility] MODERNA 12+ YRS 00:00:00 [place] [facility] SARS-COV-2 COVID-19 2021-01-18 Completed [facility] MODERNA 12+ YRS 00:00:00 [place] [facility] SARS-COV-2 COVID-19 2021-01-18 Completed [facility] MODERNA 12+ YRS 00:00:00 [place] [facility] SARS-COV-2 COVID-19 2021-01-18 Completed [facility] MODERNA 12+ YRS 00:00:00 [place] [facility] SARS-COV-2 COVID-19 2021-01-18 Completed [facility] MODERNA 12+ YRS 00:00:00 [place] [facility] SARS-COV-2 COVID-19 2021-01-18 Completed [facility] MODERNA 12+ YRS 00:00:00 [place] [facility] SARS-COV-2 COVID-19 2021-01-18 Completed [facility] MODERNA 12+ YRS 00:00:00 [place] [facility] SARS-COV-2 COVID-19 2020-07-21 Completed [facility] MODERNA 12+ YRS 00:00:00 [place] [facility] SARS-COV-2 COVID-19 2020-07-21 Completed [facility] MODERNA 12+ YRS 00:00:00 [place] [facility] SARS-COV-2 COVID-19 2020-07-21 Completed [facility] MODERNA 12+ YRS 00:00:00 [place] [facility] SARS-COV-2 COVID-19 2020-07-21 Completed [facility] MODERNA 12+ YRS 00:00:00 [place] [facility] SARS-COV-2 COVID-19 2020-07-21 Completed [facility] MODERNA 12+ YRS 00:00:00 [place] [facility] SARS-COV-2 COVID-19 2020-07-21 Completed [facility] MODERNA 12+ YRS 00:00:00 [place] [facility] SARS-COV-2 COVID-19 2020-07-21 Completed [facility] MODERNA 12+ YRS 00:00:00 [place] [facility] SARS-COV-2 COVID-19 2020-07-21 Completed [facility] MODERNA 12+ YRS 00:00:00 [place] [facility] SARS-COV-2 COVID-19 2020-07-21 Completed [facility] MODERNA 12+ YRS 00:00:00 [place] [facility] SARS-COV-2 COVID-19 2020-07-21 Completed [facility] MODERNA 12+ YRS 00:00:00 [place] [facility] SARS-COV-2 COVID-19 2020-07-21 Completed [facility] MODERNA 12+ YRS 00:00:00 [place] [facility] SARS-COV-2 COVID-19 2020-07-21 Completed [facility] MODERNA 12+ YRS 00:00:00 [place] [facility] SARS-COV-2 COVID-19 2020-07-21 Completed [facility] MODERNA 12+ YRS 00:00:00 [place] [facility] SARS-COV-2 COVID-19 2020-07-21 Completed [facility] MODERNA 12+ YRS 00:00:00 [place] [facility] SARS-COV-2 COVID-19 2020-07-21 Completed [facility] MODERNA 12+ YRS 00:00:00 [place] [facility] SARS-COV-2 COVID-19 2020-07-21 Completed [facility] MODERNA 12+ YRS 00:00:00 [place] [facility] SARS-COV-2 COVID-19 2020-07-21 Completed [facility] MODERNA 12+ YRS 00:00:00 [place] [facility] SARS-COV-2 COVID-19 2020-07-21 Completed [facility] MODERNA 12+ YRS 00:00:00 [place] [facility] SARS-COV-2 COVID-19 2020-07-21 Completed [facility] of MODERNA 12+ YRS 00:00:00 [place] [facility] SARS-COV-2 COVID-19 2020-07-21 Completed [facility] MODERNA 12+ YRS 00:00:00 [place] [facility] SARS-COV-2 COVID-19 2020-07-21 Completed [facility] MODERNA 12+ YRS 00:00:00 [place] [facility] SARS-COV-2 COVID-19 2020-07-21 Completed [facility] MODERNA 12+ YRS 00:00:00 [place] [facility] SARS-COV-2 COVID-19 2020-07-21 Completed [facility] MODERNA 12+ YRS 00:00:00 [place] [facility] SARS-COV-2 COVID-19 2020-07-21 Completed [facility] MODERNA 12+ YRS 00:00:00 [place] [facility] SARS-COV-2 COVID-19 2020-07-21 Completed [facility] MODERNA 12+ YRS 00:00:00 [place] [facility] SARS-COV-2 COVID-19 2020-07-21 Completed [facility] MODERNA 12+ YRS 00:00:00 [place] [facility] SARS-COV-2 COVID-19 2020-07-21 Completed [facility] MODERNA 12+ YRS 00:00:00 [place] [facility] SARS-COV-2 COVID-19 2020-07-21 Completed [facility] MODERNA 12+ YRS 00:00:00 [place] [facility] SARS-COV-2 COVID-19 2020-07-21 Completed [facility] MODERNA 12+ YRS 00:00:00 [place] [facility] SARS-COV-2 COVID-19 2020-07-21 Completed [facility] MODERNA 12+ YRS 00:00:00 [place] [facility] SARS-COV-2 COVID-19 2020-07-21 Completed [facility] MODERNA 12+ YRS 00:00:00 [place] [facility] SARS-COV-2 COVID-19 2020-07-21 Completed [facility] MODERNA 12+ YRS 00:00:00 [place] [facility] SARS-COV-2 COVID-19 2020-07-21 Completed [facility] MODERNA 12+ YRS 00:00:00 [place] [facility] SARS-COV-2 COVID-19 2020-07-21 Completed [facility] of MODERNA 12+ YRS 00:00:00 [place] [facility] SARS-COV-2 COVID-19 2020-07-21 Completed [facility] MODERNA 12+ YRS 00:00:00 [place] [facility] SARS-COV-2 COVID-19 2020-07-21 Completed [facility] MODERNA 12+ YRS 00:00:00 [place] [facility] SARS-COV-2 COVID-19 2020-07-21 Completed [facility] MODERNA 12+ YRS 00:00:00 [place] [facility] SARS-COV-2 COVID-19 2020-07-21 Completed [facility] MODERNA 12+ YRS 00:00:00 [place] [facility] SARS-COV-2 COVID-19 2020-07-21 Completed [facility] MODERNA 12+ YRS 00:00:00 [place] [facility] SARS-COV-2 COVID-19 2020-07-21 Completed [facility] MODERNA 12+ YRS 00:00:00 [place] [facility] SARS-COV-2 COVID-19 2020-07-21 Completed [facility] MODERNA 12+ YRS 00:00:00 [place] [facility] SARS-COV-2 COVID-19 2020-07-21 Completed [facility] MODERNA 12+ YRS 00:00:00 [place] [facility] SARS-COV-2 COVID-19 2020-07-21 Completed [facility] MODERNA 12+ YRS 00:00:00 [place] [facility] SARS-COV-2 COVID-19 2020-07-21 Completed [facility] MODERNA 12+ YRS 00:00:00 [facility] SARS-COV-2 COVID-19 2020-07-21 Completed [facility] MODERNA 12+ YRS 00:00:00 [facility] SARS-COV-2 COVID-19 2020-07-21 Completed [facility] MODERNA 12+ YRS 00:00:00 [facility] SARS-COV-2 COVID-19 2020-07-21 Completed [facility] MODERNA 12+ YRS 00:00:00 [facility] SARS-COV-2 COVID-19 2020-07-21 Completed [facility] MODERNA 12+ YRS 00:00:00 [place] [facility] SARS-COV-2 COVID-19 2020-07-21 Completed [facility] MODERNA 12+ YRS 00:00:00 [facility] SARS-COV-2 COVID-19 2020-07-21 Completed [facility] MODERNA 12+ YRS 00:00:00 [facility] SARS-COV-2 COVID-19 2020-06-22 Completed [facility] MODERNA 12+ YRS 00:00:00 [facility] SARS-COV-2 COVID-19 2020-06-22 Completed [facility] MODERNA 12+ YRS 00:00:00 [facility] SARS-COV-2 COVID-19 2020-06-22 Completed [facility] MODERNA 12+ YRS 00:00:00 [facility] SARS-COV-2 COVID-19 2020-06-22 Completed [facility] MODERNA 12+ YRS 00:00:00 [place] [facility] SARS-COV-2 COVID-19 2020-06-22 Completed [facility] MODERNA 12+ YRS 00:00:00 [place] [facility] SARS-COV-2 COVID-19 2020-06-22 Completed [facility] MODERNA 12+ YRS 00:00:00 [place] [facility] SARS-COV-2 COVID-19 2020-06-22 Completed [facility] MODERNA 12+ YRS 00:00:00 [place] [facility] SARS-COV-2 COVID-19 2020-06-22 Completed [facility] MODERNA 12+ YRS 00:00:00 [place] [facility] SARS-COV-2 COVID-19 2020-06-22 Completed [facility] MODERNA 12+ YRS 00:00:00 [place] [facility] SARS-COV-2 COVID-19 2020-06-22 Completed [facility] MODERNA 12+ YRS 00:00:00 [place] [facility] SARS-COV-2 COVID-19 2020-06-22 Completed [facility] MODERNA 12+ YRS 00:00:00 [place] [facility] SARS-COV-2 COVID-19 2020-06-22 Completed [facility] MODERNA 12+ YRS 00:00:00 [place] [facility] SARS-COV-2 COVID-19 2020-06-22 Completed [facility] MODERNA 12+ YRS 00:00:00 [place] [facility] SARS-COV-2 COVID-19 2020-06-22 Completed [facility] MODERNA 12+ YRS 00:00:00 [place] [facility] SARS-COV-2 COVID-19 2020-06-22 Completed [facility] MODERNA 12+ YRS 00:00:00 [place] [facility] SARS-COV-2 COVID-19 2020-06-22 Completed [facility] MODERNA 12+ YRS 00:00:00 [place] [facility] SARS-COV-2 COVID-19 2020-06-22 Completed [facility] MODERNA 12+ YRS 00:00:00 [place] [facility] SARS-COV-2 COVID-19 2020-06-22 Completed [facility] MODERNA 12+ YRS 00:00:00 [place] [facility] SARS-COV-2 COVID-19 2020-06-22 Completed [facility] MODERNA 12+ YRS 00:00:00 [place] [facility] SARS-COV-2 COVID-19 2020-06-22 Completed [facility] MODERNA 12+ YRS 00:00:00 [place] [facility] SARS-COV-2 COVID-19 2020-06-22 Completed [facility] MODERNA 12+ YRS 00:00:00 [place] [facility] SARS-COV-2 COVID-19 2020-06-22 Completed [facility] 12+ YRS 00:00:00 [place] [facility] SARS-COV-2 COVID-19 2020-06-22 Completed [facility] 12+ YRS 00:00:00 [place] [facility] SARS-COV-2 COVID-19 2020-06-22 Completed [facility] 12+ YRS 00:00:00 [place] [facility] SARS-COV-2 COVID-19 2020-06-22 Completed [facility] 12+ YRS 00:00:00 [place] [facility] SARS-COV-2 COVID-19 2020-06-22 Completed [facility] 12+ YRS 00:00:00 [place] [facility] SARS-COV-2 COVID-19 2020-06-22 Completed [facility] 12+ YRS 00:00:00 [place] [facility] SARS-COV-2 COVID-19 2020-06-22 Completed [facility] 12+ YRS 00:00:00 [place] [facility] SARS-COV-2 COVID-19 2020-06-22 Completed [facility] 12+ YRS 00:00:00 [place] [facility] SARS-COV-2 COVID-19 2020-06-22 Completed [facility] 12+ YRS 00:00:00 [place] [facility] SARS-COV-2 COVID-19 2020-06-22 Completed [facility] 12+ YRS 00:00:00 [place] [facility] SARS-COV-2 COVID-19 2020-06-22 Completed [facility] 12+ YRS 00:00:00 [place] [facility] SARS-COV-2 COVID-19 2020-06-22 Completed [facility] 12+ YRS 00:00:00 [place] [facility] SARS-COV-2 COVID-19 2020-06-22 Completed [facility] 12+ YRS 00:00:00 [place] [facility] SARS-COV-2 COVID-19 2020-06-22 Completed [facility] 12+ YRS 00:00:00 [place] [facility] SARS-COV-2 COVID-19 2020-06-22 Completed [facility] 12+ YRS 00:00:00 [place] [facility] SARS-COV-2 COVID-19 2020-06-22 Completed [facility] 12+ YRS 00:00:00 [place] [facility] SARS-COV-2 COVID-19 2020-06-22 Completed [facility] 12+ YRS 00:00:00 [place] [facility] SARS-COV-2 COVID-19 2020-06-22 Completed [facility] 12+ YRS 00:00:00 [place] [facility] SARS-COV-2 COVID-19 2020-06-22 Completed [facility] 12+ YRS 00:00:00 [place] [facility] SARS-COV-2 COVID-19 2020-06-22 Completed [facility] 12+ YRS 00:00:00 [place] [facility] SARS-COV-2 COVID-19 2020-06-22 Completed [facility] 12+ YRS 00:00:00 [place] [facility] SARS-COV-2 COVID-19 2020-06-22 Completed [facility] 12+ YRS 00:00:00 [place] [facility] SARS-COV-2 COVID-19 2020-06-22 Completed [facility] 12+ YRS 00:00:00 [place] [facility] SARS-COV-2 COVID-19 2020-06-22 Completed [facility] 12+ YRS 00:00:00 [place] [facility] SARS-COV-2 COVID-19 2020-06-22 Completed [facility] 12+ YRS 00:00:00 [place] [facility] SARS-COV-2 COVID-19 2020-06-22 Completed [facility] 12+ YRS 00:00:00 [place] [facility] SARS-COV-2 COVID-19 2020-06-22 Completed [facility] 12+ YRS 00:00:00 [place] [facility] SARS-COV-2 COVID-19 2020-06-22 Completed [facility] 12+ YRS 00:00:00 [place] [facility] SARS-COV-2 COVID-19 2020-06-22 Completed [facility] 12+ YRS 00:00:00 [place] [facility] Pneumococcal 2018-03-26 Completed [facility] Polysaccharide, 00:00:00 [place] [facility] PPSV23 (PNEUMOVAX) Branch Pneumococcal 2018-03-26 Completed [facility] f Polysaccharide, 00:00:00 [place] [facility] PPSV23 (PNEUMOVAX) Branch Pneumococcal 2018-03-26 Completed [facility] f Polysaccharide, 00:00:00 [place] [facility] PPSV23 (PNEUMOVAX) Branch Pneumococcal 2018-03-26 Completed [facility] f Polysaccharide, 00:00:00 [place] [facility] PPSV23 (PNEUMOVAX) Branch Pneumococcal 2018-03-26 Completed [facility] f Polysaccharide, 00:00:00 [place] [facility] PPSV23 (PNEUMOVAX) Branch Pneumococcal 2018-03-26 Completed [facility] f Polysaccharide, 00:00:00 [place] [facility] PPSV23 (PNEUMOVAX) Branch Pneumococcal 2018-03-26 Completed [facility] f Polysaccharide, 00:00:00 [place] [facility] PPSV23 (PNEUMOVAX) Branch Pneumococcal 2018-03-26 Completed [facility] f Polysaccharide, 00:00:00 [place] [facility] PPSV23 (PNEUMOVAX) Branch Pneumococcal 2018-03-26 Completed [facility] f Polysaccharide, 00:00:00 [place] [facility] PPSV23 (PNEUMOVAX) Branch Pneumococcal 2018-03-26 Completed [facility] f Polysaccharide, 00:00:00 [place] [facility] PPSV23 (PNEUMOVAX) Branch Pneumococcal 2018-03-26 Completed [facility] f Polysaccharide, 00:00:00 [place] [facility] PPSV23 (PNEUMOVAX) Branch Pneumococcal 2018-03-26 Completed [facility] f Polysaccharide, 00:00:00 [place] [facility] PPSV23 (PNEUMOVAX) Branch Pneumococcal 2018-03-26 Completed [facility] o f Polysaccharide, 00:00:00 [place] [facility] PPSV23 (PNEUMOVAX) Branch Pneumococcal 2018-03-26 Completed [facility] f Polysaccharide, 00:00:00 [place] [facility] PPSV23 (PNEUMOVAX) Branch Pneumococcal 2018-03-26 Completed [facility] f Polysaccharide, 00:00:00 [place] [facility] PPSV23 (PNEUMOVAX) Branch Pneumococcal 2018-03-26 Completed [facility] f Polysaccharide, 00:00:00 [place] [facility] PPSV23 (PNEUMOVAX) Branch Pneumococcal 2018-03-26 Completed [facility] f Polysaccharide, 00:00:00 [place] [facility] PPSV23 (PNEUMOVAX) Branch Pneumococcal 2018-03-26 Completed [facility] o f Polysaccharide, 00:00:00 [place] [facility] PPSV23 (PNEUMOVAX) Branch Pneumococcal 2018-03-26 Completed [facility] o f Polysaccharide, 00:00:00 [place] [facility] PPSV23 (PNEUMOVAX) Branch Pneumococcal 2018-03-26 Completed [facility] f Polysaccharide, 00:00:00 [place] [facility] PPSV23 (PNEUMOVAX) Branch Pneumococcal 2018-03-26 Completed [facility] o f Polysaccharide, 00:00:00 [place] [facility] PPSV23 (PNEUMOVAX) Branch Pneumococcal 2018-03-26 Completed [facility] o f Polysaccharide, 00:00:00 [place] [facility] PPSV23 (PNEUMOVAX) Branch Pneumococcal 2018-03-26 Completed [facility] o f Polysaccharide, 00:00:00 [place] [facility] PPSV23 (PNEUMOVAX) Branch Pneumococcal 2018-03-26 Completed [facility] f Polysaccharide, 00:00:00 [place] [facility] PPSV23 (PNEUMOVAX) Branch Pneumococcal 2018-03-26 Completed [facility] f Polysaccharide, 00:00:00 [place] [facility] PPSV23 (PNEUMOVAX) Branch Pneumococcal 2018-03-26 Completed [facility] f Polysaccharide, 00:00:00 [place] [facility] PPSV23 (PNEUMOVAX) Branch Pneumococcal 2018-03-26 Completed [facility] f Polysaccharide, 00:00:00 [place] [facility] PPSV23 (PNEUMOVAX) Branch Pneumococcal 2018-03-26 Completed [facility] f Polysaccharide, 00:00:00 [place] [facility] PPSV23 (PNEUMOVAX) Branch Pneumococcal 2018-03-26 Completed [facility] f Polysaccharide, 00:00:00 [place] [facility] PPSV23 (PNEUMOVAX) Branch Pneumococcal 2018-03-26 Completed [facility] o f Polysaccharide, 00:00:00 [place] [facility] PPSV23 (PNEUMOVAX) Branch Pneumococcal 2018-03-26 Completed [facility] f Polysaccharide, 00:00:00 [place] [facility] PPSV23 (PNEUMOVAX) Branch Pneumococcal 2018-03-26 Completed [facility] o f Polysaccharide, 00:00:00 [place] [facility] PPSV23 (PNEUMOVAX) Branch Pneumococcal 2018-03-26 Completed [facility] o f Polysaccharide, 00:00:00 [place] [facility] PPSV23 (PNEUMOVAX) Branch Pneumococcal 2018-03-26 Completed [facility] f Polysaccharide, 00:00:00 [place] [facility] PPSV23 (PNEUMOVAX) Branch Pneumococcal 2018-03-26 Completed [facility] o f Polysaccharide, 00:00:00 [place] [facility] PPSV23 (PNEUMOVAX) Branch Pneumococcal 2018-03-26 Completed [facility] o f Polysaccharide, 00:00:00 [place] [facility] PPSV23 (PNEUMOVAX) Branch Pneumococcal 2018-03-26 Completed [facility] o f Polysaccharide, 00:00:00 [place] [facility] PPSV23 (PNEUMOVAX) Branch Pneumococcal 2018-03-26 Completed [facility] f Polysaccharide, 00:00:00 [place] [facility] PPSV23 (PNEUMOVAX) Branch Pneumococcal 2018-03-26 Completed [facility] f Polysaccharide, 00:00:00 [place] [facility] PPSV23 (PNEUMOVAX) Branch Pneumococcal 2018-03-26 Completed [facility] f Polysaccharide, 00:00:00 [place] [facility] PPSV23 (PNEUMOVAX) Branch Pneumococcal 2018-03-26 Completed [facility] f Polysaccharide, 00:00:00 [place] [facility] PPSV23 (PNEUMOVAX) Branch Pneumococcal 2018-03-26 Completed [facility] f Polysaccharide, 00:00:00 [place] [facility] PPSV23 (PNEUMOVAX) Branch Pneumococcal 2018-03-26 Completed [facility] f Polysaccharide, 00:00:00 [place] [facility] PPSV23 (PNEUMOVAX) Branch Pneumococcal 2018-03-26 Completed [facility] f Polysaccharide, 00:00:00 [place] [facility] PPSV23 (PNEUMOVAX) Branch Pneumococcal 2018-03-26 Completed [facility] f Polysaccharide, 00:00:00 [place] [facility] PPSV23 (PNEUMOVAX) Branch Pneumococcal 2018-03-26 Completed [facility] f Polysaccharide, 00:00:00 [place] [facility] PPSV23 (PNEUMOVAX) Branch Pneumococcal 2018-03-26 Completed [facility] f Polysaccharide, 00:00:00 [place] [facility] PPSV23 (PNEUMOVAX) Branch Pneumococcal 2018-03-26 Completed [facility] f Polysaccharide, 00:00:00 [place] [facility] PPSV23 (PNEUMOVAX) Branch Pneumococcal 2018-03-26 Completed [facility] f Polysaccharide, 00:00:00 [place] [facility] PPSV23 (PNEUMOVAX) Branch Pneumococcal 2018-03-26 Completed [facility] f Polysaccharide, 00:00:00 [place] [facility] PPSV23 (PNEUMOVAX) Branch Pneumococcal 2015-06-29 Completed [facility] f Polysaccharide, 00:00:00 [place] [facility] PPSV23 (PNEUMOVAX) Branch Pneumococcal 2015-06-29 Completed [facility] f Polysaccharide, 00:00:00 [place] [facility] PPSV23 (PNEUMOVAX) Branch Pneumococcal 2015-06-29 Completed [facility] f Polysaccharide, 00:00:00 [place] [facility] PPSV23 (PNEUMOVAX) Branch Pneumococcal 2015-06-29 Completed [facility] f Polysaccharide, 00:00:00 [place] [facility] PPSV23 (PNEUMOVAX) Branch Pneumococcal 2015-06-29 Completed [facility] f Polysaccharide, 00:00:00 [place] [facility] PPSV23 (PNEUMOVAX) Branch Pneumococcal 2015-06-29 Completed [facility] f Polysaccharide, 00:00:00 [place] [facility] PPSV23 (PNEUMOVAX) Branch Pneumococcal 2015-06-29 Completed [facility] f Polysaccharide, 00:00:00 [place] [facility] PPSV23 (PNEUMOVAX) Branch Pneumococcal 2015-06-29 Completed [facility] f Polysaccharide, 00:00:00 [place] [facility] PPSV23 (PNEUMOVAX) Branch Pneumococcal 2015-06-29 Completed [facility] Polysaccharide, 00:00:00 [place] [facility] PPSV23 (PNEUMOVAX) Branch Pneumococcal 2015-06-29 Completed [facility] f Polysaccharide, 00:00:00 [place] [facility] PPSV23 (PNEUMOVAX) Branch Pneumococcal 2015-06-29 Completed [facility] f Polysaccharide, 00:00:00 [place] [facility] PPSV23 (PNEUMOVAX) Branch Pneumococcal 2015-06-29 Completed [facility] f Polysaccharide, 00:00:00 [place] [facility] PPSV23 (PNEUMOVAX) Branch Pneumococcal 2015-06-29 Completed [facility] f Polysaccharide, 00:00:00 [place] [facility] PPSV23 (PNEUMOVAX) Branch Pneumococcal 2015-06-29 Completed [facility] f Polysaccharide, 00:00:00 [place] [facility] PPSV23 (PNEUMOVAX) Branch Pneumococcal 2015-06-29 Completed [facility] o f Polysaccharide, 00:00:00 [place] [facility] PPSV23 (PNEUMOVAX) Branch Pneumococcal 2015-06-29 Completed [facility] o f Polysaccharide, 00:00:00 [place] [facility] PPSV23 (PNEUMOVAX) Branch Pneumococcal 2015-06-29 Completed [facility] o f Polysaccharide, 00:00:00 [place] [facility] PPSV23 (PNEUMOVAX) Branch Pneumococcal 2015-06-29 Completed [facility] o f Polysaccharide, 00:00:00 [place] [facility] PPSV23 (PNEUMOVAX) Branch Pneumococcal 2015-06-29 Completed [facility] o f Polysaccharide, 00:00:00 [place] [facility] PPSV23 (PNEUMOVAX) Branch Pneumococcal 2015-06-29 Completed [facility] o f Polysaccharide, 00:00:00 [place] [facility] PPSV23 (PNEUMOVAX) Branch Pneumococcal 2015-06-29 Completed [facility] o f Polysaccharide, 00:00:00 [place] [facility] PPSV23 (PNEUMOVAX) Branch Pneumococcal 2015-06-29 Completed [facility] o f Polysaccharide, 00:00:00 [place] [facility] PPSV23 (PNEUMOVAX) Branch Pneumococcal 2015-06-29 Completed [facility] o f Polysaccharide, 00:00:00 [place] [facility] PPSV23 (PNEUMOVAX) Branch Pneumococcal 2015-06-29 Completed [facility] f Polysaccharide, 00:00:00 [place] [facility] PPSV23 (PNEUMOVAX) Branch Pneumococcal 2015-06-29 Completed [facility] o f Polysaccharide, 00:00:00 [place] [facility] PPSV23 (PNEUMOVAX) Branch Pneumococcal 2015-06-29 Completed [facility] o f Polysaccharide, 00:00:00 [place] [facility] PPSV23 (PNEUMOVAX) Branch Pneumococcal 2015-06-29 Completed [facility] o f Polysaccharide, 00:00:00 [place] [facility] PPSV23 (PNEUMOVAX) Branch Pneumococcal 2015-06-29 Completed [facility] o f Polysaccharide, 00:00:00 [place] [facility] PPSV23 (PNEUMOVAX) Branch Pneumococcal 2015-06-29 Completed [facility] o f Polysaccharide, 00:00:00 [place] [facility] PPSV23 (PNEUMOVAX) Branch Pneumococcal 2015-06-29 Completed [facility] o f Polysaccharide, 00:00:00 [place] [facility] PPSV23 (PNEUMOVAX) Branch Pneumococcal 2015-06-29 Completed [facility] o f Polysaccharide, 00:00:00 [place] [facility] PPSV23 (PNEUMOVAX) Branch Pneumococcal 2015-06-29 Completed [facility] o f Polysaccharide, 00:00:00 [place] [facility] PPSV23 (PNEUMOVAX) Branch Pneumococcal 2015-06-29 Completed [facility] f Polysaccharide, 00:00:00 [place] [facility] PPSV23 (PNEUMOVAX) Branch Pneumococcal 2015-06-29 Completed [facility] o f Polysaccharide, 00:00:00 [place] [facility] PPSV23 (PNEUMOVAX) Branch Pneumococcal 2015-06-29 Completed [facility] o f Polysaccharide, 00:00:00 [place] [facility] PPSV23 (PNEUMOVAX) Branch Pneumococcal 2015-06-29 Completed [facility] o f Polysaccharide, 00:00:00 [place] [facility] PPSV23 (PNEUMOVAX) Branch Pneumococcal 2015-06-29 Completed [facility] o f Polysaccharide, 00:00:00 [place] [facility] PPSV23 (PNEUMOVAX) Branch Pneumococcal 2015-06-29 Completed [facility] o f Polysaccharide, 00:00:00 [place] [facility] PPSV23 (PNEUMOVAX) Branch Pneumococcal 2015-06-29 Completed [facility] o f Polysaccharide, 00:00:00 [place] [facility] PPSV23 (PNEUMOVAX) Branch Pneumococcal 2015-06-29 Completed [facility] o f Polysaccharide, 00:00:00 [place] [facility] PPSV23 (PNEUMOVAX) Branch Pneumococcal 2015-06-29 Completed [facility] o f Polysaccharide, 00:00:00 [place] [facility] PPSV23 (PNEUMOVAX) Branch Pneumococcal 2015-06-29 Completed [facility] o f Polysaccharide, 00:00:00 [place] [facility] PPSV23 (PNEUMOVAX) Branch Pneumococcal 2015-06-29 Completed [facility] o f Polysaccharide, 00:00:00 [place] [facility] PPSV23 (PNEUMOVAX) Branch Pneumococcal 2015-06-29 Completed [facility] o f Polysaccharide, 00:00:00 [place] [facility] PPSV23 (PNEUMOVAX) Branch Pneumococcal 2015-06-29 Completed [facility] o f Polysaccharide, 00:00:00 [place] [facility] PPSV23 (PNEUMOVAX) Branch Pneumococcal 2015-06-29 Completed [facility] o f Polysaccharide, 00:00:00 [place] [facility] PPSV23 (PNEUMOVAX) Branch Pneumococcal 2015-06-29 Completed [facility] o f Polysaccharide, 00:00:00 [place] [facility] PPSV23 (PNEUMOVAX) Branch Pneumococcal 2015-06-29 Completed [place] [facility] Pol[facility], 00:00:00 [place] [facility] PPSV23 (PNEUMOVAX) Branch Pneumococcal 2015-06-29 Completed [place] [facility] Polysaccharide, 00:00:00 [place] [facility] PPSV23 (PNEUMOVAX) Branch Pneumococcal 2015-06-29 Completed [place] [facility] Polysaccharide, 00:00:00 [place] [facility] PPSV23 (PNEUMOVAX) Branch Vital Signs Vital Name Observation Time Observation Value Comments Source Systolic blood 2022-09-29 09:34:00 118 mm[Hg] [facility] Diastolic blood 2022-09-29 09:34:00 61 mm[Hg] [facility] Heart rate 2022-09-29 09:34:00 68 /[facility] Body temperature 2022-09-29 09:34:00 35.89 Marj [facility] Respiratory rate 2022-09-29 09:34:00 20 /min [facility] Oxygen saturation in 2022-09-29 09:34:00 96 /min [facility] Arterial blood by [facility] Pulse oximetry Branch Body height 2022-09-29 05:57:00 160 cm [facility] Body weight 2022-09-29 05:57:00 88.451 kg Univers[facility] BMI 2022-09-29 05:57:00 34.54 kg/m2 [facility] Systolic blood 2022-07-25 14:25:00 128 mm[Hg] Un[facility] Diastolic blood 2022-07-25 14:25:00 68 mm[Hg] [facility] rs[facility] Heart rate 2022-07-25 14:25:00 58 /min [facility] Body temperature 2022-07-25 14:25:00 37.06 Marj [facility] 2022-07-25 14:25:00 162.6 cm [facility] Body weight 2022-07-25 14:25:00 89.223 kg [facility] BMI 2022-07-25 14:25:00 33.76 kg/m2 [facility] Oxygen saturation in 2022-07-25 14:25:00 94 /min [facility] blood by [place] [facility] oxim[facility] Systolic blood 2022-07-02 19:13:00 124 mm[Hg] [facility] Diastolic blood 2022-07-02 19:13:00 74 mm[Hg] [facility] Heart rate 2022-07-02 19:13:00 72 /min [facility] Body temperature 2022-07-02 19:13:00 36.89 Marj [facility] Body height 2022-07-02 19:13:00 160 cm [facility] Body weight 2022-07-02 19:13:00 86.183 kg [facility] BMI 2022-07-02 19:13:00 33.66 kg/m2 [facility] [place] [facility] Oxygen saturation in 2022-07-02 19:13:00 95 /min [facility] of Arterial blood by [facility] min Pulse oximetry Branch Systolic blood 2022-06-11 19:12:00 132 mm[Hg] [facility] of [facility] Diastolic blood 2022-06-11 19:12:00 79 mm[Hg] [facility] Heart rate 2022-06-11 19:12:00 59 /min [facility] Body height 2022-06-11 19:12:00 160 cm [facility] Body weight 2022-06-11 19:12:00 85.458 kg [facility] [place] [facility] BMI 2022-06-11 19:12:00 33.37 kg/m2 [facility] [place] [facility] Oxygen saturation in 2022-06-11 19:12:00 97 /min [facility] by [place] [facility] P[facility]xim[facility] Body height 2022-06-07 19:47:00 160 cm [facility] [place] [facility] Body weight 2022-06-07 19:47:00 87.091 kg [facility] [place] [facility] BMI 2022-06-07 19:47:00 34.01 kg/m2 [facility] [place] [facility] Heart rate 2022-05-28 19:40:00 73 /min [facility] [place] [facility] Oxygen saturation in 2022-05-28 19:40:00 96 /min [facility] of Arterial blood by [facility] min Pulse oximetry Branch Respiratory rate 2022-05-28 19:38:00 24 /min [facility] Systolic blood 2022-05-28 19:35:00 130 mm[Hg] [facility] Diastolic blood 2022-05-28 19:35:00 69 mm[Hg] [facility] Body temperature 2022-05-28 16:41:00 36.17 Marj [facility] Body height 2022-05-16 16:15:00 160 cm [facility] Body weight 2022-05-16 16:15:00 87.091 kg [facility] BMI 2022-05-16 16:15:00 34.01 kg/m2 [facility] Systolic blood 2022-05-28 13:23:00 143 mm[Hg] [facility] Diastolic blood 2022-05-28 13:23:00 79 mm[Hg] [facility] Heart rate 2022-05-28 13:23:00 71 /min [facility] Body temperature 2022-05-28 13:23:00 36.22 Marj [facility] Respiratory rate 2022-05-28 13:23:00 17 /min [facility] Oxygen saturation in 2022-05-28 13:23:00 97 /min [facility] of Arterial blood by [facility] Pulse oximetry Branch Body height 2022-05-16 16:15:00 160 cm [facility] Body weight 2022-05-16 16:15:00 87.091 kg [facility] BMI 2022-05-16 16:15:00 34.01 kg/m2 [facility] Systolic blood 2022-04-30 16:54:00 156 mm[Hg] [facility] Diastolic blood 2022-04-30 16:54:00 83 mm[Hg] [facility] Heart rate 2022-04-30 16:54:00 71 /min [facility] Respiratory rate 2022-04-30 16:47:00 19 /min [facility] Body weight 2022-04-30 16:47:00 87.998 kg [facility] BMI 2022-04-30 16:47:00 34.37 kg/m2 [facility] Oxygen saturation in 2022-04-30 16:47:00 95 /min University Arterial blood by [facility] Pulse oximetry Branch Body height 2022-04-27 16:08:00 160 cm [facility] Body weight 2022-04-27 16:08:00 87.408 kg [facility] BMI 2022-04-27 16:08:00 34.14 kg/m2 [facility] Systolic blood 2022-03-06 15:51:00 137 mm[Hg] [facility] Diastolic blood 2022-03-06 15:51:00 72 mm[Hg] [facility] Heart rate 2022-03-06 15:51:00 60 /min [facility] Body temperature 2022-03-06 15:51:00 36.72 Marj [facility] Body height 2022-03-06 15:51:00 160 cm [facility] Body weight 2022-03-06 15:51:00 85.73 kg [facility] BMI 2022-03-06 15:51:00 33.48 kg/m2 [facility] Body height 2022-01-10 18:23:00 160 cm [facility] Body weight 2022-01-10 18:23:00 85.73 kg [facility] BMI 2022-01-10 18:23:00 33.48 kg/m2 [facility] Systolic blood 2021-12-20 19:57:00 107 mm[Hg] [facility] Diastolic blood 2021-12-20 19:57:00 74 mm[Hg] [facility] Heart rate 2021-12-20 19:57:00 80 /min [facility] Body temperature 2021-12-20 19:57:00 36.94 Marj [facility] Body height 2021-12-20 19:57:00 160 cm [facility] Body weight 2021-12-20 19:57:00 85.73 kg [facility] BMI 2021-12-20 19:57:00 33.48 kg/m2 [facility] Procedures Procedure Date / Time Performing Clinician Source Performed HI CLTX SHOULDER DISLC 2022-09-29 07:42:13 Pema Dsouza [facility] W/FX HUMERAL [facility] Medical Bran ch W/MNPJ MODERATE SEDATION 2022-09-29 07:38:38 Pema Dsouza [facility] XR FEMUR 2 VW LEFT 2022-09-29 04:37:59 Pema Dsouza [facility] XR SHOULDER 2+ VW LEFT 2022-09-29 04:37:59 Pema Dsouza [facility] XR TIBIA FIBULA 2 VW 2022-09-29 04:37:59 Pema Dsouza [facility] BILATERAL [facility] CT CERVICAL SPINE WO 2022-09-29 04:23:11 Pema Dsouza [facility] CONTRAST [facility] COMP. METABOLIC PANEL 2022-09-29 04:02:00 Pema Dsouza [facility] ([id number]) Medical Branch ETHANOL 2022-09-29 04:02:00 Meet Pema [facility] CBC WITH DIFF 2022-09-29 04:02:[address] [facility] REFERRAL- 2022-08-06 05:01:00 Doctor Unassigned, [facility] REQUEST/RESPONSE [facility] REFERRAL- 2022-07-19 05:01:00 Doctor Unassigned, [facility] REQUEST/RESPONSE [facility] REFERRAL- 2022-06-27 05:01:00 Doctor Unassigned, [facility] REQUEST/RESPONSE [facility] ASSIGNMENT OF BENEFITS 2022-05-31 14:53:05 Doctor Unassigned, [facility] XR KNEE <3 VW RIGHT 2022-05-28 17:01:43 Molina Monk [facility] TOTAL KNEE ARTHROPLASTY 2022-05-28 13:56:00 [facility] 2022-05-28 13:25:00 Molina Monk [facility] HB ABO GROUPING 2022-05-28 13:25:00 Molina Monk [facility] CBC WITH DIFF 2022-05-25 15:28:00 Molina Monk [facility] URINALYSIS 2022-05-25 15:28:00 Molina Monk [facility] XR CHEST 2 VW 2022-05-25 14:33:56 Molina Monk [facility] ASSIGNMENT OF BENEFITS 2022-05-25 14:08:28 Doctor Unassigned, [facility] Name [facility] 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 2022-05-17 06:01:00 Doctor Unadarwin, [facility] Name [facility] EXTERNAL PROVIDER RECORDS 2022-05-08 06:01:00 Doctor Unassopal, [facility] Name [facility] Encounters Start End Encounter Admission Attending Care Care Encounter Source Date/Time Date/Time Type Type Clinicians Facility Department ID 2023-04-30 2023-04-30 Outpatient Aldo [facility]AS [facility] [id number] Univers 09:20:00 09:20:00 CUBA garza o f [facility] 2022-10-23 2022-10-23 Outpatient Aldo YOO [facility] [id number] Univers 00:00:00 00:00:00 VELIA garza [facility] 2022-09-28 2022-09-29 Emergency X [facility] [place] [employer] [facility] ERT [id number] Univers 22:03:00 05:20:00 PEMA garza [facility] 2022-09-28 2022-09-29 [facility] 1.2.530.096 [id number] Univers 22:03:00 05:20:00 Pema CHI 350.1.13.10 i ty sapp[place] 4.2.7.2.[address] [facility] [id number] [facility] [address] 2022-09-01 2022-09-01 Kermit Yoo [facility] 1.2.840.114 [id number] Univers 00:00:00 00:00:00 Velia HEALTH 350.1.13.10 it y of [place] 4.2.7.2.686 Hollis as CHRISS?BLEA [phone] Oh mane DORSEY [address] MEDICAL OFFICE BUILDING 2022-08-07 2022-08-07 Telephone [facility] 1.2.840.114 10 [id number] Univers 00:00:00 00:00:00 Molina Carcamo HEALTH 350.1.13.10 it y of [place] 4.2.7.2.686 Hollis as CHRISS?BLEA [id number] Oh mane TAPIA [address] MEDICAL OFFICE [facility] 2022-08-06 2022-08-06 Orders Doctor KEAGAN 1.2.840.114 [id number] Univers 00:00:00 00:00:00 Only Unassigned, ANDRES 350.1.13.10 ity of [place] [facility] 4.2.7.2.686 Hollis as [id number] [address] 2022-07-25 2022-07-25 [facility] 1.2.840.[id number] [facility] 09:30:00 09:45:[address] [facility] 350.1.13.10 it y of [place] 4.2.7.2.686 Hollis as CHRISS?BLEA [phone] Oh mane [address] MEDICAL OFFICE [facility] 2022-07-25 2022-07-25 Outpatient [facility] [id number] Univers 09:30:00 09:30:00 VELIA ity of [facility] 2022-07-22 2022-07-22 Telephone [facility] 1.2.840.114 [id number] Univers 00:00:00 00:00:00 Molina Carcamo HEALTH 350.1.13.10 it y of [place] 4.2.7.2.686 Hollis as CHRISS?BLEA [id number] Oh amne TAPIA [address] MEDICAL OFFICE [facility] 2022-07-19 2022-07-19 Telephone [facility] 1.2.128.938 [id number] Univers 00:00:00 00:00:00 Adriana Cho HEALTH 350.1.13.10 it y of [place] 4.2.7.2.686 Hollis as CHRISS?BLEA [phone] Me mane DORSEY 198 [facility] OFFICE [facility] 2022-07-19 2022-07-19 Orders Doctor KEAGAN 1.2.840.114 [id number] Univers 00:00:00 00:00:00 Only Unassigned, ANDRES 350.1.13.10 ity of [place] [facility] 4.2.7.2.686 Hollis as [id number] [address] 2022-07-12 2022-07-12 Office [facility] 1.2.840.114 [id number] Univers 13:00:00 13:15:00 Visit Adriana Cho [facility] 350.1.13.10 it y of [place] 4.2.7.2.686 Hollis as CHRISS?BLEA [phone] Oh mane DORSEY 198 [facility] 2022-07-12 2022-07-12 Outpatient R CATRACHITO [facility] [id number] Univers 13:00:00 13:00:00 ADRIANA [facility] 2022-07-02 2022-07-02 Outpatient R FREDO [facility] [id number] Univers 14:15:00 14:22:13 VELIA [facility] 2022-07-02 2022-07-02 Office [facility] 1.2.840.114 [id number] Univers 14:15:00 14:22:[address] [facility] 350.1.13.10 it y of [place] 4.2.7.2.686 Hollis as CHRISS?BLEA [phone] Me mane DORSEY [address] MEDICAL OFFICE [facility] 2022-06-28 2022-06-28 Telephone Aleshia [facility] 1.2.840.114 [id number] Univers 00:00:00 00:00:00 Molina Carcamo HEALTH 350.1.13.10 it y of [place] 4.2.7.2.686 Hollis as CHRISS?BLEA [id number] Me mane DORSEY 198 [facility] OFFICE [facility] 2022-06-27 2022-06-27 Outpatient R ROXANNE [facility] [id number] Univers 09:45:00 09:45:00 , FABIOLA it y of [facility] 2022-06-27 2022-06-27 Orders Doctor KEAGAN 1.2.840.114 [id number] Univers 00:00:00 00:00:00 Only Unassigned, ANDRES 350.1.13.10 ity of [place] [facility] 4.2.7.2.686 Hollis as [phone] [address] 2022-06-18 2022-06-18 Outpatient [facility] [id number] Univers 08:30:00 08:30:00 ARJUN kayla [facility] 2022-06-11 2022-06-11 Outpatient Aldo [facility] [id number] Univers 13:17:56 23:59:00 ADRIANA garza [facility] 2022-06-11 2022-06-11 Office [facility] 1.2.840.114 [id number] Univers 13:45:00 14:00:00 Visit [facility] 350.1.13.10 it y of [place] 4.2.7.2.686 Hollis as CHRISS?BLEA [phone] Oh mane TAPIA[address] OFFICE [facility] 2022-06-07 2022-06-07 Office [facility] 1.2.840.114 [id number] Univers 14:00:00 14:15:00 Visit [facility] 350.1.13.10 it y of [place] 4.2.7.2.686 Hollis as CHRISS?BLEA [phone] Oh mane [address] MEDICAL OFFICE [facility] 2022-06-07 2022-06-07 Outpatient Aldo [facility] [id number] Univers 14:00:00 14:00:00 ADRIANA kayla [facility] 2022-06-06 2022-06-06 Outpatient Aldo [facility] [id number] Univers 09:30:00 09:30:00 ARJUN colettejavi [facility] 2022-05-31 2022-05-31 Outpatient R [facility] [id number] Univers 09:08:06 23:59:00 MOLINA alvarengajaiv [facility] 2022-05-31 2022-05-31 Orders Doctor KEAGAN 1.2.840.114 [id number] Univers 00:00:00 00:00:00 Only Unassigned, ANDRES 350.1.13.10 ity of [place] [facility] 4.2.7.2.686 Hollis as [phone] [facility] [address] 2022-05-30 2022-05-30 Telephone [facility] 1.2.840.114 10 [id number] Univers 00:00:00 00:00:00 Molina Carcamo HEALTH 350.1.13.10 it y of [place] 4.2.7.2.686 Hollis as CHRISS?BLEA [phone] [address] MEDICAL OFFICE [facility] 2022-05-29 2022-05-29 Telephone [facility] 1.2.840.114 10 [id number] Univers 00:00:00 00:00:00 Molina AGUAYO 350.1.13.10 it y of [place] 4.2.7.2.686 Hollis as CHRISS?BLEA [phone] [address] OFFICE [facility] 2022-05-28 2022-05-28 [facility] 1.2.840.114 [id number] Univers 10:49:42 23:59:00 Encounter Molina CHI 350.1.13.10 ity of [place].2.7.2.[place] [id number] [facility] [address] 2022-05-28 2022-05-28 [facility] [id number] Univers 07:05:00 13:55:00 MOLINA ity of [facility] 2022-05-28 2022-05-28 [facility] 1.2.840.114 [id number] Univers 07:05:00 13:55:00 Encounter Molina CHI 350.1.13.10 ity of [place].2.7.2.686 [place] [id number] [place] [address] 2022-05-28 2022-05-28 Surgery [facility] 1.2.405.592 [id number] Univers 07:35:00 09:58:00 Molina Carlos Alberto CHI 350.1.13.10 i ty of [place] 4.2.7.2.686 [place] [id number] [facility] [address] 2022-05-25 2022-05-25 Marketing Recruiter Lynn, Adc Lab Main [facility] 1.2.8 40.114 [id number] Univers 09:15:00 09:30:00 Visit Molina Monk 350.1.13.10 ity of [place] 4.2.7.2.686 [place] [id number] Oh dical NAL 353 [facility] 2022-05-25 2022-05-25 Outpatient [facility] [id number] Univers 08:12:51 08:14:00 MOLINA garza [facility] 2022-05-25 2022-05-25 Hospital [facility] 1.2.840.114 [id number] Univers 08:12:51 08:14:00 Encounter Molina Carlos Alberto CHI 350.1.13.10 ity of [place] 4.2.7.2.686 [place] [id number] [facility] [address] 2022-05-25 2022-05-25 Orders Doctor KEAGAN 1.2.840.114 [id number] Univers 00:00:00 00:00:00 Only Unassigned, ANDRES 350.1.13.10 ity of [place] HOSPITAL 4.2.7.2.686 Hollis as [id number] [facility] [address] 2022-05-17 2022-05-17 Outpatient R ALESHIA [facility] [id number] Univers 10:15:00 11:39:12 MOLINA colettejavi [facility] 2022-05-17 2022-05-17 Ancillary Cindy Conner [facility] 1 .2.840.114 [id number] Univers 10:15:00 11:39:12 Visit Molina Monk ALON 350.1.13.10 ity of [place] 4.2.7.2.686 [place] [phone] Oh dical NAL 179 [facility] 2022-05-17 2022-05-17 Orders Doctor KEAGAN 1.2.840.114 [id number] Univers 00:00:00 00:00:00 Only Unassigned, ANDRES 350.1.13.10 ity [place] HOSPITAL 4.2.7.2.686 Hollis as [id number] [address] 2022-05-08 2022-05-08 Telephone [facility] 1.2.840.114 10 [id number] Univers 00:00:00 00:00:00 Molina HEALTH 350.1.13.10 it y of [place] 4.2.7.2.686 Hollis as CHRISS?BLEA [phone] Oh mane TAPIADAVINA [address] MEDICAL OFFICE [facility] 2022-05-08 2022-05-08 Orders Doctor KEAGAN 1.2.840.114 [id number] Univers 00:00:00 00:00:00 Only Unassigned, ANDRES 350.1.13.10 ity of [place] HOSPITAL 4.2.7.2.686 [place] as [id number] [address] 2022-05-02 2022-05-02 [facility] 1.2.840.114 [id number] Univers 00:00:00 00:00:00 [facility] 350.1.13.10 it y of [place] 4.2.7.2.686 Hollis as CHRISS?BLEA [phone] Oh lesleemariama DORSEY 044 [facility] OFFICE [facility] 2022-04-30 2022-04-30 Outpatient R [facility] [id number] Univers 10:40:00 11:04:16 CUBA garza o f [facility] 2022-04-30 2022-04-30 Office [facility] 1.2.840.114 [id number] Univers 10:40:00 11:04:16 Visit [place] CHI 350.1.13.10 ity [facility] 4.2.7.2.686 [place] [phone] Oh mane HERNANDEZ 059 [facility] 2022-04-27 2022-04-27 Outpatient [facility] [id number] Univers 10:30:00 10:38:04 MOLINA ity [facility] 2022-04-27 2022-04-27 Office Aleshia [facility] 1.2.032.523 [id number] Univers 10:30:00 10:38:04 Visit Molina Carcamo HEALTH 350.1.13.10 it y of [place] 4.2.7.2.686 [place]is as CHRISS?BLEA [phone] Oh mane DORSEY [address] MEDICAL OFFICE [facility] 2022-04-27 2022-04-27 Prep For Aleshia [facility] 1.2.840.114 [id number] Univers 00:00:00 00:00:00 Surgery Molina Carcamo HEALTH 350.1.13.10 it y of [place] 4.2.7.2.686 [place] as CHRISS?BLEA [phone] Oh mane DORSEY 198 [facility] OFFICE [facility] 2022-04-18 2022-04-18 Telephone [facility] 1.2.840.114 [id number] Univers 00:00:00 00:00:00 Molina Carcamo HEALTH 350.1.13.10 it y of [place] 4.2.7.2.686 Hollis as CHRISS?BLEA [id number] Oh mane DORSEY 198 [facility] OFFICE [facility] 2022-04-10 2022-04-10 Telephone [facility] 1.2.840.114 [id number] Univers 00:00:00 00:00:00 Velia HEALTH 350.1.13.10 it y of [place] 4.2.7.2.686 Hollis as CHRISS?BLEA [id number] Oh mane DORSEY 044 [facility] OFFICE [facility] 2022-03-18 2022-03-18 Refill [facility] 1.2.840.114 [id number] Univers 00:00:00 00:00:00 Velia HEALTH 350.1.13.10 it y of [place] 4.2.7.2.686 Hollis as CHRISS?BLEA [id number] Oh mane DORSEY 044 [facility] OFFICE [facility] 2022-03-06 2022-03-06 Outpatient R FREDO [facility] [id number] Univers 09:45:00 10:02:56 VELIA garza [facility] 2022-03-06 2022-03-06 Office [facility] 1.2.840.114 [id number] Univers 09:45:00 10:02:56 Visit [facility] 350.1.13.10 it y of [place] 4.2.7.2.686 [place] as CHRISS?BLEA [phone] [address] MEDICAL OFFICE [facility] 2022-01-19 2022-01-19 Outpatient [facility] [id number] Univers 00:00:00 00:00:00 MOLINA javi [facility] 2022-01-17 2022-01-17 Outpatient R PRICILA, [facility] [id number] Univers 10:00:00 10:00:00 ERIN [facility] 2022-01-17 2022-01-17 Outpatient R PRICILA, [facility] [id number] Univers 10:00:00 10:00:00 ERIN [facility] 2022-01-17 2022-01-17 Outpatient R WELLINGTON, [facility] [id number] Univers 10:00:00 10:00:00 ERIN [facility] 2022-01-17 2022-01-17 Outpatient R WELLINGTON, [facility] [id number] Univers 10:00:00 10:00:00 ERIN [facility] 2022-01-17 2022-01-17 Outpatient R PRICILA, [facility] [id number] Univers 10:00:00 10:00:00 ERIN [facility] 2022-01-17 2022-01-17 Outpatient R PRICILA, [facility] [id number] Univers 10:00:00 10:00:00 [facility] 2022-01-15 2022-01-15 Telephone [facility] 1.2.840.114 [id number] Univers 00:00:00 00:00:00 [facility] 350.1.13.10 it y of [place] [facility] 4.2.7.2.686 [place] as CHRISS?BLEA [phone] [address] MEDICAL OFFICE [facility] 2022-01-10 2022-01-10 Outpatient [facility] [id number] Univers 13:30:00 13:39:02 MOLINA garza [facility] 2022-01-10 2022-01-10 Office [facility] 1.2.383.341 [id number] Univers 13:30:00 13:39:02 Visit Molina Carcamo [facility] 350.1.13.10 it y of [place] 4.2.7.2.686 Hollis as CHRISS?BLEA [id number] Oh mane TAPIA [address] MEDICAL OFFICE [facility] 2021-12-29 2021-12-29 Refill [facility] 1.2.840.114 [id number] Univers 00:00:00 00:00:[address] [facility] 350.1.13.10 it y of [place] 4.2.7.2.686 [place]is as CHRISS?BLEA [phone] Oh mane [address] OFFICE [facility] 2021-12-20 2021-12-20 Office [facility] 1.2.840.114 [id number] Univers 15:45:00 16:00:[address] [facility] 350.1.13.10 it y of [place] 4.2.7.2.686 Hollis as CHRISS?BLEA [id number] [address] OFFICE [facility] 2021-12-20 2021-12-20 Outpatient [facility] [id number] Univers 15:45:00 15:45:00 VELIA [facility] 2021-12-20 2021-12-20 Outpatient R FREDO [facility] [id number] Univers 15:45:00 15:45:00 VELIA [facility] 2021-12-13 2021-12-13 Outpatient R ROMAN [facility] [id number] Univers 13:30:00 14:47:51 ARJUN [facility] 2021-12-13 2021-12-13 Office [facility] 1.2.840.114 [id number] Univers 13:30:00 14:47:[address] [facility] 350.1.13.10 it y of [place] 4.2.7.2.686 Hollis as CHRISS?BLEA [id number] [address] MEDICAL OFFICE [facility] 2021-12-13 2021-12-13 Outpatient R ROMAN [facility] [id number] Univers 13:30:00 14:47:51 ARJUN alvarengajavi [facility] 2021-12-13 2021-12-13 Henry Yoo [facility] 1.2.991.821 [id number] Univers 00:00:00 00:00:00 [facility] 350.1.13.10 it y of [place] [facility] 4.2.7.2.686 [place] as CHRISS?BLEA [id number] [address] OFFICE [facility] 2021-12-02 2021-12-02 Emergency X NIKKI [facility] ERT [id number] Univers 12:41:00 14:21:00 ANALI garza [facility] 2021-12-02 2021-12-02 Emergency [facility] 1.2.840.114 [id number] Univers 12:41:00 14:21:00 Anali CHI 350.1.13.10 ity of [place] 4.2.7.2.686 [place] [facility] [phone] [facility] [address] 2021-11-24 2021-11-24 Refill [facility] 1.2.840.114 [id number] Univers 00:00:00 00:00:00 [facility] 350.1.13.10 it y of [place] [facility] 4.2.7.2.686 [place] as CHRISS?BLEA [phone] [address] MEDICAL OFFICE [facility] 2021-11-17 2021-11-17 Orders Doctor BOOGIE 1.2.840.114 [id number] Univers 00:00:00 00:00:00 Only Unassigned, ANDRES 350.1.13.10 [facility] 4.2.7.2.686 [place] as [phone] [facility] [address] 2021-11-13 2021-11-13 Outpatient R KVNG [facility] [id number] Univers 11:00:00 11:54:07 ELENA garza [facility] 2021-11-13 2021-11-13 [facility] 1.2.840.114 [id number] Univers 11:00:00 11:54:07 Visit [facility] 350.1.13.10 ity of [place] 4.2.7.2.686 Hollis as CHRISS?BLEA [id number] [address] MEDICAL OFFICE [facility] 2021-11-13 2021-11-13 Outpatient R [facility] [id number] Univers 11:00:00 11:00:00 ELENA ity of [facility] 2021-11-03 2021-11-03 Orders Doctor KEAGAN 1.2.840.114 [id number] Univers 00:00:00 00:00:00 Only Unassigned, ANDRES 350.1.13.10 ity of [place] [facility] 4.2.7.2.686 [place] as [id number] [address] 2021-10-20 2021-10-20 Telephone [facility] 1.2.680.572 [id number] Univers 00:00:00 00:00:00 [facility] 350.1.13.10 ity of [place] 4.2.7.2.686 [place] [id number] [facility] 059 [facility] 2021-10-19 2021-10-19 Telephone [facility] 1.2.840.114 [id number] Univers 00:00:00 00:00:00 [facility] 350.1.13.10 it y of [place] [facility] 4.2.7.2.686 [place] as CHRSIS?BLEA [id number] [address] MEDICAL OFFICE [facility] 2021-10-18 2021-10-18 Outpatient R MANE [facility] [id number] Univers 10:40:00 10:40:00 CUBA garza o f [facility] 2021-10-04 2021-10-04 Outpatient R MANE [facility] [id number] Univers 07:51:09 23:59:00 CUBA alvarengay o f [facility] 2021-10-04 2021-10-04 Outpatient R MANE [facility] [id number] Univers 08:00:00 08:00:00 CUBA alvarengay o f [facility] 2021-09-21 2021-09-21 Outpatient Aldo WINSTON [facility] [id number] Univers 09:20:00 23:59:00 ADRIANA javi [facility] 2021-09-21 2021-09-21 Outpatient Aldo WINSTON [facility] [id number] Univers 08:30:00 09:55:47 [facility] 2021-09-21 2021-09-21 Office [facility] 1.2.840.114 [id number] Univers 08:30:00 09:55:47 Visit Adriana [facility] 350.1.13.10 it y of [place] 4.2.7.2.686 Hollis as CHRISS?BLEA [phone] Oh lesleemariama SUNITA 198 [facility] OFFICE [facility] 2021-09-21 2021-09-21 Outpatient Aldo [facility] [id number] Univers 08:30:00 08:30:00 [facility] 2021-09-20 2021-09-20 Outpatient Aldo HESSALBASTEFANY [facility] [id number] Univers 14:00:00 14:09:24 VELIA [facility] 2021-09-20 2021-09-20 Office [facility] 1.2.840.114 [id number] Univers 14:00:00 14:09:[address] [facility] 350.1.13.10 it y of [place] [facility] 4.2.7.2.686 [place] as CHRISS?BLEA [phone] Oh lesleemariama REGINADAVINA [address] [place] [address] OFFICE [facility] 2021-09-19 2021-09-19 Outpatient Aldo [facility] [id number] Univers 09:42:36 23:59:00 [facility] 2021-09-19 2021-09-19 Outpatient Aldo [facility] [id number] Univers 09:42:36 23:59:00 VELIA [facility] 2021-09-19 2021-09-19 [facility] 1.2.640.968 [id number] Univers 09:40:00 23:59:00 Encounter Velia [place] 350.1.13.10 ity of [place] 4[place]2.7.2.686 [place] [id number] [facility] [address] 2021-09-18 2021-09-18 Outpatient R FREDO [facility] [id number] Univers 11:15:00 11:15:00 VELIA ity of [facility] 2021-09-07 2021-09-07 Orders Doctor KEAGAN 1.2.840.114 [id number] Univers 00:00:00 00:00:00 Only Unassigned, ANDRES 350.1.13.10 ity of [place] [facility] 4.2.7.2.686 Hollis as [phone] [facility] [address] 2021-09-07 2021-09-07 Telephone [facility] 1.2.785.786 [id number] Univers 00:00:00 00:00:00 Adriana S HEALTH 350.1.13.10 it y of [place] 4.2.7.2.686 Hollis as CHRISS?BLEA [phone] Oh dical SUNITA 198 [facility] OFFICE [facility] 2021-09-06 2021-09-06 Telephone [facility] 1.2.674.154 [id number] Univers 00:00:00 00:00:00 Adriana S HEALTH 350.1.13.10 it y of [place] 4.2.7.2.686 [place] as CHRISS?BLEA [phone] Me dical KNDAVINA 198 [facility] 2021-09-05 2021-09-05 Telephone [facility] 1.2.998.904 [id number] Univers 00:00:00 00:00:00 Adriana S HEALTH 350.1.13.10 it y of [place] 4.2.7.2.686 Hollis as CHRISS?BLEA [id number] Oh dical REGINAEY 198 [facility] OFFICE [facility] 2021-08-22 2021-08-22 Telephone Fredo [facility] 1.2.840.114 [id number] Univers 00:00:00 00:00:00 [facility] [id number] it y of [place] [id number] [place] as CHRISS?BLEA [phone] Me dical KNEY [address] MEDICAL OFFICE [facility] 2021-08-18 2021-08-18 Outpatient Aldo MONK [facility] [id number] Univers 10:40:00 23:59:00 [facility] 2021-08-18 2021-08-18 Outpatient Aldo MONK [facility] [id number] Univers 10:40:00 10:40:00 [facility] 2021-08-18 2021-08-18 Office [facility] 1.2.840.114 [id number] Univers 10:00:00 10:15:00 Visit [facility] [id number] it y of [place] [id number] [place] as CHRISS?BLEA [phone] [facility] 198 [facility] OFFICE [facility] 2021-08-18 2021-08-18 Outpatient Aldo CATRACHITO [facility] [id number] Univers 10:00:00 10:00:00 [facility] 2021-08-18 2021-08-18 Outpatient Aldo CATRACHITO [facility] [id number] Univers 10:00:00 10:00:00 [facility] 2021-08-14 2021-08-14 Telephone Fredo [facility] 1.2.840.114 [id number] Univers 00:00:00 00:00:00 [facility] [id number] it y of [place] 4.2.7.2.686 [place] as CHRISS?BLEA [phone] [address] OFFICE [facility] 2021-08-10 2021-08-10 Orders Doctor BOOGIE 1.2.840.114 [id number] Univers 00:00:00 00:00:00 Only Unassigned, ANDRES 350.1.13.10 ity of [place] [facility] 4.2.7.2.686 Hollis as [phone] [address] 2021-08-09 2021-08-09 Transition CYNTHIA Mtz 1.2.840.114 [id number] Univers 00:00:00 00:00:00 of Care Rebekah GHOSH 350.1.13.10 i ty [place]2.[place] [phone] [facility] [address] 2021-08-09 2021-08-09 [facility]phone [facility] 1.2.840.114 [id number] Univers 00:00:00 00:00:[address] [facility] [id number] it y of [place] 4.2.7.2.686 Hollis as CHRISS?BLEA [phone] Oh dical [facility] [address] MEDICAL OFFICE BUILDING 2021-08-09 2021-08-09 Orders Doctor KEAGAN 1.2.840.114 [id number] Univers 00:00:00 00:00:00 Only Unassigned, ANDRES 350.1.13.10 ity of [place] [facility] 4.2.7.2.686 Hollis as [phone] [facility] [address] 2021-08-07 2021-08-08 [facility] [id number] Univers 06:27:00 13:49:00 MOLINA ity of [facility] 2021-08-07 2021-08-08 Hospital [facility] 1.2.840.114 [id number] Univers 06:27:00 13:49:00 Encounter Molina [facility] 350.1.13.10 ity [place] [phone] [facility] [address] 2021-08-08 2021-08-08 Orders Doctor KEAGAN 1.2.840.114 [id number] Univers 00:00:00 00:00:00 Only Unassigned, ANDRES 350.1.13.10 ity of [place] [facility] 4.2.7.2.686 [place] as [id number] [facility] [address] 2021-08-07 2021-08-07 Surgery [facility] 1.2.225.703 [id number] Univers 07:35:00 09:56:00 Molina CHI 350.1.13.10 i ty of [facility] [place].2.7.2.[place] [id number] [facility] [address] 2021-08-07 2021-08-07 Anesthesia Krishan Aguayo [facility] 1.2.840.11 4 [id number] Univers 07:33:00 09:40:00 Event MariamaDee DeeNoe ALON 35 0.1.13.10 ity of [facility] 4.2.7.2.[place] [id number] [facility] [address] 2021-08-07 2021-08-07 Telephone [facility] 1.2.840.114 [id number] Univers 00:00:00 00:00:[address] [facility] 350.1.13.10 it y of [place] 4.2.7.2.686 [place]is as CHRISS?BLEA [phone] Oh dical REGINAEY [address] MEDICAL OFFICE BUILDING 2021-08-07 2021-08-07 Orders Doctor KEAGAN 1.2.840.114 [id number] Univers 00:00:00 00:00:00 Only Unassigned, ANDRES 350.1.13.10 ity of [place] [facility] 4.2.7.2.686 [place] as [phone] [facility] [address] 2021-08-04 2021-08-04 [facility] 1.2.840.114 [id number] Univers 07:54:08 23:59:00 Encounter Molina CHI 350.1.13.10 ity of [facility] 4.2.7.2.[place] [id number] [facility] [address] 2021-08-04 2021-08-04 Marketing Recruiter Lynn, Subha Lab Main [facility] 1.2.8 40.114 [id number] Univers 07:45:00 08:00:00 Visit Molina Monk 350.1.13.10 ity of [place] 4.2.7.2.[place] [id number] Oh dicmariama HERNANDEZ 353 [facility] 2021-08-04 2021-08-04 Outpatient R ALESHIA [facility] [id number] Univers 07:53:46 07:53:46 MOLINA garza [facility] 2021-08-04 2021-08-04 Outpatient R FREDO [facility] [id number] Univers 00:00:00 00:00:00 [facility] 2021-08-04 2021-08-04 Orders Doctor KEAGAN 1.2.840.114 [id number] Univers 00:00:00 00:00:00 Only Unassigned, ANDRES 350.1.13.10 ity of [place] [facility] 4.2.7.2.686 [place] as [id number] [address] 2021-08-02 2021-08-02 Marketing Recruiter Lab, Ang - Db [facility] 1.2.840.1 14 [id number] Univers 13:30:00 13:45:47 Visit [facility] 350.1.13.10 ity of [place] 4.2.7.2.686 [place] as CHRISS?BLEA [phone] [facility] [address] MEDICAL OFFICE BUILDING 2021-08-02 2021-08-02 Marketing Recruiter Lab, Ang - Db [facility] 1.2.840.1 14 [id number] Univers 13:30:00 13:45:00 Visit [facility] 350.1.13.10 ity of [place] 4.2.7.2.686 [place] as CHRISS?BLEA [phone] [facility] [address] MEDICAL OFFICE BUILDING 2021-08-02 2021-08-02 Outpatient [facility] [id number] Univers 13:00:00 13:32:28 [facility] 2021-08-02 2021-08-02 Outpatient [facility] [id number] Univers 13:30:00 13:30:00 [facility] 2021-08-02 2021-08-02 Office [facility] 1.2.840.114 [id number] Univers 13:00:00 13:15:00 Visit [facility] 350.1.13.10 it y of [place] 4.2.7.2.686 [place] as CHRISS?BLEA [phone] [facility] [address] MEDICAL OFFICE BUILDING 2021-08-02 2021-08-02 Outpatient [facility] [id number] Univers 13:00:00 13:00:00 [facility] 2021-07-21 2021-07-21 Outpatient R PRCIILA [facility] [id number] Univers 14:06:43 23:59:00 ERIN garza [facility] 2021-07-21 2021-07-21 [facility] 1.2.909.445 [id number] Univers 14:06:43 23:59:00 Encounter Erin CHI 350.1.13.10 ity of [place] 4.2.7.2.[place] [id number] [facility] [address] 2021-07-17 2021-07-17 Orders Doctor KEAGAN 1.2.840.114 [id number] Univers 00:00:00 00:00:00 Only Unassigned, ANDRES 350.1.13.10 ity of [facility] 4.2.7.2.686 [place] as [id number] [facility] [address] 2021-07-14 2021-07-14 Office ELIDA [place] 1.2.840.114 [id number] Univers 08:30:00 09:00:00 Visit Erin Nielson [facility] 350.1.13.10 i ty of [facility] 4.2.7.2.686 [place] [id number] [facility] [address] 2021-07-14 2021-07-14 Outpatient R PRICILA [facility] [id number] Univers 08:30:00 08:30:00 ERIN kayla [facility] 2021-07-14 2021-07-14 Outpatient Aldo WELLINGTON [facility] [id number] Univers 08:30:00 08:30:00 ERIN garza [facility] 2021-07-12 2021-07-12 Office DOMINIQUE BañuelosIT 1.2.415.256 [id number] Univers 08:45:00 09:15:00 Visit Noe Nielson 350.1.13.10 it y of [facility] 4.2.7.2.686 Hollis as BANK [phone] [facility] BLDG. [address] 2021-07-12 2021-07-12 Outpatient R EDDA [facility] [id number] Univers 08:45:00 08:45:00 NOE alvarengajavi [facility] 2021-07-11 2021-07-11 Outpatient R FINA [facility] [id number] Univers 09:00:00 09:51:40 PADMINI alvarengajavi [facility] 2021-07-11 2021-07-11 Ancillary Radha Maria UNIVERSIT ..840.11 4 [id number] Univers 09:00:00 09:51:40 Visit Padmini Harden Y 350.1.13.10 ity of [place] 4.2.7.2.686 [place] as BANK [phone] [facility] BLDG. [address] 2021-07-04 2021-07-04 Office [facility] 1..840.114 [id number] Univers 10:00:00 10:15:00 Visit [facility] 350.1.13.10 it y of [place] 4.2.7.2.686 [place] as CHRISS?BLEA [phone] Oh lesleemariama DORSEY 044 [facility] OFFICE [facility] 2021-07-04 2021-07-04 Outpatient R FREDO [facility] [id number] Univers 10:00:00 10:00:00 VELIA [facility] 2021-07-04 2021-07-04 [facility] ..840.114 [id number] Univers 00:00:00 00:00:00 Surgery [facility] 350.1.13.10 it y of [place] 4.2.7.2.686 [place] as CHRISS?BLEA [phone] Oh lesleemariama DORSEY 198 [facility] OFFICE [facility] 2021-07-04 2021-07-04 Telephone [facility] ..840.114 [id number] Univers 00:00:00 00:00:00 Molina Brandnew IO 350.1.13.10 it y of [place] 4.2.7.2.686 [place] as CHRISS?BLEA [phone] Oh lesleemariama DORSEY 198 [facility] OFFICE [facility] 2021-06-30 2021-06-30 Outpatient [facility] [id number] Univers 13:26:00 23:59:00 BERHANE [facility] 2021-06-30 2021-06-30 [facility] 1.2.840.114 [id number] Univers 13:26:00 23:59:00 Encounter Berhane HEALTH 350.1.13.10 ity of [place] 4.2.7.2.686 [place] as CHRISS?BLEA [phone] Oh mane DORSEY [address] MEDICAL OFFICE [facility] 2021-06-30 2021-06-30 Urgent Berhane Ledesma [facility] 1.2.840.114 [id number] Univers 13:00:00 13:54:46 Care Pablo Smith HEALTH 350.1.13.10 ity of [place] 4.2.7.2.686 [place] as CHRISS?BLEA [phone] Oh mane DORSEY 370 [facility] OFFICE [facility] 2021-06-30 2021-06-30 Outpatient [facility] [id number] Univers 13:26:00 13:26:00 [facility] 2021-06-29 2021-06-29 Outpatient R MARCIO [facility] [id number] Univers 08:00:00 10:55:25 TONYA itjavi [facility] 2021-06-29 2021-06-29 Office [facility] 1.2.840.114 [id number] Univers 08:00:00 10:55:25 Visit Tonya HEALTH 350.1.13.10 it y of [place] 4.2.7.2.686 [place] as CHRISS?BLEA [phone] Oh mane DORSEY 044 [facility] OFFICE [facility] 2021-06-29 2021-06-29 Marketing Recruiter Lab, Ang - Tyler [facility] 1.2.840.1 14 [id number] Univers 08:45:00 09:00:00 Visit Sheree Buckleya HEALTH 350.1.13.10 ity of [place] 4.2.7.2.686 [place] CHRISS?BLEA [phone] Oh mane DORSEY [address] MEDICAL OFFICE [facility] 2021-06-28 2021-06-28 Telephone Fredo [facility] 1.2.840.114 [id number] Univers 00:00:00 00:00:00 Velia HEALTH 350.1.13.10 it y of [place] 4.2.7.2.686 [place] CHRISS?BLEA [phone] Me dical REGINAEY 044 [facility] OFFICE [facility] 2021-06-27 2021-06-27 Telephone George [facility] 1.2.902.103 [id number] Univers 00:00:00 00:00:00 Shiwan ALON 350.1.13.10 i ty of [place] 4[place]2.7.2.686 [place] [phone] Me dical NAL 085 [facility] 2021-06-18 2021-06-18 [facility] 1.2.840.114 [id number] Univers 00:00:00 00:00:[address] [facility] 350.1.13.10 it y of [place] 4.2.7.2.686 [place] CHRISS?BLEA [phone] Me dical REGINAEY 198 [facility] OFFICE [facility] 2021-06-16 2021-06-16 Office [facility] 1.2.840.114 [id number] Univers 09:30:00 09:45:00 Visit [facility] 350.1.13.10 it y of [place] 4.2.7.2.686 [place] CHRISS?BLEA [phone] Me dical SUNITA 198 [facility] OFFICE [facility] 2021-06-16 2021-06-16 Outpatient R CATRACHITO [facility] [id number] Univers 09:30:00 09:30:00 ADRIANA javi [facility] 2021-06-16 2021-06-16 Orders Doctor KEAGAN 1.2.840.114 [id number] Univers 00:00:00 00:00:00 Only Unassigned, ANDRES 350.1.13.10 ity of [place] [facility] 4.2.7.2.686 [place] as [phone] [address] 2021-06-15 2021-06-15 Outpatient Aldo YOO [facility] [id number] Univers 08:45:00 08:49:40 VELIA garza [facility] 2021-06-15 2021-06-15 Telephone Aleshia [facility] 1.2.840.114 [id number] Univers 00:00:00 00:00:00 Molina AGUAYO 350.1.13.10 it y of [place] 4.2.7.2.686 [place] CHRISS?BLEA [phone] Oh mane DORSEY 198 [facility] OFFICE [facility] 2021-06-07 2021-06-07 Out[facility] [id number] Univers 14:30:00 15:16:35 MOLINA garza [facility] 2021-06-07 2021-06-07 Office [facility] 1.2.715.684 [id number] Univers 14:30:00 15:16:35 Visit Molina AGUAYO 350.1.13.10 it y of [facility] 4.2.7.2.686 [place] CHRISS?BLEA [id number] [address] 2021-06-07 2021-06-07 [facility] [id number] Univers 14:30:00 14:30:00 MOLINA [facility] 2021-06-07 2021-06-07 Telephone [facility] 1.2.084.510 [id number] Univers 00:00:00 00:00:00 Qianina ALON 350.1.13.10 ity of [place] 4.2.7.2.686 [place] [facility] [phone] Oh mane HERNANDEZ 059 [facility] 2021-06-05 2021-06-05 Telephone [facility] 1.2.840.114 [id number] Univers 00:00:00 00:00:00 Molina AGUAYO 350.1.13.10 it y of [place] 4.2.7.2.686 [place] CHRISS?BLEA [phone] Oh mane DORSEY [address] [place] [address] OFFICE [facility] 2021-06-02 2021-06-02 [facility] 1.2.840.114 [id number] Univers 12:31:52 23:59:00 Encounter Steffanie ALON 350.1.13.10 ity of [facility] 4.2.7.2.686 [place] CAMPUS [id number] [address] 2021-06-02 2021-06-02 Outpatient R [facility] 42555 [id number] Univers 12:31:11 23:59:00 MOLINA ity of [facility] 2021-06-02 2021-06-02 Hospital [facility] 1.2.840.114 [id number] Univers 12:31:11 23:59:00 Encounter Molina CHI 350.1.13.10 ity of [place] 4.2.7.2.686 [place] [phone] [facility] [address] 2021-05-30 2021-05-30 Outpatient R STEFFANIE LOPEZ [facility] [id number] Univers 00:00:00 00:00:00 STEFFANIE LOPEZ i ty of [facility] 2021-05-26 2021-05-26 Orders Doctor KEAGAN 1.2.840.114 [id number] Univers 00:00:00 00:00:00 Only Unassigned, ANDRES 350.1.13.10 ity of [place] [facility] 4.2.7.2.686 [place] [phone] [facility] [address] 2021-05-19 2021-05-19 Outpatient R STEFFANIE LOPEZ [facility] [id number] Univers 08:30:00 09:44:33 STEFFANIE LOPEZ i ty of [facility] 2021-05-19 2021-05-19 [facility] 1.2.840.114 [id number] Univers 08:30:00 09:44:33 Visit Steffanie CHI 350.1.13.10 i ty of [place] 4.2.7.2.686 [facility] [phone] Oh dical NAL 085 [facility] 2021-05-19 2021-05-19 Outpatient R STEFFANIE LOPEZ [facility] [id number] Univers 08:30:00 09:44:33 STEFFANIE LOPEZ i ty of [facility] 2021-05-19 2021-05-19 Telephone [facility] 1.2.129.999 [id number] Univers 00:00:00 00:00:00 [facility] 350.1.13.10 it y of [place] 4.2.7.2.686 [place] CHRISS?BLEA [phone] Oh dical KNEY [address] MEDICAL OFFICE [facility] 2021-05-18 2021-05-18 Orders Doctor KEAGAN 1.2.840.114 [id number] Univers 00:00:00 00:00:00 Only Unassigned, ANDRES 350.1.13.10 ity of [place] [facility] 4.2.7.2.686 [place] as [phone] [address] 2021-05-16 2021-05-16 Telephone Aleshia [facility] 1.2.840.114 [id number] Univers 00:00:00 00:00:00 Molina Brandnew IO 350.1.13.10 it y of [facility] 4.2.7.2.686 [place] as CHRISS?BLEA [phone] Oh mane TAPIA[address] OFFICE [facility] 2021-05-11 2021-05-11 Office Adriana Winston [facility] 1.2.840.114 [id number] Univers 08:00:00 08:15:00 Visit MonkTomi chenig Carlos Alberto [facility] 350.1.13.10 ity of [facility] 4.2.7.2.686 [place] CHRISS?BLEA [phone] Oh mane [address] OFFICE [facility] 2021-05-11 2021-05-11 Outpatient R ALESHIA [facility] [id number] Univers 08:00:00 08:00:00 MOLINA [facility] 2021-05-09 2021-05-09 Orders Doctor KEAGAN 1.2.840.114 [id number] Univers 00:00:00 00:00:00 Only Unassigned, ANDRES 350.1.13.10 ity of [place] [facility] 4.2.7.2.686 [place] as [id number] [address] 2021-05-08 2021-05-08 Outpatient R ALESHIA [facility] [id number] Univers 00:00:00 00:00:00 MOLINA [facility] 2021-05-05 2021-05-05 Office [facility] 1.2.840.114 [id number] Univers 09:15:00 09:30:00 Visit [facility] 350.1.13.10 it y of [place] 4.2.7.2.686 [place] CHRISS?BLEA [phone] Oh mane DORSEY [address] MEDICAL OFFICE [facility] 2021-05-05 2021-05-05 Outpatient R CATRACHITO [facility] [id number] Univers 09:15:00 09:15:00 [facility] 2021-05-05 2021-05-05 Outpatient Aldo CATRACHITO [facility] [id number] Univers 09:15:00 09:15:00 [facility] 2021-05-04 2021-05-04 Telephone [facility] 1.2.058.499 [id number] Univers 00:00:00 00:00:00 [facility] HEALTH 350.1.13.10 it y of [place] 4.2.7.2.686 [place] as CHRISS?BLEA [phone] Oh mane DORSEY [address] [place] [address] OFFICE [facility] 2021-05-03 2021-05-03 Telephone Fredo [facility] 1.2.840.114 [id number] Univers 00:00:00 00:00:00 [facility] 350.1.13.10 it y of [place] 4.2.7.2.686 [place] as CHRISS?BLEA [phone] Oh mane DORSEY [address] [place] [address] OFFICE [facility] 2021-04-28 2021-04-28 Office [facility] 1.2.840.114 [id number] Univers 09:15:00 09:30:00 Visit [facility] 350.1.13.10 it y of [place] 4.2.7.2.686 [place] as CHRISS?BLEA [phone] Oh mane DORSEY [address] [place] [address] OFFICE [facility] 2021-04-28 2021-04-28 Outpatient Aldo CATRACHITO [facility] [id number] Univers 09:15:00 09:15:00 [facility] 2021-04-28 2021-04-28 Outpatient Aldo CATRACHITO [facility] [id number] Univers 09:15:00 09:15:00 [facility] 2021-04-27 2021-04-27 Telephone [facility] 1.2.117.440 [id number] Univers 00:00:00 00:00:00 Adriana S HEALTH 350.1.13.10 it y of [place] 4.2.7.2.686 [place] as CHRISS?BLEA [phone] Oh mane DORSEY [address] MEDICAL OFFICE [facility] 2021-04-27 2021-04-27 Orders Doctor KEAGAN 1.2.840.114 [id number] Univers 00:00:00 00:00:00 Only Unassigned, ANDRES 350.1.13.10 ity of [place] [facility] 4.2.7.2.686 [place] as [id number] [address] 2021-04-26 2021-04-26 Telephone [facility] 1.2.840.114 [id number] Univers 00:00:00 00:00:00 Molina L HEALTH 350.1.13.10 it y of [place] 4.2.7.2.686 [place] CHRISS?BLEA [phone] Oh mane DORSEY [address] [place] [address] OFFICE [facility] 2021-04-21 2021-04-21 Outpatient R CATRACHITO [facility] [id number] Univers 09:15:00 10:02:45 ADRIANA ity of [facility] 2021-04-21 2021-04-21 Office Catrachito [facility] 1.2.840.114 [id number] Univers 09:15:00 10:02:45 Visit Adriana Cho HEALTH 350.1.13.10 it y of [place] 4.2.7.2.686 [place] CHRISS?BLEA [phone] Oh mane DORSEY [address] [place] [address] OFFICE [facility] 2021-04-21 2021-04-21 Telephone [facility] 1.2.840.114 [id number] Univers 00:00:00 00:00:00 Molina L HEALTH 350.1.13.10 it y of [place] 4.2.7.2.686 [place] CHRISS?BLEA [phone] Oh mane DORSEY [address] [place] [address] MEDICAL OFFICE [facility] 2021-04-20 2021-04-20 Telephone [facility] 1.2.840.114 [id number] Univers 00:00:00 00:00:00 Molina L HEALTH 350.1.13.10 it y of [place] 4.2.7.2.686 [place] CHRISS?BLEA [phone] Oh mane DORSEY 198 [facility] OFFICE [facility] 2021-04-20 2021-04-20 Telephone Aleshia [facility] 1.2.840.114 [id number] Univers 00:00:00 00:00:00 [facility] 350.1.13.10 it y of [place] 4.2.7.2.686 [place] CHRISS?BLEA [phone] Oh mane DORSEY 198 [facility] OFFICE [facility] 2021-04-19 2021-04-19 Outpatient R MANE, [facility] [id number] Univers 10:40:00 11:19:45 CUBA ity o [facility] 2021-04-19 2021-04-19 Office Mane, [facility] 1.2.840.114 [id number] Univers 10:40:00 11:19:45 Visit [place] [facility] 350.1.13.10 ity of [facility] 4.2.7.2.686 [place] [id number] [address] 2021-04-19 2021-04-19 Outpatient R MANE, [facility] [id number] Univers 10:40:00 11:19:45 CUBA ity o [facility] 2021-04-19 2021-04-19 Outpatient R MANE, [facility] [id number] Univers 10:40:00 11:19:45 MIRNAJUN ity o [facility] 2021-04-19 2021-04-19 Outpatient R MANE, [facility] [id number] Univers 10:40:00 11:19:45 CUBA ity o [facility] 2021-04-19 2021-04-19 Office Mane, [facility] 1.2.840.114 [id number] Univers 10:40:00 11:19:45 Visit [place] CHI 350.1.13.10 ity of [facility] 4.2.7.2.686 [place] [phone] Oh lesleeal NAL 9 [facility] 2021-04-19 2021-04-19 Outpatient R MANE, [facility] [id number] Univers 10:40:00 10:40:00 QIANGJUN ity o f [facility] 2021-04-18 2021-04-18 Orders Doctor KEAGAN 1.2.840.114 [id number] Univers 00:00:00 00:00:00 Only Unassigned, ANDRES 350.1.13.10 ity of [place] [facility] 4.2.7.2.686 [place] [phone] [address] 2021-04-17 2021-04-17 Telephone [facility] 1.2.840.114 [id number] Univers 00:00:00 00:00:00 Molina MAHONEYTON 350.1.13.10 i ty of [place] 4.2.7.2.686 [place] SADI [phone] Oh mane HERNANDEZ [address] [place] [address] 2021-04-13 2021-04-13 Telephone [facility] 1.2.840.114 [id number] Univers 00:00:00 00:00:00 Molina Carcamo HEALTH 350.1.13.10 it y of [place] 4.2.7.2.686 [place] CHRISS?BLEA [phone] Oh mane DORSEY [address] [place] [address] OFFICE [facility] 2021-04-13 2021-04-13 [facility] 1.2.840.114 [id number] Univers 00:00:00 00:00:00 Molina Carcamo HEALTH 350.1.13.10 it y of [place] 4.2.7.2.686 [place] as CHRISS?BLEA [phone] Oh dicmariama DORSEY [address] [place] [address] OFFICE [facility] 2021-04-13 2021-04-13 Telephone [facility] 1.2.840.114 [id number] Univers 00:00:00 00:00:00 Molina Carcamo HEALTH 350.1.13.10 it y of [place] 4.2.7.2.686 [place] as CHRISS?BLEA [phone] Oh dicmariama DORSEY [address] [place] [address] OFFICE [facility] 2021-04-10 2021-04-10 [facility] 1.2.840.114 [id number] Univers 15:20:00 23:59:00 Encounter Molina Carcamo HEALTH 350.1.13.10 ity of [place] 4.2.7.2.686 [place] as CHRISS?BLEA [phone] Oh mane DORSEY [address] MEDICAL OFFICE [facility] 2021-04-10 2021-04-10 [facility] [id number] Univers 15:00:00 16:24:01 [address] Molina Carcamo [facility] 350.1.13.10 it y of [place] 4.2.7.2.686 Hollis as CHRISS?BLEA [phone] Me mane DORSEY [address] MEDICAL OFFICE [facility]ILDING 2021-04-10 2021-04-10 [facility] [id number] Univers 15:00:00 16:24:01 MOLINA javi [facility] 2021-03-27 2021-03-27 [facility] [id number] Univers 09:30:00 10:00:00 Visit [facility] [id number] it y of [place] 4.2.7.2.686 Hollis as CHRISS?BLEA [phone] Oh mane DORSEY 044 [facility] OFFICE [facility] 2021-03-27 2021-03-27 Outpatient [facility] [id number] Univers 09:30:00 09:56:27 VELIA [facility] 2021-03-27 2021-03-27 [facility] [id number] Univers 09:30:00 09:30:00 VELIA [facility] 2021-03-27 2021-03-27 Orders Doctor KEAGAN [id number] Univers 00:00:00 00:00:00 Only Unassigned, ANDRES 350.1.13.10 ity of [place] [facility] 4.2.7.2.686 Hollis as [phone] [address] Results Test Description Test Time Test Comments Results Result Comments Source ETHANOL 2022-09-29 04:47:47 Test Item Value Reference Range Interpretation Comme nts ALCOHOL (test code = 7777033031) 109 mg/dL LUCI (test code = LUCI) <10 [id number] Toxic>100 Depression of TE[employer]ER OF [employer] S[employer] IMPAIRED>400 Fatalities Reported [facility]OLIC PAN[facility] ([id number])2022-09-29 04:47:27 Test Item Value Reference Range Interpretation Comments NA (test code = 132 mmol/L 135-145 L 1675031505) K (test code = 4.0 mmol/L 3.5-5.0 7179653145) CL (test code = 97 mmol/L 98-108 L 9633276219) CO2 TOTAL (test code = 25 mmol/L 23-31 6090638885) AGAP (test code = 10 2-16 3819897527) BUN (test code = 16 mg/dL 7-23 4485064003) GLUCOSE (test code = 116 mg/dL 70-110 H 8684921446) CREATININE (test code = 0.57 mg/dL 0.50-1.04 3057761357) TOTAL BILI (test code = 0.6 mg/dL 0.1-1.7 6416975916) CALCIUM (test code = 9.0 mg/dL 8.6-10.6 7283749387) T PROTEIN (test code = 7.0 g/dL 6.3-8.2 4191985612) ALBUMIN (test code = 4.1 g/dL 3.5-5.0 8994174297) ALK PHOS (test code = 80 U/L 34-122 9643306121) ALTv (test code = 28 U/L 5-35 1742-6) AST(SGOT) (test code = 28 U/L 13-40 1279048662) eGFR (test code = 104.6 mL/min/1.73m2 6624915903) LUCI (test code = LUCI) Association of Glomerular Filtration Rate (GFR) and Staging of Kidney Disease* + --+ --+ ------+| GFR (mL/min/1.73 m2) ?| With Kidney Damage ?| ?Without Kidney Damage+ --------+ --------+ +| ?>90 ?| ?Stage one ?| ? Normal ?+ ---+ ---+ -------+| ?60-89 ?| ?Stage two ?| ? Decreased GFR ? + --+ --+ ------+| ?30-59 ?| ?Stage three ?| ? Stage three ? + --+ --+ ------+| ?15-29 ?| ?Stage four ? | ? Stage four ?+ ---+ ---+ -------+| ?<15 (or dialysis) ? ?| ?Stage five ? | ? Stage five ?+ ---+ ---+ -------+ *Each stage assumes the associated GFR level has been in effect for at least three months. ?Stages 1 to 5, with or without kidney disease, indicate chronic kidney disease. Notes: Determination of stages one and two (with eGFR >59mL/min/1.73 m2) requires estimation of kidney damage for at least three months as defined by structural or functional abnormalities of the kidney, manifested by either:Pathological abnormalities or Markers of kidney damage (including abnormalities in the composition of the blood or urine or abnormalities in imaging tests). Lab Interpretation Abnormal (test code = 58958-0) [facility] WITH [id number] 04:17:25 Test Item Value Reference Range Interpretation Comments WBC (test code = 13.60 See_Comment H [Automated 5576-2) message] The system which generated this result transmit bruno reference range : 4.30 - 11.10 10*3/?L. The reference range was not used to interpret this result as normal/abnormal . RBC (test code = 3.80 See_Comment L [Automated 009-8) message] The system which generated this result transmit bruno reference range : 3.93 - 5.25 10*6/?L. The reference range was not used to interpret this result as normal/abnormal . HGB (test code = 13.0 g/dL 11.6-15.0 718-7) HCT (test code = 38.3 % 35.7-45.2 4544-3) MCV (test code = 100.8 fL 80.6-95.5 H 787-2) MCH (test code = 34.2 pg 25.9-32.8 H 785-6) MCHC (test code = 33.9 g/dL 31.6-35.1 786-4) RDW-SD (test code = 50.6 fL 39.0-49.9 H 20812-8) RDW-CV (test code = 13.7 % 12.0-15.5 788-0) PLT (test code = 254 See_Comment [Automated 587-3) message] The system which generated this result transmit bruno reference range : 166 - 358 10*3/ ?L. The reference range was not u sed to interpret th is result as normal/abnormal . MPV (test code = 9.5 fL 9.5-12.9 13968-0) NRBC/100 WBC (test 0.0 See_Comment [Automat ed code = [id number]) message] The system which generated this result transmit bruno reference range : 0.0 - 10.0 /100 WBCs. The reference range was not used to interpret this result as normal/abnormal . NRBC x10^3 (test code See_Comment [Auto mated = 1142320877) message] The system which generated this result transmit bruno reference range : 10*3/?L. The reference range was not used to interpret this result as normal/abnormal . GRAN MAT (NEUT) % 78.9 % (test code = 770-8) IMM GRAN % (test code 1.10 % = 7782349477) LYMPH % (test code = 8.2 % 736-9) MONO % (test code = 10.1 % 5905-5) EOS % (test code = 1.2 % 713-8) BASO % (test code = 0.5 % 706-2) GRAN MAT x10^3(ANC) 10.74 10*3/uL 1.88-7.09 H (test code = 5567490541) IMM GRAN x10^3 (test 0.15 10*3/uL 0.00-0.06 H code = 4218731909) LYMPH x10^3 (test code 1.11 10*3/uL 1.32-3.29 L = 731-0) MONO x10^3 (test code 1.37 10*3/uL 0.33-0.92 H = 742-7) EOS x10^3 (test code = 0.16 10*3/uL 0.03-0.39 711-2) BASO x10^3 (test code 0.07 10*3/uL 0.01-0.07 = 704-7) Lab Interpretation Abnormal (test code = 42770-2) [facility] - This is a pre-surgical type and screen. ONCE [id number] 14:09:42 Test Item Value Reference Range Interpretation Comments ABO & RH (test code A Positive Performe d at [facility] = 20) Laboratory [facility] [place], [place] [address]Toll Free: [phone] A No. [id number] IAT (test code = Negative Performed a t [facility] 1185) Laboratory [facility] Blood [place] [address]Toll Free: [phone] A No. [id number] [facility] - This is a pre-surgical type and screen. ONCE [id number] 14:09:42 Test Item Value Reference Range Interpretation Comments ABO & RH (test code A Positive Performe d at [facility] = 20) Laboratory [facility] [address] [place] [address] Free: [phone] A No. [id number] IAT (test code = Negative Performed a t [facility] 1185) Laboratory [facility] [address] [place], [place] [address]Toll Free: [phone] A No. [id number] [facility] WITH [id number] 15:39:02 Test Item Value Reference Range Interpretation Comments WBC (test code = 8.29 See_Comment [Automated 0657-2) message] The sy stem which generated this result transmitted reference range : 4.30 - 11.10 10*3/?L. The reference range was not used to interpret this result as normal/abnormal . RBC (test code = 4.15 See_Comment [Automated 703-8) message] The sy stem which generated this result transmitted reference range : 3.93 - 5.25 10*6/?L. The reference range was not used to interpret this result as normal/abnormal . HGB (test code = 13.8 g/dL 11.6-15.0 718-7) HCT (test code = 41.8 % 35.7-45.2 4544-3) MCV (test code = 100.7 fL 80.6-95.5 H 787-2) MCH (test code = 33.3 pg 25.9-32.8 H 785-6) MCHC (test code = 33.0 g/dL 31.6-35.1 786-4) RDW-SD (test code = 54.4 fL 39.0-49.9 H 08464-9) RDW-CV (test code = 14.6 % 12.0-15.5 788-0) PLT (test code = 242 See_Comment [Automated 777-3) message] The sy stem which generated this result transmitted reference range : 166 - 358 10*3/ ?L. The reference r davis was not used to interpret this result as normal/abnormal . MPV (test code = 9.4 fL 9.5-12.9 L 06838-7) NRBC/100 WBC (test 0.0 See_Comment [Automat ed code = 3164602839) message] The system which generated this result transmitted reference range : 0.0 - 10.0 /100 WBCs. The refer ence range was not u sed to interpret th is result as normal/abnormal . NRBC x10^3 (test code See_Comment [Auto mated = 7596263525) message] The s ystem which generated this result transmitted reference range : 10*3/?L. The reference range was not used to interpret this result as normal/abnormal . GRAN MAT (NEUT) % 69.2 % (test code = 770-8) IMM GRAN % (test code 0.50 % = 7245940690) LYMPH % (test code = 14.4 % 736-9) MONO % (test code = 12.3 % 5905-5) EOS % (test code = 3.0 % 713-8) BASO % (test code = 0.6 % 706-2) GRAN MAT x10^3(ANC) 5.74 10*3/uL 1.88-7.09 (test code = 7747105843) IMM GRAN x10^3 (test 0.04 10*3/uL 0.00-0.06 code = 0422492357) LYMPH x10^3 (test code 1.19 10*3/uL 1.32-3.29 L = 731-0) MONO x10^3 (test code 1.02 10*3/uL 0.33-0.92 H = 742-7) EOS x10^3 (test code = 0.25 10*3/uL 0.03-0.39 711-2) BASO x10^3 (test code 0.05 10*3/uL 0.01-0.07 = 704-7) Lab Interpretation Abnormal (test code = 22413-9) [facility]"
--- NOTE | 2022-09-29 08:23 | EDPHYS ---
Physician Documentation [facility] Name: Anali Catherine Age: 72 yrs Sex: Female : 1950 Arrival Date: 09/29/2022 Time: 06:11 Bed DIS2 Private MD: ED Physician Rodri Miramontes HPI: 09/29 08:17 This 72 yrs old Female presents to ER via Wheelchair with complaints of Fall nelson Injury. 08:17 Details of fall: The patient fell from an upright position, while standing. Onset: The nelson symptoms/episode began/occurred yesterday. Associated injuries: The patient sustained upper back injury, injury to the low back, anterior aspect of left shoulder and posterior aspect of left shoulder, decreased range of motion. Severity of symptoms: At their worst the symptoms were mild, in the emergency department the symptoms are unchanged. The patient has not experienced similar symptoms in the past. Historical: - Allergies: 07:17 Sulfa (Sulfonamide Antibiotics); iw ROS: 08:18 Constitutional: Negative for fever, chills, and weight loss, Eyes: Negative for injury, nelson pain, redness, and discharge, ENT: Negative for injury, pain, and discharge, Neck: Negative for injury, pain, and swelling, Cardiovascular: Negative for chest pain, palpitations, and edema, Respiratory: Negative for shortness of breath, cough, wheezing, and pleuritic chest pain, Abdomen/GI: Negative for abdominal pain, nausea, vomiting, diarrhea, and constipation, Back: Negative for injury and pain, : Negative for injury, bleeding, discharge, and swelling, Skin: Negative for injury, rash, and discoloration, Neuro: Negative for headache, weakness, numbness, tingling, and seizure, Psych: Negative for depression, anxiety, suicide ideation, homicidal ideation, and hallucinations, Allergy/Immunology: Negative for hives, rash, and allergies, Endocrine: Negative for neck swelling, polydipsia, polyuria, polyphagia, and marked weight changes, Hematologic/Lymphatic: Negative for swollen nodes, abnormal bleeding, and unusual bruising. 08:18 MS/extremity: Positive for injury or acute deformity, decreased range of motion, of the anterior aspect of left shoulder and posterior aspect of left shoulder. Exam: 08:18 Constitutional: This is a well developed, well nourished patient who is awake, alert, nelson and in no acute distress. Head/Face: Normocephalic, atraumatic. Eyes: Pupils equal round and reactive to light, extra-ocular motions intact. Lids and lashes normal. Conjunctiva and sclera are non-icteric and not injected. Cornea within normal limits. Periorbital areas with no swelling, redness, or edema. ENT: Nares patent. No nasal discharge, no septal abnormalities noted. Tympanic membranes are normal and external auditory canals are clear. Oropharynx with no redness, swelling, or masses, exudates, or evidence of obstruction, uvula midline. Mucous membranes moist. Neck: Trachea midline, no thyromegaly or masses palpated, and no cervical lymphadenopathy. Supple, full range of motion without nuchal rigidity, or vertebral point tenderness. No Meningismus. Chest/axilla: Normal chest wall appearance and motion. Nontender with no deformity. No lesions are appreciated. Cardiovascular: Regular rate and rhythm with a normal S1 and S2. No gallops, murmurs, or rubs. Normal PMI, no JVD. No pulse deficits. Respiratory: Lungs have equal breath sounds bilaterally, clear to auscultation and percussion. No rales, rhonchi or wheezes noted. No increased work of breathing, no retractions or nasal flaring. Abdomen/GI: Soft, non-tender, with normal bowel sounds. No distension or tympany. No guarding or rebound. No evidence of tenderness throughout. Back: No spinal tenderness. No costovertebral tenderness. Full range of motion. Skin: Warm, dry with normal turgor. Normal color with no rashes, no lesions, and no evidence of cellulitis. Neuro: Awake and alert, GCS 15, oriented to person, place, time, and situation. Cranial nerves II-XII grossly intact. Motor strength 5/5 in all extremities. Sensory grossly intact. Cerebellar exam normal. Normal gait. Psych: Awake, alert, with orientation to person, place and time. Behavior, mood, and affect are within normal limits. 08:18 Musculoskeletal/extremity: Extremities: noted in the anterior aspect of left shoulder and posterior aspect of left shoulder: decreased ROM, pain. Vital Signs: 07:16 BP 128 / 65; Pulse 67; Resp 16; Temp 98; Pulse Ox 96% ; iw MDM: 07:20 Patient medically screened. nelson 08:20 Differential diagnosis: abrasion, closed head injury, contusion, fracture, laceration, nelson multiple trauma, sprain, strain. Data reviewed: vital signs, nurses notes, radiologic studies. Consideration of Admission/Observation Escalation of care including admission/observation considered. I considered the following discharge prescriptions or medication management in the emergency department Medications were administered in the Emergency Department. See MAR. Care significantly affected by the following chronic conditions: Hypertension, Obesity. 09/29 07:23 Order name: EKG; Complete Time: :24 nelson Administered Medications: 08:33 Not Given (Patient Refused): NS 0.9% IV 1000 ml IV at 1 bolus Per protocol; 1000 mL iw bolus Disposition Summary: 09/29/22 08:22 Discharge Ordered Location: Home nelson Problem: new nelson Symptoms: have improved nelson Condition: Stable nelson Diagnosis - Fall on same level, unspecified nelson - Unspecified symptoms and signs involving the musculoskeletal system nelson - Other dislocation of left shoulder joint - REDUCED nelson Followup: nelson - With: Private Physician - When: 2 - 3 days - Reason: Recheck today's complaints, Continuance of care, Re-evaluation by your physician Followup: nelson - With: José Miguel Tesfaye MD - When: 2 - 3 days - Reason: Recheck today's complaints, Continuance of care, Re-evaluation by your physician Discharge Instructions: - Discharge Summary Sheet nelson - Contusion nelson - Shoulder Dislocation nelson - Fall Prevention in the Home, Adult nelson - Contusion, [id number]-dj-[id number] nelson - Fall Prevention in the Home, Adult, Rmzi-[id number]-Gflm nelson - Shoulder Dislocation, Xtuw-tj-Skhe nelson Forms: - Medication Reconciliation Form nelson - Thank You Letter nelson - Antibiotic Education nelson - Prescription Opioid Use nelson Signatures: Dispatcher [employer] EDIN Rodri Miramontes MD MD cha Williams, Irene, RN RN iw Corrections: (The following items were deleted from the chart) 08:32 07:24 Head C Spine Cap Wo Con+CT.RAD.BRZ ordered. EDIN EDMS 08: 07:23 Labs collected and sent ordered. [facility] iw 08:33 07:23 EKG - Nurse/Tech ordered. [facility] iw
--- NOTE | 2022-09-29 08:23 | ER ---
Nurse's Notes [facility] Name: Anali Catherine Age: 72 yrs Sex: Female : 1950 Arrival Date: 09/29/2022 Time: 06:11 Bed DIS2 Private MD: Diagnosis: Fall on same level, unspecified;Unspecified symptoms and signs involving the musculoskeletal system;Other dislocation of left shoulder joint-REDUCED Presentation: 09/29 07:15 Chief complaint: Patient states: was at [facility] in [place] and have dislocated left iw shoulder and they put it back in, now she can't walk up her stairs , her brought her here because they couldn't get her into the house. 07:15 Acuity: LUIS 4 iw 07:16 Coronavirus screen: At this time, the client does not indicate any symptoms associated iw with coronavirus-19. Ebola Screen: Patient negative for fever greater than or equal to 101.5 degrees Fahrenheit, and additional compatible Ebola Virus Disease symptoms Patient denies exposure to infectious person. Patient denies travel to an Ebola-affected area in the 21 days before illness onset. No symptoms or risks identified at this time. Risk Assessment: Do you want to hurt yourself or someone else?. 07:16 Method Of Arrival: Wheelchair iw 07:16 Initial Sepsis Screen: Does the patient meet any 2 criteria? No. Patient's initial iw sepsis screen is negative. Does the patient have a suspected source of infection? No. Patient's initial sepsis screen is negative. Onset of symptoms was September 29, 2022. Historical: - Allergies: 07:17 Sulfa (Sulfonamide Antibiotics); iw Assessment: 08:11 Reassessment: pt refused CT, brought to a chair to be evaluated by ERP. iw Vital Signs: 07:16 BP 128 / 65; Pulse 67; Resp 16; Temp 98; Pulse Ox 96% ; iw ED Course: :24 Patient arrived in ED. jj6 07:16 Triage completed. iw 07:17 Arm band placed on. iw 07:20 Rodri Miramontes MD is Attending Physician. nelson 08:21 José Miguel Tesfaye MD is Referral Physician. nelson 08:33 Analilia Alcala RN is Primary Nurse. iw Administered Medications: 08:33 Not Given (Patient Refused): NS 0.9% IV 1000 ml IV at 1 bolus Per protocol; 1000 mL iw bolus Outcome: 08:22 Discharge ordered by MD. damon 08:33 Patient left the ED. iw Signatures: Rodri Miramontes MD MD cha Williams, Irene, RN RN Amy Rolle [email or web address] Corrections: (The following items were deleted from the chart) 07:18 07:16 Pulse 67bpm; Resp 16bpm; Pulse Ox 96%; Temp 98F; iw iw 07:20 07:15 Chief complaint: Patient states: was at [facility] in [place] and have dislocated left iw shoulder and they put it back in, now she can't walk up her stairs iw
[2022-09-29 08:37] VITALS: BP 128/65; TEMP 98; O2SAT 96
== END 2022-09-29 08:33 | disposition home or self-care (01) ==
LOC: ER 06:11
DX: S43.085A Other dislocation of left shoulder joint, initial encounter (principal); R29.91 Unspecified symptoms and signs involving the musculoskeletal system; W18.30XA Fall on same level, unspecified, initial encounter; Z88.2 Allergy status to sulfonamides
CPT/HCPCS: 99281

== ENCOUNTER 2023-11-24 14:47 | Observation (INO) | payer OTHER ==
--- NOTE | 2023-11-24 15:36 | RAD REPORT ---
EXAM DESCRIPTION: CT - Head Brain Wo Cont - 11/24/2023 3:24 pm CLINICAL HISTORY: Dizziness;Headache COMPARISON: No comparisons TECHNIQUE: All CT scans are performed using dose optimization technique as appropriate and may inclu de automated exposure control or mA/KV adjustment according to patient size. FINDINGS: No intracranial hemorrhage, hydrocephalus or extra-axial fluid collection.No areas of brai n edema or evidence of midline shift. Cavum septum pellucidum. Moderate chronic small vessel ischemic changes. Cerebral atrophy. The paranasal sinuses and mastoids are clear. The calvarium is intact. IMPRESSION: No acute intracranial abnormality.
[2023-11-24] MEDS ORDERED: NA CHLORIDE 0.9% 1,000 ML ONE (15:42)
[2023-11-24] MEDS ORDERED: NA CHLORIDE 0.9% 500 ML ONE (15:43)
[2023-11-24 16:21] LABS: Absolute Eosinophils 0.2 K/uL (0-0.5); Absolute Monocytes 0.7 K/uL (0.1-1.3); Absolute Neutrophil 4.3 K/uL (1.8-8.0); Basophils % 0.4 % (0-1.3); Eosinophils % 3.8 % (0-4.4); Hematocrit 40.3 % (36.0-45.0); Hemoglobin 13.6 g/dL (12.0-15.0); Lymphocytes % 16.7 % (15.3-44.8); MCH 33.6 pg (27.0-35.0); MCHC 33.7 g/dL (32.0-36.0); MCV 99.8 fL (80-100); MPV 7.8 fL (7.6-11.3); Monocytes % 10.7 % (3.3-12.3); Neutrophils % 68.4 % (41.7-73.7); Platelets 218 thou/uL (152-406); RBC Red Blood Cell Count 4.04 M/uL (3.86-4.86); Red Cell Distribution Width 13.1 % (12.1-15.2)
[2023-11-24 16:22] LABS: PT Prothrombin Time 11.5 SECONDS (9.4-12.5); Protime INR 1.03
--- NOTE | 2023-11-24 16:39 | RAD REPORT ---
EXAM DESCRIPTION: RAD - Chest Single View - 11/24/2023 4:06 pm CLINICAL HISTORY: COUGH COMPARISON: Chest Single View dated 03/29/2021 FINDINGS: Lines: None. Lungs: No evidence of edema or pneumonia. Pleural: No significant pleural effusions or pneumothorax. Cardiac: The heart size is within normal limits. Mediastinum: Within normal limits. Bones: No acute fractures. Right shoulder arthroplasty. Other: None IMPRESSION: No acute cardiopulmonary disease.
[2023-11-24 16:51] LABS: Albumin 3.7 g/dL (3.4-5.0); Anion Gap 9.7 mEq/L (5.0-15.0); Bilirubin Direct 0.2 mg/dL (0-0.2); Bilirubin Indirect, Calculated 0.6 mg/dL (0.2-0.8); Bilirubin Total 0.8 mg/dL (0.2-1.0); Globulin 3.8 g/dL (2.3-3.5); Magnesium 2.2 mg/dL (1.6-2.4); Potassium 3.7 mEq/L (3.5-5.1); Protein, Total 7.5 g/dL (6.4-8.2); Troponin High Sensitivity 5.4 pg/mL (<58.9)
[2023-11-24 17:16] LABS: Specific Gravity 1.007 (1.005-1.030); Sqamous Epithelial <5 /HPF (None Seen); Urine Bacteria <20 /HPF (<20); Urine Bilirubin NEGATIVE (Negative); Urine Blood Negative (Negative); Urine Clarity Turbid (Clear); Urine Color Light-Yellow (Yellow); Urine Culture Reflex Order NOT NEEDED; Urine Glucose NEGATIVE (Negative); Urine Ketones 1+ (Negative); Urine Microscopic Reflex YN ORDER UMIC; Urine Nitrite 2+ (Negative); Urine Protein NEGATIVE (Negative); Urine RBC <5 /HPF (None Seen); Urine Urobilinogen Normal (Normal); Urine WBC <5 /HPF (<5); Urine WBC Clump Rare /HPF (None Seen); Urine pH 5.5 (5.0-7.0)
--- NOTE | 2023-11-24 18:05 | ER ---
Nurse's Notes [facility] Name: Anlai Catherine Age: 73 yrs Sex: Female : 1950 Arrival Date: 11/24/2023 Time: 14:47 Bed 14 Private MD: Diagnosis: Weakness;Cerebral infarction, unspecified-3 days;Tobacco abuse counseling;Tobacco use;Headache Presentation: 11/23 15:24 Chief complaint: EMS states: HEADACHE, WEAKNESS. Coronavirus screen: At this time, the 2 client does not indicate any symptoms associated with coronavirus-19. Ebola Screen: No symptoms or risks identified at this time. Initial Sepsis Screen: Does the patient meet any 2 criteria? No. Patient's initial sepsis screen is negative. Does the patient have a suspected source of infection? No. Patient's initial sepsis screen is negative. Risk Assessment: Do you want to hurt yourself or someone else? Patient reports no desire to harm self or others. Onset of symptoms. 15:24 Method Of Arrival: EMS: [facility] 15:24 Acuity: LUIS 3 kj2 Triage Assessment: 15:26 General: Appears in no apparent distress. Behavior is calm, cooperative. Pain: 2 Complains of pain in HEADACHE Pain currently is 8 out of 10 on a pain scale. Neuro: Level of Consciousness is awake, alert, Oriented to person, place, time, situation. Cardiovascular: Capillary refill < 3 seconds Patient's skin is warm and dry. Respiratory: Airway is patent Respiratory effort is unlabored. : No deficits noted. Historical: - Allergies: 15:46 Sulfa (Sulfonamide Antibiotics); kj2 - Home Meds: 18:52 albuterol sulfate 90 mcg/actuation Inhl HFA Aerosol Inhaler [Active]; alendronate 70 mg kj2 oral tablet every week [Active]; atorvastatin 40 mg oral tablet 1 tab every day at bedtime [Active]; - PMHx: 15:47 Vertigo; cm10 16:01 Hypertensive disorder; kj2 16:02 Hypercholesterolemia; kj2 - PSHx: 15:47 Cholecystectomy; cm10 - Immunization history:: Adult Immunizations up to date. - Infectious Disease History:: Denies. - Family history:: not pertinent. - Social history:: Smoking status: Patient denies any tobacco usage or history of. Screenin:53 [facility] ED Fall Risk Assessment (Adult) History of falling in the last 3 months, kj2 including since admission. 17:04 [facility] ED Fall Risk Assessment (Adult) History of falling in the last 3 months, cm10 including since admission No falls in past 3 months (0 pts) Confusion or Disorientation No (0 pts) Intoxicated or Sedated No (0 pts) Impaired Gait No (0 pts) Mobility Assist Device Used No (0 pt) Altered Elimination No (0 pt) Score/Fall Risk Level 0 - 2 = Low Risk Oriented to surroundings, Maintained a safe environment, Hourly rounding (assess needs \T\ fall precautionary measures) done. Abuse screen: Denies threats or abuse. Denies injuries from another. Nutritional screening: No deficits noted. Tuberculosis screening: No symptoms or risk factors identified. Assessment: 15:28 General: SEE TRIAGE ASSESSMENT. kj2 17:04 General: Appears in no apparent distress. comfortable, Behavior is calm, cooperative. cm10 Neuro: No deficits noted. Level of Consciousness is awake, alert, obeys commands, Oriented to person, place, time, situation, Appropriate for age. Cardiovascular: No deficits noted. Patient's skin is warm and dry. Rhythm is regular. Respiratory: No deficits noted. Airway is patent Respiratory effort is even, unlabored, Respiratory pattern is regular, symmetrical. Derm: No deficits noted. Skin is intact, Skin is pink, warm \T\ dry. Musculoskeletal: No deficits noted. Range of motion: intact in all extremities. Vital Signs: 15:24 BP 137 / 64; Pulse 68; Resp 20; Temp 98; Pulse Ox 94% on R/A; kj2 15:27 BP 137 / 64; Pulse 68; Resp 20; Temp 98.2; Pulse Ox 94% on R/A; kj2 15:46 Weight 92.99 kg; Height 5 ft. 4 in. ; kj2 16:19 BP 145 / 73; Pulse 57; Resp 18; Pulse Ox 100% ; kj2 17:29 BP 135 / 65; Pulse 60; Resp 20; Pulse Ox 100% on R/A; kj2 18:47 BP 136 / 65; Pulse 55; Resp 18; Pulse Ox 100% on R/A; kj2 19:30 BP 135 / 69; Pulse 59; Resp 17; Temp 98; Pulse Ox 97% on R/A; Pain 0/10; rg5 21:45 BP 117 / 57; Pulse 56; Temp 98; Pulse Ox 96% on R/A; Pain 0/10; rg5 15:46 Body Mass Index 35.19 (92.99 kg, 162.56 cm) kj2 19:30 Pain Scale: Adult rg5 21:45 Pain Scale: Adult rg5 [place] Coma Score: 18:02 Eye Response: spontaneous(4). Motor Response: obeys commands(6). Verbal Response: nelson oriented(5). Total: 15. ED Course: 14:51 Patient arrived in ED. eb 15:01 Rodri Miramontes MD is Attending Physician. nelson 15:24 Larisa Johnson, TONJA is Primary Nurse. kj2 15:25 CT Head Brain wo Cont In Process Unspecified. EDMS 15:26 Triage completed. kj2 16:02 Missed attempt(s): 20 gauge in right antecubital area. kj2 16:07 XRAY Chest (1 view) In Process Unspecified. EDMS 16:13 Lipase Sent. cm10 16:13 Basic Metabolic Panel Sent. cm10 16:13 CBC with Diff Sent. cm10 16:14 LFT's Sent. cm10 16:14 Magnesium Sent. cm10 16:14 NT PRO-BNP Sent. cm10 16:14 PT-INR Sent. cm10 16:14 Troponin HS Sent. cm10 16:14 Initial lab(s) drawn, by tx, sent to lab. Inserted saline lock: 20 gauge in right cm10 forearm, using aseptic technique. Blood collected. Flushed with 10 mL NS. 17:03 EKG done, by ED staff, reviewed by Rodri Miramontes MD. cm10 17:03 Patient has correct armband on for positive identification. Bed in low position. Call cm10 light in reach. Side rails up X 1. Provided Education on: ER process and procedures.. Client placed on continuous cardiac and pulse oximetry monitoring. NIBP monitoring applied. quality assurance monitor body on. 17:28 No provider procedures requiring assistance completed. kj2 17:28 Arm band placed on. kj2 18:03 Marianne Gomez MD is Hospitalizing Provider. nelson 18:36 CT Neck Angio In Process Unspecified. EDMS 18:36 Head angio In Process Unspecified. EDMS 19:06 Report given to TONJA Chua. kj2 Administered Medications: 16:20 Drug: NS 0.9% IV 500 ml IV at bolus once Route: IV; Rate: bolus; Site: right forearm; kj2 17:04 Follow up: Response: No adverse reaction; IV Status: Completed infusion; IV Intake: cm10 500ml 17:20 Follow up: IV Status: Completed infusion; IV Intake: 500ml kj2 16:20 Drug: NS 0.9% IV 1000 ml IV at 125 ml/hr continuous Route: IV; Rate: 125 ml/hr; Site: kj2 right forearm; 18:15 Drug: Famotidine IVP 20 mg IVP once; dilute with 10 mL 0.9% NaCl; give over 2 minutes kj2 Route: IVP; Site: right forearm; 18:56 Follow up: Response: No adverse reaction kj2 18:20 Drug: Aspirin PO Chewable Tablet 162 mg PO once Route: PO; kj2 18:45 Follow up: Response: No adverse reaction; Pain is decreased kj2 18:25 Drug: metoCLOPramide IVP 10 mg IVP once; over 1 to 2 minutes Route: IVP; Site: right kj2 forearm; 18:50 Follow up: Response: No adverse reaction kj2 18:27 Drug: Ketorolac IVP 15 mg IVP once Route: IVP; Site: right forearm; kj2 18:57 Follow up: Response: No adverse reaction; Pain is decreased kj2 18:27 Drug: diphenhydrAMINE IVP 25 mg IVP once Route: IVP; Site: right forearm; kj2 18:57 Follow up: Response: No adverse reaction kj2 18:48 Not Given (Duplicate Order): folic acid1 mg IVPB once hb 18:51 Drug: foLIC Acid PO 2 mg PO once Route: PO; kj2 Medication: 17:05 VIS not applicable for this client. cm10 Intake: 17:04 IV: 500ml; Total: 500ml. cm10 17:20 IV: 500ml; Total: 1000ml. kj2 Outcome: 18:05 Decision to Hospitalize by Provider. nelson 23:37 Patient left the ED. sp Signatures: Dispatcher [employer] EDRodri Frye MD MD cha Pinkerton, Shawna sp Botello, Elizabeth eb Martinez, Clarissa, RN RN cm10 Harshil Madden RN RN rg5 Larisa Johnson, RN RN kj2 Patricia Noland RN hb
--- NOTE | 2023-11-24 18:05 | EDPHYS ---
Physician Documentation [facility] Name: Anali Catherine Age: 73 yrs Sex: Female : 1950 Arrival Date: 11/24/2023 Time: 14:47 Bed 14 Private MD: ED Physician Rodri Miramontes HPI: 11/23 17:56 This 73 yrs old Female presents to ER via EMS with complaints of headache, nelson weakness, right face weak. 17:56 The patient complains of pain to the forehead. The patient describes the headache as nelson constant. The patient's problem is reported as a facial droop, on right. Onset: The symptoms/episode began/occurred 3 day(s) ago. Duration: The episode is continuous. Context: the episode(s) was witnessed, by family. The symptoms are alleviated by nothing. The symptoms are aggravated by nothing. Severity of symptoms: At its worst the pain was moderate, in the emergency department the pain is unchanged. Historical: - Allergies: 15:46 Sulfa (Sulfonamide Antibiotics); kj2 - Home Meds: 18:52 albuterol sulfate 90 mcg/actuation Inhl HFA Aerosol Inhaler [Active]; alendronate 70 mg kj2 oral tablet every week [Active]; atorvastatin 40 mg oral tablet 1 tab every day at bedtime [Active]; - PMHx: 15:47 Vertigo; cm10 16:01 Hypertensive disorder; kj2 16:02 Hypercholesterolemia; kj2 - PSHx: 15:47 Cholecystectomy; cm10 - Immunization history:: Adult Immunizations up to date. - Infectious Disease History:: Denies. - Family history:: not pertinent. - Social history:: Smoking status: Patient denies any tobacco usage or history of. ROS: 17:56 Constitutional: Negative for fever, chills, and weight loss, Eyes: Negative for injury, nelson pain, redness, and discharge, ENT: Negative for injury, pain, and discharge, Neck: Negative for injury, pain, and swelling, Cardiovascular: Negative for chest pain, palpitations, and edema, Respiratory: Negative for shortness of breath, cough, wheezing, and pleuritic chest pain, Abdomen/GI: Negative for abdominal pain, nausea, vomiting, diarrhea, and constipation, Back: Negative for injury and pain, : Negative for injury, bleeding, discharge, and swelling, MS/Extremity: Negative for injury and deformity, Skin: Negative for injury, rash, and discoloration, Psych: Negative for depression, anxiety, suicide ideation, homicidal ideation, and hallucinations, Allergy/Immunology: Negative for hives, rash, and allergies, Endocrine: Negative for neck swelling, polydipsia, polyuria, polyphagia, and marked weight changes, Hematologic/Lymphatic: Negative for swollen nodes, abnormal bleeding, and unusual bruising, 17:56 Neuro: Positive for headache, weakness, Exam: 17:56 Radiologist reports: neg nelson 17:56 Constitutional: The patient appears non-toxic, 17:56 Head/face: Exam is negative for acute changes, 17:56 Chest/axilla: Exam negative for 17:56 Cardiovascular: Exam negative for acute changes, 17:56 ECG was reviewed by the Attending Physician. 17:56 Musculoskeletal/extremity: ROM: no acute changes, intact in all extremities, Circulation is intact in all extremities. Sensation intact. Compartment Syndrome exam of affected extremity: is normal. DVT Exam: no pain, no swelling, no tenderness, negative Homans' sign noted on exam, no appreciated bluish discoloration, no erythema, no increased warmth, Vital Signs: 15:24 BP 137 / 64; Pulse 68; Resp 20; Temp 98; Pulse Ox 94% on R/A; kj2 15:27 BP 137 / 64; Pulse 68; Resp 20; Temp 98.2; Pulse Ox 94% on R/A; kj2 15:46 Weight 92.99 kg; Height 5 ft. 4 in. ; kj2 16:19 BP 145 / 73; Pulse 57; Resp 18; Pulse Ox 100% ; kj2 17:29 BP 135 / 65; Pulse 60; Resp 20; Pulse Ox 100% on R/A; kj2 18:47 BP 136 / 65; Pulse 55; Resp 18; Pulse Ox 100% on R/A; kj2 19:30 BP 135 / 69; Pulse 59; Resp 17; Temp 98; Pulse Ox 97% on R/A; Pain 0/10; rg5 21:45 BP 117 / 57; Pulse 56; Temp 98; Pulse Ox 96% on R/A; Pain 0/10; rg5 15:46 Body Mass Index 35.19 (92.99 kg, 162.56 cm) kj2 19:30 Pain Scale: Adult rg5 21:45 Pain Scale: Adult rg5 [place] Coma Score: 18:02 Eye Response: spontaneous(4). Motor Response: obeys commands(6). Verbal Response: nelson oriented(5). Total: 15. MDM: 15:[address] [facility] 18:02 Data reviewed: vital signs, nurses notes, lab test result(s), EKG, radiologic studies. [facility] Consideration of Admission/Observation Patient was admitted/placed on observation. Escalation of care including admission/observation considered. 18:03 TNKase (Tenecteplase) Screening: Not Applicable. [facility] 11/23 15:06 Order name: Basic Metabolic Panel [facility] 11/23 15:06 Order name: CBC with Diff; Complete Time: 17:45 [facility] 11/23 15:06 Order name: LFT's [facility] 11/23 15:06 Order name: Magnesium [facility] 11/23 15:06 Order name: NT PRO-BNP [facility] 11/23 15:06 Order name: PT-INR; Complete Time: 17:45 [facility] 11/23 15:06 Order name: Troponin HS [facility] 11/23 15:06 Order name: Urinalysis w/ reflexes; Complete Time: 17:45 [facility] 11/23 15:06 Order name: Lipase [facility] 11/23 18:00 Order name: Lipid Profile [facility] 11/23 21:06 Order name: CBC with Automated Diff [facility] 11/23 21:06 Order name: CBC with Automated Diff [facility] 11/23 21:06 Order name: Comprehensive Metabolic Panel [facility] 11/23 21:06 Order name: Comprehensive Metabolic Panel [facility] 11/23 15:06 Order name: XRAY Chest (1 view); Complete Time: 17:45 [facility] 11/23 15:06 Order name: CT Head Brain wo Cont; Complete Time: 17:45 [facility] 11/23 17:55 Order name: CT Neck Angio [facility] 11/23 18:23 Order name: Head angio [facility] 11/23 21:07 Order name: Brain With Cont [facility] 11/23 21:06 Order name: CONS Physician Consult [facility] 11/23 21:06 Order name: Physical Therapy Consult [facility] 11/23 15:06 Order name: Cardiac monitoring; Complete Time: 17:03 [facility] 11/23 15:06 Order name: EKG - Nurse/Tech; Complete Time: 17:03 [facility] 11/23 15:06 Order name: IV Saline Lock; Complete Time: 16:20 [facility] 11/23 15:06 Order name: Labs collected and sent; Complete Time: 16:20 [facility] 11/23 15:06 Order name: O2 Per Protocol; Complete Time: 16:49 [facility] 11/23 15:06 Order name: O2 Sat Monitoring; Complete Time: 16:49 [facility] EC:56 Rate is 58 beats/min. Rhythm is regular. QRS [place] is Normal. WI interval is prolonged [facility] at 222 msec. QRS interval is normal. QT interval is normal. No Q waves. T waves are Normal. No ST changes noted. Clinical impression: Sinus bradycardia and No evidence of ischemia. Administered Medications: 16:20 Drug: NS 0.9% IV 500 ml IV at bolus once Route: IV; Rate: bolus; Site: right forearm; kj2 17:04 Follow up: Response: No adverse reaction; IV Status: Completed infusion; IV Intake: cm10 500ml 17:20 Follow up: IV Status: Completed infusion; IV Intake: 500ml kj2 16:20 Drug: NS 0.9% IV 1000 ml IV at 125 ml/hr continuous Route: IV; Rate: 125 ml/hr; Site: kj2 right forearm; 18:15 Drug: Famotidine IVP 20 mg IVP once; dilute with 10 mL 0.9% NaCl; give over 2 minutes kj2 Route: IVP; Site: right forearm; 18:56 Follow up: Response: No adverse reaction kj2 18:20 Drug: Aspirin PO Chewable Tablet 162 mg PO once Route: PO; kj2 18:45 Follow up: Response: No adverse reaction; Pain is decreased kj2 18:25 Drug: metoCLOPramide IVP 10 mg IVP once; over 1 to 2 minutes Route: IVP; Site: right kj2 forearm; 18:50 Follow up: Response: No adverse reaction kj2 18:27 Drug: Ketorolac IVP 15 mg IVP once Route: IVP; Site: right forearm; kj2 18:57 Follow up: Response: No adverse reaction; Pain is decreased kj2 18:27 Drug: diphenhydrAMINE IVP 25 mg IVP once Route: IVP; Site: right forearm; kj2 18:57 Follow up: Response: No adverse reaction kj2 18:48 Not Given (Duplicate Order): folic acid1 mg IVPB once hb 18:51 Drug: foLIC Acid PO 2 mg PO once Route: PO; kj2 Disposition Summary: 11/24/23 18:05 Hospitalization Ordered Notes: Hospitalization Status: Observation nelson Provider: Marianne Gomez cha Location: Telemetry/MedSurg (observation) nelson Condition: Fair nelson Problem: new nelson Symptoms: have improved nelson Bed/Room Type: Standard nelson Room Assignment: 404(11/24/23 21:28) cg Diagnosis - Weakness nelson - Cerebral infarction, unspecified - 3 days nelson - Tobacco abuse counseling nelson - Tobacco use nelson - Headache nelson Forms: - Medication Reconciliation Form nelson - SBAR form nelson - Leadership Thank You Letter nelson Signatures: Dispatcher [employer] EDMS Rodri Miramontes MD MD cha Garcia, Cindy, RN RN cg Patricia Noland RN RN hb Martinez, Clarissa, RN RN cm10 Larisa Johnson RN RN kj2 Corrections: (The following items were deleted from the chart) 15:06 15:06 BASIC METABOLIC PANEL+C.LAB.BRZ ordered. EDMS EDMS 15:06 15:06 CBC+H.LAB.BRZ ordered. EDMS EDMS 15:06 15:06 HEPATIC FUNCTION+C.LAB.BRZ ordered. EDMS EDMS 15:06 15:06 MAGNESIUM+C.LAB.BRZ ordered. EDMS EDMS 15:06 15:06 PROBNP+C.LAB.BRZ ordered. EDMS EDMS 15:06 15:06 PROTIME (+INR)+COAG.LAB.BRZ ordered. EDMS EDMS 15:06 15:06 Troponin High Sensitivity+C.LAB.BRZ ordered. EDMS EDMS 15:06 15:06 Urinalysis+U.LAB.BRZ ordered. EDMS EDMS 15:06 15:06 LIPASE+C.LAB.BRZ ordered. EDMS EDMS 17:55 17:55 Neck Angio+CT.RAD.BRZ ordered. EDMS EDMS 18:00 17:55 LIPID PROFILE+C.LAB.BRZ ordered. EDMS EDMS 21:28 18:05 nelson cg
[2023-11-24] MEDS ORDERED: METOCLOPRAMIDE 10 MG/2mL INJ ONE (18:11)
[2023-11-24] MEDS ORDERED: FAMOTIDINE 20 MG/2 ML VIAL IV ONE (18:11)
[2023-11-24] MEDS ORDERED: ASPIRIN 81 MG CHEWABLE TABLET ONE (18:11)
[2023-11-24] MEDS ORDERED: DIPHENHYDRAMINE 50 MG/ML VIAL ONE (18:11)
[2023-11-24] MEDS ORDERED: KETOROLAC 30 MG/ML INJ ONE (18:11)
[2023-11-24] MEDS ORDERED: FOLIC ACID 1 MG TABLET ONE (18:49)
--- NOTE | 2023-11-24 18:49 | RAD REPORT ---
EXAM DESCRIPTION: CT - Head angio - 11/24/2023 6:35 pm CLINICAL HISTORY: dizziness COMPARISON: Head Brain Wo Cont dated 11/24/2023 TECHNIQUE: CT angiography of the head was performed with maximum intensity reformatted images. CAROTID STENOSIS REFERENCE USING NASCET CRITERIA: Mild - <50% stenosis. Moderate - 50-69% stenosis. Severe - 70-94% stenosis. Near occlusion - 95-99% stenosis. Occluded - 100% stenosis. All CT scans are performed using dose optimization technique as appropriate and may include automated exposure control or mA/KV adjustment according to patient size. FINDINGS: Anterior circulation: No aneurysm or large vessel occlusion. No hemodynamically significant stenosis. No arteriovenous malf ormation identified. Posterior circulation: No aneurysm or large vessel occlusion. No hemodynamically significant stenosis. No arteriovenous malf ormation identified. IMPRESSION: No significant flow abnormality is detected.
--- NOTE | 2023-11-24 18:52 | RAD REPORT ---
EXAM DESCRIPTION: CT - Neck Angio - 11/24/2023 6:35 pm CLINICAL HISTORY: PAIN COMPARISON: Head C Spine Mpr Wo Con dated 03/29/2021 TECHNIQUE: CT angiography of the neck vessels was performed with maximum intensity reformatted image s. CAROTID STENOSIS REFERENCE USING NASCET CRITERIA: Mild - <50% stenosis. Moderate - 50-69% stenosis. Severe - 70-94% stenosis. Near occlusion - 95-99% stenosis. Occluded - 100% stenosis. All CT scans are performed using dose optimization technique as appropriate and may include automated exposure control or mA/KV adjustment according to patient size. FINDINGS: The aortic arch is not fully included in the field of view. This includes the origin of th e common carotid arteries. No significant flow abnormality is seen of the common carotid bilaterally. Calcified plaque at the di stal common carotid arteries. No significant stenosis is identified involving the cervical segments of both internal carotid arteri es. Calcified plaque is present at both proximal ICAs. Normal flow is seen within both vertebral arteries. Right dominant vertebral artery. IMPRESSION: No significant flow abnormality of the neck vessels is identified. Note that the proxima l aspect of the vertebral arteries and common carotid arteries were not included in the field of view .
--- NOTE | 2023-11-24 20:23 | P.HP ---
Certification for Inpatient Patient admitted to: Observation With expected LOS: <2 Midnights Patient will require the following post-hospital care: None Practitioner: I am a practitioner with admitting privileges, knowledge of patient current condition, hospital course, and medical plan of care. Services: Services provided to patient in accordance with Admission requirements found in Title 42 Section 412.3 of the Code of Federal Regulations Patient History Date of Service: 11/24/23 Reason for admission: Headache, facial weakness History of Present Illness: 73-year-old female with past medical history of HTN, HLD, chronic vertigo, chronic tobacco, chronic alcohol use, liver disease? GRABIEL, previously evaluated by liver team at [facility]; presented to the hospital today after developing headache this morning upon waking up. She states headache was intense rated at about 8-10 out of 10, headache is generalized, no associated photophobia, nausea or vomiting. She states she has not been having similar headaches in the past. She states she still continues to drink, her last alcohol intake was yesterday night. She states he normally drinks about 3 to 4 glasses every day although she admitted to drinking about 4 to 5 cans of beers last night. She states she has been having weakness of the right side of the face as well as the right arm since the last 1 months. She has not seek any intervention or diagnosis for the right-sided weakness. She presented to the hospital today because of the headache. She states she was given pain medication and the headache resolved in the emergency room. She states she still has weakness although no weakness was elicited on the face or right side. She states she feels generalized body weakness when asked again about the right- sided weakness. She denies any dysuria nocturia or urinary frequency. She admits to chronic leg swelling. She denies any diuretic use. On the right in the ED vital signs were stable, urinalysis shows 2+ nitrites but normal WBC and leukocyte esterase, CBC as well as BMP was unremarkable. Chest x-ray shows no acute infiltrate. Head CT was normal. CTA head and neck shows no flow abnormality. She has been admitted for atypical facial weakness although not consistent with her history given to me now Home medications list reviewed: No (Patient did not bring her home med list) - Past Medical/Surgical History Has patient received pneumonia vaccine in the past: No Diabetic: No -: Hypertension -: HLD -: Chronic vertigo -: Liver diseaseof unclear etiology and diagnosis -: Cholecystectomy - Family History Family History: Reviewed- Non-Contributory - Social History Smoking Status: Heavy Tobacco smoker (>10 cigarettes/day) Counseled patient to stop smoking for: more than 10 minutes Smoking therapy provided: Yes Patient receptive to therapy: Yes Alcohol use: Yes CD- Drugs: No Caffeine use: No Place of Residence: Home Review of Systems General: Weakness Cardiovascular: Light Headedness Neurological: Weakness Physical Examination - Physical Exam General: Alert, In no apparent distress, Oriented x3, Cooperative HEENT: Atraumatic, Normocephalic, PERRLA, Mucous membr. moist/pink Neck: Supple, 2+ carotid pulse no bruit, JVD not distended Respiratory: Clear to auscultation bilaterally, Normal air movement Cardiovascular: No edema, Normal pulses, Regular rate/rhythm, Normal S1 S2 Gastrointestinal: Normal bowel sounds, Soft and benign, Non-distended, No ascites, No tenderness Musculoskeletal: No clubbing, No swelling Integumentary: Other (bandai over right moseley , trace right leg edema , non left leg ) Neurological: Normal speech, Normal strength at 5/5 x4 extr, Sensation intact, Cranial nerves 3-12 intact, Normal reflexes 2+, Other (no asymmetrical weakness, no pronator drift) - Studies Laboratory Data (last 24 hrs) 11/24/23 11/24/23 11/24/23 17:55 16:11 16:11 WBC 6.30 Hgb 13.6 Hct 40.3 Plt Count 218 PT 11.5 INR 1.03 Sodium Potassium BUN Creatinine Glucose Magnesium Total Bilirubin AST ALT Alkaline Phosphatase Triglycerides Cancelled Cholesterol Cancelled HDL Cholesterol Cancelled Cholesterol/HDL Ratio Cancelled Lipase 11/24/23 16:11 WBC Hgb Hct Plt Count PT INR Sodium 141 Potassium 3.7 BUN 11 Creatinine 0.67 Glucose 95 Magnesium 2.2 Total Bilirubin 0.8 AST 14 L ALT 31 Alkaline Phosphatase 85 Triglycerides 88 Cholesterol 149 HDL Cholesterol 56 Cholesterol/HDL Ratio 2.66 Lipase 25 Assessment and Plan - Problems (Diagnosis) (1) Weakness Current Visit: Yes Status: Acute (2) UTI (urinary tract infection) Current Visit: Yes Status: Acute (3) Right arm weakness Current Visit: Yes Status: Acute - Plan IMPRESSION Weaknessasymmetrical UTIpresent HTN Headacheresolved Chronic tobacco Chronic alcohol abuse Presumed liver disease Plan Will admit patient to observation No observable facial or right arm weakness, head and neck CTA negative Neurology consult in a.m. Obtain MRI of the brain although low probability for CVA Given positive nitrite in urine, possible UTI causing headache and generalized weakness,, start empirical antibiotics with Rocephin PT and OT in a.m. Obtain home meds and reconcile Lovenox for DVT prophylaxis Monitor for alcohol withdrawal, Ativan as needed Dispo possible home in a.m. Discharge Plan: Home Plan to discharge in: 48 Hours - Advance Directives Does patient have a Living Will: No Does patient have a Durable POA for Healthcare: No - Code Status/Comfort Care Code Status Assessed: Yes Code Status: Full Code Time Spent Managing Pts Care (In Minutes): 65
[2023-11-24] MEDS ORDERED: ALBUTEROL 2.5 MG/3 ML NEB SOL NEB PRN (20:57)
[2023-11-24] MEDS ORDERED: MORPHINE 2 MG/ML SYR IV PRN (20:57)
[2023-11-24] MEDS ORDERED: FLUMAZENIL 0.1 MG/ML (5 mL VIAL) IV PRN (20:57)
[2023-11-24] MEDS ORDERED: LORAZEPAM 1 MG TABLET PO PRN (21:03)
[2023-11-25 00:20] VITALS: BMI 35.2
[2023-11-25] MEDS: D5 0.9 NS 1,000 ML IV SCH (06:00)
[2023-11-25 06:31] LABS: Absolute Eosinophils 0.2 K/uL (0-0.5); Absolute Monocytes 0.7 K/uL (0.1-1.3); Absolute Neutrophil 4.5 K/uL (1.8-8.0); Basophils % 0.6 % (0-1.3); Eosinophils % 3.5 % (0-4.4); Hematocrit 38.9 % (36.0-45.0); Lymphocytes % 15.1 % (15.3-44.8); MCH 33.7 pg (27.0-35.0); MCHC 33.3 g/dL (32.0-36.0); MCV 101.2 fL (80-100); MPV 8.1 fL (7.6-11.3); Monocytes % 10.6 % (3.3-12.3); Neutrophils % 70.2 % (41.7-73.7); Platelets 207 thou/uL (152-406); RBC Red Blood Cell Count 3.84 M/uL (3.86-4.86); Red Cell Distribution Width 13.3 % (12.1-15.2)
[2023-11-25 06:51] LABS: Albumin 3.5 g/dL (3.4-5.0); Albumin/Globulin Ratio 1.1 (1.1-1.8); Anion Gap 9.6 mEq/L (5.0-15.0); Bilirubin Total 0.7 mg/dL (0.2-1.0); Globulin 3.3 g/dL (2.3-3.5); Potassium 3.6 mEq/L (3.5-5.1); Protein, Total 6.8 g/dL (6.4-8.2)
--- NOTE | 2023-11-25 07:31 | P.PN ---
Date of Service: 11/25/23 Subjective: has been dealing with right sided weakness, dizziniess, drooling for a few months developed new severe headache so she came here. Headache continues but improved since arrival to ED. Not as severe. facial sensation ~same on both sides. feels close to her baseline self today ROS: 10 point ROS as noted above, otherwise negative Physical Exam: GEN: Alert, oriented, NAD HEENT: Normal conjunctiva, sclera anicteric CV: Regular rate and rhythm, no edema Pulm: Nonlabored respirations on room air, clear bilaterally ABD: Soft, nontender, nondistended Integumentary: No rashes Neuro: right sided weakness, mild right facial droop vitals reviewed Problem List: Severe headache, improved Right sided weakness Chronic alcohol abuse Presumed liver disease Hypertension hx carpal tunnel syndrome Chronic tobacco use Severe headache, improved Right sided weakness on admission presents with worsening severe headache 10/10 in nature, right sided weakness Has been dealing with weakness for months per patient, family. But headache is completely new. CTA head/neck (11/23): No acute findings. No significant flow abnormalities. CT head (11/23): no intracranial findings. MRI brain (11/23): no acute intracranial findings. Periventricular and deep white matter T2 hyperintensities are nonspecific, may suggest chronic small vessel ischemic changes. Dr. Mojica, neurology consulted to eval continue thiamine, folic acid continue IV hydration tylenol as needed for headache Chronic alcohol abuse Presumed liver disease reports 3-4 drinks a day. Monitor for alcohol withdrawals. PRN ativan Chronic tobacco use cessation advised. Hypertension confirm home meds, restart as appropriate VTE: Lovenox Code: Full Dispo: home, ~1-2 days Pending neuro recs Time Spent Managing Pts Care (In Minutes): 39
[2023-11-25] MEDS: ENOXAPARIN 40 MG/0.4 ML SQ SCH (08:58)
[2023-11-25] MEDS: CEFEPIME 1 GM in NA CHLORIDE 0.9% 100 ML IV SCH (08:58)
[2023-11-25] MEDS: MULTIVITAMIN TAB PO SCH (08:59)
[2023-11-25] MEDS: ACETAMINOPHEN 500 MG TAB PO PRN (08:59)
[2023-11-25] MEDS: FOLIC ACID 1 MG TABLET PO SCH (08:59)
[2023-11-25] MEDS: THIAMINE HCL 100 MG TABLET PO SCH (08:59)
--- NOTE | 2023-11-25 09:21 | RAD REPORT ---
EXAM DESCRIPTION: MRI - Brain W/Wo Cont - 11/25/2023 8:27 am CLINICAL HISTORY: chronic right sided weakness COMPARISON: Noncontrast head CT and CT angiogram 2023 TECHNIQUE: Multiplanar multisequence MRI of the brain performed before and after intravenous adminis tration of 20 mL MultiHance. FINDINGS: Cavum septum pellucidum et vergae. No evidence of acute infarct or other diffusion signal abnormality. No evidence of acute intracranial hemorrhage or abnormal extra-axial fluid collections. Stable prominence of the ventricular caliber which could relate to centrally predominant volume loss. Midline structures are unremarkable. Scattered periventricular and deep white matter T2/FLAIR hyperintensities, nonspecific, but suggestiv e of chronic small vessel ischemic changes. No mass effect or midline shift. No abnormal enhancement. Major vascular flow voids are preserved. Patchy right mastoid air cell opacification. Paranasal sinuses are patent. IMPRESSION: No acute intracranial process. No evidence of abnormal enhancement or mass effect. Stable diffuse prominence of the ventricular caliber, could relate to centrally predominant volume lo ss. Periventricular and deep white matter T2 hyperintensities are nonspecific, may suggest chronic sm all vessel ischemic changes.
[2023-11-25 10:50] VITALS: O2SAT 95
[2023-11-25] MEDS: ONDANSETRON 4 MG/2 ML VIAL IV PRN (11:33)
[2023-11-25 13:37] VITALS: TEMP 96.4
[2023-11-25] MEDS: LOPERAMIDE HCL 2 MG CAPSULE PO STA (14:17)
[2023-11-25 14:46] VITALS: BP 135/68
[2023-11-25] MEDS ORDERED: ATORVASTATIN 40 MG TAB PO SCH (21:00)
--- OUTSIDE RECORDS SUMMARY | 2023-11-26 12:53 | XMS REPORT | Continuity of Care Document ---
Author Name Unknown Address [address] [facility] [address] [place] [address] [facility] Address [address] [facility] [address] [place] [address] Care Team Providers Care Lot Porter Name Role Phone VELIA YOO Primary Care Physician Meenu vaCUBA Alonso Attending Clinician Unavailable VELIA YOO Attending Clinician UnaRENATA Daly Attending Clinician Unavailable Velia Yoo MD Attending Clinician + [phone] POONAM NIETO Attending Clinician Unava Cuba Alonso MD Attending Clinician [phone] Renata Lucas Attending Clinician [phone] Robin Eddy DO Attending Clinician +[phone] ARJUN OWENS Attending Clinician Unavailable Arjun Guajardo Attending Clinician [phone] Victorina Ying Attending Clinician [phone] Lab, Ang - Db Attending Clinician Unavailable Luis Mayes MD Attending Clinician [phone] LUIS MAYES Attending Clinician Unavailabl e [facility] Attending Clinician Unavailable Velia Yoo MD Attending Clinician + [phone] VICTORINA KENDALL Attending Clinician Unavailable Molina Monk MD Attending Clinician [phone] Doctor Unassigned, [place] Attending Clinician U Arian Herrera PA-C Attending Clinician [phone], [facility] Attending Clinician Unavailable ARIAN SANCHEZ Attending Clinician Unavailable Unknown, Attending Attending Clinician Unavailab Adriana Summers Attending Clinician + ADRIANA WINSTON Attending Clinician Unavailable MOLINA MONK Attending Clinician UnavailGRUPO Stiles Attending Clinician Unavailable Grupo Crocker MD Attending Clinician +[phone] PEMA DSOUZA Attending Clinician Unavailable Pema Dsouza MD Attending Clinician + FABIOLA OLIVEIRA Attending Clinician Meenu julioilabertha Pob, [facility] Main Attending Clinician UnavailDariana Tran PT, Cindy Attending Clinician Un available ERIN MCNULTY Attending Clinician Unavailable ANALI JORDAN Attending Clinician Unavailab Anali Archer DO Attending Clinician +[phone] Denae Calderon MD Attending Clinician + Bibi EVANGELISTA, Rebekah Carcamo Attending Clinician Unavail able Krishan Aguayo CRNA Attending Clinician [phone] Noe Young MD Attending Clinicia n Erin Mcnulty MD Attending Clinician [phone] Noe Bañuelos PA-C Attending Clinician +[phone] NOE BAÑUELOS Attending Clinician Unavailable PADMINI HARDEN Attending Clinician Unavailab yue Maria AUD, Radha Attending Clinician +[phone] Francisca PHD, Padmini Carcamo Attending Clinician + [phone] BERHANE FUENTES Attending Clinician Unavailable Berhane Barnes Attending Clinician [phone] [place] Attending Clinician +[phone] TONYA BUCKLEY Attending Clinician Unavailable Tonya Steen Attending Clinician + Steffnaie Lopez DO Attending Clinician +[phone] STEFFANIE LOPEZ Attending Clinician Unavailable STEFFANIE LOPEZ Attending Clinician Unavailable LUIS MAYES Admitting Clinician UnavailVELIA Hernández Admitting Clinician UnaMOLINA Sexton Admitting Clinician UnavailGRUPO Stiles Admitting Clinician Unavailable PEMA DSOUZA Admitting Clinician Unavailable Molina Monk MD Admitting Clinician ANALI JORDAN Admitting Clinician Unavailab CUBA Hussein Admitting Clinician Unavailable ERIN MCNULTY Admitting Clinician Unavailable Payers Payer Name Policy Type Policy Number Effective Date Expirati on Date Source Problems Condition Name Condition Details Condition Category Status Onset Date Resolution Date Last Treatment Date Treating Clinician Comments Source Lung nodule Lung nodule Disease Active 09-02 00:00: 00 [facility] Persistent cough Persistent cough Disease Active 08-27 00:00: 00 [facility] Wheezing Wheezing Disease Active 08-27 00:00: 00 [facility] Bronchitis Bronchitis Disease Active 08-27 00:00: 00 [facility] Primary hypertensi on Primary hypertensi on Disease Active 04-30 00:00: 00 [facility] Nonrheumat ic aortic valve insufficie ncy Nonrheumat ic aortic valve insufficie ncy Disease Active 04-30 00:00: 00 [facility] Mixed hyperlipid emia Mixed hyperlipid emia Disease Active 04-30 00:00: 00 [facility] Obesity (BMI 30-39.9) Obesity (BMI 30-39.9) Disease Active 04-30 00:00: 00 [facility] Cigarette smoker Cigarette smoker Disease Active 04-30 00:00: 00 [facility] Coronary artery calcificat ion Coronary artery calcificat ion Disease Active 04-30 00:00: 00 [facility] Primary osteoarthr itis of right knee Primary osteoarthr itis of right knee Disease Active 12-13 00:00: 00 [facility] Diarrhea, unspecifie d type Diarrhea, unspecifie d type Disease Active 12-13 00:00: 00 [facility] Acute nonintract able headache, unspecifie d headache type Acute nonintract able headache, unspecifie d headache type Disease Active 9-07 00:00: 00 [facility] Myalgia Myalgia Disease Active 9-07 00:00: 00 [facility] Nausea Nausea Disease Active 9-07 00:00: 00 [facility] Secondary osteoarthr 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 Added automatic ally from request for surgery [id number] [facility] Allergies, Adverse Reactions, Alerts Allergy Name Allergy Type Status Severity Reaction(s) Onset Date Inactive Date Treating Clinician Comments Source Sulfa (Sulfona mide Antibiot ics) Propensi ty to adverse reaction s Active Rash 2020-04 00:00: 00 [facility] SULFA (SULFONA MIDE ANTIBIOT ICS) Drug Class Active Med Rash 2020-04- 00:00: 00 [facility] Social History Social Habit Start Date Stop Date Quantity Comments Source Gender identity [facility] Alcoholic beverage intake 2023-09-19 00:00:00 2023-09-19 00:00:00 2 /d [facility] Tobacco use and exposure 2023-08-22 00:00:00 2023-08-22 00:00:00 Smokeless tobacco non-user [facility] Alcohol intake 2023-08-08 00:00:00 2023-08-08 00:00:00 2 /d [facility] History of Social function 2023-03-21 00:00:00 2023-03-21 00:00:00 [facility] Exposure to SARS-CoV-2 (event) 2022-07-15 00:00:00 2022-07-25 09:18:00 Not sure [facility] Tobacco Comment 2022-05-16 00:00:00 2022-05-16 00:00:00 Patient has smoked for 50 years [facility] History of tobacco use 2021-06-26 00:00:00 Cigarette Smoker [facility] Sex assigned at 1950 00:00:00 1950 00:00:00 [facility] Smoking Status Start Date Stop Date Source Ex-smoker 2023-08-22 00:00:00 2023-08-22 00:00:00 [facility] Medications Ordered Medication Name Filled Medication Name Start Date Stop Date Current Medication? Ordering Clinician Indication Dosage Frequency Signature (SIG) Comments Components Source cholestyram ine 4 gram packet 09-22 00:00: 00 12-22 04:59 :00 Yes [id number] 1{packe t} Take 1 Packet by mouth in the morning and 1 Packet at noon and 1 Packet in the evening. Do all this for 90 days. [facility] Cholestyram ine Light 4 gram powder 09-18 00:00: 00 09-22 00:00 :00 No [id number] 4g Take 1 Packet by mouth in the morning and 1 Packet at noon and 1 Packet in the evening. Take with meals. Do all this for 90 days. [facility] fluticasone -vilanteroL (BREO ELLIPTA) 100-25 mcg/dose inhaler disk 08-27 00:00: 00 Yes [id number] 1{puff} Inhale 1 Puff in the morning. [facility] predniSONE 20 mg tablet 08-27 00:00: 00 Yes [id number] 40mg daily for 5 days, 20mg daily for 5 day, then 10mg daily for 5 day, then 5 mg daily for 5 days [facility] predniSONE 5 mg tablet 08-27 00:00: 00 Yes [id number] 40mg daily for 5 days, 20mg daily for 5 day, then 10mg daily for 5 day, then 5 mg daily for 5 days [facility] amoxicillin -clavulanat e (AUGMENTIN) 875-125 mg per tablet 08-27 00:00: 00 09-04 04:59 :00 Yes [id number] 1{tbl} Take 1 tablet by mouth in the morning and 1 tablet in the evening. Do all this for 7 days. [facility] CARVEDILOL 3.125 mg tablet 08-22 00:00: 00 Yes [id number] TAKE 1 TABLET BY MOUTH IN THE MORNING AND 1 TABLET IN THE EVENING WITH MEALS [facility] BUPROPION 100 mg tablet 08-22 00:00: 00 Yes [id number] TAKE 1 TABLET BY MOUTH IN THE MORNING AND 1 TABLET BY MOUTH IN THE EVENING [facility] ESCITALOPRA M OXALATE 20 mg tablet 08-22 00:00: 00 Yes [id number] 20mg TAKE 1 TABLET BY MOUTH IN THE MORNING [facility] betamethaso ne acet,sod phos (CELESTONE SOLUSPAN) 6 mg/mL injection 6 mg 06-23 22:30: 00 06-23 21:40 :00 No [id number] 6mg [facility] triamcinolo ne acetonide (KENALOG) injection 40 mg 06-23 22:30: 00 06-23 21:41 :00 No [id number] 40mg [facility] terbinafine HCL 250 mg tablet 06-23 00:00: 00 Yes [id number] 250mg Take 1 tablet by mouth in the morning. [facility] ATORVASTATI N 40 mg tablet 05-19 00:00: 00 Yes [id number] 40mg TAKE 1 TABLET BY MOUTH AT BEDTIME [facility] fluticasone furoate-jw anteroL (BREO ELLIPTA) 100-25 mcg/dose DsDv 2- 00:00: 00 08-27 00:00 :00 No [id number] 1{puff} Inhale 1 Puff in the morning. [facility] [place]-3-DHA -EPA-Fish Oil 1,000 mg (120 mg-180 mg) Cap 04-30 09:31: 15 04-30 00:00 :00 No Take by mouth. [facility] amoxicillin -clavulanat e (AUGMENTIN) 875-125 mg per tablet 04-30 09:17: 41 04-30 00:00 :00 No 1{tbl} Take 1 tablet by mouth in the morning and 1 tablet in the evening. [facility] buPROPion 100 mg tablet 04-29 00:00: 00 08-22 00:00 :00 No [id number] TAKE 1 TABLET BY MOUTH IN THE MORNING AND 1 TABLET BY MOUTH IN THE EVENING [facility] escitalopra m oxalate 20 mg tablet 04-29 00:00: 00 08-22 00:00 :00 No [id number] 20mg TAKE 1 TABLET BY MOUTH IN THE MORNING [facility] amoxicillin -clavulanat e (AUGMENTIN) 875-125 mg per tablet 04-23 11:20: 53 Yes 1{tbl} Take 1 tablet by mouth in the morning and 1 tablet in the evening. [facility] albuterol 90 mcg/actuati on inhaler 04-20 00:00: 00 Yes [id number] 2{puff} Inhale 2 Puffs every 6 (six) hours as needed for Wheezing or Shortness of Breath. [facility] Guaifenesin 1,200 mg tablet 04-20 00:00: 00 Yes [id number] 1200mg Take 1 tablet by mouth in the morning and 1 tablet in the evening. [facility] predniSONE 20 mg tablet 04-20 00:00: 00 04-30 00:00 :00 No [id number] 20mg Take 1 tablet by mouth in the morning and 1 tablet in the evening. [facility] amoxicillin -clavulanat e (AUGMENTIN) 875-125 mg per tablet 04-20 00:00: 00 04-23 00:00 :00 No [id number] 1{tbl} Take 1 tablet by mouth in the morning and 1 tablet in the evening. [facility] benzonatate (TESSALON PERLES) 100 mg capsule 04-12 00:00: 00 Yes [id number] 100mg Take 1 capsule by mouth every 8 (eight) hours as needed for Cough. [facility] azelastine 137 mcg (0.1 %) nasal spray 2022-04 00:00: 00 Yes [id number] 1{spray } Use 1 [place] in each nostril in the morning and 1 [place] in the evening. Use in each nostril as directed [facility] methylPREDN ISolone (MEDROL, HOLLY,) 4 mg tablets 2022-04 00:00: 00 04-20 00:00 :00 No [id number] Take by mouth SEE-INSTRU CTIONS. follow package directions [facility] benzonatate (TESSALON PERLES) 100 mg capsule 2022-04 00:00: 00 04-12 00:00 :00 No [id number] 100mg Take 1 capsule by mouth every 8 (eight) hours as needed for Cough. [facility] doxycycline hyclate 100 mg tablet 2022-04 00:00: 00 03-29 05:59 :00 No [id number] 100mg Take 1 tablet by mouth in the morning and 1 tablet in the evening. Do all this for 7 days. [facility] escitalopra m oxalate 20 mg tablet 2022-04 00:00: 00 04-29 00:00 :00 No [id number] 20mg TAKE 1 TABLET BY MOUTH IN THE MORNING [facility] buPROPion 100 mg tablet 2022-04 00:00: 00 04-29 00:00 :00 No [id number] TAKE 1 TABLET BY MOUTH IN THE MORNING AND 1 TABLET BY MOUTH IN THE EVENING [facility] carvediloL 3.125 mg tablet 2022-04 00:00: 00 08-22 00:00 :00 No [id number] 3.125mg Take 1 tablet by mouth in the morning and 1 tablet in the evening. Take with meals. Do all this for 90 days. [facility] ALENDRONATE 70 mg tablet 2022-04 00:00: 00 Yes [id number] 70mg TAKE 1 TABLET BY MOUTH WEEKLY. [facility] propofoL IV infusion 10-04 03:57: 00 10-04 03:41 :00 No IV Infusion, TITRATE, Starting on Sat10/03/22 at 2257, Until Discontinu ed, Routine [facility] lactated ringers IV infusion 1,000 mL 10-04 03:45: 00 Yes 1000mL at 150 mL/hr, 1,000 mL, IV Infusion, CONTINUOUS , Starting on Sat10/03/22 at 2245, Until Discontinu ed, CHIQUITA [facility] propofoL IV infusion 100 mg 10-04 03:15: 00 10-04 03:41 :00 No 100mg 100 mg, Slow IV Push, ONCE, On Sat10/03/22 at 2215, For 1 dose [facility] morpHINE (2 mg/mL) injection 6 mg 10-04 02:30: 00 10-04 01:59 :00 No 6mg 6 mg, Slow IV Push, ONCE, 1 dose, On Sat10/03/22 at 2130, STAT [facility] NaCl 0.9% (NS) bolus infusion 1,000 mL 10-04 02:15: 00 10-04 03:25 :00 No 1000mL at 999 mL/hr, 1,000 mL, IV Piggyback, ONCE, 1 dose, On Sat10/03/22 at 2115, STAT [facility] ondansetron (ZOFRAN (PF)) injection 4 mg 10-04 01:30: 00 10-04 01:57 :00 No 4mg 4 mg, Slow IV Push, ONCE, 1 dose, On Sat10/03/22 at 2030, CHIQUITA [facility] ondansetron 4 mg disintegrat ing tablet 10-03 00:00: 00 04-30 00:00 :00 No [id number] 4mg Take 1 tablet by mouth every 12 (twelve) hours as needed for Nausea and Vomiting (N/V). [facility] traMADoL 50 mg tablet 10-03 00:00: 00 10-11 04:59 :00 No [id number] 50mg Take 1 tablet by mouth every 6 (six) hours as needed for Pain (scale 7-10) for up to 7 days. Indication s: acute pain [facility] ondansetron (ZOFRAN (PF)) injection 4 mg 09-29 06:45: 00 09-29 05:55 :00 No 4mg 4 mg, Slow IV Push, ONCE, 1 dose, On 09/29/22 at 0145, CHIQUITA [facility] NaCl 0.9% (NS) bolus infusion 500 mL 09-29 05:45: 00 09-29 07:23 :00 No 500mL at 999 mL/hr, 500 mL, IV Infusion, ONCE, 1 dose, On 09/29/22 at 0045, STAT [facility] morpHINE (4 mg/mL) injection 4 mg 09-29 05:15: 00 09-29 05:12 :00 No 4mg 4 mg, Slow IV Push, ONCE, 1 dose, On 09/29/22 at 0015, STAT [facility] FENTanyl PF (SUBLIMAZE (PF)) injection 50 mcg 09-29 04:45: 00 09-29 04:01 :00 No 50ug 50 mcg, Slow IV Push, ONCE, 1 dose, On 09/28/22 at 2345, STAT [facility] ondansetron (ZOFRAN (PF)) injection 4 mg 09-29 04:00: 00 09-29 04:01 :00 No 4mg 4 mg, Slow IV Push, ONCE, 1 dose, On 09/28/22 at 2300, CHIQUITA [facility] ATORVASTATI N 40 mg tablet 09-02 00:00: 05-19 17:24 :58 No [id number] 40mg TAKE 1 TABLET BY MOUTH AT BEDTIME [facility] CARVEDILOL 3.125 mg tablet 09-02 00:00: 00 02-18 00:00 :00 No [id number] TAKE 1 TABLET BY MOUTH TWICE DAILY WITH MEALS [facility] betamethaso ne acet,sod phos (CELESTONE SOLUSPAN) 6 mg/mL injection 6 mg 07-25 15:45: 00 07-25 14:53 :00 No [id number] 6mg [facility] triamcinolo ne acetonide (KENALOG) injection 40 mg 07-25 15:45: 00 07-25 14:53 :00 No [id number] 40mg [facility] loratadine/ pseudoephed rine (CLARITIN-D 12 HOUR ORAL) 07-25 09:35: 06 07-25 00:00 :00 No Take by mouth daily. [facility] montelukast 10 mg tablet 07-25 00:00: 00 Yes [id number] 10mg Take 1 tablet by mouth in the morning. [facility] vitamin B-12 500 mcg tablet 07-02 14:14: 38 Yes 500ug Take 1 tablet by mouth in the morning. [facility] [place]-3-DHA -EPA-Fish Oil 1,000 mg (120 mg-180 mg) Cap 07-02 14:14: 38 Yes Take by mouth. [facility] calcium carbonate (CALCIUM 500 ORAL) 07-02 14:14: 38 Yes 1{tbl} Take 1 tablet by mouth daily. [facility] [place]-3-DHA -EPA-Fish Oil 1,000 mg (120 mg-180 mg) Cap 07-02 14:14: 38 Yes Take by mouth. [facility] benzonatate 200 mg capsule 07-02 00:00: 00 03-21 00:00 :00 No [id number] 200mg Take 1 capsule by mouth 3 (three) times daily as needed for Cough. [facility] azithromyci n 500 mg tablet 07-02 00:00: 00 07-25 00:00 :00 No [id number] 500mg Take 1 tablet by mouth in the morning. [facility] acetaminoph en-codeine (TYLENOL-CO DEINE #3) 300-30 mg tablet 06-04 00:00: 00 07-02 00:00 :00 No [id number] 1{tbl} Take 1 tablet by mouth every 4 (four) hours as needed for Pain (scale 4-6) or Pain (scale 7-10). Indication s: acute pain [facility] lactated ringers IV infusion 1,000 mL 05-28 17:00: 00 Yes 1000mL at 75 mL/hr, 1,000 mL, IV Infusion, CONTINUOUS , Starting on Sat05/28/22 at 1100, Until Discontinu ed, Routine, PACU [facility] HYDROcodone -acetaminop hen (NORCO 5) 5-325 mg tablet 1 tablet 05-28 17:00: 00 05-28 19:22 :00 No 1{tbl} 1 tablet, Oral, ONCE, 1 dose, On Sat05/28/22 at 1100, Routine, PACU [facility] FENTanyl PF (SUBLIMAZE (PF)) injection 25 mcg 05-28 16:46: 58 Yes 25ug 25 mcg, Slow IV Push, Q5MIN PRN, 4 doses, Starting on Sat05/28/22 at 1046, Until Discontinu ed, Routine, Pain (scale 4-6), PACU [facility] HYDROmorphO ne (DILAUDID) injection 0.2 mg 05-28 16:46: 58 Yes .2mg 0.2 mg, Slow IV Push, Q5MIN PRN, 10 doses, Starting on Sat05/28/22 at 1046, Until Discontinu ed, Routine, Pain (scale 7-10), PACU
Us e approved by (Faculty): PACU USE -ANESTHESI A SERVICE-HY DROMORPHON E INJECTIONS [facility] ondansetron (ZOFRAN (PF)) injection 4 mg 05-28 16:46: 58 Yes 4mg 4 mg, Slow IV Push, PRN, 1 dose, Starting on Sat05/28/22 at 1046, Until Discontinu ed, Routine, Nausea and Vomiting (N/V), PACU [facility] bupivacaine (preserv free) (SENSORCAIN E MPF) 0.25 % (2.5 mg/mL) 30 mL, bupivacaine liposome (PF) (EXPAREL (PF)) 1.3 % (13.3 mg/mL) 20 mg, NaCl 0.9% (NS) 70 mL 05-28 15:12: 00 05-28 16:42 :41 No PRN, Starting on Sat05/28/22 at 0912, Intra-op [facility] sodium chloride 0.9 % irrigation solution 05-28 14:51: 00 05-28 16:42 :41 No PRN, Starting on Sat05/28/22 at 0851, Until Sat05/28/22 at 1042, Intra-op [facility] vitamin B-12 500 mcg tablet 05-28 13:55: 12 Yes 500ug Take 500 mcg by mouth daily. [facility] [place]-3-DHA -EPA-Fish Oil 1,000 mg (120 mg-180 mg) Cap 05-28 13:55: 12 Yes Take by mouth. [facility] calcium carbonate (CALCIUM 500 ORAL) 05-28 13:55: 12 Yes 1{tbl} Take 1 tablet by mouth daily. [facility] oxyCODONE-a cetaminophe n (PERCOCET) 5-325 mg per tablet 2 tablet 05-28 13:15: 00 05-28 13:09 :00 No 2{tbl} 2 tablet, Oral, ONCE, 1 dose, On Sat05/28/22 at 0715, Routine, DSU Pre-op [facility] celecoxib (CELEBREX) capsule 400 mg 05-28 13:15: 00 05-28 13:09 :00 No 400mg 400 mg, Oral, ONCE, 1 dose, On Sat05/28/22 at 0715, Routine, DSU Pre-op [facility] gabapentin (NEURONTIN) tablet 300 mg 05-28 13:15: 00 05-28 13:15 :00 No 300mg 300 mg, Oral, ONCE, 1 dose, On Sat05/28/22 at 0715, Routine, DSU Pre-op [facility] lactated ringers IV infusion 1,000 mL 05-28 13:15: 00 05-28 13:26 :00 No 1000mL at 42 mL/hr, 1,000 mL, IV Infusion, ONCE, 1 dose, On Sat05/28/22 at 0715, Routine, DSU Pre-op [facility] aspirin 325 mg tablet 05-28 00:00: 00 06-26 04:59 :00 No [id number] 9100 325mg Take 1 tablet by mouth in the morning and 1 tablet in the evening. Take with meals. Do all this for 28 days. [facility] HYDROcodone -acetaminop hen 10-325 mg tablet 05-28 00:00: 00 06-05 05:59 :00 No [id number] 1{tbl} Take 1 tablet by mouth every 6 (six) hours as needed for Pain (scale 4-6) or Pain (scale 7-10) for up to 7 days. Indication s: acute pain [facility] vitamin B-12 500 mcg tablet 05-16 10:12: 54 Yes 500ug Take 500 mcg by mouth daily. [facility] [place]-3-DHA -EPA-Fish Oil 1,000 mg (120 mg-180 mg) Cap 05-16 10:12: 54 Yes Take by mouth. [facility] calcium carbonate (CALCIUM 500 ORAL) 05-16 10:12: 54 Yes 1{tbl} Take 1 tablet by mouth daily. [facility] buPROPion 100 mg tablet 05-03 00:00: 00 02-25 00:00 :00 No [id number] 100mg Take 1 tablet by mouth in the morning and 1 tablet in the evening. [facility] escitalopra m oxalate 20 mg tablet 05-03 00:00: 00 02-25 00:00 :00 No [id number] 20mg Take 1 tablet by mouth in the morning. [facility] ALENDRONATE 70 mg tablet 2021-04 00:00: 00 01-31 00:00 :00 No [id number] 70mg TAKE 1 TABLET BY MOUTH WEEKLY. [facility] triamcinolo ne acetonide 0.1 % ointment 2021-04 00:00: 00 Yes [id number] Apply to area(s) 2 (two) times daily. [facility] PANTOPRAZOL E 40 mg EC tablet 12-29 00:00: 00 Yes [id number] 40mg TAKE 1 TABLET BY MOUTH DAILY [facility] betamethaso ne acet,sod phos (CELESTONE SOLUSPAN) 6 mg/mL injection 6 mg 12-20 21:15: 00 12-20 20:21 :00 No [id number] 6mg [facility] triamcinolo ne acetonide (KENALOG) injection 40 mg 12-20 21:15: 00 12-20 20:22 :00 No [id number] 40mg [facility] azithromyci n 500 mg tablet 12-20 00:00: 00 03-06 00:00 :00 No [id number] 500mg Take 1 tablet by mouth in the morning. [facility] ondansetron (ZOFRAN) 4 mg tablet 12-13 00:00: 00 12-24 04:59 :00 No [id number] 4mg Take 1 tablet by mouth every 8 (eight) hours as needed for Nausea and Vomiting (N/V) for up to 10 days. [facility] CARVEDILOL 3.125 mg tablet 11-27 00:00: 00 09-02 00:00 :00 No [id number] TAKE 1 TABLET BY MOUTH TWICE DAILY WITH MEALS [facility] ATORVASTATI N 40 mg tablet 8-22 00:00: 00 09-02 23:18 :10 No [id number] 40mg TAKE 1 TABLET BY MOUTH AT BEDTIME [facility] vitamin B-12 500 mcg tablet 09-20 13:50: 17 Yes 500ug Take 1 tablet by mouth in the morning. [facility] [place]-3-DHA -EPA-Fish Oil (FISH OIL) 1,000 mg (120 mg-180 mg) Cap 09-20 13:50: 17 Yes Take by mouth. [facility] calcium carbonate (CALCIUM 500 ORAL) 09-20 13:50: 17 Yes 1{tbl} Take 1 tablet by mouth daily. [facility] pantoprazol e 40 mg EC tablet 07-04 00:00: 00 Yes [id number] 40mg Take 1 tablet by mouth daily. [facility] dicyclomine 20 mg tablet 3-24 00:00: 00 04-30 00:00 :00 No [id number] 20mg Take 1 tablet by mouth 3 (three) times daily as needed for Abdominal pain. [facility] escitalopra m oxalate 20 mg tablet 2020-04 2-20 00:00: 00 05-03 00:00 :00 No [id number] 20mg Take 1 tablet by mouth daily. [facility] buPROPion 100 mg tablet 2020-04 2-20 00:00: 00 05-03 00:00 :00 No [id number] 100mg Take 1 tablet by mouth 2 (two) times daily. [facility] alendronate 70 mg tablet 2020-04 2-20 00:00: 00 03-19 00:00 :00 No [id number] 70mg Take 1 tablet by mouth weekly. [facility] Immunizations Ordered Immunization Name Filled Immunization Name Date Status Comments Source Influenza High Dose Quad 2021-12-07 00:00:00 Completed [facility] Influenza High Dose Quad 2021-12-07 00:00:00 Completed [facility] Influenza High Dose Quad 2021-12-07 00:00:00 Completed [facility] Influenza High Dose Quad 2021-12-07 00:00:00 [facility]pleted [facility] [facility] Influenza High Dose Quad 2021-12-07 00:00:00 Completed [facility] Influenza High Dose Quad 2021-12-07 00:00:00 Completed [facility] Influenza High Dose Quad 2021-12-07 00:00:00 Completed [facility] Influenza High Dose Quad 2021-12-07 00:00:00 Completed [facility] Influenza High Dose Quad 2021-12-07 00:00:00 Completed [facility] Influenza High Dose Quad 2021-12-07 00:00:00 Completed [facility] Influenza High Dose Quad 2021-12-07 00:00:00 Completed [facility] Influenza High Dose Quad 2021-12-07 00:00:00 Completed [facility] Influenza High Dose Quad 2021-12-07 00:00:00 Completed [facility] Influenza High Dose Quad 2021-12-07 00:00:00 Completed [facility] Influenza High Dose Quad 2021-12-07 00:00:00 Completed [facility] Influenza High Dose Quad 2021-12-07 00:00:00 Completed [facility] Influenza High Dose Quad 2021-12-07 00:00:00 Completed [facility] Influenza High Dose Quad 2021-12-07 00:00:00 Completed [facility] Influenza High Dose Quad 2021-12-07 00:00:00 Completed [facility] Influenza High Dose Quad 2021-12-07 00:00:00 Completed [facility] Influenza High Dose Quad 2021-12-07 00:00:00 Completed [facility] Influenza High Dose Quad 2021-12-07 00:00:00 Completed [facility] Influenza High Dose Quad 2021-12-07 00:00:00 Completed [facility] Influenza High Dose Quad 2021-12-07 00:00:00 Completed [facility] Influenza High Dose Quad 2021-12-07 00:00:00 Completed [facility] Influenza High Dose Quad 2021-12-07 00:00:00 Completed [facility] Influenza High Dose Quad 2021-12-07 00:00:00 Completed [facility] Influenza High Dose Quad 2021-12-07 00:00:00 Completed [facility] Influenza High Dose Quad 2021-12-07 00:00:00 Completed [facility] Influenza High Dose Quad 2021-12-07 00:00:00 Completed [facility] Influenza High Dose Quad 2021-12-07 00:00:00 Completed [facility] Influenza High Dose Quad 2021-12-07 00:00:00 Completed [facility] Influenza High Dose Quad 2021-12-07 00:00:00 Completed [facility] Influenza High Dose Quad 2021-12-07 00:00:00 Completed [facility] Influenza High Dose Quad 2021-12-07 00:00:00 Completed [facility] Influenza High Dose Quad 2021-12-07 00:00:00 Completed [facility] Influenza High Dose Quad 2021-12-07 00:00:00 Completed [facility] Influenza High Dose Quad 2021-12-07 00:00:00 Completed [facility] Influenza High Dose Quad 2021-12-07 00:00:00 Completed [facility] Influenza High Dose Quad 2021-12-07 00:00:00 Completed [facility] Influenza High Dose Quad 2021-12-07 00:00:00 Completed [facility] Influenza High Dose Quad 2021-12-07 00:00:00 Completed [facility] Influenza High Dose Quad 2021-12-07 00:00:00 Completed [facility] Influenza High Dose Quad 2021-12-07 00:00:00 Completed [facility] Influenza High Dose Quad 2021-12-07 00:00:00 Completed [facility] Influenza High Dose Quad 2021-12-07 00:00:00 Completed [facility] Influenza High Dose Quad 2021-12-07 00:00:00 Completed [facility] Influenza High Dose Quad 2021-12-07 00:00:00 Completed [facility] Influenza High Dose Quad 2021-12-07 00:00:00 Completed [facility] Influenza High Dose Quad 2021-12-07 00:00:00 Completed [facility] Influenza High Dose Quad 2021-12-07 00:00:00 Completed [facility] Influenza High Dose Quad 2021-12-07 00:00:00 Completed [facility] Influenza High Dose Quad 2021-12-07 00:00:00 Completed [facility] Influenza High Dose Quad 2021-12-07 00:00:00 Completed [facility] Influenza High Dose Quad 2021-12-07 00:00:00 Completed [facility] Influenza High Dose Quad 2021-12-07 00:00:00 Completed [facility] Influenza High Dose Quad 2021-12-07 00:00:00 Completed [facility] Influenza High Dose Quad 2021-12-07 00:00:00 Completed [facility] Influenza High Dose Quad 2021-12-07 00:00:00 Completed [facility] Influenza High Dose Quad 2021-12-07 00:00:00 Completed [facility] Influenza High Dose Quad 2021-12-07 00:00:00 Completed [facility] Influenza High Dose Quad 2021-12-07 00:00:00 Completed [facility] Influenza High Dose Quad 2021-12-07 00:00:00 Completed [facility] Influenza High Dose Quad 2021-12-07 00:00:00 Completed [facility] Td 2021-12-02 00:00:00 Completed [facility] Td 2021-12-02 00:00:00 Completed [facility] Td 2021-12-02 00:00:00 Completed [facility] Td 2021-12-02 00:00:00 Completed [facility] Td 2021-12-02 00:00:00 Completed [facility] Td 2021-12-02 00:00:00 Completed [facility] Td 2021-12-02 00:00:00 Completed [facility] Td 2021-12-02 00:00:00 Completed [facility] TD, NOS 2021-12-02 00:00:00 Completed [facility] TD, NOS 2021-12-02 00:00:00 Completed [facility] TD, NOS 2021-12-02 00:00:00 Completed [facility] TD, NOS 2021-12-02 00:00:00 Completed [facility] TD, NOS 2021-12-02 00:00:00 Completed [facility] TD, NOS 2021-12-02 00:00:00 Completed [facility] TD, NOS 2021-12-02 00:00:00 Completed [facility] TD, NOS 2021-12-02 00:00:00 Completed [facility] TD, NOS 2021-12-02 00:00:00 Completed [facility] TD, NOS 2021-12-02 00:00:00 Completed [facility] TD, NOS 2021-12-02 00:00:00 Completed [facility] TD, NOS 2021-12-02 00:00:00 Completed [facility] TD, NOS 2021-12-02 00:00:00 Completed [facility] TD, NOS 2021-12-02 00:00:00 Completed [facility] TD, NOS 2021-12-02 00:00:00 Completed [facility] TD, NOS 2021-12-02 00:00:00 Completed [facility] TD, NOS 2021-12-02 00:00:00 Completed [facility] TD, NOS 2021-12-02 00:00:00 Completed [facility] TD, NOS 2021-12-02 00:00:00 Completed [facility] TD, NOS 2021-12-02 00:00:00 Completed [facility] TD, NOS 2021-12-02 00:00:00 Completed [facility] TD, NOS 2021-12-02 00:00:00 Completed [facility] TD, NOS 2021-12-02 00:00:00 Completed [facility] TD, NOS 2021-12-02 00:00:00 Completed [facility] TD, NOS 2021-12-02 00:00:00 Completed [facility] TD, NOS 2021-12-02 00:00:00 Completed [facility] TD, NOS 2021-12-02 00:00:00 Completed [facility] TD, NOS 2021-12-02 00:00:00 Completed [facility] TD, NOS 2021-12-02 00:00:00 Completed [facility] TD, NOS 2021-12-02 00:00:00 Completed [facility] TD, NOS 2021-12-02 00:00:00 Completed [facility] TD, NOS 2021-12-02 00:00:00 Completed [facility] TD, NOS 2021-12-02 00:00:00 Completed [facility] TD, NOS 2021-12-02 00:00:00 Completed [facility] TD, NOS 2021-12-02 00:00:00 Completed [facility] TD, NOS 2021-12-02 00:00:00 Completed [facility] TD, NOS 2021-12-02 00:00:00 Completed [facility] TD, NOS 2021-12-02 00:00:00 Completed [facility] TD, NOS 2021-12-02 00:00:00 Completed [facility] TD, NOS 2021-12-02 00:00:00 Completed [facility] TD, NOS 2021-12-02 00:00:00 Completed [facility] TD, NOS 2021-12-02 00:00:00 Completed [facility] TD, NOS 2021-12-02 00:00:00 Completed [facility] TD, NOS 2021-12-02 00:00:00 Completed [facility] TD, NOS 2021-12-02 00:00:00 Completed [facility] TD, NOS 2021-12-02 00:00:00 Completed [facility] TD, NOS 2021-12-02 00:00:00 Completed [facility] TD, NOS 2021-12-02 00:00:00 Completed [facility] TD, NOS 2021-12-02 00:00:00 Completed [facility] TD, NOS 2021-12-02 00:00:00 Completed [facility] TD, NOS 2021-12-02 00:00:00 Completed [facility] TD, NOS 2021-12-02 00:00:00 Completed [facility] TD, NOS 2021-12-02 00:00:00 Completed [facility] TD, NOS 2021-12-02 00:00:00 Completed [facility] TD, NOS 2021-12-02 00:00:00 Completed [facility] TD, NOS 2021-12-02 00:00:00 Completed [facility] SARS-COV-2 COVID-19 MODERNA 0.25ML BOOSTER VACCINE 2021-09-19 00:00:00 Completed [facility] SARS-COV-2 COVID-19 MODERNA 0.25ML BOOSTER VACCINE 2021-09-19 00:00:00 Completed [facility] SARS-COV-2 COVID-19 MODERNA 0.25ML BOOSTER VACCINE 2021-09-19 00:00:00 Completed [facility] SARS-COV-2 COVID-19 MODERNA 0.25ML BOOSTER VACCINE 2021-09-19 00:00:00 Completed [facility] SARS-COV-2 COVID-19 MODERNA 0.25ML BOOSTER VACCINE 2021-09-19 00:00:00 Completed [facility] SARS-COV-2 COVID-19 MODERNA 0.25ML BOOSTER VACCINE 2021-09-19 00:00:00 Completed [facility] SARS-COV-2 COVID-19 MODERNA 0.25ML BOOSTER VACCINE 2021-09-19 00:00:00 Completed [facility] SARS-COV-2 COVID-19 MODERNA 0.25ML BOOSTER VACCINE 2021-09-19 00:00:00 Completed [facility] SARS-COV-2 COVID-19 MODERNA 0.25ML BOOSTER VACCINE 2021-09-19 00:00:00 Completed [facility] SARS-COV-2 COVID-19 MODERNA 0.25ML BOOSTER VACCINE 2021-09-19 00:00:00 Completed [facility] SARS-COV-2 COVID-19 MODERNA 0.25ML BOOSTER VACCINE 2021-09-19 00:00:00 Completed [facility] SARS-COV-2 COVID-19 MODERNA 0.25ML BOOSTER VACCINE 2021-09-19 00:00:00 Completed [facility] SARS-COV-2 COVID-19 MODERNA 0.25ML BOOSTER VACCINE 2021-09-19 00:00:00 Completed [facility] SARS-COV-2 COVID-19 MODERNA 0.25ML BOOSTER VACCINE 2021-09-19 00:00:00 Completed [facility] SARS-COV-2 COVID-19 MODERNA 0.25ML BOOSTER VACCINE 2021-09-19 00:00:00 Completed [facility] SARS-COV-2 COVID-19 MODERNA 0.25ML BOOSTER VACCINE 2021-09-19 00:00:00 Completed [facility] SARS-COV-2 COVID-19 MODERNA 0.25ML BOOSTER VACCINE 2021-09-19 00:00:00 Completed [facility] SARS-COV-2 COVID-19 MODERNA 0.25ML BOOSTER VACCINE 2021-09-19 00:00:00 Completed [facility] SARS-COV-2 COVID-19 MODERNA 0.25ML BOOSTER VACCINE 2021-09-19 00:00:00 Completed [facility] SARS-COV-2 COVID-19 MODERNA 0.25ML BOOSTER VACCINE 2021-09-19 00:00:00 Completed [facility] SARS-COV-2 COVID-19 MODERNA 0.25ML BOOSTER VACCINE 2021-09-19 00:00:00 Completed [facility] SARS-COV-2 COVID-19 MODERNA 0.25ML BOOSTER VACCINE 2021-09-19 00:00:00 Completed [facility] SARS-COV-2 COVID-19 MODERNA 0.25ML BOOSTER VACCINE 2021-09-19 00:00:00 Completed [facility] SARS-COV-2 COVID-19 MODERNA 0.25ML BOOSTER VACCINE 2021-09-19 00:00:00 Completed [facility] SARS-COV-2 COVID-19 MODERNA 0.25ML BOOSTER VACCINE 2021-09-19 00:00:00 Completed [facility] SARS-COV-2 COVID-19 MODERNA 0.25ML BOOSTER VACCINE 2021-09-19 00:00:00 Completed [facility] SARS-COV-2 COVID-19 MODERNA 0.25ML BOOSTER VACCINE 2021-09-19 00:00:00 Completed [facility] SARS-COV-2 COVID-19 MODERNA 0.25ML BOOSTER VACCINE 2021-09-19 00:00:00 Completed [facility] SARS-COV-2 COVID-19 MODERNA 0.25ML BOOSTER VACCINE 2021-09-19 00:00:00 Completed [facility] SARS-COV-2 COVID-19 MODERNA 0.25ML BOOSTER VACCINE 2021-09-19 00:00:00 Completed [facility] SARS-COV-2 COVID-19 MODERNA 0.25ML BOOSTER VACCINE 2021-09-19 00:00:00 Completed [facility] SARS-COV-2 COVID-19 MODERNA 0.25ML BOOSTER VACCINE 2021-09-19 00:00:00 Completed [facility] SARS-COV-2 COVID-19 MODERNA 0.25ML BOOSTER VACCINE 2021-09-19 00:00:00 Completed [facility] SARS-COV-2 COVID-19 MODERNA 0.25ML BOOSTER VACCINE 2021-09-19 00:00:00 Completed [facility] SARS-COV-2 COVID-19 MODERNA 0.25ML BOOSTER VACCINE 2021-09-19 00:00:00 Completed [facility] SARS-COV-2 COVID-19 MODERNA 0.25ML BOOSTER VACCINE 2021-09-19 00:00:00 Completed [facility] SARS-COV-2 COVID-19 MODERNA 0.25ML BOOSTER VACCINE 2021-09-19 00:00:00 Completed [facility] SARS-COV-2 COVID-19 MODERNA 0.25ML BOOSTER VACCINE 2021-09-19 00:00:00 Completed [facility] SARS-COV-2 COVID-19 MODERNA 0.25ML BOOSTER VACCINE 2021-09-19 00:00:00 Completed [facility] SARS-COV-2 COVID-19 MODERNA 0.25ML BOOSTER VACCINE 2021-09-19 00:00:00 Completed [facility] SARS-COV-2 COVID-19 MODERNA 0.25ML BOOSTER VACCINE 2021-09-19 00:00:00 Completed [facility] SARS-COV-2 COVID-19 MODERNA 0.25ML BOOSTER VACCINE 2021-09-19 00:00:00 Completed [facility] SARS-COV-2 COVID-19 MODERNA 0.25ML BOOSTER VACCINE 2021-09-19 00:00:00 Completed [facility] SARS-COV-2 COVID-19 MODERNA 0.25ML BOOSTER VACCINE 2021-09-19 00:00:00 Completed [facility] SARS-COV-2 COVID-19 MODERNA 0.25ML BOOSTER VACCINE 2021-09-19 00:00:00 Completed [facility] SARS-COV-2 COVID-19 MODERNA 0.25ML BOOSTER VACCINE 2021-09-19 00:00:00 Completed [facility] SARS-COV-2 COVID-19 MODERNA 0.25ML BOOSTER VACCINE 2021-09-19 00:00:00 Completed [facility] SARS-COV-2 COVID-19 MODERNA 0.25ML BOOSTER VACCINE 2021-09-19 00:00:00 Completed [facility] SARS-COV-2 COVID-19 MODERNA 0.25ML BOOSTER VACCINE 2021-09-19 00:00:00 Completed [facility] SARS-COV-2 COVID-19 MODERNA 0.25ML BOOSTER VACCINE 2021-09-19 00:00:00 Completed [facility] SARS-COV-2 COVID-19 MODERNA 0.25ML BOOSTER VACCINE 2021-09-19 00:00:00 Completed [facility] SARS-COV-2 COVID-19 MODERNA 0.25ML BOOSTER VACCINE 2021-09-19 00:00:00 Completed [facility] SARS-COV-2 COVID-19 MODERNA 0.25ML BOOSTER VACCINE 2021-09-19 00:00:00 Completed [facility] SARS-COV-2 COVID-19 MODERNA 0.25ML BOOSTER VACCINE 2021-09-19 00:00:00 Completed [facility] SARS-COV-2 COVID-19 MODERNA 0.25ML BOOSTER VACCINE 2021-09-19 00:00:00 Completed [facility] SARS-COV-2 COVID-19 MODERNA 0.25ML BOOSTER VACCINE 2021-09-19 00:00:00 Completed [facility] SARS-COV-2 COVID-19 MODERNA 0.25ML BOOSTER VACCINE 2021-09-19 00:00:00 Completed [facility] SARS-COV-2 COVID-19 MODERNA 0.25ML BOOSTER VACCINE 2021-09-19 00:00:00 Completed [facility] SARS-COV-2 COVID-19 MODERNA 0.25ML BOOSTER VACCINE 2021-09-19 00:00:00 Completed [facility] SARS-COV-2 COVID-19 MODERNA 0.25ML BOOSTER VACCINE 2021-09-19 00:00:00 Completed [facility] SARS-COV-2 COVID-19 MODERNA 0.25ML BOOSTER VACCINE 2021-09-19 00:00:00 Completed [facility] SARS-COV-2 COVID-19 MODERNA 0.25ML BOOSTER VACCINE 2021-09-19 00:00:00 Completed [facility] SARS-COV-2 COVID-19 MODERNA 0.25ML BOOSTER VACCINE 2021-09-19 00:00:00 Completed [facility] SARS-COV-2 COVID-19 MODERNA 0.25ML BOOSTER VACCINE 2021-09-19 00:00:00 Completed [facility] Influenza High Dose 2021-02-05 00:00:00 Completed [facility] Influenza High Dose 2021-02-05 00:00:00 Completed [facility] Influenza High Dose 2021-02-05 00:00:00 Completed [facility] Influenza High Dose 2021-02-05 00:00:00 Completed [facility] Influenza High Dose 2021-02-05 00:00:00 Completed [facility] Influenza High Dose 2021-02-05 00:00:00 Completed [facility] Influenza High Dose 2021-02-05 00:00:00 Completed [facility] Influenza High Dose 2021-02-05 00:00:00 Completed [facility] Influenza High Dose 2021-02-05 00:00:00 Completed [facility] Influenza High Dose 2021-02-05 00:00:00 Completed [facility] Influenza High Dose 2021-02-05 00:00:00 Completed [facility] Influenza High Dose 2021-02-05 00:00:00 Completed [facility] Influenza High Dose 2021-02-05 00:00:00 Completed [facility] Influenza High Dose 2021-02-05 00:00:00 Completed [facility] Influenza High Dose 2021-02-05 00:00:00 Completed [facility] Influenza High Dose 2021-02-05 00:00:00 Completed [facility] Influenza High Dose 2021-02-05 00:00:00 Completed [facility] Influenza High Dose 2021-02-05 00:00:00 Completed [facility] Influenza High Dose 2021-02-05 00:00:00 Completed [facility] Influenza High Dose 2021-02-05 00:00:00 Completed [facility] [facility] Influenza High Dose 2021-02-05 00:00:00 Completed [facility] Influenza High Dose 2021-02-05 00:00:00 Completed [facility] Influenza High Dose 2021-02-05 00:00:00 Completed [facility] Influenza High Dose 2021-02-05 00:00:00 Completed [facility] Influenza High Dose 2021-02-05 00:00:00 Completed [facility] Influenza High Dose 2021-02-05 00:00:00 Completed [facility] Influenza High Dose 2021-02-05 00:00:00 Completed [facility] Influenza High Dose 2021-02-05 00:00:00 Completed [facility] Influenza High Dose 2021-02-05 00:00:00 Completed [facility] Influenza High Dose 2021-02-05 00:00:00 Completed [facility] Influenza High Dose 2021-02-05 00:00:00 Completed [facility] Influenza High Dose 2021-02-05 00:00:00 Completed [facility] Influenza High Dose 2021-02-05 00:00:00 Completed [facility] Influenza High Dose 2021-02-05 00:00:00 Completed [facility] Influenza High Dose 2021-02-05 00:00:00 Completed [facility] Influenza High Dose 2021-02-05 00:00:00 Completed [facility] Influenza High Dose 2021-02-05 00:00:00 Completed [facility] Influenza High Dose 2021-02-05 00:00:00 Completed [facility] Influenza High Dose 2021-02-05 00:00:00 Completed [facility] Influenza High Dose 2021-02-05 00:00:00 Completed [facility] Influenza High Dose 2021-02-05 00:00:00 Completed [facility] Influenza High Dose 2021-02-05 00:00:00 Completed [facility] Influenza High Dose 2021-02-05 00:00:00 Completed [facility] Influenza High Dose 2021-02-05 00:00:00 Completed [facility] Influenza High Dose 2021-02-05 00:00:00 Completed [facility] Influenza High Dose 2021-02-05 00:00:00 Completed [facility] Influenza High Dose 2021-02-05 00:00:00 Completed [facility] Influenza High Dose 2021-02-05 00:00:00 Completed [facility] Influenza High Dose 2021-02-05 00:00:00 Completed [facility] Influenza High Dose 2021-02-05 00:00:00 Completed [facility] Influenza High Dose 2021-02-05 00:00:00 Completed [facility] Influenza High Dose 2021-02-05 00:00:00 Completed [facility] Influenza High Dose 2021-02-05 00:00:00 Completed [facility] Influenza High Dose 2021-02-05 00:00:00 Completed [facility] Influenza High Dose 2021-02-05 00:00:00 Completed [facility] Influenza High Dose 2021-02-05 00:00:00 Completed [facility] Influenza High Dose 2021-02-05 00:00:00 Completed [facility] Influenza High Dose 2021-02-05 00:00:00 Completed [facility] Influenza High Dose 2021-02-05 00:00:00 Completed [facility] Influenza High Dose 2021-02-05 00:00:00 Completed [facility] Influenza High Dose 2021-02-05 00:00:00 Completed [facility] Influenza High Dose 2021-02-05 00:00:00 Completed [facility] Influenza High Dose 2021-02-05 00:00:00 Completed [facility] Influenza High Dose 2021-02-05 00:00:00 Completed [facility] SARS-COV-2 COVID-19 MODERNA 12+ YRS VACCINE 2021-01-18 00:00:00 Completed [facility] SARS-COV-2 COVID-19 MODERNA 12+ YRS VACCINE 2021-01-18 00:00:00 Completed [facility] SARS-COV-2 COVID-19 MODERNA 12+ YRS VACCINE 2021-01-18 00:00:00 Completed [facility] SARS-COV-2 COVID-19 MODERNA 12+ YRS VACCINE 2021-01-18 00:00:00 Completed [facility] SARS-COV-2 COVID-19 MODERNA 12+ YRS VACCINE 2021-01-18 00:00:00 Completed [facility] SARS-COV-2 COVID-19 MODERNA 12+ YRS VACCINE 2021-01-18 00:00:00 Completed [facility] SARS-COV-2 COVID-19 MODERNA 12+ YRS VACCINE 2021-01-18 00:00:00 Completed [facility] SARS-COV-2 COVID-19 MODERNA 12+ YRS VACCINE 2021-01-18 00:00:00 Completed [facility] SARS-COV-2 COVID-19 MODERNA 12+ YRS VACCINE 2021-01-18 00:00:00 Completed [facility] SARS-COV-2 COVID-19 MODERNA 12+ YRS VACCINE 2021-01-18 00:00:00 Completed [facility] SARS-COV-2 COVID-19 MODERNA 12+ YRS VACCINE 2021-01-18 00:00:00 Completed [facility] SARS-COV-2 COVID-19 MODERNA 12+ YRS VACCINE 2021-01-18 00:00:00 Completed [facility] SARS-COV-2 COVID-19 MODERNA 12+ YRS VACCINE 2021-01-18 00:00:00 Completed [facility] SARS-COV-2 COVID-19 MODERNA 12+ YRS VACCINE 2021-01-18 00:00:00 Completed [facility] SARS-COV-2 COVID-19 MODERNA 12+ YRS VACCINE 2021-01-18 00:00:00 Completed [facility] SARS-COV-2 COVID-19 MODERNA 12+ YRS VACCINE 2021-01-18 00:00:00 Completed [facility] SARS-COV-2 COVID-19 MODERNA 12+ YRS VACCINE 2021-01-18 00:00:00 Completed [facility] SARS-COV-2 COVID-19 MODERNA 12+ YRS VACCINE 2021-01-18 00:00:00 Completed [facility] SARS-COV-2 COVID-19 MODERNA 12+ YRS VACCINE 2021-01-18 00:00:00 Completed [facility] SARS-COV-2 COVID-19 MODERNA 12+ YRS VACCINE 2021-01-18 00:00:00 Completed [facility] SARS-COV-2 COVID-19 MODERNA 12+ YRS VACCINE 2021-01-18 00:00:00 Completed [facility] SARS-COV-2 COVID-19 MODERNA 12+ YRS VACCINE 2021-01-18 00:00:00 Completed [facility] SARS-COV-2 COVID-19 MODERNA 12+ YRS VACCINE 2021-01-18 00:00:00 Completed [facility] SARS-COV-2 COVID-19 MODERNA 12+ YRS VACCINE 2021-01-18 00:00:00 Completed [facility] SARS-COV-2 COVID-19 MODERNA 12+ YRS VACCINE 2021-01-18 00:00:00 Completed [facility] SARS-COV-2 COVID-19 MODERNA 12+ YRS VACCINE 2021-01-18 00:00:00 Completed [facility] SARS-COV-2 COVID-19 MODERNA 12+ YRS VACCINE 2021-01-18 00:00:00 Completed [facility] SARS-COV-2 COVID-19 MODERNA 12+ YRS VACCINE 2021-01-18 00:00:00 Completed [facility] SARS-COV-2 COVID-19 MODERNA 12+ YRS VACCINE 2021-01-18 00:00:00 Completed [facility] SARS-COV-2 COVID-19 MODERNA 12+ YRS VACCINE 2021-01-18 00:00:00 Completed [facility] SARS-COV-2 COVID-19 MODERNA 12+ YRS VACCINE 2021-01-18 00:00:00 Completed [facility] SARS-COV-2 COVID-19 MODERNA 12+ YRS VACCINE 2021-01-18 00:00:00 Completed [facility] SARS-COV-2 COVID-19 MODERNA 12+ YRS VACCINE 2021-01-18 00:00:00 Completed [facility] SARS-COV-2 COVID-19 MODERNA 12+ YRS VACCINE 2021-01-18 00:00:00 Completed [facility] SARS-COV-2 COVID-19 MODERNA 12+ YRS VACCINE 2021-01-18 00:00:00 Completed [facility] SARS-COV-2 COVID-19 MODERNA 12+ YRS VACCINE 2021-01-18 00:00:00 Completed [facility] SARS-COV-2 COVID-19 MODERNA 12+ YRS VACCINE 2021-01-18 00:00:00 Completed [facility] SARS-COV-2 COVID-19 MODERNA 12+ YRS VACCINE 2021-01-18 00:00:00 Completed [facility] SARS-COV-2 COVID-19 MODERNA 12+ YRS VACCINE 2021-01-18 00:00:00 Completed [facility] SARS-COV-2 COVID-19 MODERNA 12+ YRS VACCINE 2021-01-18 00:00:00 Completed [facility] SARS-COV-2 COVID-19 MODERNA 12+ YRS VACCINE 2021-01-18 00:00:00 Completed [facility] SARS-COV-2 COVID-19 MODERNA 12+ YRS VACCINE 2021-01-18 00:00:00 Completed [facility] SARS-COV-2 COVID-19 MODERNA 12+ YRS VACCINE 2021-01-18 00:00:00 Completed [facility] SARS-COV-2 COVID-19 MODERNA 12+ YRS VACCINE 2021-01-18 00:00:00 Completed [facility] SARS-COV-2 COVID-19 MODERNA 12+ YRS VACCINE 2021-01-18 00:00:00 Completed [facility] SARS-COV-2 COVID-19 MODERNA 12+ YRS VACCINE 2021-01-18 00:00:00 Completed [facility] SARS-COV-2 COVID-19 MODERNA 12+ YRS VACCINE 2021-01-18 00:00:00 Completed [facility] SARS-COV-2 COVID-19 MODERNA 12+ YRS VACCINE 2021-01-18 00:00:00 Completed [facility] SARS-COV-2 COVID-19 MODERNA 12+ YRS VACCINE 2021-01-18 00:00:00 Completed [facility] SARS-COV-2 COVID-19 MODERNA 12+ YRS VACCINE 2021-01-18 00:00:00 Completed [facility] SARS-COV-2 COVID-19 MODERNA 12+ YRS VACCINE 2021-01-18 00:00:00 Completed [facility] SARS-COV-2 COVID-19 MODERNA 12+ YRS VACCINE 2021-01-18 00:00:00 Completed [facility] SARS-COV-2 COVID-19 MODERNA 12+ YRS VACCINE 2021-01-18 00:00:00 Completed [facility] SARS-COV-2 COVID-19 MODERNA 12+ YRS VACCINE 2021-01-18 00:00:00 Completed [facility] SARS-COV-2 COVID-19 MODERNA 12+ YRS VACCINE 2021-01-18 00:00:00 Completed [facility] SARS-COV-2 COVID-19 MODERNA 12+ YRS VACCINE 2021-01-18 00:00:00 Completed [facility] SARS-COV-2 COVID-19 MODERNA 12+ YRS VACCINE 2021-01-18 00:00:00 Completed [facility] SARS-COV-2 COVID-19 MODERNA 12+ YRS VACCINE 2021-01-18 00:00:00 Completed [facility] SARS-COV-2 COVID-19 MODERNA 12+ YRS VACCINE 2021-01-18 00:00:00 Completed [facility] SARS-COV-2 COVID-19 MODERNA 12+ YRS VACCINE 2021-01-18 00:00:00 Completed [facility] SARS-COV-2 COVID-19 MODERNA 12+ YRS VACCINE 2021-01-18 00:00:00 Completed [facility] SARS-COV-2 COVID-19 MODERNA 12+ YRS VACCINE 2021-01-18 00:00:00 Completed [facility] SARS-COV-2 COVID-19 MODERNA 12+ YRS VACCINE 2021-01-18 00:00:00 Completed [facility] SARS-COV-2 COVID-19 MODERNA 12+ YRS VACCINE 2021-01-18 00:00:00 Completed [facility] SARS-COV-2 COVID-19 MODERNA 12+ YRS VACCINE 2020-07-21 00:00:00 Completed [facility] SARS-COV-2 COVID-19 MODERNA 12+ YRS VACCINE 2020-07-21 00:00:00 Completed [facility] SARS-COV-2 COVID-19 MODERNA 12+ YRS VACCINE 2020-07-21 00:00:00 Completed [facility] SARS-COV-2 COVID-19 MODERNA 12+ YRS VACCINE 2020-07-21 00:00:00 Completed [facility] SARS-COV-2 COVID-19 MODERNA 12+ YRS VACCINE 2020-07-21 00:00:00 Completed [facility] SARS-COV-2 COVID-19 MODERNA 12+ YRS VACCINE 2020-07-21 00:00:00 Completed [facility] SARS-COV-2 COVID-19 MODERNA 12+ YRS VACCINE 2020-07-21 00:00:00 Completed [facility] SARS-COV-2 COVID-19 MODERNA 12+ YRS VACCINE 2020-07-21 00:00:00 Completed [facility] SARS-COV-2 COVID-19 MODERNA 12+ YRS VACCINE 2020-07-21 00:00:00 Completed [facility] SARS-COV-2 COVID-19 MODERNA 12+ YRS VACCINE 2020-07-21 00:00:00 Completed [facility] SARS-COV-2 COVID-19 MODERNA 12+ YRS VACCINE 2020-07-21 00:00:00 Completed [facility] SARS-COV-2 COVID-19 MODERNA 12+ YRS VACCINE 2020-07-21 00:00:00 Completed [facility] SARS-COV-2 COVID-19 MODERNA 12+ YRS VACCINE 2020-07-21 00:00:00 Completed [facility] SARS-COV-2 COVID-19 MODERNA 12+ YRS VACCINE 2020-07-21 00:00:00 Completed [facility] SARS-COV-2 COVID-19 MODERNA 12+ YRS VACCINE 2020-07-21 00:00:00 Completed [facility] SARS-COV-2 COVID-19 MODERNA 12+ YRS VACCINE 2020-07-21 00:00:00 Completed [facility] SARS-COV-2 COVID-19 MODERNA 12+ YRS VACCINE 2020-07-21 00:00:00 Completed [facility] SARS-COV-2 COVID-19 MODERNA 12+ YRS VACCINE 2020-07-21 00:00:00 Completed [facility] SARS-COV-2 COVID-19 MODERNA 12+ YRS VACCINE 2020-07-21 00:00:00 Completed [facility] SARS-COV-2 COVID-19 MODERNA 12+ YRS VACCINE 2020-07-21 00:00:00 Completed [facility] SARS-COV-2 COVID-19 MODERNA 12+ YRS VACCINE 2020-07-21 00:00:00 Completed [facility] SARS-COV-2 COVID-19 MODERNA 12+ YRS VACCINE 2020-07-21 00:00:00 Completed [facility] SARS-COV-2 COVID-19 MODERNA 12+ YRS VACCINE 2020-07-21 00:00:00 Completed [facility] SARS-COV-2 COVID-19 MODERNA 12+ YRS VACCINE 2020-07-21 00:00:00 Completed [facility] SARS-COV-2 COVID-19 MODERNA 12+ YRS VACCINE 2020-07-21 00:00:00 Completed [facility] SARS-COV-2 COVID-19 MODERNA 12+ YRS VACCINE 2020-07-21 00:00:00 Completed [facility] SARS-COV-2 COVID-19 MODERNA 12+ YRS VACCINE 2020-07-21 00:00:00 Completed [facility] SARS-COV-2 COVID-19 MODERNA 12+ YRS VACCINE 2020-07-21 00:00:00 Completed [facility] SARS-COV-2 COVID-19 MODERNA 12+ YRS VACCINE 2020-07-21 00:00:00 Completed [facility] SARS-COV-2 COVID-19 MODERNA 12+ YRS VACCINE 2020-07-21 00:00:00 Completed [facility] SARS-COV-2 COVID-19 MODERNA 12+ YRS VACCINE 2020-07-21 00:00:00 Completed [facility] SARS-COV-2 COVID-19 MODERNA 12+ YRS VACCINE 2020-07-21 00:00:00 Completed [facility] SARS-COV-2 COVID-19 MODERNA 12+ YRS VACCINE 2020-07-21 00:00:00 Completed [facility] SARS-COV-2 COVID-19 MODERNA 12+ YRS VACCINE 2020-07-21 00:00:00 Completed [facility] SARS-COV-2 COVID-19 MODERNA 12+ YRS VACCINE 2020-07-21 00:00:00 Completed [facility] SARS-COV-2 COVID-19 MODERNA 12+ YRS VACCINE 2020-07-21 00:00:00 Completed [facility] SARS-COV-2 COVID-19 MODERNA 12+ YRS VACCINE 2020-07-21 00:00:00 Completed [facility] SARS-COV-2 COVID-19 MODERNA 12+ YRS VACCINE 2020-07-21 00:00:00 Completed [facility] SARS-COV-2 COVID-19 MODERNA 12+ YRS VACCINE 2020-07-21 00:00:00 Completed [facility] SARS-COV-2 COVID-19 MODERNA 12+ YRS VACCINE 2020-07-21 00:00:00 Completed [facility] SARS-COV-2 COVID-19 MODERNA 12+ YRS VACCINE 2020-07-21 00:00:00 Completed [facility] SARS-COV-2 COVID-19 MODERNA 12+ YRS VACCINE 2020-07-21 00:00:00 Completed [facility] SARS-COV-2 COVID-19 MODERNA 12+ YRS VACCINE 2020-07-21 00:00:00 Completed [facility] SARS-COV-2 COVID-19 MODERNA 12+ YRS VACCINE 2020-07-21 00:00:00 Completed [facility] SARS-COV-2 COVID-19 MODERNA 12+ YRS VACCINE 2020-07-21 00:00:00 Completed [facility] SARS-COV-2 COVID-19 MODERNA 12+ YRS VACCINE 2020-07-21 00:00:00 Completed [facility] SARS-COV-2 COVID-19 MODERNA 12+ YRS VACCINE 2020-07-21 00:00:00 Completed [facility] SARS-COV-2 COVID-19 MODERNA 12+ YRS VACCINE 2020-07-21 00:00:00 Completed [facility] SARS-COV-2 COVID-19 MODERNA 12+ YRS VACCINE 2020-07-21 00:00:00 Completed [facility] SARS-COV-2 COVID-19 MODERNA 12+ YRS VACCINE 2020-07-21 00:00:00 Completed [facility] SARS-COV-2 COVID-19 MODERNA 12+ YRS VACCINE 2020-07-21 00:00:00 Completed [facility] SARS-COV-2 COVID-19 MODERNA 12+ YRS VACCINE 2020-07-21 00:00:00 Completed [facility] SARS-COV-2 COVID-19 MODERNA 12+ YRS VACCINE 2020-07-21 00:00:00 Completed [facility] SARS-COV-2 COVID-19 MODERNA 12+ YRS VACCINE 2020-07-21 00:00:00 Completed [facility] SARS-COV-2 COVID-19 MODERNA 12+ YRS VACCINE 2020-07-21 00:00:00 Completed [facility] SARS-COV-2 COVID-19 MODERNA 12+ YRS VACCINE 2020-07-21 00:00:00 Completed [facility] SARS-COV-2 COVID-19 MODERNA 12+ YRS VACCINE 2020-07-21 00:00:00 Completed [facility] SARS-COV-2 COVID-19 MODERNA 12+ YRS VACCINE 2020-07-21 00:00:00 Completed [facility] SARS-COV-2 COVID-19 MODERNA 12+ YRS VACCINE 2020-07-21 00:00:00 Completed [facility] SARS-COV-2 COVID-19 MODERNA 12+ YRS VACCINE 2020-07-21 00:00:00 Completed [facility] SARS-COV-2 COVID-19 MODERNA 12+ YRS VACCINE 2020-07-21 00:00:00 Completed [facility] SARS-COV-2 COVID-19 MODERNA 12+ YRS VACCINE 2020-07-21 00:00:00 Completed [facility] SARS-COV-2 COVID-19 MODERNA 12+ YRS VACCINE 2020-07-21 00:00:00 Completed [facility] SARS-COV-2 COVID-19 MODERNA 12+ YRS VACCINE 2020-07-21 00:00:00 Completed [facility] SARS-COV-2 COVID-19 MODERNA 12+ YRS VACCINE 2020-06-22 00:00:00 Completed [facility] SARS-COV-2 COVID-19 MODERNA 12+ YRS VACCINE 2020-06-22 00:00:00 Completed [facility] SARS-COV-2 COVID-19 MODERNA 12+ YRS VACCINE 2020-06-22 00:00:00 Completed [facility] SARS-COV-2 COVID-19 MODERNA 12+ YRS VACCINE 2020-06-22 00:00:00 Completed [facility] SARS-COV-2 COVID-19 MODERNA 12+ YRS VACCINE 2020-06-22 00:00:00 Completed [facility] SARS-COV-2 COVID-19 MODERNA 12+ YRS VACCINE 2020-06-22 00:00:00 Completed [facility] SARS-COV-2 COVID-19 MODERNA 12+ YRS VACCINE 2020-06-22 00:00:00 Completed [facility] SARS-COV-2 COVID-19 MODERNA 12+ YRS VACCINE 2020-06-22 00:00:00 Completed [facility] SARS-COV-2 COVID-19 MODERNA 12+ YRS VACCINE 2020-06-22 00:00:00 Completed [facility] SARS-COV-2 COVID-19 MODERNA 12+ YRS VACCINE 2020-06-22 00:00:00 Completed [facility] SARS-COV-2 COVID-19 MODERNA 12+ YRS VACCINE 2020-06-22 00:00:00 Completed [facility] SARS-COV-2 COVID-19 MODERNA 12+ YRS VACCINE 2020-06-22 00:00:00 Completed [facility] SARS-COV-2 COVID-19 MODERNA 12+ YRS VACCINE 2020-06-22 00:00:00 Completed [facility] SARS-COV-2 COVID-19 MODERNA 12+ YRS VACCINE 2020-06-22 00:00:00 Completed [facility] SARS-COV-2 COVID-19 MODERNA 12+ YRS VACCINE 2020-06-22 00:00:00 Completed [facility] SARS-COV-2 COVID-19 MODERNA 12+ YRS VACCINE 2020-06-22 00:00:00 Completed [facility] SARS-COV-2 COVID-19 MODERNA 12+ YRS VACCINE 2020-06-22 00:00:00 Completed [facility] SARS-COV-2 COVID-19 MODERNA 12+ YRS VACCINE 2020-06-22 00:00:00 Completed [facility] SARS-COV-2 COVID-19 MODERNA 12+ YRS VACCINE 2020-06-22 00:00:00 Completed [facility] SARS-COV-2 COVID-19 MODERNA 12+ YRS VACCINE 2020-06-22 00:00:00 Completed [facility] SARS-COV-2 COVID-19 MODERNA 12+ YRS VACCINE 2020-06-22 00:00:00 Completed [facility] SARS-COV-2 COVID-19 MODERNA 12+ YRS VACCINE 2020-06-22 00:00:00 Completed [facility] SARS-COV-2 COVID-19 MODERNA 12+ YRS VACCINE 2020-06-22 00:00:00 Completed [facility] SARS-COV-2 COVID-19 MODERNA 12+ YRS VACCINE 2020-06-22 00:00:00 Completed [facility] SARS-COV-2 COVID-19 MODERNA 12+ YRS VACCINE 2020-06-22 00:00:00 Completed [facility] SARS-COV-2 COVID-19 MODERNA 12+ YRS VACCINE 2020-06-22 00:00:00 Completed [facility] SARS-COV-2 COVID-19 MODERNA 12+ YRS VACCINE 2020-06-22 00:00:00 Completed [facility] SARS-COV-2 COVID-19 MODERNA 12+ YRS VACCINE 2020-06-22 00:00:00 Completed [facility] SARS-COV-2 COVID-19 MODERNA 12+ YRS VACCINE 2020-06-22 00:00:00 Completed [facility] SARS-COV-2 COVID-19 MODERNA 12+ YRS VACCINE 2020-06-22 00:00:00 Completed [facility] SARS-COV-2 COVID-19 MODERNA 12+ YRS VACCINE 2020-06-22 00:00:00 Completed [facility] SARS-COV-2 COVID-19 MODERNA 12+ YRS VACCINE 2020-06-22 00:00:00 Completed [facility] SARS-COV-2 COVID-19 MODERNA 12+ YRS VACCINE 2020-06-22 00:00:00 Completed [facility] SARS-COV-2 COVID-19 MODERNA 12+ YRS VACCINE 2020-06-22 00:00:00 Completed [facility] SARS-COV-2 COVID-19 MODERNA 12+ YRS VACCINE 2020-06-22 00:00:00 Completed [facility] SARS-COV-2 COVID-19 MODERNA 12+ YRS VACCINE 2020-06-22 00:00:00 Completed [facility] SARS-COV-2 COVID-19 MODERNA 12+ YRS VACCINE 2020-06-22 00:00:00 Completed [facility] SARS-COV-2 COVID-19 MODERNA 12+ YRS VACCINE 2020-06-22 00:00:00 Completed [facility] SARS-COV-2 COVID-19 MODERNA 12+ YRS VACCINE 2020-06-22 00:00:00 Completed [facility] SARS-COV-2 COVID-19 MODERNA 12+ YRS VACCINE 2020-06-22 00:00:00 Completed [facility] SARS-COV-2 COVID-19 MODERNA 12+ YRS VACCINE 2020-06-22 00:00:00 Completed [facility] SARS-COV-2 COVID-19 MODERNA 12+ YRS VACCINE 2020-06-22 00:00:00 Completed [facility] SARS-COV-2 COVID-19 MODERNA 12+ YRS VACCINE 2020-06-22 00:00:00 Completed [facility] SARS-COV-2 COVID-19 MODERNA 12+ YRS VACCINE 2020-06-22 00:00:00 Completed [facility] SARS-COV-2 COVID-19 MODERNA 12+ YRS VACCINE 2020-06-22 00:00:00 Completed [facility] SARS-COV-2 COVID-19 MODERNA 12+ YRS VACCINE 2020-06-22 00:00:00 Completed [facility] SARS-COV-2 COVID-19 MODERNA 12+ YRS VACCINE 2020-06-22 00:00:00 Completed [facility] SARS-COV-2 COVID-19 MODERNA 12+ YRS VACCINE 2020-06-22 00:00:00 Completed [facility] SARS-COV-2 COVID-19 MODERNA 12+ YRS VACCINE 2020-06-22 00:00:00 Completed [facility] SARS-COV-2 COVID-19 MODERNA 12+ YRS VACCINE 2020-06-22 00:00:00 Completed [facility] SARS-COV-2 COVID-19 MODERNA 12+ YRS VACCINE 2020-06-22 00:00:00 Completed [facility] SARS-COV-2 COVID-19 MODERNA 12+ YRS VACCINE 2020-06-22 00:00:00 Completed [facility] SARS-COV-2 COVID-19 MODERNA 12+ YRS VACCINE 2020-06-22 00:00:00 Completed [facility] SARS-COV-2 COVID-19 MODERNA 12+ YRS VACCINE 2020-06-22 00:00:00 Completed [facility] SARS-COV-2 COVID-19 MODERNA 12+ YRS VACCINE 2020-06-22 00:00:00 Completed [facility] SARS-COV-2 COVID-19 MODERNA 12+ YRS VACCINE 2020-06-22 00:00:00 Completed [facility] SARS-COV-2 COVID-19 MODERNA 12+ YRS VACCINE 2020-06-22 00:00:00 Completed [facility] SARS-COV-2 COVID-19 MODERNA 12+ YRS VACCINE 2020-06-22 00:00:00 Completed [facility] SARS-COV-2 COVID-19 MODERNA 12+ YRS VACCINE 2020-06-22 00:00:00 Completed [facility] SARS-COV-2 COVID-19 MODERNA 12+ YRS VACCINE 2020-06-22 00:00:00 Completed [facility] SARS-COV-2 COVID-19 MODERNA 12+ YRS VACCINE 2020-06-22 00:00:00 Completed [facility] SARS-COV-2 COVID-19 MODERNA 12+ YRS VACCINE 2020-06-22 00:00:00 Completed [facility] SARS-COV-2 COVID-19 MODERNA 12+ YRS VACCINE 2020-06-22 00:00:00 Completed [facility] SARS-COV-2 COVID-19 MODERNA 12+ YRS VACCINE 2020-06-22 00:00:00 Completed [facility] Pneumococcal Polysaccharide, PPSV23 (PNEUMOVAX) 2018-03-26 00:00:00 Completed [facility] Pneumococcal Polysaccharide, PPSV23 (PNEUMOVAX) 2018-03-26 00:00:00 Completed [facility] Pneumococcal Polysaccharide, PPSV23 (PNEUMOVAX) 2018-03-26 00:00:00 Completed [facility] Pneumococcal Polysaccharide, PPSV23 (PNEUMOVAX) 2018-03-26 00:00:00 Completed [facility] Pneumococcal Polysaccharide, PPSV23 (PNEUMOVAX) 2018-03-26 00:00:00 Completed [facility] Pneumococcal Polysaccharide, PPSV23 (PNEUMOVAX) 2018-03-26 00:00:00 Completed [facility] Pneumococcal Polysaccharide, PPSV23 (PNEUMOVAX) 2018-03-26 00:00:00 Completed [facility] Pneumococcal Polysaccharide, PPSV23 (PNEUMOVAX) 2018-03-26 00:00:00 Completed [facility] Pneumococcal Polysaccharide, PPSV23 (PNEUMOVAX) 2018-03-26 00:00:00 Completed [facility] Pneumococcal Polysaccharide, PPSV23 (PNEUMOVAX) 2018-03-26 00:00:00 Completed [facility] Pneumococcal Polysaccharide, PPSV23 (PNEUMOVAX) 2018-03-26 00:00:00 Completed [facility] Pneumococcal Polysaccharide, PPSV23 (PNEUMOVAX) 2018-03-26 00:00:00 Completed [facility] Pneumococcal Polysaccharide, PPSV23 (PNEUMOVAX) 2018-03-26 00:00:00 Completed [facility] Pneumococcal Polysaccharide, PPSV23 (PNEUMOVAX) 2018-03-26 00:00:00 Completed [facility] Pneumococcal Polysaccharide, PPSV23 (PNEUMOVAX) 2018-03-26 00:00:00 Completed [facility] Pneumococcal Polysaccharide, PPSV23 (PNEUMOVAX) 2018-03-26 00:00:00 Completed [facility] Pneumococcal Polysaccharide, PPSV23 (PNEUMOVAX) 2018-03-26 00:00:00 Completed [facility] Pneumococcal Polysaccharide, PPSV23 (PNEUMOVAX) 2018-03-26 00:00:00 Completed [facility] Pneumococcal Polysaccharide, PPSV23 (PNEUMOVAX) 2018-03-26 00:00:00 Completed [facility] Pneumococcal Polysaccharide, PPSV23 (PNEUMOVAX) 2018-03-26 00:00:00 Completed [facility] Pneumococcal Polysaccharide, PPSV23 (PNEUMOVAX) 2018-03-26 00:00:00 Completed [facility] Pneumococcal Polysaccharide, PPSV23 (PNEUMOVAX) 2018-03-26 00:00:00 Completed [facility] Pneumococcal Polysaccharide, PPSV23 (PNEUMOVAX) 2018-03-26 00:00:00 Completed [facility] Pneumococcal Polysaccharide, PPSV23 (PNEUMOVAX) 2018-03-26 00:00:00 Completed [facility] Pneumococcal Polysaccharide, PPSV23 (PNEUMOVAX) 2018-03-26 00:00:00 Completed [facility] Pneumococcal Polysaccharide, PPSV23 (PNEUMOVAX) 2018-03-26 00:00:00 Completed [facility] Pneumococcal Polysaccharide, PPSV23 (PNEUMOVAX) 2018-03-26 00:00:00 Completed [facility] Pneumococcal Polysaccharide, PPSV23 (PNEUMOVAX) 2018-03-26 00:00:00 Completed [facility] Pneumococcal Polysaccharide, PPSV23 (PNEUMOVAX) 2018-03-26 00:00:00 Completed [facility] Pneumococcal Polysaccharide, PPSV23 (PNEUMOVAX) 2018-03-26 00:00:00 Completed [facility] Pneumococcal Polysaccharide, PPSV23 (PNEUMOVAX) 2018-03-26 00:00:00 Completed [facility] Pneumococcal Polysaccharide, PPSV23 (PNEUMOVAX) 2018-03-26 00:00:00 Completed [facility] Pneumococcal Polysaccharide, PPSV23 (PNEUMOVAX) 2018-03-26 00:00:00 Completed [facility] Pneumococcal Polysaccharide, PPSV23 (PNEUMOVAX) 2018-03-26 00:00:00 Completed [facility] Pneumococcal Polysaccharide, PPSV23 (PNEUMOVAX) 2018-03-26 00:00:00 Completed [facility] Pneumococcal Polysaccharide, PPSV23 (PNEUMOVAX) 2018-03-26 00:00:00 Completed [facility] Pneumococcal Polysaccharide, PPSV23 (PNEUMOVAX) 2018-03-26 00:00:00 Completed [facility] Pneumococcal Polysaccharide, PPSV23 (PNEUMOVAX) 2018-03-26 00:00:00 Completed [facility] Pneumococcal Polysaccharide, PPSV23 (PNEUMOVAX) 2018-03-26 00:00:00 Completed [facility] Pneumococcal Polysaccharide, PPSV23 (PNEUMOVAX) 2018-03-26 00:00:00 Completed [facility] Pneumococcal Polysaccharide, PPSV23 (PNEUMOVAX) 2018-03-26 00:00:00 Completed [facility] Pneumococcal Polysaccharide, PPSV23 (PNEUMOVAX) 2018-03-26 00:00:00 Completed [facility] Pneumococcal Polysaccharide, PPSV23 (PNEUMOVAX) 2018-03-26 00:00:00 Completed [facility] Pneumococcal Polysaccharide, PPSV23 (PNEUMOVAX) 2018-03-26 00:00:00 Completed [facility] Pneumococcal Polysaccharide, PPSV23 (PNEUMOVAX) 2018-03-26 00:00:00 Completed [facility] Pneumococcal Polysaccharide, PPSV23 (PNEUMOVAX) 2018-03-26 00:00:00 Completed [facility] Pneumococcal Polysaccharide, PPSV23 (PNEUMOVAX) 2018-03-26 00:00:00 Completed [facility] Pneumococcal Polysaccharide, PPSV23 (PNEUMOVAX) 2018-03-26 00:00:00 Completed [facility] Pneumococcal Polysaccharide, PPSV23 (PNEUMOVAX) 2018-03-26 00:00:00 Completed [facility] Pneumococcal Polysaccharide, PPSV23 (PNEUMOVAX) 2018-03-26 00:00:00 Completed [facility] Pneumococcal Polysaccharide, PPSV23 (PNEUMOVAX) 2018-03-26 00:00:00 Completed [facility] Pneumococcal Polysaccharide, PPSV23 (PNEUMOVAX) 2018-03-26 00:00:00 Completed [facility] Pneumococcal Polysaccharide, PPSV23 (PNEUMOVAX) 2018-03-26 00:00:00 Completed [facility] Pneumococcal Polysaccharide, PPSV23 (PNEUMOVAX) 2018-03-26 00:00:00 Completed [facility] Pneumococcal Polysaccharide, PPSV23 (PNEUMOVAX) 2018-03-26 00:00:00 Completed [facility] Pneumococcal Polysaccharide, PPSV23 (PNEUMOVAX) 2018-03-26 00:00:00 Completed [facility] Pneumococcal Polysaccharide, PPSV23 (PNEUMOVAX) 2018-03-26 00:00:00 Completed [facility] Pneumococcal Polysaccharide, PPSV23 (PNEUMOVAX) 2018-03-26 00:00:00 Completed [facility] Pneumococcal Polysaccharide, PPSV23 (PNEUMOVAX) 2018-03-26 00:00:00 Completed [facility] Pneumococcal Polysaccharide, PPSV23 (PNEUMOVAX) 2018-03-26 00:00:00 Completed [facility] Pneumococcal Polysaccharide, PPSV23 (PNEUMOVAX) 2018-03-26 00:00:00 Completed [facility] Pneumococcal Polysaccharide, PPSV23 (PNEUMOVAX) 2018-03-26 00:00:00 Completed [facility] Pneumococcal Polysaccharide, PPSV23 (PNEUMOVAX) 2018-03-26 00:00:00 Completed [facility] Pneumococcal Polysaccharide, PPSV23 (PNEUMOVAX) 2018-03-26 00:00:00 Completed [facility] Pneumococcal Polysaccharide, PPSV23 (PNEUMOVAX) 2015-06-29 00:00:00 Completed [facility] Pneumococcal Polysaccharide, PPSV23 (PNEUMOVAX) 2015-06-29 00:00:00 Completed [facility] Pneumococcal Polysaccharide, PPSV23 (PNEUMOVAX) 2015-06-29 00:00:00 Completed [facility] Pneumococcal Polysaccharide, PPSV23 (PNEUMOVAX) 2015-06-29 00:00:00 Completed [facility] Pneumococcal Polysaccharide, PPSV23 (PNEUMOVAX) 2015-06-29 00:00:00 Completed [facility] Pneumococcal Polysaccharide, PPSV23 (PNEUMOVAX) 2015-06-29 00:00:00 Completed [facility] Pneumococcal Polysaccharide, PPSV23 (PNEUMOVAX) 2015-06-29 00:00:00 Completed [facility] Pneumococcal Polysaccharide, PPSV23 (PNEUMOVAX) 2015-06-29 00:00:00 Completed [facility] Pneumococcal Polysaccharide, PPSV23 (PNEUMOVAX) 2015-06-29 00:00:00 Completed [facility] Pneumococcal Polysaccharide, PPSV23 (PNEUMOVAX) 2015-06-29 00:00:00 Completed [facility] Pneumococcal Polysaccharide, PPSV23 (PNEUMOVAX) 2015-06-29 00:00:00 Completed [facility] Pneumococcal Polysaccharide, PPSV23 (PNEUMOVAX) 2015-06-29 00:00:00 Completed [facility] Pneumococcal Polysaccharide, PPSV23 (PNEUMOVAX) 2015-06-29 00:00:00 Completed [facility] Pneumococcal Polysaccharide, PPSV23 (PNEUMOVAX) 2015-06-29 00:00:00 Completed [facility] Pneumococcal Polysaccharide, PPSV23 (PNEUMOVAX) 2015-06-29 00:00:00 Completed [facility] Pneumococcal Polysaccharide, PPSV23 (PNEUMOVAX) 2015-06-29 00:00:00 Completed [facility] Pneumococcal Polysaccharide, PPSV23 (PNEUMOVAX) 2015-06-29 00:00:00 Completed [facility] Pneumococcal Polysaccharide, PPSV23 (PNEUMOVAX) 2015-06-29 00:00:00 Completed [facility] Pneumococcal Polysaccharide, PPSV23 (PNEUMOVAX) 2015-06-29 00:00:00 Completed [facility] Pneumococcal Polysaccharide, PPSV23 (PNEUMOVAX) 2015-06-29 00:00:00 Completed [facility] Pneumococcal Polysaccharide, PPSV23 (PNEUMOVAX) 2015-06-29 00:00:00 Completed [facility] Pneumococcal Polysaccharide, PPSV23 (PNEUMOVAX) 2015-06-29 00:00:00 Completed [facility] Pneumococcal Polysaccharide, PPSV23 (PNEUMOVAX) 2015-06-29 00:00:00 Completed [facility] Pneumococcal Polysaccharide, PPSV23 (PNEUMOVAX) 2015-06-29 00:00:00 Completed [facility] Pneumococcal Polysaccharide, PPSV23 (PNEUMOVAX) 2015-06-29 00:00:00 Completed [facility] Pneumococcal Polysaccharide, PPSV23 (PNEUMOVAX) 2015-06-29 00:00:00 Completed [facility] Pneumococcal Polysaccharide, PPSV23 (PNEUMOVAX) 2015-06-29 00:00:00 Completed [facility] Pneumococcal Polysaccharide, PPSV23 (PNEUMOVAX) 2015-06-29 00:00:00 Completed [facility] Pneumococcal Polysaccharide, PPSV23 (PNEUMOVAX) 2015-06-29 00:00:00 Completed [facility] Pneumococcal Polysaccharide, PPSV23 (PNEUMOVAX) 2015-06-29 00:00:00 Completed [facility] Pneumococcal Polysaccharide, PPSV23 (PNEUMOVAX) 2015-06-29 00:00:00 Completed [facility] Pneumococcal Polysaccharide, PPSV23 (PNEUMOVAX) 2015-06-29 00:00:00 Completed [facility] Pneumococcal Polysaccharide, PPSV23 (PNEUMOVAX) 2015-06-29 00:00:00 Completed [facility] Pneumococcal Polysaccharide, PPSV23 (PNEUMOVAX) 2015-06-29 00:00:00 Completed [facility] Pneumococcal Polysaccharide, PPSV23 (PNEUMOVAX) 2015-06-29 00:00:00 Completed [facility] Pneumococcal Polysaccharide, PPSV23 (PNEUMOVAX) 2015-06-29 00:00:00 Completed [facility] Pneumococcal Polysaccharide, PPSV23 (PNEUMOVAX) 2015-06-29 00:00:00 Completed [facility] Pneumococcal Polysaccharide, PPSV23 (PNEUMOVAX) 2015-06-29 00:00:00 Completed [facility] Pneumococcal Polysaccharide, PPSV23 (PNEUMOVAX) 2015-06-29 00:00:00 Completed [facility] Pneumococcal Polysaccharide, PPSV23 (PNEUMOVAX) 2015-06-29 00:00:00 Completed [facility] Pneumococcal Polysaccharide, PPSV23 (PNEUMOVAX) 2015-06-29 00:00:00 Completed [facility] Pneumococcal Polysaccharide, PPSV23 (PNEUMOVAX) 2015-06-29 00:00:00 Completed [facility] Pneumococcal Polysaccharide, PPSV23 (PNEUMOVAX) 2015-06-29 00:00:00 Completed [facility] Pneumococcal Polysaccharide, PPSV23 (PNEUMOVAX) 2015-06-29 00:00:00 Completed [facility] Pneumococcal Polysaccharide, PPSV23 (PNEUMOVAX) 2015-06-29 00:00:00 Completed [facility] Pneumococcal Polysaccharide, PPSV23 (PNEUMOVAX) 2015-06-29 00:00:00 Completed [facility] Pneumococcal Polysaccharide, PPSV23 (PNEUMOVAX) 2015-06-29 00:00:00 Completed [facility] Pneumococcal Polysaccharide, PPSV23 (PNEUMOVAX) 2015-06-29 00:00:00 Completed [facility] Pneumococcal Polysaccharide, PPSV23 (PNEUMOVAX) 2015-06-29 00:00:00 Completed [facility] Pneumococcal Polysaccharide, PPSV23 (PNEUMOVAX) 2015-06-29 00:00:00 [facility]pleted [facility] [facility] Pneumococcal Polysaccharide, PPSV23 (PNEUMOVAX) 2015-06-29 00:00:00 Completed [facility] Pneumococcal Polysaccharide, PPSV23 (PNEUMOVAX) 2015-06-29 00:00:00 Completed [facility] Pneumococcal Polysaccharide, PPSV23 (PNEUMOVAX) 2015-06-29 00:00:00 Completed [facility] Pneumococcal Polysaccharide, PPSV23 (PNEUMOVAX) 2015-06-29 00:00:00 Completed [facility] Pneumococcal Polysaccharide, PPSV23 (PNEUMOVAX) 2015-06-29 00:00:00 Completed [facility] Pneumococcal Polysaccharide, PPSV23 (PNEUMOVAX) 2015-06-29 00:00:00 Completed [facility] Pneumococcal Polysaccharide, PPSV23 (PNEUMOVAX) 2015-06-29 00:00:00 Completed [facility] Pneumococcal Polysaccharide, PPSV23 (PNEUMOVAX) 2015-06-29 00:00:00 Completed [facility] Pneumococcal Polysaccharide, PPSV23 (PNEUMOVAX) 2015-06-29 00:00:00 Completed [facility] Pneumococcal Polysaccharide, PPSV23 (PNEUMOVAX) 2015-06-29 00:00:00 Completed [facility] Pneumococcal Polysaccharide, PPSV23 (PNEUMOVAX) 2015-06-29 00:00:00 Completed [facility] Pneumococcal Polysaccharide, PPSV23 (PNEUMOVAX) 2015-06-29 00:00:00 Completed [facility] Pneumococcal Polysaccharide, PPSV23 (PNEUMOVAX) 2015-06-29 00:00:00 Completed [facility] Pneumococcal Polysaccharide, PPSV23 (PNEUMOVAX) 2015-06-29 00:00:00 Completed [facility] Influenza High Dose Unknown Completed [facility] Pneumococcal Polysaccharide, PPSV23 (PNEUMOVAX) Unknown Completed [facility] Pneumococcal Polysaccharide, PPSV23 (PNEUMOVAX) Unknown Completed [facility] SARS-COV-2 COVID-19 MODERNA 12+ YRS VACCINE Unknown Completed [facility] SARS-COV-2 COVID-19 MODERNA 12+ YRS VACCINE Unknown Completed [facility] SARS-COV-2 COVID-19 MODERNA 12+ YRS VACCINE Unknown Completed [facility] SARS-COV-2 COVID-19 MODERNA 0.25ML BOOSTER VACCINE Unknown Completed [facility] TD, NOS Unknown Completed [facility] Influenza High Dose Quad Unknown Completed [facility] Influenza High Dose Unknown Completed [facility] Pneumococcal Polysaccharide, PPSV23 (PNEUMOVAX) Unknown Completed [facility] Pneumococcal Polysaccharide, PPSV23 (PNEUMOVAX) Unknown Completed [facility] SARS-COV-2 COVID-19 MODERNA 12+ YRS VACCINE Unknown Completed [facility] SARS-COV-2 COVID-19 MODERNA 12+ YRS VACCINE Unknown Completed [facility] SARS-COV-2 COVID-19 MODERNA 12+ YRS VACCINE Unknown Completed [facility] SARS-COV-2 COVID-19 MODERNA 0.25ML BOOSTER VACCINE Unknown Completed [facility] TD, NOS Unknown Completed [facility] Influenza High Dose Quad Unknown Completed [facility] Influenza High Dose Unknown Completed [facility] Pneumococcal Polysaccharide, PPSV23 (PNEUMOVAX) Unknown Completed [facility] Pneumococcal Polysaccharide, PPSV23 (PNEUMOVAX) Unknown Completed [facility] SARS-COV-2 COVID-19 MODERNA 12+ YRS VACCINE Unknown Completed [facility] SARS-COV-2 COVID-19 MODERNA 12+ YRS VACCINE Unknown Completed [facility] SARS-COV-2 COVID-19 MODERNA 12+ YRS VACCINE Unknown Completed [facility] SARS-COV-2 COVID-19 MODERNA 0.25ML BOOSTER VACCINE Unknown Completed [facility] TD, NOS Unknown Completed [facility] Influenza High Dose Quad Unknown Completed [facility] Influenza High Dose Unknown Completed [facility] Pneumococcal Polysaccharide, PPSV23 (PNEUMOVAX) Unknown Completed [facility] Pneumococcal Polysaccharide, PPSV23 (PNEUMOVAX) Unknown Completed [facility] SARS-COV-2 COVID-19 MODERNA 12+ YRS VACCINE Unknown Completed [facility] SARS-COV-2 COVID-19 MODERNA 12+ YRS VACCINE Unknown Completed [facility] SARS-COV-2 COVID-19 MODERNA 12+ YRS VACCINE Unknown Completed [facility] SARS-COV-2 COVID-19 MODERNA 0.25ML BOOSTER VACCINE Unknown Completed [facility] TD, NOS Unknown Completed [facility] Influenza High Dose Quad Unknown Completed [facility] Influenza High Dose Unknown Completed [facility] Pneumococcal Polysaccharide, PPSV23 (PNEUMOVAX) Unknown Completed [facility] Pneumococcal Polysaccharide, PPSV23 (PNEUMOVAX) Unknown Completed [facility] SARS-COV-2 COVID-19 MODERNA 12+ YRS VACCINE Unknown Completed [facility] SARS-COV-2 COVID-19 MODERNA 12+ YRS VACCINE Unknown Completed [facility] SARS-COV-2 COVID-19 MODERNA 12+ YRS VACCINE Unknown Completed [facility] SARS-COV-2 COVID-19 MODERNA 0.25ML BOOSTER VACCINE Unknown Completed [facility] TD, NOS Unknown Completed [facility] Influenza High Dose Quad Unknown Completed [facility] Influenza High Dose Unknown Completed [facility] Pneumococcal Polysaccharide, PPSV23 (PNEUMOVAX) Unknown Completed [facility] Pneumococcal Polysaccharide, PPSV23 (PNEUMOVAX) Unknown Completed [facility] SARS-COV-2 COVID-19 MODERNA 12+ YRS VACCINE Unknown Completed [facility] SARS-COV-2 COVID-19 MODERNA 12+ YRS VACCINE Unknown Completed [facility] SARS-COV-2 COVID-19 MODERNA 12+ YRS VACCINE Unknown Completed [facility] SARS-COV-2 COVID-19 MODERNA 0.25ML BOOSTER VACCINE Unknown Completed [facility] TD, NOS Unknown Completed [facility] Influenza High Dose Quad Unknown Completed [facility] Influenza High Dose Unknown Completed [facility] Pneumococcal Polysaccharide, PPSV23 (PNEUMOVAX) Unknown Completed [facility] Pneumococcal Polysaccharide, PPSV23 (PNEUMOVAX) Unknown Completed [facility] SARS-COV-2 COVID-19 MODERNA 12+ YRS VACCINE Unknown Completed [facility] SARS-COV-2 COVID-19 MODERNA 12+ YRS VACCINE Unknown Completed [facility] SARS-COV-2 COVID-19 MODERNA 12+ YRS VACCINE Unknown Completed [facility] SARS-COV-2 COVID-19 MODERNA 0.25ML BOOSTER VACCINE Unknown Completed [facility] TD, NOS Unknown Completed [facility] Influenza High Dose Quad Unknown Completed [facility] Influenza High Dose Unknown Completed [facility] Pneumococcal Polysaccharide, PPSV23 (PNEUMOVAX) Unknown Completed [facility] Pneumococcal Polysaccharide, PPSV23 (PNEUMOVAX) Unknown Completed [facility] SARS-COV-2 COVID-19 MODERNA 12+ YRS VACCINE Unknown Completed [facility] SARS-COV-2 COVID-19 MODERNA 12+ YRS VACCINE Unknown Completed [facility] SARS-COV-2 COVID-19 MODERNA 12+ YRS VACCINE Unknown Completed [facility] SARS-COV-2 COVID-19 MODERNA 0.25ML BOOSTER VACCINE Unknown Completed [facility] TD, NOS Unknown Completed [facility] Influenza High Dose Quad Unknown Completed [facility] Influenza High Dose Unknown Completed [facility] Pneumococcal Polysaccharide, PPSV23 (PNEUMOVAX) Unknown Completed [facility] Pneumococcal Polysaccharide, PPSV23 (PNEUMOVAX) Unknown Completed [facility] SARS-COV-2 COVID-19 MODERNA 12+ YRS VACCINE Unknown Completed [facility] SARS-COV-2 COVID-19 MODERNA 12+ YRS VACCINE Unknown Completed [facility] SARS-COV-2 COVID-19 MODERNA 12+ YRS VACCINE Unknown Completed [facility] SARS-COV-2 COVID-19 MODERNA 0.25ML BOOSTER VACCINE Unknown Completed [facility] TD, NOS Unknown Completed [facility] Influenza High Dose Quad Unknown Completed [facility] Influenza High Dose Unknown Completed [facility] Pneumococcal Polysaccharide, PPSV23 (PNEUMOVAX) Unknown Completed [facility] Pneumococcal Polysaccharide, PPSV23 (PNEUMOVAX) Unknown Completed [facility] SARS-COV-2 COVID-19 MODERNA 12+ YRS VACCINE Unknown Completed [facility] SARS-COV-2 COVID-19 MODERNA 12+ YRS VACCINE Unknown Completed [facility] SARS-COV-2 COVID-19 MODERNA 12+ YRS VACCINE Unknown Completed [facility] SARS-COV-2 COVID-19 MODERNA 0.25ML BOOSTER VACCINE Unknown Completed [facility] TD, NOS Unknown Completed [facility] Influenza High Dose Quad Unknown Completed [facility] Influenza High Dose Unknown Completed [facility] Pneumococcal Polysaccharide, PPSV23 (PNEUMOVAX) Unknown Completed [facility] Pneumococcal Polysaccharide, PPSV23 (PNEUMOVAX) Unknown Completed [facility] SARS-COV-2 COVID-19 MODERNA 12+ YRS VACCINE Unknown Completed [facility] SARS-COV-2 COVID-19 MODERNA 12+ YRS VACCINE Unknown Completed [facility] SARS-COV-2 COVID-19 MODERNA 12+ YRS VACCINE Unknown Completed [facility] SARS-COV-2 COVID-19 MODERNA 0.25ML BOOSTER VACCINE Unknown Completed [facility] TD, NOS Unknown Completed [facility] Influenza High Dose Quad Unknown Completed [facility] Influenza High Dose Unknown Completed [facility] Pneumococcal Polysaccharide, PPSV23 (PNEUMOVAX) Unknown Completed [facility] Pneumococcal Polysaccharide, PPSV23 (PNEUMOVAX) Unknown Completed [facility] SARS-COV-2 COVID-19 MODERNA 12+ YRS VACCINE Unknown Completed [facility] SARS-COV-2 COVID-19 MODERNA 12+ YRS VACCINE Unknown Completed [facility] SARS-COV-2 COVID-19 MODERNA 12+ YRS VACCINE Unknown Completed [facility] SARS-COV-2 COVID-19 MODERNA 0.25ML BOOSTER VACCINE Unknown Completed [facility] TD, NOS Unknown Completed [facility] Influenza High Dose Quad Unknown Completed [facility] Influenza High Dose Unknown Completed [facility] Pneumococcal Polysaccharide, PPSV23 (PNEUMOVAX) Unknown Completed [facility] Pneumococcal Polysaccharide, PPSV23 (PNEUMOVAX) Unknown Completed [facility] SARS-COV-2 COVID-19 MODERNA 12+ YRS VACCINE Unknown Completed [facility] SARS-COV-2 COVID-19 MODERNA 12+ YRS VACCINE Unknown Completed [facility] SARS-COV-2 COVID-19 MODERNA 12+ YRS VACCINE Unknown Completed [facility] SARS-COV-2 COVID-19 MODERNA 0.25ML BOOSTER VACCINE Unknown Completed [facility] TD, NOS Unknown Completed [facility] Influenza High Dose Quad Unknown Completed [facility] Influenza High Dose Unknown Completed [facility] Pneumococcal Polysaccharide, PPSV23 (PNEUMOVAX) Unknown Completed [facility] Pneumococcal Polysaccharide, PPSV23 (PNEUMOVAX) Unknown Completed [facility] SARS-COV-2 COVID-19 MODERNA 12+ YRS VACCINE Unknown Completed [facility] SARS-COV-2 COVID-19 MODERNA 12+ YRS VACCINE Unknown Completed [facility] SARS-COV-2 COVID-19 MODERNA 12+ YRS VACCINE Unknown Completed [facility] SARS-COV-2 COVID-19 MODERNA 0.25ML BOOSTER VACCINE Unknown Completed [facility] TD, NOS Unknown Completed [facility] Influenza High Dose Quad Unknown Completed [facility] Influenza High Dose Unknown Completed [facility] Pneumococcal Polysaccharide, PPSV23 (PNEUMOVAX) Unknown Completed [facility] Pneumococcal Polysaccharide, PPSV23 (PNEUMOVAX) Unknown Completed [facility] SARS-COV-2 COVID-19 MODERNA 12+ YRS VACCINE Unknown Completed [facility] SARS-COV-2 COVID-19 MODERNA 12+ YRS VACCINE Unknown Completed [facility] SARS-COV-2 COVID-19 MODERNA 12+ YRS VACCINE Unknown Completed [facility] SARS-COV-2 COVID-19 MODERNA 0.25ML BOOSTER VACCINE Unknown Completed [facility] TD, NOS Unknown Completed [facility] Influenza High Dose Quad Unknown Completed [facility] Influenza High Dose Unknown Completed [facility] Pneumococcal Polysaccharide, PPSV23 (PNEUMOVAX) Unknown Completed [facility] Pneumococcal Polysaccharide, PPSV23 (PNEUMOVAX) Unknown Completed [facility] SARS-COV-2 COVID-19 MODERNA 12+ YRS VACCINE Unknown Completed [facility] SARS-COV-2 COVID-19 MODERNA 12+ YRS VACCINE Unknown Completed [facility] SARS-COV-2 COVID-19 MODERNA 12+ YRS VACCINE Unknown Completed [facility] SARS-COV-2 COVID-19 MODERNA 0.25ML BOOSTER VACCINE Unknown Completed [facility] TD, NOS Unknown Completed [facility] Influenza High Dose Quad Unknown Completed [facility] Influenza High Dose Unknown Completed [facility] Pneumococcal Polysaccharide, PPSV23 (PNEUMOVAX) Unknown Completed [facility] Pneumococcal Polysaccharide, PPSV23 (PNEUMOVAX) Unknown Completed [facility] SARS-COV-2 COVID-19 MODERNA 12+ YRS VACCINE Unknown Completed [facility] SARS-COV-2 COVID-19 MODERNA 12+ YRS VACCINE Unknown Completed [facility] SARS-COV-2 COVID-19 MODERNA 12+ YRS VACCINE Unknown Completed [facility] SARS-COV-2 COVID-19 MODERNA 0.25ML BOOSTER VACCINE Unknown Completed [facility] TD, NOS Unknown Completed [facility] Influenza High Dose Quad Unknown Completed [facility] Influenza High Dose Unknown Completed [facility] Pneumococcal Polysaccharide, PPSV23 (PNEUMOVAX) Unknown Completed [facility] Pneumococcal Polysaccharide, PPSV23 (PNEUMOVAX) Unknown Completed [facility] SARS-COV-2 COVID-19 MODERNA 12+ YRS VACCINE Unknown Completed [facility] SARS-COV-2 COVID-19 MODERNA 12+ YRS VACCINE Unknown Completed [facility] SARS-COV-2 COVID-19 MODERNA 12+ YRS VACCINE Unknown Completed [facility] SARS-COV-2 COVID-19 MODERNA 0.25ML BOOSTER VACCINE Unknown Completed [facility] TD, NOS Unknown Completed [facility] Influenza High Dose Quad Unknown Completed [facility] Influenza High Dose Unknown Completed [facility] Pneumococcal Polysaccharide, PPSV23 (PNEUMOVAX) Unknown Completed [facility] Pneumococcal Polysaccharide, PPSV23 (PNEUMOVAX) Unknown Completed [facility] SARS-COV-2 COVID-19 MODERNA 12+ YRS VACCINE Unknown Completed [facility] SARS-COV-2 COVID-19 MODERNA 12+ YRS VACCINE Unknown Completed [facility] SARS-COV-2 COVID-19 MODERNA 12+ YRS VACCINE Unknown Completed [facility] SARS-COV-2 COVID-19 MODERNA 0.25ML BOOSTER VACCINE Unknown Completed [facility] TD, NOS Unknown Completed [facility] Influenza High Dose Quad Unknown Completed [facility] Influenza High Dose Unknown Completed [facility] Pneumococcal Polysaccharide, PPSV23 (PNEUMOVAX) Unknown Completed [facility] Pneumococcal Polysaccharide, PPSV23 (PNEUMOVAX) Unknown Completed [facility] SARS-COV-2 COVID-19 MODERNA 12+ YRS VACCINE Unknown Completed [facility] SARS-COV-2 COVID-19 MODERNA 12+ YRS VACCINE Unknown Completed [facility] SARS-COV-2 COVID-19 MODERNA 12+ YRS VACCINE Unknown Completed [facility] SARS-COV-2 COVID-19 MODERNA 0.25ML BOOSTER VACCINE Unknown Completed [facility] TD, NOS Unknown Completed [facility] Influenza High Dose Quad Unknown Completed [facility] Influenza High Dose Unknown Completed [facility] Pneumococcal Polysaccharide, PPSV23 (PNEUMOVAX) Unknown Completed [facility] Pneumococcal Polysaccharide, PPSV23 (PNEUMOVAX) Unknown Completed [facility] SARS-COV-2 COVID-19 MODERNA 12+ YRS VACCINE Unknown Completed [facility] SARS-COV-2 COVID-19 MODERNA 12+ YRS VACCINE Unknown Completed [facility] SARS-COV-2 COVID-19 MODERNA 12+ YRS VACCINE Unknown Completed [facility] SARS-COV-2 COVID-19 MODERNA 0.25ML BOOSTER VACCINE Unknown Completed [facility] TD, NOS Unknown Completed [facility] Influenza High Dose Quad Unknown Completed [facility] Influenza High Dose Unknown Completed [facility] Pneumococcal Polysaccharide, PPSV23 (PNEUMOVAX) Unknown Completed [facility] Pneumococcal Polysaccharide, PPSV23 (PNEUMOVAX) Unknown Completed [facility] SARS-COV-2 COVID-19 MODERNA 12+ YRS VACCINE Unknown Completed [facility] SARS-COV-2 COVID-19 MODERNA 12+ YRS VACCINE Unknown Completed [facility] SARS-COV-2 COVID-19 MODERNA 12+ YRS VACCINE Unknown Completed [facility] SARS-COV-2 COVID-19 MODERNA 0.25ML BOOSTER VACCINE Unknown Completed [facility] TD, NOS Unknown Completed [facility] Influenza High Dose Quad Unknown Completed [facility] Influenza High Dose Unknown Completed [facility] Pneumococcal Polysaccharide, PPSV23 (PNEUMOVAX) Unknown Completed [facility] Pneumococcal Polysaccharide, PPSV23 (PNEUMOVAX) Unknown Completed [facility] SARS-COV-2 COVID-19 MODERNA 12+ YRS VACCINE Unknown Completed [facility] SARS-COV-2 COVID-19 MODERNA 12+ YRS VACCINE Unknown Completed [facility] SARS-COV-2 COVID-19 MODERNA 12+ YRS VACCINE Unknown Completed [facility] SARS-COV-2 COVID-19 MODERNA 0.25ML BOOSTER VACCINE Unknown Completed [facility] TD, NOS Unknown Completed [facility] Influenza High Dose Quad Unknown Completed [facility] Influenza High Dose Unknown Completed [facility] Pneumococcal Polysaccharide, PPSV23 (PNEUMOVAX) Unknown Completed [facility] Pneumococcal Polysaccharide, PPSV23 (PNEUMOVAX) Unknown Completed [facility] SARS-COV-2 COVID-19 MODERNA 12+ YRS VACCINE Unknown Completed [facility] SARS-COV-2 COVID-19 MODERNA 12+ YRS VACCINE Unknown Completed [facility] SARS-COV-2 COVID-19 MODERNA 12+ YRS VACCINE Unknown Completed [facility] SARS-COV-2 COVID-19 MODERNA 0.25ML BOOSTER VACCINE Unknown Completed [facility] TD, NOS Unknown Completed [facility] Influenza High Dose Quad Unknown Completed [facility] Influenza High Dose Unknown Completed [facility] Pneumococcal Polysaccharide, PPSV23 (PNEUMOVAX) Unknown Completed [facility] Pneumococcal Polysaccharide, PPSV23 (PNEUMOVAX) Unknown Completed [facility] SARS-COV-2 COVID-19 MODERNA 12+ YRS VACCINE Unknown Completed [facility] SARS-COV-2 COVID-19 MODERNA 12+ YRS VACCINE Unknown Completed [facility] SARS-COV-2 COVID-19 MODERNA 12+ YRS VACCINE Unknown Completed [facility] SARS-COV-2 COVID-19 MODERNA 0.25ML BOOSTER VACCINE Unknown Completed [facility] TD, NOS Unknown Completed [facility] Influenza High Dose Quad Unknown Completed [facility] Influenza High Dose Unknown Completed [facility] Pneumococcal Polysaccharide, PPSV23 (PNEUMOVAX) Unknown Completed [facility] Pneumococcal Polysaccharide, PPSV23 (PNEUMOVAX) Unknown Completed [facility] SARS-COV-2 COVID-19 MODERNA 12+ YRS VACCINE Unknown Completed [facility] SARS-COV-2 COVID-19 MODERNA 12+ YRS VACCINE Unknown Completed [facility] SARS-COV-2 COVID-19 MODERNA 12+ YRS VACCINE Unknown Completed [facility] SARS-COV-2 COVID-19 MODERNA 0.25ML BOOSTER VACCINE Unknown Completed [facility] TD, NOS Unknown Completed [facility] Influenza High Dose Quad Unknown Completed [facility] Influenza High Dose Unknown Completed [facility] Pneumococcal Polysaccharide, PPSV23 (PNEUMOVAX) Unknown Completed [facility] Pneumococcal Polysaccharide, PPSV23 (PNEUMOVAX) Unknown Completed [facility] SARS-COV-2 COVID-19 MODERNA 12+ YRS VACCINE Unknown Completed [facility] SARS-COV-2 COVID-19 MODERNA 12+ YRS VACCINE Unknown Completed [facility] SARS-COV-2 COVID-19 MODERNA 12+ YRS VACCINE Unknown Completed [facility] SARS-COV-2 COVID-19 MODERNA 0.25ML BOOSTER VACCINE Unknown Completed [facility] TD, NOS Unknown Completed [facility] Influenza High Dose Quad Unknown Completed [facility] Influenza High Dose Unknown Completed [facility] Pneumococcal Polysaccharide, PPSV23 (PNEUMOVAX) Unknown Completed [facility] Pneumococcal Polysaccharide, PPSV23 (PNEUMOVAX) Unknown Completed [facility] SARS-COV-2 COVID-19 MODERNA 12+ YRS VACCINE Unknown Completed [facility] SARS-COV-2 COVID-19 MODERNA 12+ YRS VACCINE Unknown Completed [facility] SARS-COV-2 COVID-19 MODERNA 12+ YRS VACCINE Unknown Completed [facility] SARS-COV-2 COVID-19 MODERNA 0.25ML BOOSTER VACCINE Unknown Completed [facility] TD, NOS Unknown Completed [facility] Influenza High Dose Quad Unknown Completed [facility] Influenza High Dose Unknown Completed [facility] Pneumococcal Polysaccharide, PPSV23 (PNEUMOVAX) Unknown Completed [facility] Pneumococcal Polysaccharide, PPSV23 (PNEUMOVAX) Unknown Completed [facility] SARS-COV-2 COVID-19 MODERNA 12+ YRS VACCINE Unknown Completed [facility] SARS-COV-2 COVID-19 MODERNA 12+ YRS VACCINE Unknown Completed [facility] SARS-COV-2 COVID-19 MODERNA 12+ YRS VACCINE Unknown Completed [facility] SARS-COV-2 COVID-19 MODERNA 0.25ML BOOSTER VACCINE Unknown Completed [facility] TD, NOS Unknown Completed [facility] Influenza High Dose Quad Unknown Completed [facility] Influenza High Dose Unknown Completed [facility] Pneumococcal Polysaccharide, PPSV23 (PNEUMOVAX) Unknown Completed [facility] Pneumococcal Polysaccharide, PPSV23 (PNEUMOVAX) Unknown Completed [facility] SARS-COV-2 COVID-19 MODERNA 12+ YRS VACCINE Unknown Completed [facility] SARS-COV-2 COVID-19 MODERNA 12+ YRS VACCINE Unknown Completed [facility] SARS-COV-2 COVID-19 MODERNA 12+ YRS VACCINE Unknown Completed [facility] SARS-COV-2 COVID-19 MODERNA 0.25ML BOOSTER VACCINE Unknown Completed [facility] TD, NOS Unknown Completed [facility] Influenza High Dose Quad Unknown Completed [facility] Influenza High Dose Unknown Completed [facility] Pneumococcal Polysaccharide, PPSV23 (PNEUMOVAX) Unknown Completed [facility] Pneumococcal Polysaccharide, PPSV23 (PNEUMOVAX) Unknown Completed [facility] SARS-COV-2 COVID-19 MODERNA 12+ YRS VACCINE Unknown Completed [facility] SARS-COV-2 COVID-19 MODERNA 12+ YRS VACCINE Unknown Completed [facility] SARS-COV-2 COVID-19 MODERNA 12+ YRS VACCINE Unknown Completed [facility] SARS-COV-2 COVID-19 MODERNA 0.25ML BOOSTER VACCINE Unknown Completed [facility] TD, NOS Unknown Completed [facility] Influenza High Dose Quad Unknown Completed [facility] Influenza High Dose Unknown Completed [facility] Pneumococcal Polysaccharide, PPSV23 (PNEUMOVAX) Unknown Completed [facility] Pneumococcal Polysaccharide, PPSV23 (PNEUMOVAX) Unknown Completed [facility] SARS-COV-2 COVID-19 MODERNA 12+ YRS VACCINE Unknown Completed [facility] SARS-COV-2 COVID-19 MODERNA 12+ YRS VACCINE Unknown Completed [facility] SARS-COV-2 COVID-19 MODERNA 12+ YRS VACCINE Unknown Completed [facility] SARS-COV-2 COVID-19 MODERNA 0.25ML BOOSTER VACCINE Unknown Completed [facility] TD, NOS Unknown Completed [facility] Influenza High Dose Quad Unknown Completed [facility] Influenza High Dose Unknown Completed [facility] Pneumococcal Polysaccharide, PPSV23 (PNEUMOVAX) Unknown Completed [facility] Pneumococcal Polysaccharide, PPSV23 (PNEUMOVAX) Unknown Completed [facility] SARS-COV-2 COVID-19 MODERNA 12+ YRS VACCINE Unknown Completed [facility] SARS-COV-2 COVID-19 MODERNA 12+ YRS VACCINE Unknown Completed [facility] SARS-COV-2 COVID-19 MODERNA 12+ YRS VACCINE Unknown Completed [facility] SARS-COV-2 COVID-19 MODERNA 0.25ML BOOSTER VACCINE Unknown Completed [facility] TD, NOS Unknown Completed [facility] Influenza High Dose Quad Unknown Completed [facility] Influenza High Dose Unknown Completed [facility] Pneumococcal Polysaccharide, PPSV23 (PNEUMOVAX) Unknown Completed [facility] Pneumococcal Polysaccharide, PPSV23 (PNEUMOVAX) Unknown Completed [facility] SARS-COV-2 COVID-19 MODERNA 12+ YRS VACCINE Unknown Completed [facility] SARS-COV-2 COVID-19 MODERNA 12+ YRS VACCINE Unknown Completed [facility] SARS-COV-2 COVID-19 MODERNA 12+ YRS VACCINE Unknown Completed [facility] SARS-COV-2 COVID-19 MODERNA 0.25ML BOOSTER VACCINE Unknown Completed [facility] TD, NOS Unknown Completed [facility] Influenza High Dose Quad Unknown Completed [facility] Influenza High Dose Unknown Completed [facility] Pneumococcal Polysaccharide, PPSV23 (PNEUMOVAX) Unknown Completed [facility] Pneumococcal Polysaccharide, PPSV23 (PNEUMOVAX) Unknown Completed [facility] SARS-COV-2 COVID-19 MODERNA 12+ YRS VACCINE Unknown Completed [facility] SARS-COV-2 COVID-19 MODERNA 12+ YRS VACCINE Unknown Completed [facility] SARS-COV-2 COVID-19 MODERNA 12+ YRS VACCINE Unknown Completed [facility] SARS-COV-2 COVID-19 MODERNA 0.25ML BOOSTER VACCINE Unknown Completed [facility] TD, NOS Unknown Completed [facility] Influenza High Dose Quad Unknown Completed [facility] Influenza High Dose Unknown Completed [facility] Pneumococcal Polysaccharide, PPSV23 (PNEUMOVAX) Unknown Completed [facility] Pneumococcal Polysaccharide, PPSV23 (PNEUMOVAX) Unknown Completed [facility] SARS-COV-2 COVID-19 MODERNA 12+ YRS VACCINE Unknown Completed [facility] SARS-COV-2 COVID-19 MODERNA 12+ YRS VACCINE Unknown Completed [facility] SARS-COV-2 COVID-19 MODERNA 12+ YRS VACCINE Unknown Completed [facility] SARS-COV-2 COVID-19 MODERNA 0.25ML BOOSTER VACCINE Unknown Completed [facility] TD, NOS Unknown Completed [facility] Influenza High Dose Quad Unknown Completed [facility] Influenza High Dose Unknown Completed [facility] Pneumococcal Polysaccharide, PPSV23 (PNEUMOVAX) Unknown Completed [facility] Pneumococcal Polysaccharide, PPSV23 (PNEUMOVAX) Unknown Completed [facility] SARS-COV-2 COVID-19 MODERNA 12+ YRS VACCINE Unknown Completed [facility] SARS-COV-2 COVID-19 MODERNA 12+ YRS VACCINE Unknown Completed [facility] SARS-COV-2 COVID-19 MODERNA 12+ YRS VACCINE Unknown Completed [facility] SARS-COV-2 COVID-19 MODERNA 0.25ML BOOSTER VACCINE Unknown Completed [facility] TD, NOS Unknown Completed [facility] Influenza High Dose Quad Unknown Completed [facility] Influenza High Dose Unknown Completed [facility] Pneumococcal Polysaccharide, PPSV23 (PNEUMOVAX) Unknown Completed [facility] Pneumococcal Polysaccharide, PPSV23 (PNEUMOVAX) Unknown Completed [facility] SARS-COV-2 COVID-19 MODERNA 12+ YRS VACCINE Unknown Completed [facility] SARS-COV-2 COVID-19 MODERNA 12+ YRS VACCINE Unknown Completed [facility] SARS-COV-2 COVID-19 MODERNA 12+ YRS VACCINE Unknown Completed [facility] SARS-COV-2 COVID-19 MODERNA 0.25ML BOOSTER VACCINE Unknown Completed [facility] TD, NOS Unknown Completed [facility] Influenza High Dose Quad Unknown Completed [facility] Influenza High Dose Unknown Completed [facility] Pneumococcal Polysaccharide, PPSV23 (PNEUMOVAX) Unknown Completed [facility] Pneumococcal Polysaccharide, PPSV23 (PNEUMOVAX) Unknown Completed [facility] SARS-COV-2 COVID-19 MODERNA 12+ YRS VACCINE Unknown Completed [facility] SARS-COV-2 COVID-19 MODERNA 12+ YRS VACCINE Unknown Completed [facility] SARS-COV-2 COVID-19 MODERNA 12+ YRS VACCINE Unknown Completed [facility] SARS-COV-2 COVID-19 MODERNA 0.25ML BOOSTER VACCINE Unknown Completed [facility] TD, NOS Unknown Completed [facility] Influenza High Dose Quad Unknown Completed [facility] Influenza High Dose Unknown Completed [facility] Pneumococcal Polysaccharide, PPSV23 (PNEUMOVAX) Unknown Completed [facility] Pneumococcal Polysaccharide, PPSV23 (PNEUMOVAX) Unknown Completed [facility] SARS-COV-2 COVID-19 MODERNA 12+ YRS VACCINE Unknown Completed [facility] SARS-COV-2 COVID-19 MODERNA 12+ YRS VACCINE Unknown Completed [facility] SARS-COV-2 COVID-19 MODERNA 12+ YRS VACCINE Unknown Completed [facility] SARS-COV-2 COVID-19 MODERNA 0.25ML BOOSTER VACCINE Unknown Completed [facility] TD, NOS Unknown Completed [facility] Influenza High Dose Quad Unknown Completed [facility] Influenza High Dose Unknown Completed [facility] Pneumococcal Polysaccharide, PPSV23 (PNEUMOVAX) Unknown Completed [facility] Pneumococcal Polysaccharide, PPSV23 (PNEUMOVAX) Unknown Completed [facility] SARS-COV-2 COVID-19 MODERNA 12+ YRS VACCINE Unknown Completed [facility] SARS-COV-2 COVID-19 MODERNA 12+ YRS VACCINE Unknown Completed [facility] SARS-COV-2 COVID-19 MODERNA 12+ YRS VACCINE Unknown Completed [facility] SARS-COV-2 COVID-19 MODERNA 0.25ML BOOSTER VACCINE Unknown Completed [facility] TD, NOS Unknown Completed [facility] Influenza High Dose Quad Unknown Completed [facility] Influenza High Dose Unknown Completed [facility] Pneumococcal Polysaccharide, PPSV23 (PNEUMOVAX) Unknown Completed [facility] Pneumococcal Polysaccharide, PPSV23 (PNEUMOVAX) Unknown Completed [facility] SARS-COV-2 COVID-19 MODERNA 12+ YRS VACCINE Unknown Completed [facility] SARS-COV-2 COVID-19 MODERNA 12+ YRS VACCINE Unknown Completed [facility] SARS-COV-2 COVID-19 MODERNA 12+ YRS VACCINE Unknown Completed [facility] SARS-COV-2 COVID-19 MODERNA 0.25ML BOOSTER VACCINE Unknown Completed [facility] TD, NOS Unknown Completed [facility] Influenza High Dose Quad Unknown Completed [facility] Influenza High Dose Unknown Completed [facility] Pneumococcal Polysaccharide, PPSV23 (PNEUMOVAX) Unknown Completed [facility] Pneumococcal Polysaccharide, PPSV23 (PNEUMOVAX) Unknown Completed [facility] SARS-COV-2 COVID-19 MODERNA 12+ YRS VACCINE Unknown Completed [facility] SARS-COV-2 COVID-19 MODERNA 12+ YRS VACCINE Unknown Completed [facility] SARS-COV-2 COVID-19 MODERNA 12+ YRS VACCINE Unknown Completed [facility] SARS-COV-2 COVID-19 MODERNA 0.25ML BOOSTER VACCINE Unknown Completed [facility] TD, NOS Unknown Completed [facility] Influenza High Dose Quad Unknown Completed [facility] Influenza High Dose Unknown Completed [facility] Pneumococcal Polysaccharide, PPSV23 (PNEUMOVAX) Unknown Completed [facility] Pneumococcal Polysaccharide, PPSV23 (PNEUMOVAX) Unknown Completed [facility] SARS-COV-2 COVID-19 MODERNA 12+ YRS VACCINE Unknown Completed [facility] SARS-COV-2 COVID-19 MODERNA 12+ YRS VACCINE Unknown Completed [facility] SARS-COV-2 COVID-19 MODERNA 12+ YRS VACCINE Unknown Completed [facility] SARS-COV-2 COVID-19 MODERNA 0.25ML BOOSTER VACCINE Unknown Completed [facility] TD, NOS Unknown Completed [facility] Influenza High Dose Quad Unknown Completed [facility] Influenza High Dose Unknown Completed [facility] Pneumococcal Polysaccharide, PPSV23 (PNEUMOVAX) Unknown Completed [facility] Pneumococcal Polysaccharide, PPSV23 (PNEUMOVAX) Unknown Completed [facility] SARS-COV-2 COVID-19 MODERNA 12+ YRS VACCINE Unknown Completed [facility] SARS-COV-2 COVID-19 MODERNA 12+ YRS VACCINE Unknown Completed [facility] SARS-COV-2 COVID-19 MODERNA 12+ YRS VACCINE Unknown Completed [facility] SARS-COV-2 COVID-19 MODERNA 0.25ML BOOSTER VACCINE Unknown Completed [facility] TD, NOS Unknown Completed [facility] Influenza High Dose Quad Unknown Completed [facility] Influenza High Dose Unknown Completed [facility] Pneumococcal Polysaccharide, PPSV23 (PNEUMOVAX) Unknown Completed [facility] Pneumococcal Polysaccharide, PPSV23 (PNEUMOVAX) Unknown Completed [facility] SARS-COV-2 COVID-19 MODERNA 12+ YRS VACCINE Unknown Completed [facility] SARS-COV-2 COVID-19 MODERNA 12+ YRS VACCINE Unknown Completed [facility] SARS-COV-2 COVID-19 MODERNA 12+ YRS VACCINE Unknown Completed [facility] SARS-COV-2 COVID-19 MODERNA 0.25ML BOOSTER VACCINE Unknown Completed [facility] TD, NOS Unknown Completed [facility] Influenza High Dose Quad Unknown Completed [facility] Influenza High Dose Unknown Completed [facility] Pneumococcal Polysaccharide, PPSV23 (PNEUMOVAX) Unknown Completed [facility] Pneumococcal Polysaccharide, PPSV23 (PNEUMOVAX) Unknown Completed [facility] SARS-COV-2 COVID-19 MODERNA 12+ YRS VACCINE Unknown Completed [facility] SARS-COV-2 COVID-19 MODERNA 12+ YRS VACCINE Unknown Completed [facility] SARS-COV-2 COVID-19 MODERNA 12+ YRS VACCINE Unknown Completed [facility] SARS-COV-2 COVID-19 MODERNA 0.25ML BOOSTER VACCINE Unknown Completed [facility] TD, NOS Unknown Completed [facility] Influenza High Dose Quad Unknown Completed [facility] Influenza High Dose Unknown Completed [facility] Pneumococcal Polysaccharide, PPSV23 (PNEUMOVAX) Unknown Completed [facility] Pneumococcal Polysaccharide, PPSV23 (PNEUMOVAX) Unknown Completed [facility] SARS-COV-2 COVID-19 MODERNA 12+ YRS VACCINE Unknown Completed [facility] SARS-COV-2 COVID-19 MODERNA 12+ YRS VACCINE Unknown Completed [facility] SARS-COV-2 COVID-19 MODERNA 12+ YRS VACCINE Unknown Completed [facility] SARS-COV-2 COVID-19 MODERNA 0.25ML BOOSTER VACCINE Unknown Completed [facility] TD, NOS Unknown Completed [facility] Influenza High Dose Quad Unknown Completed [facility] Influenza High Dose Unknown Completed [facility] Pneumococcal Polysaccharide, PPSV23 (PNEUMOVAX) Unknown Completed [facility] Pneumococcal Polysaccharide, PPSV23 (PNEUMOVAX) Unknown Completed [facility] SARS-COV-2 COVID-19 MODERNA 12+ YRS VACCINE Unknown Completed [facility] SARS-COV-2 COVID-19 MODERNA 12+ YRS VACCINE Unknown Completed [facility] SARS-COV-2 COVID-19 MODERNA 12+ YRS VACCINE Unknown Completed [facility] SARS-COV-2 COVID-19 MODERNA 0.25ML BOOSTER VACCINE Unknown Completed [facility] TD, NOS Unknown Completed [facility] Influenza High Dose Quad Unknown Completed [facility] Influenza High Dose Unknown Completed [facility] Pneumococcal Polysaccharide, PPSV23 (PNEUMOVAX) Unknown Completed [facility] Pneumococcal Polysaccharide, PPSV23 (PNEUMOVAX) Unknown Completed [facility] SARS-COV-2 COVID-19 MODERNA 12+ YRS VACCINE Unknown Completed [facility] SARS-COV-2 COVID-19 MODERNA 12+ YRS VACCINE Unknown Completed [facility] SARS-COV-2 COVID-19 MODERNA 12+ YRS VACCINE Unknown Completed [facility] SARS-COV-2 COVID-19 MODERNA 0.25ML BOOSTER VACCINE Unknown Completed [facility] TD, NOS Unknown Completed [facility] Influenza High Dose Quad Unknown Completed [facility] Influenza High Dose Unknown Completed [facility] Pneumococcal Polysaccharide, PPSV23 (PNEUMOVAX) Unknown Completed [facility] Pneumococcal Polysaccharide, PPSV23 (PNEUMOVAX) Unknown Completed [facility] SARS-COV-2 COVID-19 MODERNA 12+ YRS VACCINE Unknown Completed [facility] SARS-COV-2 COVID-19 MODERNA 12+ YRS VACCINE Unknown Completed [facility] SARS-COV-2 COVID-19 MODERNA 12+ YRS VACCINE Unknown Completed [facility] SARS-COV-2 COVID-19 MODERNA 0.25ML BOOSTER VACCINE Unknown Completed [facility] TD, NOS Unknown Completed [facility] Influenza High Dose Quad Unknown Completed [facility] Influenza High Dose Unknown Completed [facility] Pneumococcal Polysaccharide, PPSV23 (PNEUMOVAX) Unknown Completed [facility] Pneumococcal Polysaccharide, PPSV23 (PNEUMOVAX) Unknown Completed [facility] SARS-COV-2 COVID-19 MODERNA 12+ YRS VACCINE Unknown Completed [facility] SARS-COV-2 COVID-19 MODERNA 12+ YRS VACCINE Unknown Completed [facility] SARS-COV-2 COVID-19 MODERNA 12+ YRS VACCINE Unknown Completed [facility] SARS-COV-2 COVID-19 MODERNA 0.25ML BOOSTER VACCINE Unknown Completed [facility] TD, NOS Unknown Completed [facility] Influenza High Dose Quad Unknown Completed [facility] Influenza High Dose Unknown Completed [facility] Pneumococcal Polysaccharide, PPSV23 (PNEUMOVAX) Unknown Completed [facility] Pneumococcal Polysaccharide, PPSV23 (PNEUMOVAX) Unknown Completed [facility] SARS-COV-2 COVID-19 MODERNA 12+ YRS VACCINE Unknown Completed [facility] SARS-COV-2 COVID-19 MODERNA 12+ YRS VACCINE Unknown Completed [facility] SARS-COV-2 COVID-19 MODERNA 12+ YRS VACCINE Unknown Completed [facility] SARS-COV-2 COVID-19 MODERNA 0.25ML BOOSTER VACCINE Unknown Completed [facility] TD, NOS Unknown Completed [facility] Influenza High Dose Quad Unknown Completed [facility] Influenza High Dose Unknown Completed [facility] Pneumococcal Polysaccharide, PPSV23 (PNEUMOVAX) Unknown Completed [facility] Pneumococcal Polysaccharide, PPSV23 (PNEUMOVAX) Unknown Completed [facility] SARS-COV-2 COVID-19 MODERNA 12+ YRS VACCINE Unknown Completed [facility] SARS-COV-2 COVID-19 MODERNA 12+ YRS VACCINE Unknown Completed [facility] SARS-COV-2 COVID-19 MODERNA 12+ YRS VACCINE Unknown Completed [facility] SARS-COV-2 COVID-19 MODERNA 0.25ML BOOSTER VACCINE Unknown Completed [facility] TD, NOS Unknown Completed [facility] Influenza High Dose Quad Unknown Completed [facility] Influenza High Dose Unknown Completed [facility] Pneumococcal Polysaccharide, PPSV23 (PNEUMOVAX) Unknown Completed [facility] Pneumococcal Polysaccharide, PPSV23 (PNEUMOVAX) Unknown Completed [facility] SARS-COV-2 COVID-19 MODERNA 12+ YRS VACCINE Unknown Completed [facility] SARS-COV-2 COVID-19 MODERNA 12+ YRS VACCINE Unknown Completed [facility] SARS-COV-2 COVID-19 MODERNA 12+ YRS VACCINE Unknown Completed [facility] SARS-COV-2 COVID-19 MODERNA 0.25ML BOOSTER VACCINE Unknown Completed [facility] TD, NOS Unknown Completed [facility] Influenza High Dose Quad Unknown Completed [facility] Influenza High Dose Unknown Completed [facility] Pneumococcal Polysaccharide, PPSV23 (PNEUMOVAX) Unknown Completed [facility] Pneumococcal Polysaccharide, PPSV23 (PNEUMOVAX) Unknown Completed [facility] SARS-COV-2 COVID-19 MODERNA 12+ YRS VACCINE Unknown Completed [facility] SARS-COV-2 COVID-19 MODERNA 12+ YRS VACCINE Unknown Completed [facility] SARS-COV-2 COVID-19 MODERNA 12+ YRS VACCINE Unknown Completed [facility] SARS-COV-2 COVID-19 MODERNA 0.25ML BOOSTER VACCINE Unknown Completed [facility] TD, NOS Unknown Completed [facility] Influenza High Dose Quad Unknown Completed [facility] Influenza High Dose Unknown Completed [facility] Pneumococcal Polysaccharide, PPSV23 (PNEUMOVAX) Unknown Completed [facility] Pneumococcal Polysaccharide, PPSV23 (PNEUMOVAX) Unknown Completed [facility] SARS-COV-2 COVID-19 MODERNA 12+ YRS VACCINE Unknown Completed [facility] SARS-COV-2 COVID-19 MODERNA 12+ YRS VACCINE Unknown Completed [facility] SARS-COV-2 COVID-19 MODERNA 12+ YRS VACCINE Unknown Completed [facility] SARS-COV-2 COVID-19 MODERNA 0.25ML BOOSTER VACCINE Unknown Completed [facility] TD, NOS Unknown Completed [facility] Influenza High Dose Quad Unknown Completed [facility] Influenza High Dose Unknown Completed [facility] Pneumococcal Polysaccharide, PPSV23 (PNEUMOVAX) Unknown Completed [facility] Pneumococcal Polysaccharide, PPSV23 (PNEUMOVAX) Unknown Completed [facility] SARS-COV-2 COVID-19 MODERNA 12+ YRS VACCINE Unknown Completed [facility] SARS-COV-2 COVID-19 MODERNA 12+ YRS VACCINE Unknown Completed [facility] SARS-COV-2 COVID-19 MODERNA 12+ YRS VACCINE Unknown Completed [facility] SARS-COV-2 COVID-19 MODERNA 0.25ML BOOSTER VACCINE Unknown Completed [facility] TD, NOS Unknown Completed [facility] Influenza High Dose Quad Unknown Completed [facility] Influenza High Dose Unknown Completed [facility] Pneumococcal Polysaccharide, PPSV23 (PNEUMOVAX) Unknown Completed [facility] Pneumococcal Polysaccharide, PPSV23 (PNEUMOVAX) Unknown Completed [facility] SARS-COV-2 COVID-19 MODERNA 12+ YRS VACCINE Unknown Completed [facility] SARS-COV-2 COVID-19 MODERNA 12+ YRS VACCINE Unknown Completed [facility] SARS-COV-2 COVID-19 MODERNA 12+ YRS VACCINE Unknown Completed [facility] SARS-COV-2 COVID-19 MODERNA 0.25ML BOOSTER VACCINE Unknown Completed [facility] TD, NOS Unknown Completed [facility] Influenza High Dose Quad Unknown Completed [facility] Influenza High Dose Unknown Completed [facility] Pneumococcal Polysaccharide, PPSV23 (PNEUMOVAX) Unknown Completed [facility] Pneumococcal Polysaccharide, PPSV23 (PNEUMOVAX) Unknown Completed [facility] SARS-COV-2 COVID-19 MODERNA 12+ YRS VACCINE Unknown Completed [facility] SARS-COV-2 COVID-19 MODERNA 12+ YRS VACCINE Unknown Completed [facility] SARS-COV-2 COVID-19 MODERNA 12+ YRS VACCINE Unknown Completed [facility] SARS-COV-2 COVID-19 MODERNA 0.25ML BOOSTER VACCINE Unknown Completed [facility] TD, NOS Unknown Completed [facility] Influenza High Dose Quad Unknown Completed [facility] Influenza High Dose Unknown Completed [facility] Pneumococcal Polysaccharide, PPSV23 (PNEUMOVAX) Unknown Completed [facility] Pneumococcal Polysaccharide, PPSV23 (PNEUMOVAX) Unknown Completed [facility] SARS-COV-2 COVID-19 MODERNA 12+ YRS VACCINE Unknown Completed [facility] SARS-COV-2 COVID-19 MODERNA 12+ YRS VACCINE Unknown Completed [facility] SARS-COV-2 COVID-19 MODERNA 12+ YRS VACCINE Unknown Completed [facility] SARS-COV-2 COVID-19 MODERNA 0.25ML BOOSTER VACCINE Unknown Completed [facility] TD, NOS Unknown Completed [facility] Influenza High Dose Quad Unknown Completed [facility] Influenza High Dose Unknown Completed [facility] Pneumococcal Polysaccharide, PPSV23 (PNEUMOVAX) Unknown Completed [facility] Pneumococcal Polysaccharide, PPSV23 (PNEUMOVAX) Unknown Completed [facility] SARS-COV-2 COVID-19 MODERNA 12+ YRS VACCINE Unknown Completed [facility] SARS-COV-2 COVID-19 MODERNA 12+ YRS VACCINE Unknown Completed [facility] SARS-COV-2 COVID-19 MODERNA 12+ YRS VACCINE Unknown Completed [facility] SARS-COV-2 COVID-19 MODERNA 0.25ML BOOSTER VACCINE Unknown Completed [facility] TD, NOS Unknown Completed [facility] Influenza High Dose Quad Unknown Completed [facility] Influenza High Dose Unknown Completed [facility] Pneumococcal Polysaccharide, PPSV23 (PNEUMOVAX) Unknown Completed [facility] Pneumococcal Polysaccharide, PPSV23 (PNEUMOVAX) Unknown Completed [facility] SARS-COV-2 COVID-19 MODERNA 12+ YRS VACCINE Unknown Completed [facility] SARS-COV-2 COVID-19 MODERNA 12+ YRS VACCINE Unknown Completed [facility] SARS-COV-2 COVID-19 MODERNA 12+ YRS VACCINE Unknown Completed [facility] SARS-COV-2 COVID-19 MODERNA 0.25ML BOOSTER VACCINE Unknown Completed [facility] TD, NOS Unknown Completed [facility] Influenza High Dose Quad Unknown Completed [facility] Influenza High Dose Unknown Completed [facility] Pneumococcal Polysaccharide, PPSV23 (PNEUMOVAX) Unknown Completed [facility] Pneumococcal Polysaccharide, PPSV23 (PNEUMOVAX) Unknown Completed [facility] SARS-COV-2 COVID-19 MODERNA 12+ YRS VACCINE Unknown Completed [facility] SARS-COV-2 COVID-19 MODERNA 12+ YRS VACCINE Unknown Completed [facility] SARS-COV-2 COVID-19 MODERNA 12+ YRS VACCINE Unknown Completed [facility] SARS-COV-2 COVID-19 MODERNA 0.25ML BOOSTER VACCINE Unknown Completed [facility] TD, NOS Unknown Completed [facility] Influenza High Dose Quad Unknown Completed [facility] Influenza High Dose Unknown Completed [facility] Pneumococcal Polysaccharide, PPSV23 (PNEUMOVAX) Unknown Completed [facility] Pneumococcal Polysaccharide, PPSV23 (PNEUMOVAX) Unknown Completed [facility] SARS-COV-2 COVID-19 MODERNA 12+ YRS VACCINE Unknown Completed [facility] SARS-COV-2 COVID-19 MODERNA 12+ YRS VACCINE Unknown Completed [facility] SARS-COV-2 COVID-19 MODERNA 12+ YRS VACCINE Unknown Completed [facility] SARS-COV-2 COVID-19 MODERNA 0.25ML BOOSTER VACCINE Unknown Completed [facility] TD, NOS Unknown Completed [facility] Influenza High Dose Quad Unknown Completed [facility] Vital Signs Vital Name Observation Time Observation Value Comments S ource Systolic blood pressure 2023-09-19 15:00:00 123 mm[Hg] [facility] Diastolic blood pressure 2023-09-19 15:00:00 65 mm[Hg] [facility] Heart rate 2023-09-19 15:00:00 62 /min [facility] Body temperature 2023-09-19 15:00:00 36.17 Marj [facility] Respiratory rate 2023-09-19 15:00:00 18 /min [facility] Body height 2023-09-19 15:00:00 162.6 cm [facility] Body weight 2023-09-19 15:00:00 93.26 kg [facility] BMI 2023-09-19 15:00:00 35.29 kg/m2 [facility] Oxygen saturation in Arterial blood by Pulse oximetry 2023-09-19 15:00:00 97 /min [facility] Systolic blood pressure 2023-09-03 18:40:00 124 mm[Hg] [facility] Diastolic blood pressure 2023-09-03 18:40:00 60 mm[Hg] [facility] Heart rate 2023-09-03 18:40:00 69 /min [facility] Body temperature 2023-09-03 18:40:00 37.06 Marj [facility] Respiratory rate 2023-09-03 18:40:00 18 /min [facility] Body height 2023-09-03 18:40:00 162.6 cm [facility] Body weight 2023-09-03 18:40:00 92.942 kg [facility] BMI 2023-09-03 18:40:00 35.17 kg/m2 [facility] Oxygen saturation in Arterial blood by Pulse oximetry 2023-09-03 18:40:00 93 /min [facility] Systolic blood pressure 2023-08-28 18:25:00 130 mm[Hg] [facility] Diastolic blood pressure 2023-08-28 18:25:00 56 mm[Hg] [facility] Heart rate 2023-08-28 18:25:00 59 /min [facility] Body temperature 2023-08-28 18:25:00 36.83 Marj [facility] Respiratory rate 2023-08-28 18:25:00 18 /min [facility] Body height 2023-08-28 18:25:00 162.6 cm [facility] Body weight 2023-08-28 18:25:00 94.439 kg [facility] BMI 2023-08-28 18:25:00 35.74 kg/m2 [facility] Oxygen saturation in Arterial blood by Pulse oximetry 2023-08-28 18:25:00 94 /min [facility] Systolic blood pressure 2023-08-22 13:07:00 134 mm[Hg] [facility] Diastolic blood pressure 2023-08-22 13:07:00 75 mm[Hg] [facility] Heart rate 2023-08-22 13:07:00 65 /min [facility] Body temperature 2023-08-22 13:07:00 36.06 Marj [facility] Respiratory rate 2023-08-22 13:07:00 18 /min [facility] Body height 2023-08-22 13:07:00 162.6 cm [facility] Body weight 2023-08-22 13:07:00 90.175 kg [facility] BMI 2023-08-22 13:07:00 34.12 kg/m2 [facility] Oxygen saturation in Arterial blood by Pulse oximetry 2023-08-22 13:07:00 96 /min [facility] Systolic blood pressure 2023-08-08 18:10:00 138 mm[Hg] [facility] Diastolic blood pressure 2023-08-08 18:10:00 82 mm[Hg] [facility] Heart rate 2023-08-08 18:05:00 61 /min [facility] Body temperature 2023-08-08 18:05:00 37 Marj [facility] Body height 2023-08-08 18:05:00 162.6 cm [facility] Body weight 2023-08-08 18:05:00 90.311 kg [facility] BMI 2023-08-08 18:05:00 34.18 kg/m2 [facility] Oxygen saturation in Arterial blood by Pulse oximetry 2023-08-08 18:05:00 98 /min [facility] Systolic blood pressure 2023-06-24 21:14:00 121 mm[Hg] [facility] Diastolic blood pressure 2023-06-24 21:14:00 71 mm[Hg] [facility] Heart rate 2023-06-24 21:14:00 69 /min [facility] Body temperature 2023-06-24 21:14:00 36.83 Marj [facility] Body weight 2023-06-24 21:14:00 93.441 kg [facility] BMI 2023-06-24 21:14:00 35.36 kg/m2 [facility] Systolic blood pressure 2023-05-09 15:39:00 145 mm[Hg] [facility] Diastolic blood pressure 2023-05-09 15:39:00 78 mm[Hg] [facility] Heart rate 2023-05-09 15:30:00 61 /min [facility] Body temperature 2023-05-09 15:30:00 36.67 Marj [facility] Body height 2023-05-09 15:30:00 [facility]23-05-09 15:30:00 92.08 kg [facility] BMI 2023-05-09 15:30:00 34.84 [facility] in Arterial blood by Pulse oximetry 2023-05-09 15:30:00 95 /min [facility] Systolic blood pressure 2023-04-30 15:13:00 138 mm[Hg] [facility] Diastolic blood pressure 2023-04-30 15:13:00 69 mm[Hg] [facility] Heart rate 2023-04-30 15:13:00 58 /min [facility] Respiratory rate 2023-04-30 15:13:00 17 /min [facility] Body height 2023-04-30 15:13:00 162.6 cm [facility] Body weight 2023-04-30 15:13:00 92.761 kg [facility] BMI 2023-04-30 15:13:00 35.10 [facility] in Arterial blood by Pulse oximetry 2023-04-30 15:13:00 96 /min [facility] Systolic blood pressure 2023-04-23 17:11:00 146 mm[Hg] [facility] Diastolic blood pressure 2023-04-23 17:11:00 71 mm[Hg] [facility] Heart rate 2023-04-23 17:10:00 58 /min [facility] Body temperature 2023-04-23 17:10:00 36.5 Marj [facility] Body height 2023-04-23 17:10:00 162.6 cm Univ [facility]-04-23 17:10:00 91.627 kg [facility] BMI 2023-04-23 17:10:00 34.67 kg/m2 [facility] O[facility] saturation in Arterial blood by Pulse oximetry 2023-04-23 17:10:00 96 /min [facility] Systolic blood pressure 2023-04-20 16:51:00 120 mm[Hg] [facility] Diastolic blood pressure 2023-04-20 16:51:00 70 mm[Hg] [facility] Heart rate 2023-04-20 16:51:00 64 /min [facility] Body temperature 2023-04-20 16:51:00 37.06 Marj [facility] Body height 2023-04-20 16:51:00 162.6 cm [facility] Body weight 2023-04-20 16:51:00 90.719 kg [facility] BMI 2023-04-20 16:51:00 34.33 kg/m2 [facility] Oxygen saturation in Arterial blood by Pulse oximetry 2023-04-20 16:51:00 95 /min [facility] Systolic blood pressure 2023-03-21 19:12:00 136 mm[Hg] [facility] Diastolic blood pressure 2023-03-21 19:12:00 80 mm[Hg] [facility] Heart rate 2023-03-21 19:12:00 59 /min [facility] Body temperature 2023-03-21 19:12:00 37.11 Marj [facility] Respiratory rate 2023-03-21 19:12:00 18 /min [facility] Body height 2023-03-21 19:12:00 162.6 cm [facility] Body weight 2023-03-21 19:12:00 90.039 kg [facility] BMI 2023-03-21 19:12:00 34.07 kg/m2 [facility] Oxygen saturation in Arterial blood by Pulse oximetry 2023-03-21 19:12:00 98 /min [facility] Body height 2022-11-15 13:55:00 160 cm [facility] Body weight 2022-11-15 13:55:00 88.451 kg [facility] BMI 2022-11-15 13:55:00 34.54 kg/m2 [facility] Systolic blood pressure 2022-10-11 13:21:00 138 mm[Hg] [facility] Diastolic blood pressure 2022-10-11 13:21:00 88 mm[Hg] [facility] Heart rate 2022-10-11 13:21:00 80 /min [facility] Body height 2022-10-11 13:21:00 160 cm [facility] Body weight 2022-10-11 13:21:00 88.451 kg [facility] BMI 2022-10-11 13:21:00 34.54 kg/m2 [facility] Oxygen saturation in Arterial blood by Pulse oximetry 2022-10-11 13:21:00 96 /min [facility] Systolic blood pressure 2022-10-04 05:23:00 124 mm[Hg] [facility] Diastolic blood pressure 2022-10-04 05:23:00 64 mm[Hg] [facility] Heart rate 2022-10-04 05:23:00 65 /min [facility] Body temperature 2022-10-04 05:23:00 37.06 Marj [facility] Respiratory rate 2022-10-04 05:23:00 23 /min [facility] Oxygen saturation in Arterial blood by Pulse oximetry 2022-10-04 05:23:00 93 /min [facility] Body height 2022-10-04 03:37:06 160 cm [facility] Body weight 2022-10-04 03:37:06 88.451 kg [facility] BMI 2022-10-04 03:37:06 34.54 kg/m2 [facility] Systolic blood pressure 2022-09-29 09:34:00 118 mm[Hg] [facility] Diastolic blood pressure 2022-09-29 09:34:00 61 mm[Hg] [facility] Heart rate 2022-09-29 09:34:00 68 /min [facility] Body temperature 2022-09-29 09:34:00 35.89 Marj [facility] Respiratory rate 2022-09-29 09:34:00 20 /min [facility] Oxygen saturation in Arterial blood by Pulse oximetry 2022-09-29 09:34:00 96 /min [facility] Body height 2022-09-29 05:57:00 160 cm [facility] Body weight 2022-09-29 05:57:00 88.451 kg [facility] BMI 2022-09-29 05:57:00 34.54 kg/m2 [facility] Systolic blood pressure 2022-07-25 14:25:00 128 mm[Hg] [facility] Diastolic blood pressure 2022-07-25 14:25:00 68 mm[Hg] [facility] Heart rate 2022-07-25 14:25:00 58 /min [facility] Body temperature 2022-07-25 14:25:00 37.06 Marj [facility] Body height 2022-07-25 14:25:00 162.6 cm [facility] Body weight 2022-07-25 14:25:00 89.223 kg [facility] BMI 2022-07-25 14:25:00 33.76 kg/m2 [facility] Oxygen saturation in Arterial blood by Pulse oximetry 2022-07-25 14:25:00 94 /min [facility] Systolic blood pressure 2022-07-02 19:13:00 124 mm[Hg] [facility] Diastolic blood pressure 2022-07-02 19:13:00 74 mm[Hg] [facility] Heart rate 2022-07-02 19:13:00 72 /min [facility] Body temperature 2022-07-02 19:13:00 36.89 Marj [facility] Body height 2022-07-02 19:13:00 160 cm [facility] Body weight 2022-07-02 19:13:00 86.183 kg [facility] BMI 2022-07-02 19:13:00 33.66 kg/m2 [facility] Oxygen saturation in Arterial blood by Pulse oximetry 2022-07-02 19:13:00 95 /min [facility] Systolic blood pressure 2022-06-11 19:12:00 132 mm[Hg] [facility] Diastolic blood pressure 2022-06-11 19:12:00 79 mm[Hg] [facility] Heart rate 2022-06-11 19:12:00 59 /min [facility] Body height 2022-06-11 19:12:00 160 cm [facility] Body weight 2022-06-11 19:12:00 85.458 kg [facility] BMI 2022-06-11 19:12:00 33.37 kg/m2 [facility] Oxygen saturation in Arterial blood by Pulse oximetry 2022-06-11 19:12:00 97 /min [facility] Body height 2022-06-07 19:47:00 160 cm [facility] Body weight 2022-06-07 19:47:00 87.091 kg [facility] BMI 2022-06-07 19:47:00 34.01 kg/m2 [facility] Heart rate 2022-05-28 19:40:00 73 /min [facility] Oxygen saturation in Arterial blood by Pulse oximetry 2022-05-28 19:40:00 96 /min [facility] Respiratory rate 2022-05-28 19:38:00 24 /min [facility] Systolic blood pressure 2022-05-28 19:35:00 130 mm[Hg] [facility] Diastolic blood pressure 2022-05-28 19:35:00 69 mm[Hg] [facility] Body temperature 2022-05-28 16:41:00 36.17 Marj [facility] Body height 2022-05-16 16:15:00 160 cm [facility] Body weight 2022-05-16 16:15:00 87.091 kg [facility] BMI 2022-05-16 16:15:00 34.01 kg/m2 [facility] Systolic blood pressure 2022-05-28 13:23:00 143 mm[Hg] [facility] Diastolic blood pressure 2022-05-28 13:23:00 79 mm[Hg] [facility] Heart rate 2022-05-28 13:23:00 71 /min [facility] Body temperature 2022-05-28 13:23:00 36.22 Marj [facility] Respiratory rate 2022-05-28 13:23:00 17 /min [facility] Oxygen saturation in Arterial blood by Pulse oximetry 2022-05-28 13:23:00 97 /min [facility] Body height 2022-05-16 16:15:00 160 cm [facility] Body weight 2022-05-16 16:15:00 87.091 kg [facility] BMI 2022-05-16 16:15:00 34.01 kg/m2 [facility] Systolic blood pressure 2022-04-30 16:54:00 156 mm[Hg] [facility] Diastolic blood pressure 2022-04-30 16:54:00 83 mm[Hg] [facility] Heart rate 2022-04-30 16:54:00 71 /min [facility] Respiratory rate 2022-04-30 16:47:00 19 /min [facility] Body weight 2022-04-30 16:47:00 87.998 kg [facility] BMI 2022-04-30 16:47:00 34.37 kg/m2 [facility] Oxygen saturation in Arterial blood by Pulse oximetry 2022-04-30 16:47:00 95 /min [facility] Body height 2022-04-27 16:08:00 160 cm [facility] Body weight 2022-04-27 16:08:00 87.408 kg [facility] BMI 2022-04-27 16:08:00 34.14 kg/m2 [facility] Systolic blood pressure 2022-03-06 15:51:00 137 mm[Hg] [facility] Diastolic blood pressure 2022-03-06 15:51:00 72 mm[Hg] [facility] Heart rate 2022-03-06 15:51:00 60 /min [facility] Body temperature 2022-03-06 15:51:00 36.72 Marj [facility] Body height 2022-03-06 15:51:00 160 cm [facility] Body weight 2022-03-06 15:51:00 85.73 kg [facility] BMI 2022-03-06 15:51:00 33.48 kg/m2 [facility] Body height 2022-01-10 18:23:00 160 cm [facility] Body weight 2022-01-10 18:23:00 85.73 kg [facility] BMI 2022-01-10 18:23:00 33.48 kg/m2 [facility] Systolic blood pressure 2021-12-20 19:57:00 107 mm[Hg] [facility] Diastolic blood pressure 2021-12-20 19:57:00 74 mm[Hg] [facility] Heart rate 2021-12-20 19:57:00 80 /min [facility] Body temperature 2021-12-20 19:57:00 36.94 Marj [facility] Body height 2021-12-20 19:57:00 160 cm [facility] Body weight 2021-12-20 19:57:00 85.73 kg [facility] BMI 2021-12-20 19:57:00 33.48 kg/m2 [facility] Procedures Procedure Date / Time Performed Performing Clinician Source MEDICAL RELEASE/CLEARANCE FORMS 2023-06-06 06:01:00 Doctor Unassigned, [place] [facility] BI SCREENING TOMOSYNTHESIS RIGHT 2023-05-02 17:05:00 Velia Yoo [facility] LIPID PANEL (30830)(TOTAL CHOLESTEROL, TRIGLYCERIDES, HDL) 2023-04-30 16:11:00 Cuba Gilliam [facility] HB ECG ROUTINE & RHYTHM STRIP 2023-04-30 15:15:29 Cuba Gilliam [facility] CONSENT/REFUSAL FOR DIAGNOSIS AND TREATMENT 2023-04-30 15:01:17 Doctor Unassigned, [place] [facility] ASSIGNMENT OF BENEFITS 2023-04-30 15:01:01 Docto r Unassigned, [place] [facility] POCT MOLECULAR FLU 2023-04-20 17:04:00 Unknown, Attend ing [facility] XR CHEST 2 VW 2023-03-22 17:32:00 Victorina Kendall [facility] AUTHORIZATION FOR RELEASE OF PHI 2022-12-18 05:01:00 Doctor Unassigned, [place] [facility] MR SHOULDER LEFT WO CONTRAST 2022-10-20 14:30:31 Molina Monk [facility] PATIENT FINANCIAL POLICY 2022-10-11 13:14:07 Doctor Unassigned, [place] [facility] ED ORTHOPEDIC INJURY TREATMENT - UPPER EXTREMITY 2022-10-04 04:30:10 Grupo Crocker [facility] COMP. METABOLIC PANEL (06214) 2022-10-04 01:55:00 Grupo Crocker [facility] CBC WITH DIFF 2022-10-04 01:55:00 Grupo Crocker [facility] XR SHOULDER 2+ VW LEFT 2022-10-04 01:37:00 Lenora Crocker [facility] MA CLTX SHOULDER DISLC W/FX HUMERAL TUBRST W/MNPJ 2022-09-29 07:42:13 Pema Dsouza [facility] MODERATE SEDATION 2022-09-29 07:38:38 Pema Dsouza [facility] XR FEMUR 2 VW LEFT 2022-09-29 04:37:59 Pema Dsouza [facility] XR SHOULDER 2+ VW LEFT 2022-09-29 04:37:59 Silverio Dsouza [facility] XR TIBIA FIBULA 2 VW BILATERAL 2022-09-29 04:37:59 Pema Dsouza [facility] CT CERVICAL SPINE WO CONTRAST 2022-09-29 04:23:11 Pema Dsouza [facility] COMP. METABOLIC PANEL (55020) 2022-09-29 04:02:00 Pema Dsouza [facility] ETHANOL 2022-09-29 04:02:00 Pema Dsouza [facility] CBC WITH DIFF 2022-09-29 04:02:00 Pema Dsouza [facility] REFERRAL- REQUEST/RESPONSE 2022-08-06 05:01:00 Doctor Unassigned, [place] [facility] REFERRAL- REQUEST/RESPONSE 2022-07-19 05:01:00 Doctor Unassigned, [place] [facility] REFERRAL- REQUEST/RESPONSE 2022-06-27 05:01:00 Doctor Unassigned, [place] [facility] ASSIGNMENT OF BENEFITS 2022-05-31 14:53:05 Docto r Unassigned, [place] [facility] XR KNEE <3 VW RIGHT 2022-05-28 17:01:43 Leo Monk [facility] TOTAL KNEE ARTHROPLASTY 2022-05-28 13:56:00 Molina Monk [facility] HB ABO GROUPING 2022-05-28 13:25:00 Molina Monk [facility] HB ABO GROUPING 2022-05-28 13:25:00 Molina Monk [facility] CBC WITH DIFF 2022-05-25 15:28:00 [facility] 2022-05-25 15:28:00 [facility]W 2022-05-25 14:33:56 Molina Monk [facility] ASSIGNMENT OF BENEFITS 2022-05-25 14:08:28 Docto r Unassigned, [place] [facility] 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 2022-05-17 06:01:00 Doc tor Unassigned, [place] [facility] EXTERNAL PROVIDER RECORDS 2022-05-08 06:01:00 Do ctor Unassigned, [place] [facility] Encounters Start Date/Time End Date/Time Encounter Type Admission Type Attending Clinicians Care Facility Care Department Encounter ID Source 2023-11-15 00:00:00 2023-11-15 14:03:34 Telephone Velia Yoo [facility] 1.2.840.114 350.1.13.10 4.2.7.2.686 [id number] [facility] 2023-11-01 09:00:00 2023-11-01 09:00:00 [id number] 2023-10-30 00:00:00 2023-10-31 08:26:49 Telephone [facility] 1.2840.114 350.1.13.10 4.2.7.2.686 [id number] [facility] 2023-10-24 00:00:00 2023-10-24 11:22:18 Telephone [facility] 1.2840.114 350.1.13.10 4.2.7.2.686 [id number] [facility] 2023-10-03 09:00:00 2023-10-03 09:00:00 [facility] [id number] [facility] 2023-09-23 00:00:00 2023-09-23 10:10:44 Telephone [facility] 1.840.114 350.1.13.10 4.2.7.2.686 [id number] [facility] 2023-09-19 00:00:00 2023-09-19 12:50:21 Telephone [facility] 1.2840.114 350.1.13.10 4.2.7.2.686 [id number] [facility] 2023-09-19 10:00:00 2023-09-19 10:30:00 Office Visit [facility] 1.2840.114 350.1.13.10 4.2.7.2.686 [id number] [facility] 2023-09-19 10:00:00 2023-09-19 10:00:00 Outpatient R TANGELA [facility] [id number] [facility] 2023-09-18 11:30:00 2023-09-18 11:30:00 Outpatient R ARNAVSTEFANY VELIA [facility] [id number] [facility] 2023-09-10 00:00:00 2023-09-10 10:47:34 Letter (Out) Robin Eddy [facility] 1..840.114 350.1.13.10 4.2.7.2.686 [id number] [facility] 2023-09-03 15:00:00 2023-09-03 15:00:00 Outpatient R ROMEOARJUN Fairbanks [facility] [id number] [facility] 2023-09-03 13:30:00 2023-09-03 13:51:52 Outpatient R ROMEOARJUN Fairbanks [facility] [id number] [facility] 2023-09-03 13:30:00 2023-09-03 13:51:52 Office Visit RomeoArjun fairbanks [facility] 1.840.114 350.1.13.10 4.2.7.2.686 [id number] [facility] 2023-08-27 00:00:00 2023-08-30 11:19:25 Telephone Victorina Kendall [facility] 1..840.114 350.1.13.10 4.2.7.2.686 [id number] [facility] 2023-08-28 13:55:15 2023-08-28 23:59:00 Outpatient R ROMEOARJUN Fairbanks [facility] [id number] [facility] 2023-08-28 13:55:15 2023-08-28 23:59:00 Hospital Encounter RomeoArjun fairbanks [facility] 1..840.114 350.1.13.10 4.2.7.2.686 [id number] [facility] 2023-08-28 13:30:00 2023-08-28 13:52:54 Office Visit Roman Arjun [facility] 1.2.840.114 350.1.13.10 4.2.7.2.686 [id number] [facility] 2023-08-26 10:00:00 2023-08-26 10:07:48 Outpatient Aldo JOEL RENATA [facility] [id number] [facility] 2023-08-26 10:00:00 2023-08-26 10:07:48 Reactor Technician Visit Jesus Barr [facility] 1..840.114 350.1.13.10 4.2.7.2.686 [id number] [facility] 2023-08-25 08:17:00 2023-08-25 23:59:00 Hospital Encounter Luis Mayes [facility] 1..840.114 350.1.13.10 4.2.7.2.686 [id number] [facility] 2023-08-25 00:00:00 2023-08-25 23:59:00 Outpatient LUIS CHIU [facility] [id number] [facility] 2023-08-22 08:30:00 2023-08-22 08:45:00 Reactor Technician Visit [facility] Renata Joel [facility] 1.840.114 350.1.13.10 4.2.7.2.686 [id number] [facility] 2023-08-22 08:30:00 2023-08-22 08:30:00 Outpatient RENATA BECKFORD [facility] [id number] [facility] 2023-08-22 08:00:00 2023-08-22 08:30:00 Office Visit Renata Joel [facility] 1.2840.114 350.1.13.10 4.2.7.2.686 [id number] [facility] 2023-08-13 00:00:00 2023-08-14 12:26:12 Telephone Enoch Victorina Fairbanks [facility] 1.2840.114 350.1.13.10 4.2.7.2.686 [id number] [facility] 2023-08-14 00:00:00 2023-08-14 09:17:04 Telephone ArnavstefanyVelia [facility] 1.2840.114 350.1.13.10 4.2.7.2.686 [id number] [facility] 2023-08-09 15:30:00 2023-08-09 15:45:00 Reactor Technician Visit Lab, Jesus Kendall Victorina [facility] 1.2840.114 350.1.13.10 4.2.7.2.686 [id number] [facility] 2023-08-09 15:30:00 2023-08-09 15:30:00 Outpatient VICTORINA FARRAR [facility] [id number] [facility] 2023-08-09 09:15:00 2023-08-09 13:44:17 Reactor Technician Visit Lab, Jesus Kendall Victorina [facility] 1.2840.114 350.1.13.10 4.2.7.2.686 [id number] [facility] 2023-08-08 13:00:00 2023-08-08 14:04:55 Outpatient R VICTORINA KENDALL [facility] [id number] [facility] 2023-08-08 13:00:00 2023-08-08 14:04:55 Office Visit Victorina Kendall [facility] 1..840.114 350.1.13.10 4.2.7.2.686 [id number] [facility] 2023-08-08 13:30:00 2023-08-08 13:30:00 Outpatient VELIA MCARTHUR [facility] [id number] [facility] 2023-08-05 00:00:00 2023-08-05 00:00:00 Refill Velia Yoo [facility]ISS?[facility] 1..840.114 350.1.13.10 4.2.7.2.686 [id number] [facility] 2023-07-23 00:00:00 2023-07-23 00:00:00 Refill JudieVelia lord [facility] 1.840.114 350.1.13.10 4.2.7.2.686 [id number] [facility] 2023-07-11 00:00:00 2023-07-11 00:00:00 Telephone Cuba Gilliam [facility] 1..840.114 350.1.13.10 4.2.7.2.686 [id number] [facility] 2023-06-24 16:15:00 2023-06-24 16:31:41 Outpatient VELIA MCARTHUR [facility] [id number] [facility] 2023-06-24 16:15:00 2023-06-24 16:31:41 Office Visit Velia Yoo [facility]ISS?[facility] 1..840.114 350.1.13.10 4.2.7.2.686 [id number] [facility] 2023-06-06 00:00:00 2023-06-06 00:00:00 Telephone Molina Monk [facility] 1.840.114 350.1.13.10 4.2.7.2.686 [id number] [facility] 2023-06-06 00:00:00 2023-06-06 00:00:00 Telephone [place] [facility]illiam [facility] 1..114 350.1.13.10 4.2.7.2.686 [id number] [facility] 2023-06-06 00:00:00 2023-06-06 00:00:00 Orders Only Doctor Unassigned, [place] [facility] 1..114 350.1.13.10 4.2.7.2.686 [id number] [facility] 2023-05-17 00:00:00 2023-05-17 00:00:00 Refill Velia Yoo [facility] 1..114 350.1.13.10 4.2.7.2.686 [id number] [facility] 2023-05-13 00:00:00 2023-05-13 00:00:00 Refill Arian Sanchez [facility] 1..114 350.1.13.10 4.2.7.2.686 [id number] [facility] 2023-05-09 10:15:00 2023-05-09 10:30:00 Office Visit Velia Yoo [facility]ISS?[facility] 1..114 350.1.13.10 4.2.7.2.686 [id number] [facility] 2023-05-09 10:15:00 2023-05-09 10:15:00 Outpatient VELIA MCARTHUR [facility] [id number] [facility] 2023-05-02 10:41:48 2023-05-02 23:59:00 Outpatient R VELIA YOO [facility] [id number] [facility] 2023-05-02 10:40:00 2023-05-02 23:59:00 Hospital Encounter Velia Yoo [facility] 1.114 350.1.13.10 4.2.7.2.686 [id number] [facility] 2023-04-30 09:45:00 2023-04-30 10:19:52 Reactor Technician Visit 2, [facility] 1.84.114 350.1.13.10 4.2.7.2.686 [id number] [facility] 2023-04-30 09:20:00 2023-04-30 09:39:42 [facility] [id number] [facility] 2023-04-30 09:20:00 2023-04-30 09:39:42 [facility] 1.84.114 350.1.13.10 4.2.7.2.686 [id number] 059 [id number] [facility] 2023-04-30 00:00:00 2023-04-30 00:00:00 Orders Only Doctor Unassigned, [place] [facility] 1.114 350.1.13.10 4.2.7.2.686 [id number] [id number] [facility] 2023-04-30 00:00:2023-04-30 00:00:00 Telephone [place] [facility] 1.84.114 350.1.13.10 4.2.7.2.686 [id number] 059 [id number] [facility] 2023-04-28 00:00:00 2023-04-28 00:00:00 Refill Judiealbastefany Velia [facility]RA[facility] [place] MEDICAL OFFICE BUILDING 1.84.114 350.1.13.10 4.2.7.2.686 [id number] 044 [id number] [facility] 2023-04-23 11:30:00 2023-04-23 11:45:00 Office Visit Velia Yoo [facility] MEDICAL OFFICE BUILD[facility] 1.84.114 350.1.13.10 4.2.7.2.686 [id number] 044 [id number] [facility] 2023-04-23 11:30:00 2023-04-23 11:30:00 Outpatient R VELIA YOO [facility] [id number] [facility] 2023-04-21 00:00:00 2023-04-21 00:00:00 Refill Judiepop [facility]?HIEN [facility] MEDICAL OFFICE BUILDING 1.84.114 350.1.13.10 4.2.7.2.686 [id number] 044 [id number] [facility] 2023-04-20 10:40:00 2023-04-20 11:22:28 Outpatient R ARIAN SANCHEZ [facility] [id number] [facility] 2023-04-20 10:40:00 2023-04-20 11:22:28 Urgent Care Arian Sanchez Unknown, Attending [facility] MEDICAL OFFICE BUILDING 1.84.114 350.1.13.10 4.2.7.2.686 [id number] [facility] 2023-04-12 00:00:00 2023-04-12 00:00:00 Telephone HaoVelia [facility] 1.2.840.114 350.1.13.10 4.2.7.2.686 [id number] 044 [id number] [facility] 2023-04-11 00:00:00 2023-04-11 00:00:00 Telephone Victorina Kendall [facility] 1.2.840.114 350.1.13.10 4.2.7.2.686 [id number] 044 [id number] [facility] 2023-03-22 10:21:46 2023-03-22 23:59:00 Outpatient R VICTORINA KENDALL [facility] [id number] [facility] 2023-03-22 10:21:46 2023-03-22 23:59:00 Hospital Encounter Victorina Kendall [facility] 1..840.114 350.1.13.10 4.2.7.2.686 [id number] [facility] 2023-03-21 13:00:00 2023-03-21 13:42:28 Outpatient R ENOCHVICTORINA [facility] [id number] [facility] 2023-03-21 13:00:00 2023-03-21 13:42:28 Office Visit Victorina Kendall [facility] 1..840.114 350.1.13.10 4.2.7.2.686 [id number] 044 [id number] [facility] 2023-03-21 08:00:00 2023-03-21 08:00:00 Outpatient R VELIA YOO [facility] [id number] [facility] 2023-03-12 00:00:00 2023-03-12 00:00:00 Refill Velia Yoo [facility] CHRISS?HIEN [facility] MEDICAL OFFICE BUILDING 1.2840.114 350.1.13.10 4.2.7.2.686 [id number] 044 [id number] [facility] 2023-02-24 00:00:00 2023-02-24 00:00:00 RefVelia Campos [facility] CHRISS?ABRAZO [facility]PU[facility]iki [facility] MEDICAL OFFICE BUILDING 1.2840.114 350.1.13.10 4.2.7.2.686 [id number] 044 [id number] [facility] 2023-02-15 00:00:00 2023-02-15 00:00:00 RefVelia Campos [facility] CHRISS?[facility] MEDICAL OFFICE BUILDING 1.2840.114 350.1.13.10 4.2.7.2.686 [id number] 044 [id number] [facility] 2023-01-30 00:00:00 2023-01-30 00:00:00 Kermit Yoo Critical access hospital CHRISS?[facility] MEDICAL OFFICE BUILDING 1.2840.114 350.1.13.10 4.2.7.2.686 [id number] 044 [id number] [facility] 2022-12-18 00:00:00 2022-12-18 00:00:00 Orders Only Doctor Unassigned, [place] [facility] 1.2840.114 350.1.13.10 4.2.7.2.686 [id number] [id number] [facility] 2022-11-28 00:00:00 2022-11-28 00:00:00 Velia Gallagher [facility] CHRISS?[facility] MEDICAL OFFICE BUILDING 1.2840.114 350.1.13.10 4.2.7.2.686 [id number] [id number] [facility] 2022-11-15 09:30:00 2022-11-15 09:45:00 Office Visit Adriana Winston [facility] MEDICAL OFFICE BUILDING 1.2.840.114 350.1.13.10 4.2.7.2.686 [id number] [facility] 2022-11-15 09:30:00 2022-11-15 09:30:00 Outpatient R ADRIANA WINSTON [facility] [id number] [facility] 2022-11-01 00:00:00 2022-11-01 00:00:00 Telephone MonkTomiig Carlos Alberto [facility] CHRISS?[facility] MEDICAL OFFICE BUILDING 1.2.840.114 350.1.13.10 4.2.7.2.686 [id number] [facility] 2022-10-30 00:00:00 2022-10-30 00:00:00 Telephone Molina Monk [facility] CHRISS?[facility] MEDICAL OFFICE BUILDING 1.2.840.114 350.1.13.10 4.2.7.2.686 [id number] 198 [id number] [facility] 2022-10-25 00:00:00 2022-10-25 00:00:00 Telephone Molina Monk [facility] MEDICAL OFFICE BUILDING 1.2.840.114 350.1.13.10 4.2.7.2.686 [id number] 198 [id number] [facility] 2022-10-23 00:00:00 2022-10-23 00:00:00 Outpatient VELIA MCARTHUR [facility] [id number] [facility] 2022-10-20 08:38:05 2022-10-20 23:59:00 Outpatient R MOLINA MONK [facility] [id number] [facility] 2022-10-20 08:38:05 2022-10-20 23:59:00 Hospital Encounter Molina Monk [facility] 1.0.114 350.1.13.10 4.2.7.2.686 [id number] [facility] 2022-10-19 10:45:00 2022-10-19 10:45:00 Outpatient R ADRIANA WINSTON [facility] [id number] [facility] 2022-10-16 00:00:00 2022-10-16 00:00:00 Telephone Molina Monk [facility]?HIEN [facility] MEDICAL OFFICE BUILDING 1.84114 350.1.13.10 4.2.7.2.686 [id number] 198 [id number] [facility] 2022-10-11 08:00:00 2022-10-11 08:42:33 Outpatient R MOLINA MONK [facility] [id number] [facility] 2022-10-11 08:00:00 2022-10-11 08:42:33 Office Visit Molina Monk [facility]?HIEN [facility] MEDICAL OFFICE BUILDING 1.84114 350.1.13.10 4.2.7.2.686 [id number] 198 [id number] [facility] 2022-10-11 00:00:00 2022-10-11 00:00:00 Orders Only Doctor Unassigned, [place] [facility] 1.114 350.1.13.10 4.2.7.2.686 [id number] [facility] 2022-10-03 20:06:00 2022-10-04 00:43:00 Emergency X [employer] CROCKER [facility] ERT [id number] [facility] 2022-10-03 20:06:00 2022-10-04 00:43:00 Emergency [employer]upo Crocker [facility] 1.0.114 350.1.13.10 4.2.7.2.686 [id number] [id number] [facility] 2022-10-04 00:00:00 2022-10-04 00:00:00 Telephone Molina Monk [facility] CHRISS?HIEN [facility] MEDICAL OFFICE BUILDING 1.2840.114 350.1.13.10 4.2.7.2.686 [id number] 198 [id number] [facility] 2022-10-03 00:00:00 2022-10-03 00:00:00 Telephone Velia Yoo [facility] CHRISS?ABRAZO SCOTT[place]ALE [employer] [facility] MEDICAL OFFICE BUILDING 1.84.114 350.1.13.10 4.2.7.2.686 [id number] 044 [id number] [facility] 2022-09-28 22:03:00 2022-09-29 05:20:00 Emergency X CHASITY PEMA [facility] ERT [id number] [facility] 2022-09-28 22:03:00 2022-09-29 05:20:00 Emergency Pema Dsouza [facility] 1.84.114 350.1.13.10 4.2.7.2.686 [id number] 084 [id number] [facility] 2022-09-01 00:00:00 2022-09-01 00:00:00 Refill Velia Yoo [facility] MEDICAL OFFICE BUILDING 1.840.114 350.1.13.10 4.2.7.2.686 [id number] 044 [id number] [facility] 2022-08-07 00:00:00 2022-08-07 00:00:00 Telephone Molina Monk [facility] CHRISS?HIEN [facility] MEDICAL OFFICE BUILDING 1.2840.114 350.1.13.10 4.2.7.2.686 [id number] 198 [id number] [facility] 2022-08-06 00:00:00 2022-08-06 00:00:00 Orders Only Doctor Unassigned, [place] [facility] 1.840.114 350.1.13.10 4.2.7.2.686 [id number] [id number] [facility] 2022-07-25 09:30:00 2022-07-25 09:45:00 Office Visit Velia Yoo [facility]?HIEN [facility] MEDICAL OFFICE BUILDING 1.2840.114 350.1.13.10 4.2.7.2.686 [id number] 044 [id number] [facility] 2022-07-25 09:30:00 2022-07-25 09:30:00 Outpatient R VELIA YOO [facility] [id number] [facility] 2022-07-22 00:00:00 2022-07-22 00:00:00 Telephone Molina Monk [facility] MEDICAL OFFICE BUILDING 1..114 350.1.13.10 4.2.7.2.686 [id number] 198 [id number] [facility] 2022-07-19 00:00:00 2022-07-19 00:00:00 [facility] MEDICAL OFFICE BUILDING 1..114 350.1.13.10 4.2.7.2.686 [id number] 198 [id number] [facility] 2022-07-19 00:00:00 2022-07-19 00:00:00 Orders Only Doctor Unassigned, [place] [facility] 1.2840.114 350.1.13.10 4.2.7.2.686 [id number] [id number] [facility] 2022-07-12 13:00:00 2022-07-12 13:15:00 Office Visit Catrachito [facility]?ABRAZO SCOTTSDALE [employer]PU[employer]iki [facility] MEDICAL OFFICE BUILDING 1.0.114 350.1.13.10 4.2.7.2.686 [id number] [facility] 2022-07-12 13:00:00 2022-07-12 13:00:00 Outpatient ADRIANA HIGGINS [facility] [id number] [facility] 2022-07-02 14:15:00 2022-07-02 14:22:13 Outpatient VELIA MCARTHUR [facility] [id number] [facility] 2022-07-02 14:15:00 2022-07-02 14:22:13 Office Visit Velia Yoo davian [facility]?HIEN [facility] MEDICAL OFFICE BUILDING 1.2.840.114 350.1.13.10 4.2.7.2.686 [id number] [id number] [facility] 2022-06-28 00:00:00 2022-06-28 00:00:00 Telephone Molina Monk [facility] MEDICAL OFFICE BUILDING 1.2.840.114 350.1.13.10 4.2.7.2.686 [id number] [facility] 2022-06-27 09:45:00 2022-06-27 09:45:00 Outpatient FABIOLA BECERRA [facility] [id number] [facility] 2022-06-27 00:00:00 2022-06-27 00:00:00 Orders Only Doctor Unassigned, [place] [facility] 1.2.840.114 350.1.13.10 4.2.7.2.686 [id number] [id number] [facility] 2022-06-18 08:30:00 2022-06-18 08:30:00 Outpatient ARJUN NOVA [facility] [id number] [facility] 2022-06-11 13:17:56 2022-06-11 23:59:00 Outpatient ADRIANA HIGGINS [facility] [id number] [facility] 2022-06-11 13:45:00 2022-06-11 14:00:00 Office Visit Adriana Winston [facility] CHRISS?[facility] BUILD[facility] 1.840.114 350.1.13.10 4.2.7.2.686 [id number] 198 [id number] [facility] 2022-06-07 14:00:00 2022-06-07 14:15:00 Office Visit Catrachito [facility] CHRISS?[facility] OFF[facility] BUILDING 1.84.114 350.1.13.10 4.2.7.2.686 [id number] [facility] 2022-06-07 14:00:00 2022-06-07 14:00:00 Outpatient R CATRACHITOSHAUNATT [facility] [id number] [facility] 2022-06-06 09:30:00 2022-06-06 09:30:00 Outpatient R ARJUN OWENS [facility] [id number] [facility] 2022-06-04 00:00:00 2022-06-04 00:00:00 Refill Molina Monk [facility] MEDICAL OFFICE BUILDING 1.840.114 350.1.13.10 4.2.7.2.686 [id number] 198 [id number] [facility] 2022-05-31 09:08:06 2022-05-31 23:59:00 Outpatient R MOLINA MONK [facility] [id number] [facility] 2022-05-31 00:00:00 2022-05-31 00:00:00 Orders Only Doctor Unassigned, [place] [facility] .840.114 350.1.13.10 4.2.7.2.686 [id number] [id number] [facility] 2022-05-30 00:00:00 2022-05-30 00:00:00 Telephone Molina Monk [facility]?ABRAZO [facility] MEDICAL OFFICE BUILDING 1.840.114 350.1.13.10 4.2.7.2.686 [id number] 198 [id number] [facility] 2022-05-29 00:00:00 2022-05-29 00:00:00 Telephone Molina Monk [facility] 1.2840.114 350.1.13.10 4.2.7.2.686 [id number] [facility] 2022-05-28 10:49:42 2022-05-28 23:59:00 Hospital Encounter Molina Monk [facility] 1.0.114 350.1.13.10 4.2.7.2.686 [id number] [facility] 2022-05-28 07:05:00 2022-05-28 13:55:00 Outpatient R MONK, MOLINA [facility] SOR [id number] [facility] 2022-05-28 07:05:00 2022-05-28 13:55:00 Hospital Encounter Molina Monk [facility] [place] 1.0.114 350.1.13.10 4.2.7.2.686 [id number] [id number] [facility] 2022-05-28 07:35:00 2022-05-28 09:58:00 Surgery Molina Monk [facility] [place] 1.20.114 350.1.13.10 4.2.7.2.686 [id number] [facility] 2022-05-25 09:15:00 2022-05-25 09:30:00 Reactor Technician Visit Pob, Adc Lab Main Molina Monk [facility] PROFESSIO NAL BUILDING 1.2840.114 350.1.13.10 4.2.7.2.686 [id number] [facility] 2022-05-25 08:12:51 2022-05-25 08:14:00 Outpatient R TOMI MONKIG [facility] [id number] [facility] 2022-05-25 08:12:51 2022-05-25 08:14:00 Hospital Encounter Molina Monk [facility] 1.2840.114 350.1.13.10 4.2.7.2.686 [id number] [facility] 2022-05-25 00:00:00 2022-05-25 00:00:00 Orders Only Doctor Unassigned, [place] [facility] 1.20.114 350.1.13.10 4.2.7.2.686 [id number] [facility] 2022-05-17 10:15:00 2022-05-17 11:39:12 Outpatient R MONK, MOLINA [facility] [id number] [facility] 2022-05-17 10:15:00 2022-05-17 11:39:12 Ancillary Visit Cindy Conner [facility] PROFESSIO NAL BUILDING 1..114 350.1.13.10 4.2.7.2.686 [id number] [facility] 2022-05-17 00:00:00 2022-05-17 00:00:00 Orders Only Doctor Unassigned, [place] [facility] 1.20.114 350.1.13.10 4.2.7.2.686 [id number] [facility] 2022-05-08 00:00:00 2022-05-08 00:00:00 Telephone Molina Monk [facility] 1.2.114 350.1.13.10 4.2.7.2.686 [id number] 198 [id number] [facility] 2022-05-08 00:00:00 2022-05-08 00:00:00 Orders Only Doctor Unassigned, [place] [facility] 1.114 350.1.13.10 4.2.7.2.686 [id number] [facility] 2022-05-02 00:00:00 2022-05-02 00:00:00 RefVelia Campos [facility] MEDICAL OFFICE BUILDING 1.114 350.1.13.10 4.2.7.2.686 [id number] [facility] 2022-04-30 10:40:00 2022-04-30 11:04:16 [facility] [id number] [facility] 2022-04-30 10:40:00 2022-04-30 11:04:16 [facility] 1.114 350.1.13.10 4.2.7.2.686 [id number] [facility] 2022-04-27 10:30:00 2022-04-27 10:38:04 Outpatient R MOLINA MONK [facility] [id number] [facility] 2022-04-27 10:30:00 2022-04-27 10:38:04 Office Visit Molina Monk [facility] MEDICAL OFFICE BUILDING 1.84114 350.1.13.10 4.2.7.2.686 [id number] [facility] 2022-04-27 00:00:00 2022-04-27 00:00:00 Prep For Surgery Molina Monk [facility] MEDICAL OFFICE BUILDING 1.84.114 350.1.13.10 4.2.7.2.686 [id number] [facility] 2022-04-18 00:00:00 2022-04-18 00:00:00 Telephone Molina Monk [facility]?HIEN [facility] MEDICAL OFFICE BUILDING 1.2.840.114 350.1.13.10 4.2.7.2.686 [id number] [facility] 2022-04-10 00:00:00 2022-04-10 00:00:00 Telephone Velia Yoo [facility] CHRISS?HIEN [facility] MEDICAL OFFICE BUILDING 1.2.840.114 350.1.13.10 4.2.7.2.686 [id number] [id number] [facility] 2022-03-18 00:00:00 2022-03-18 00:00:00 Refill Velia Yoo [facility] CHRISS?[facility] 1.2.840.114 350.1.13.10 4.2.7.2.686 [id number] 044 [id number] [facility] 2022-03-06 09:45:00 2022-03-06 10:02:56 Outpatient R VELIA YOO [facility] [id number] [facility] 2022-03-06 09:45:00 2022-03-06 10:02:56 Office Visit Velia Yoo [facility] CHRISS?[facility] [facility] 1.2.840.114 350.1.13.10 4.2.7.2.686 [id number] [id number] [facility] 2022-01-19 00:00:00 2022-01-19 00:00:00 Outpatient R MOLINA MONK [facility] [id number] [facility] 2022-01-17 10:00:00 2022-01-17 10:00:00 Outpatient ERIN PICKARD [facility] [id number] [facility] 2022-01-17 10:00:00 2022-01-17 10:00:00 Outpatient ERIN PICKARD [facility] [id number] [facility] 2022-01-17 10:00:00 2022-01-17 10:00:00 Outpatient R ERIN MCNULTY [facility] [id number] [facility] 2022-01-17 10:00:00 2022-01-17 10:00:00 Outpatient R ERIN MCNULTY [facility] [id number] [facility] 2022-01-17 10:00:00 2022-01-17 10:00:00 Outpatient R ERIN MCNULTY [facility] [id number] [facility] 2022-01-17 10:00:00 2022-01-17 10:00:00 Outpatient R ERIN MCNULTY [facility] [id number] [facility] 2022-01-15 00:00:00 2022-01-15 00:00:00 Velia Wolfe [facility] MEDICAL OFFICE BUILDING 1.2.840.114 350.1.13.10 4.2.7.2.686 [id number] [facility] 2022-01-10 13:30:00 2022-01-10 13:39:02 Outpatient R MOLINA MONK [facility] [id number] [facility] 2022-01-10 13:30:00 2022-01-10 13:39:02 Office Visit Molina Monk [facility] MEDICAL OFFICE BUILDING 1.2.840.114 350.1.13.10 4.2.7.2.686 [id number] [facility] 2021-12-29 00:00:00 2021-12-29 00:00:00 Refill Velia Yoo [facility] MEDICAL OFFICE BUILDING 1.2.840.114 350.1.13.10 4.2.7.2.686 [id number] [facility] 2021-12-20 15:45:00 2021-12-20 16:00:00 Office Visit Velia Yoo [facility] 1.2.840.114 350.1.13.10 4.2.7.2.686 [id number] [facility] 2021-12-20 15:45:00 2021-12-20 15:45:00 Outpatient R VELIA YOO [facility] [id number] [facility] 2021-12-20 15:45:00 2021-12-20 15:45:00 Outpatient R VELIA YOO [facility] [id number] [facility] 2021-12-13 13:30:00 2021-12-13 14:47:51 Outpatient R ARJUN OWENS [facility] [id number] [facility] 2021-12-13 13:30:00 2021-12-13 14:47:51 [facility] 1.2.840.114 350.1.13.10 4.2.7.2.686 [id number] [facility] 2021-12-13 13:30:00 2021-12-13 14:47:51 Outpatient R ARJUN OWENS [facility] [id number] [facility] 2021-12-13 00:00:00 2021-12-13 00:00:00 Abstract [facility] 1.2.840.114 350.1.13.10 4.2.7.2.686 [id number] [facility] 2021-12-02 12:41:00 2021-12-02 14:21:00 Emergency X ANALI JORDAN [facility] ERT [id number] [facility] 2021-12-02 12:41:00 2021-12-02 14:21:00 Emergency Anali Jordan [facility] 1.2.840.114 350.1.13.10 4.2.7.2.686 [id number] [facility] 2021-11-24 00:00:00 2021-11-24 00:00:00 RefVelia Campos [facility] MED[facility] OFF[facility] BUILD[facility] 1.2.840.114 350.1.13.10 4.2.7.2.686 [id number] [facility] 2021-11-17 00:00:00 2021-11-17 00:00:00 Orders Only Doctor Unassigned, [place] [facility] 1.2.840.114 350.1.13.10 4.2.7.2.686 [id number] [facility] 2021-11-13 11:00:00 2021-11-13 11:54:07 Office Visit Rakesh [facility] MEDICAL OFFICE BUILDING 1..840.114 350.1.13.10 4.2.7.2.686 [id number] [facility] 2021-11-13 11:00:00 2021-11-13 11:54:07 Outpatient Aldo [facility] [id number] [facility] 2021-11-13 11:00:00 2021-11-13 11:00:00 Outpatient Aldo [facility] [id number] [facility] 2021-11-03 00:00:00 2021-11-03 00:00:00 Orders Only Doctor Unassigned, [place] [facility] 1.2840.114 350.1.13.10 4.2.7.2.686 [id number] [facility] 2021-10-20 00:00:00 2021-10-20 00:00:00 Telephone [place] [facility] 1.2.840.114 350.1.13.10 4.2.7.2.686 [id number] [facility] 2021-10-19 00:00:00 2021-10-19 00:00:00 Telephone Velia Yoo [facility] 1.2.840.114 350.1.13.10 4.2.7.2.686 [id number] [facility] 2021-10-18 10:40:00 2021-10-18 10:40:00 [facility] [id number] [facility] 2021-10-04 07:51:09 2021-10-04 23:59:00 [id number] [facility] 2021-10-04 08:00:00 2021-10-04 08:00:00 [facility] [id number] [facility] 2021-09-21 09:20:00 2021-09-21 23:59:00 Outpatient ADRIANA HIGGINS [facility] [id number] [facility] 2021-09-21 08:30:00 2021-09-21 09:55:47 Outpatient R ADRIANA WINSTON [facility] [id number] [facility] 2021-09-21 08:30:00 2021-09-21 09:55:47 [facility] 1.2.840.114 350.1.13.10 4.2.7.2.686 [id number] [facility] 2021-09-21 08:30:00 2021-09-21 08:30:00 Outpatient R ADRIANA WINSTON [facility] [id number] [facility] 2021-09-20 14:00:00 2021-09-20 14:09:24 Outpatient VELIA MCARTHUR [facility] [id number] [facility] 2021-09-20 14:00:00 2021-09-20 14:09:24 Office Visit Velia Yoo [facility] 1.840.114 350.1.13.10 4.2.7.2.686 [id number] [facility] 2021-09-19 09:42:36 2021-09-19 23:59:00 Outpatient VELIA MCARTHUR [facility] [id number] [facility] 2021-09-19 09:42:36 2021-09-19 23:59:00 Outpatient VELIA MCARTHUR [facility] [id number] [facility] 2021-09-19 09:40:00 2021-09-19 23:59:00 Hospital Encounter Velia Yoo davian [facility] 1.84.114 350.1.13.10 4.2.7.2.686 [id number] [facility] 2021-09-18 11:15:00 2021-09-18 11:15:00 Outpatient VELIA MCARTHUR [facility] [id number] [facility] 2021-09-07 00:00:00 2021-09-07 00:00:00 Orders Only Doctor Unassigned, [place] [facility] 1.84.114 350.1.13.10 4.2.7.2.686 [id number] [facility] 2021-09-07 00:00:00 2021-09-07 00:00:00 Telephone Adriana Winston [facility] 1.840.114 350.1.13.10 4.2.7.2.686 [id number] [facility] 2021-09-06 00:00:00 2021-09-06 00:00:00 Telephone Adriana Winston [facility] 1.2.840.114 350.1.13.10 4.2.7.2.686 [id number] [facility] 2021-09-05 00:00:00 2021-09-05 00:00:00 Telephone Adriana Winston [facility] 1.2.840.114 350.1.13.10 4.2.7.2.686 [id number] [facility] 2021-08-22 00:00:00 2021-08-22 00:00:00 Telephone Velia Yoo [facility] 1.2.840.114 350.1.13.10 4.2.7.2.686 [id number] [facility] 2021-08-18 10:40:00 2021-08-18 23:59:00 Outpatient R MOLINA MONK [facility] [id number] [facility] 2021-08-18 10:40:00 2021-08-18 10:40:00 Outpatient R MOLINA MONK [facility] [id number] [facility] 2021-08-18 10:00:00 2021-08-18 10:15:00 Office Visit Adriana Winston [facility] 1.2.840.114 350.1.13.10 4.2.7.2.686 [id number] [facility] 2021-08-18 10:00:00 2021-08-18 10:00:00 [facility] [id number] [facility] 2021-08-18 10:00:00 2021-08-18 10:00:00 Outpatient R ADRIANA WINSTON [facility] [id number] [facility] 2021-08-14 00:00:00 2021-08-14 00:00:00 Telephone Hao Velia Hogue [facility] 1.2840.114 350.1.13.10 4.2.7.2.686 [id number] [facility] 2021-08-10 00:00:00 2021-08-10 00:00:00 Orders Only Doctor Unassigned, [place] [facility] 1.20.114 350.1.13.10 4.2.7.2.686 [id number] [id number] [facility] 2021-08-09 00:00:00 2021-08-09 00:00:00 Transition of Care Rebekah Mtz [facility] 1..114 350.1.13.10 4.2.7.2.686 [id number] [facility] 2021-08-09 00:00:00 2021-08-09 00:00:00 Telephone Molina Monk [facility] 1.284.114 350.1.13.10 4.2.7.2.686 [id number] [facility] 2021-08-09 00:00:00 2021-08-09 00:00:00 Orders Only Doctor Unassigned, [place] [facility] 1.20.114 350.1.13.10 4.2.7.2.686 [id number] [id number] [facility] 2021-08-07 06:27:00 2021-08-08 13:49:00 Outpatient R MOLINA MONK [facility] SOR [id number] [facility] 2021-08-07 06:27:00 2021-08-08 13:49:00 Hospital Encounter Molina Monk [facility] 1.2.840.114 350.1.13.10 4.2.7.2.686 [id number] [facility] 2021-08-08 00:00:00 2021-08-08 00:00:00 Orders Only Doctor Unassigned, [place] [facility] 1.2.840.114 350.1.13.10 4.2.7.2.686 [id number] [id number] [facility] 2021-08-07 07:35:00 2021-08-07 09:56:00 Surgery MonkMolina [facility] 1.2840.114 350.1.13.10 4.2.7.2.686 [id number] [facility] 2021-08-07 07:33:00 2021-08-07 09:40:00 Anesthesia Event Krishan Aguayo Fernando [facility] 1.2840.114 350.1.13.10 4.2.7.2.686 [id number] [facility] 2021-08-07 00:00:00 2021-08-07 00:00:00 Telephone Molina Monk [facility] 1.2840.114 350.1.13.10 4.2.7.2.686 [id number] [facility] 2021-08-07 00:00:00 2021-08-07 00:00:00 Orders Only Doctor Unassigned, [place] [facility] 1.2.840.114 350.1.13.10 4.2.7.2.686 [id number] [id number] [facility] 2021-08-04 07:54:08 2021-08-04 23:59:00 Hospital Encounter MonkMolina [facility] 1.2.840.114 350.1.13.10 4.2.7.2.686 [id number] [facility] 2021-08-04 07:45:00 2021-08-04 08:00:00 Reactor Technician Visit Pob, Adc Lab Main Molina Monk [facility] BUILD[facility] 1..840.114 350.1.13.10 4.2.7.2.686 [id number] [facility] 2021-08-04 07:53:46 2021-08-04 07:53:46 Outpatient MOLINA HU [facility] [id number] [facility] 2021-08-04 00:00:00 2021-08-04 00:00:00 Outpatient VELIA MCARTHUR [facility] [id number] [facility] 2021-08-04 00:00:00 2021-08-04 00:00:00 Orders Only Doctor Unassigned, [place] [facility] 1.840.114 350.1.13.10 4.2.7.2.686 [id number] [facility] 2021-08-02 13:30:00 2021-08-02 13:45:47 Reactor Technician Visit Lab, Jesus Winston [facility] BU[facility] 1.840.114 350.1.13.10 4.2.7.2.686 [id number] [facility] 2021-08-02 13:30:00 2021-08-02 13:45:00 Reactor Technician Visit [facility] 1.840.114 350.1.13.10 4.2.7.2.686 [id number] [facility] 2021-08-02 13:00:00 2021-08-02 13:32:28 Outpatient ADRIANA HIGGINS [facility] [id number] [facility] 2021-08-02 13:30:00 2021-08-02 13:30:00 Outpatient R ADRIANA WINSTON [facility] [id number] [facility] 2021-08-02 13:00:00 2021-08-02 13:15:00 Office Visit Adriana Winston [facility] 1.2.114 350.1.13.10 4.2.7.2.686 [id number] [facility] 2021-08-02 13:00:00 2021-08-02 13:00:00 Outpatient R ADRIANA WINSTON [facility] [id number] [facility] 2021-07-21 14:06:43 2021-07-21 23:59:00 Outpatient R ERIN MCNULTY [facility] [id number] [facility] 2021-07-21 14:06:43 2021-07-21 23:59:00 Hospital Encounter Erin Mcnulty [facility] 1..114 350.1.13.10 4.2.7.2.686 [id number] [facility] 2021-07-17 00:00:00 2021-07-17 00:00:00 Orders Only Doctor Unassigned, [place] [facility] 1.0.114 350.1.13.10 4.2.7.2.686 [id number] [id number] [facility] 2021-07-14 08:30:00 2021-07-14 09:00:00 Office Visit Erin Mcnulty [facility] 1..114 350.1.13.10 4.2.7.2.686 [id number] [facility] 2021-07-14 08:30:00 2021-07-14 08:30:00 Outpatient R ERIN MCNULTY [facility] [id number] [facility] 2021-07-14 08:30:00 2021-07-14 08:30:00 Outpatient R ERIN MCNULTY [facility] [id number] [facility] 2021-07-12 08:45:00 2021-07-12 09:15:00 Office Visit Noe Bañuelos [facility]. 1..840.114 350.1.13.10 4.2.7.2.686 [id number] [facility] 2021-07-12 08:45:00 2021-07-12 08:45:00 Outpatient R NOE BAÑUELOS [facility] [id number] [facility] 2021-07-11 09:00:00 2021-07-11 09:51:40 Outpatient PADMINI CUELLO [facility] [id number] [facility] 2021-07-11 09:00:00 2021-07-11 09:51:40 [facility] ..840.114 350.1.13.10 4.2.7.2.686 [id number] [facility] 2021-07-04 10:00:00 2021-07-04 10:15:00 Office Visit Velia Yoo [facility] 1..840.114 350.1.13.10 4.2.7.2.686 [id number] [facility] 2021-07-04 10:00:00 2021-07-04 10:00:00 Outpatient R VELIA YOO [facility] [id number] [facility] 2021-07-04 00:00:00 2021-07-04 00:00:00 Prep For Surgery Molina Monk [facility]ILD[facility] 1..840.114 350.1.13.10 4.2.7.2.686 [id number] [facility] 2021-07-04 00:00:00 2021-07-04 00:00:00 Telephone Molina Monk [facility] 1..840.114 350.1.13.10 4.2.7.2.686 [id number] [facility] 2021-06-30 13:26:00 2021-06-30 23:59:00 Outpatient R BERHANE FUENTES [facility] [id number] [facility] 2021-06-30 13:26:00 2021-06-30 23:59:00 Hospital Encounter Alfredo Berhane [facility] 1..840.114 350.1.13.10 4.2.7.2.686 [id number] [facility] 2021-06-30 13:00:00 2021-06-30 13:54:46 Urgent Care Berhane Fuentes Pablo [facility] OFF[facility] BUILD[facility] 1..840.114 350.1.13.10 4.2.7.2.686 [id number] [facility] 2021-06-30 13:26:00 2021-06-30 13:26:00 Outpatient R BERHANE FUENTES [facility] [id number] [facility] 2021-06-29 08:00:00 2021-06-29 10:55:25 Outpatient R CAROLTONYA COPELAND [facility] [id number] [facility] 2021-06-29 08:00:00 2021-06-29 10:55:25 [facility] MED[facility] OFF[facility] BUILD[facility] 1..840.114 350.1.13.10 4.2.7.2.686 [id number] [facility] 2021-06-29 08:45:00 2021-06-29 09:00:00 Reactor Technician Visit Lab, Tonya Guzman [facility] MED[facility] OFFICE BUILDING 1.2.840.114 350.1.13.10 4.2.7.2.686 [id number] [facility] 2021-06-28 00:00:00 2021-06-28 00:00:00 Telephone ArnavstefanyVelia [facility] [place] MED[facility] OFFICE BUILDING 1.2.840.114 350.1.13.10 4.2.7.2.686 [id number] [facility] 2021-06-27 00:00:00 2021-06-27 00:00:00 Telephone Steffanie Lopez [facility] BUILDING 1..840.114 350.1.13.10 4.2.7.2.686 [id number] [facility] 2021-06-18 00:00:00 2021-06-18 00:00:00 Refill Catrachito Adriana [facility] MED[facility] OFFICE BUILDING 1.2.840.114 350.1.13.10 4.2.7.2.686 [id number] [facility] 2021-06-16 09:30:00 2021-06-16 09:45:00 Office Visit Adri[facility] [place] [facility] MED[facility] OFFICE BUILDING 1.2.840.114 350.1.13.10 4.2.7.2.686 [id number] [facility] 2021-06-16 09:30:00 2021-06-16 09:30:00 Outpatient R CATRACHITO ADRIANA [facility] [id number] [facility] 2021-06-16 00:00:00 2021-06-16 00:00:00 Orders Only Doctor Unassigned, [place] [facility] 1.2.840.114 350.1.13.10 4.2.7.2.686 [id number] [facility] 2021-06-15 08:45:00 2021-06-15 08:49:40 Outpatient R VELIA YOO [facility] [id number] [facility] 2021-06-15 00:00:00 2021-06-15 00:00:00 Telephone Tomi Monknegrita Carcamo [facility] MEDICAL OFFICE BUILDING 1.84114 350.1.13.10 4.2.7.2.686 [id number] [facility] 2021-06-07 14:30:00 2021-06-07 15:16:35 Outpatient R MOLINA MONK [facility] [id number] [facility] 2021-06-07 14:30:00 2021-06-07 15:16:35 Office Visit Tomi Monknegrita Carcamo [facility]?HIEN [facility] MEDICAL OFFICE BUILDING 1.84114 350.1.13.10 4.2.7.2.686 [id number] [facility] 2021-06-07 14:30:00 2021-06-07 14:30:00 Outpatient R MOLINA MONK [facility] [id number] [facility] 2021-06-07 00:00:00 2021-06-07 00:00:00 Telephone Cuba Gilliam [facility] BUILDING 1.84.114 350.1.13.10 4.2.7.2.686 [id number] [facility] 2021-06-05 00:00:00 2021-06-05 00:00:00 Telephone Anastacio Molina Carcamo [facility] [place] [facility] MEDICAL OFFICE BUILDING 1.84114 350.1.13.10 4.2.7.2.686 [id number] [facility] 2021-06-02 12:31:52 2021-06-02 23:59:00 Hospital Encounter Steffanie Lopez [facility] 1.840.114 350.1.13.10 4.2.7.2.686 [id number] [facility] 2021-06-02 12:31:11 2021-06-02 23:59:00 Outpatient R MOLINA MONK [facility] [id number] [facility] 2021-06-02 12:31:11 2021-06-02 23:59:00 Hospital Encounter Molina Monk [facility] 1..840.114 350.1.13.10 4.2.7.2.686 [id number] [facility] 2021-05-30 00:00:00 2021-05-30 00:00:00 Outpatient R STEFFANIE LOPEZ SHIWAN [facility] [id number] [facility] 2021-05-26 00:00:00 2021-05-26 00:00:00 Orders Only Doctor Unassigned, [place] [facility] 1..840.114 350.1.13.10 4.2.7.2.686 [id number] [facility] 2021-05-19 08:30:00 2021-05-19 09:44:33 Outpatient R STEFFANIE LOPEZ [facility] [id number] [facility] 2021-05-19 08:30:00 2021-05-19 09:44:33 Office Visit Steffanie Lopez [facility] PROFESSIO [facility] 1..840.114 350.1.13.10 4.2.7.2.686 [id number] [facility] 2021-05-19 08:30:00 2021-05-19 09:44:33 Outpatient STEFFANIE SCHMIDT [facility] [id number] [facility] 2021-05-19 00:00:00 2021-05-19 00:00:00 Telephone Adriana Winston [facility] MEDICAL OFFICE BUILDING 1.2.840.114 350.1.13.10 4.2.7.2.686 [id number] [facility] 2021-05-18 00:00:00 2021-05-18 00:00:00 Orders Only Doctor Unassigned, [place] [facility] 1.840.114 350.1.13.10 4.2.7.2.686 [id number] [facility] 2021-05-16 00:00:00 2021-05-16 00:00:00 Telephone Molina Monk [facility] MEDICAL OFFICE BUILDING 1..840.114 350.1.13.10 4.2.7.2.686 [id number] [facility] 2021-05-11 08:00:00 2021-05-11 08:15:00 Office Visit Adriana Winston [facility] MEDICAL OFFICE BUILDING 1.2.840.114 350.1.13.10 4.2.7.2.686 [id number] [facility] 2021-05-11 08:00:00 2021-05-11 08:00:00 Outpatient MOLINA HU [facility] [id number] [facility] 2021-05-09 00:00:00 2021-05-09 00:00:00 Orders Only Doctor Unassigned, [place] [facility] 1.2840.114 350.1.13.10 4.2.7.2.686 [id number] [facility] 2021-05-08 00:00:00 2021-05-08 00:00:00 Outpatient R MOLINA MONK [facility] [id number] [facility] 2021-05-05 09:15:00 2021-05-05 09:30:00 Office Visit Catrachito [facility] 1.2.840.114 350.1.13.10 4.2.7.2.686 [id number] 198 [id number] [facility] 2021-05-05 09:15:00 2021-05-05 09:15:00 Outpatient R CATRACHITO [facility] [id number] [facility] 2021-05-05 09:15:00 2021-05-05 09:15:00 Outpatient R CATRACHITO ADRIANA [facility] [id number] [facility] 2021-05-04 00:00:00 2021-05-04 00:00:00 Telephone Catrachito [facility] CHRISS?HIEN [facility] MEDICAL OFFICE BUILDING 1.2.840.114 350.1.13.10 4.2.7.2.686 [id number] [facility] 2021-05-03 00:00:00 2021-05-03 00:00:00 Telephone Velia Yoo [facility] 1.2.840.114 350.1.13.10 4.2.7.2.686 [id number] [facility] 2021-04-28 09:15:00 2021-04-28 09:30:00 Office Visit Catrachito [facility] CH[facility]ISS?[facility] [place] MEDICAL OFFICE BUILDING 1.2.840.114 350.1.13.10 4.2.7.2.686 [id number] [facility] 2021-04-28 09:15:00 2021-04-28 09:15:00 Outpatient R CATRACHITO [facility] [id number] [facility] 2021-04-28 09:15:00 2021-04-28 09:15:00 Outpatient ADRIANA HIGGINS [facility] [id number] [facility] 2021-04-27 00:00:00 2021-04-27 00:00:00 [facility] MEDICAL OFFICE BUILDING 1.840.114 350.1.13.10 4.2.7.2.686 [id number] [facility] 2021-04-27 00:00:00 2021-04-27 00:00:00 Orders Only Doctor Unassigned, [place] [facility] 1.84.114 350.1.13.10 4.2.7.2.686 [id number] [facility] 2021-04-26 00:00:00 2021-04-26 00:00:00 Telephone Molina Monk Carlos Alberto [facility] MEDICAL OFFICE BUILDING 1.84.114 350.1.13.10 4.2.7.2.686 [id number] [facility] 2021-04-21 09:15:00 2021-04-21 10:02:45 Outpatient ADRIANA HIGGINS [facility] [id number] [facility] 2021-04-21 09:15:00 2021-04-21 10:02:45 [facility] MEDICAL OFFICE BUILDING 1.840.114 350.1.13.10 4.2.7.2.686 [id number] [facility] 2021-04-21 00:00:00 2021-04-21 00:00:00 Telephone AnastacioTominegrita Carcamo [facility] MEDICAL OFFICE BUILDING 1.840.114 350.1.13.10 4.2.7.2.686 [id number] [facility] 2021-04-20 00:00:00 2021-04-20 00:00:00 Telephone Molina Monk [facility]ISS?[facility] 1.2.840.114 350.1.13.10 4.2.7.2.686 [id number] [facility] 2021-04-20 00:00:00 2021-04-20 00:00:00 Telephone Molina Monk [facility] CH[facility]ISS?[facility] 1.284.114 350.1.13.10 4.2.7.2.686 [id number] [facility] 2021-04-19 10:40:00 2021-04-19 11:19:45 [facility] [id number] 2021-04-19 10:40:00 2021-04-19 11:19:45 Office Visit Mane, [facility] 1.84.114 350.1.13.10 4.2.7.2.686 [id number] [facility] 2021-04-19 10:40:00 2021-04-19 11:19:45 [facility] R [facility] [id number] [facility] 2021-04-19 10:40:00 2021-04-19 11:19:45 Out[facility] R [facility] [id number] [facility] 2021-04-19 10:40:00 2021-04-19 11:19:45 Out[facility] R MAN[facility] [id number] [facility] 2021-04-19 10:40:00 2021-04-19 11:19:45 Office Visit Mane, [facility] BU[facility] 1.2.840.114 350.1.13.10 4.2.7.2.686 [id number] [facility] 2021-04-19 10:40:00 2021-04-19 10:40:00 [facility] [id number] [facility] 2021-04-18 00:00:00 2021-04-18 00:00:00 Orders Only Doctor Unassigned, [place] [facility] 1.2840.114 350.1.13.10 4.2.7.2.686 [id number] [facility] 2021-04-17 00:00:00 2021-04-17 00:00:00 Telephone Molina Monk [facility] 1.2.840.114 350.1.13.10 4.2.7.2.686 [id number] [facility] 2021-04-13 00:00:00 2021-04-13 00:00:00 Telephone Molina [facility] 1.2.840.114 350.1.13.10 4.2.7.2.686 [id number] [facility] 2021-04-13 00:00:00 2021-04-13 00:00:00 Telephone MonkMolina [facility] 1.2.840.114 350.1.13.10 4.2.7.2.686 [id number] [facility] 2021-04-13 00:00:00 2021-04-13 00:00:00 Telephone AnastacioMolina [facility] 1.2.840.114 350.1.13.10 4.2.7.2.686 [id number] [facility] 2021-04-10 15:20:00 2021-04-10 23:59:00 Hospital Encounter Molina Monk [facility] 1..840.114 350.1.13.10 4.2.7.2.686 [id number] [facility] 2021-04-10 15:00:00 2021-04-10 16:24:01 Office Visit [facility] 1..840.114 350.1.13.10 4.2.7.2.686 [id number] [facility] 2021-04-10 15:00:00 2021-04-10 16:24:01 Outpatient R MOLINA MONK [facility] [id number] [facility] 2021-03-27 09:30:00 2021-03-27 10:00:00 Office Visit Velia Yoo [facility] MED[facility] 1..840.114 350.1.13.10 4.2.7.2.686 [id number] [facility] 2021-03-27 09:30:00 2021-03-27 09:56:27 [facility] [facility] [id number] [facility] 2021-03-27 09:30:00 2021-03-27 09:30:00 Outpatient [facility] [id number] [facility] 2021-03-27 00:00:00 2021-03-27 00:00:00 Orders Only Doctor Unassigned, [place] [facility] 1..840.114 [id number] [facility] Results Test Description Test Time Test Comments Results Resul t Comments Source BI SCREENING TOMOSYNTHESIS RIGHT 2023-04-09 5 19:15:35 Examination:BI SCREENING TOMOSYNTHESIS RIGHT History:Patient is 73 year old and is seen for: ?Screening. Computer-aided detection (CAD) utilized. Comparisons: 09/19/2021 BI SCREENING TOMOSYNTHESIS RIGHT Findings:RightThe right breast has scattered areas of fibroglandular density. There is no evidence of suspicious masses, calcifications, or other abnormal findings in the right breast. Impression:No mammographic evidence of malignancy. Recommendation:Pily leslie mammographic follow-up BI-RADS Category: Right 1 - Negative [facility]OL[facility] ([id number])2022-10-04 02:16:35* Test Item Value Reference Range Interpretation Comme nts NA (test code = 1824029944) 137 mmol/L 135-145 K (test code = 4256207068) 4.1 mmol/L 3.5-5.0 CL (test code = 0521842416) 102 mmol/L 98-108 CO2 TOTAL (test code = 8868014071) 25 mmol/L 23-31 AGAP (test code = 4327290442) 10 2-16 BUN (test code = 2982795352) 19 mg/dL 7-23 GLUCOSE (test code = 2048156427) 106 mg/dL 70-110 CREATININE (test code = 0794276593) 0.60 mg/dL 0.50-1.04 TOTAL BILI (test code = 6660743624) 0.7 mg/dL 0.1-1.1 CALCIUM (test code = 0377508696) 9.1 mg/dL 8.6-10.6 T PROTEIN (test code = 2364837815) 6.9 g/dL 6.3-8.2 ALBUMIN (test code = 5132982617) 4.0 g/dL 3.5-5.0 ALK PHOS (test code = 1062057583) 101 U/L 34-122 ALTv (test code = 1742-6) 62 U/L 5-35 H AST(SGOT) (test code = 3451717723) 29 U/L 13-40 eGFR (test code = 5395404944) 98.5 mL/min/1.73m2 LUCI (test code = LUCI) Association of [...] or abnormalities in imaging tests). Lab Interpretation (test code = 70885-9) Abnormal [facility] WITH [id number] 02:05:55* Test Item Value Reference Range Interpretation Comme nts WBC (test code = 6690-2) 8.82 See_Comment [Automated [employer]] The system which generated this result transmitted reference range: 4.30 - 11.10 10*3/?L. The reference range was not used to interpret this result as normal/abnormal. RBC (test code = 789-8) 3.60 See_Comment L [Automated [employer]] The system which generated this result transmitted reference range: 3.93 - 5.25 10*6/?L. The reference range was not used to interpret this result as normal/abnormal. HGB (test code = 718-7) 12.4 g/dL 11.6-15.0 HCT (test code = 4544-3) 36.6 % 35.7-45.2 MCV (test code = 787-2) 101.7 fL 80.6-95.5 H MCH (test code = 785-6) 34.4 pg 25.9-32.8 H MCHC (test code = 786-4) 33.9 g/dL 31.6-35.1 RDW-SD (test code = 45422-3) 49.9 fL 39.0-49.9 RDW-CV (test code = 788-0) 13.2 % 12.0-15.5 PLT (test code = 777-3) 244 See_Comment [Automated messa ge] The system which generated this result transmitted reference range: 166 - 358 10*3/?L. The reference range was not used to interpret this result as normal/abnormal. MPV (test code = 63781-4) 9.6 fL 9.5-12.9 NRBC/100 WBC (test code = 1723102927) 0.0 See_Comment [Automated [employer] ssage] The system which generated this result transmitted reference range: 0.0 - 10.0 /100 WBCs. The reference range was not used to interpret this result as normal/abnormal. NRBC x10^3 (test code = 0772933918) See_Comment [Automated [employer]ano[employer] ge] The system which generated this result transmitted reference range: 10*3/?L. The reference range was not used to interpret this result as normal/abnormal. GRAN MAT (NEUT) % (test code = 770-8) 70.6 % IMM GRAN % (test code = 2779663437) 0.80 % LYMPH % (test code = 736-9) 12.5 % MONO % (test code = 5905-5) 12.2 % EOS % (test code = 713-8) 3.2 % BASO % (test code = 706-2) 0.7 % GRAN MAT x10^3(ANC) (test code = 4292192480) 6.23 10*3/uL 1.88-7.09 IMM GRAN x10^3 (test code = 3780473321) 0.07 10*3/uL 0.00-0.06 H LYMPH x10^3 (test code = 731-0) 1.10 10*3/uL 1.32-3.29 L MONO x10^3 (test code = 742-7) 1.08 10*3/uL 0.33-0.92 H EOS x10^3 (test code = 711-2) 0.28 10*3/uL 0.03-0.39 BASO x10^3 (test code = 704-7) 0.06 10*3/uL 0.01-0.07 Lab Interpretation (test code = 16205-3) [facility]normal [facility]47[facility]47* Test Item Value Reference Range Interpretation Comme nts ALCOHOL (test code = 1481682241) 109 mg/dL LUCI (test code = LUCI) <10 [id number] Toxic>100 Depression of PHOTOGRAMMETRY AIRPLANE PILOT>400 Fatalities Reported [facility]OLIC PANEL ([id number])2022-09-29 04:47:27* Test Item Value Reference Range Interpretation Comme nts NA (test code = 3896102164) 132 mmol/L 135-145 L K (test code = 7364690229) 4.0 mmol/L 3.5-5.0 CL (test code = 1906071392) 97 mmol/L 98-108 L CO2 TOTAL (test code = 0618773426) 25 mmol/L 23-31 AGAP (test code = 5475803016) 10 2-16 BUN (test code = 6385185893) 16 mg/dL 7-23 GLUCOSE (test code = 1045703206) 116 mg/dL 70-110 H CREATININE (test code = 4589272804) 0.57 mg/dL 0.50-1.04 TOTAL BILI (test code = 4137939086) 0.6 mg/dL 0.1-1.1 CALCIUM (test code = 8134178003) 9.0 mg/dL 8.6-10.6 T PROTEIN (test code = 5252528664) 7.0 g/dL 6.3-8.2 ALBUMIN (test code = 9080137947) 4.1 g/dL 3.5-5.0 ALK PHOS (test code = 0293448123) 80 U/L 34-122 ALTv (test code = 1742-6) 28 U/L 5-35 AST(SGOT) (test code = 5384650956) 28 U/L 13-40 eGFR (test code = 2712459921) 104.6 mL/min/1.73m2 LUCI (test code = LUCI) Association of [...] or abnormalities in imaging tests). Lab Interpretation (test code = 20017-6) Abnormal [facility] WITH [id number] 04:17:25* Test Item Value Reference Range Interpretation Comme nts WBC (test code = 6690-2) 13.60 See_Comment H [Automated message] The system which generated this result transmitted reference range: 4.30 - 11.10 10*3/?L. The reference range was not used to interpret this result as normal/abnormal. RBC (test code = 789-8) 3.80 See_Comment L [Automated message] The system which generated this result transmitted reference range: 3.93 - 5.25 10*6/?L. The reference range was not used to interpret this result as normal/abnormal. HGB (test code = 718-7) 13.0 g/dL 11.6-15.0 HCT (test code = 4544-3) 38.3 % 35.7-45.2 MCV (test code = 787-2) 100.8 fL 80.6-95.5 H MCH (test code = 785-6) 34.2 pg 25.9-32.8 H MCHC (test code = 786-4) 33.9 g/dL 31.6-35.1 RDW-SD (test code = 11140-8) 50.6 fL 39.0-49.9 H RDW-CV (test code = 788-0) 13.7 % 12.0-15.5 PLT (test code = 777-3) 254 See_Comment [Automated message] The system which generated this result transmitted reference range: 166 - 358 10*3/?L. The reference range was not used to interpret this result as normal/abnormal. MPV (test code = 67295-2) 9.5 fL 9.5-12.9 NRBC/100 WBC (test code = 5675836550) 0.0 See_Comment [Automated message] The system which generated this result transmitted reference range: 0.0 - 10.0 /100 WBCs. The reference range was not used to interpret this result as normal/abnormal. NRBC x10^3 (test code = 7900994919) See_Comment [Automated message] The system which generated this result transmitted reference range: 10*3/?L. The reference range was not used to interpret this result as normal/abnormal. GRAN MAT (NEUT) % (test code = 770-8) 78.9 % IMM GRAN % (test code = 4879841021) 1.10 % LYMPH % (test code = 736-9) 8.2 % MONO % (test code = 5905-5) 10.1 % EOS % (test code = 713-8) 1.2 % BASO % (test code = 706-2) 0.5 % GRAN MAT x10^3(ANC) (test code = 3646739506) 10.74 10*3/uL 1.88-7.09 H IMM GRAN x10^3 (test code = 7645985505) 0.15 10*3/uL 0.00-0.06 H LYMPH x10^3 (test code = 731-0) 1.11 10*3/uL 1.32-3.29 L MONO x10^3 (test code = 742-7) 1.37 10*3/uL 0.33-0.92 H EOS x10^3 (test code = 711-2) 0.16 10*3/uL 0.03-0.39 BASO x10^3 (test code = 704-7) 0.07 10*3/uL 0.01-0.07 Lab Interpretation (test code = 59070-4) Abnormal [facility] - This is a pre-surgical type and screen. ONCE [id number] 14:09:42* Test Item Value Reference Range Interpretation Comme nts ABO & RH (test code = 20) A Positive Performed at [facility] Laboratory [facility] Blood [address] Free: [phone] No. [id number] IAT (test code = 1185) Negative Performed at [facility] Blood [place] [address]Toll Free: [phone] No. [id number] [facility] - This is a pre-surgical type and screen. ONCE [id number] 14:09:42* Test Item Value Reference Range Interpretation Comme nts ABO & RH (test code = 20) A Positive Performed at [facility] Blood [address] Free: [phone] No. [id number] IAT (test code = 1185) Negative Performed at [facility] Laboratory [facility] Blood [place] [address]Toll Free: [phone] No. [id number] [facility] WITH [id number] 15:39:02* Test Item Value Reference Range Interpretation Comme nts WBC (test code = 6690-2) 8.29 See_Comment [Automated messa ge] The system which generated this result transmitted reference range: 4.30 - 11.10 10*3/?L. The reference range was not used to interpret this result as normal/abnormal. RBC (test code = 789-8) 4.15 See_Comment [Automated messa ge] The system which generated this result transmitted reference range: 3.93 - 5.25 10*6/?L. The reference range was not used to interpret this result as normal/abnormal. HGB (test code = 718-7) 13.8 g/dL 11.6-15.0 HCT (test code = 4544-3) 41.8 % 35.7-45.2 MCV (test code = 787-2) 100.7 fL 80.6-95.5 H MCH (test code = 785-6) 33.3 pg 25.9-32.8 H MCHC (test code = 786-4) 33.0 g/dL 31.6-35.1 RDW-SD (test code = 98616-3) 54.4 fL 39.0-49.9 H RDW-CV (test code = 788-0) 14.6 % 12.0-15.5 PLT (test code = 777-3) 242 See_Comment [Automated messa ge] The system which generated this result transmitted reference range: 166 - 358 10*3/?L. The reference range was not used to interpret this result as normal/abnormal. MPV (test code = 33223-7) 9.4 fL 9.5-12.9 L NRBC/100 WBC (test code = 7463972220) 0.0 See_Comment [Automated [employer] ssage] The system which generated this result transmitted reference range: 0.0 - 10.0 /100 WBCs. The reference range was not used to interpret this result as normal/abnormal. NRBC x10^3 (test code = 3340681450) See_Comment [Automated messa ge] The system which generated this result transmitted reference range: 10*3/?L. The reference range was not used to interpret this result as normal/abnormal. GRAN MAT (NEUT) % (test code = 770-8) 69.2 % IMM GRAN % (test code = 3324430462) 0.50 % LYMPH % (test code = 736-9) 14.4 % MONO % (test code = 5905-5) 12.3 % EOS % (test code = 713-8) 3.0 % BASO % (test code = 706-2) 0.6 % GRAN MAT x10^3(ANC) (test code = 3317343831) 5.74 10*3/uL 1.88-7.09 IMM GRAN x10^3 (test code = 7170863836) 0.04 10*3/uL 0.00-0.06 LYMPH x10^3 (test code = 731-0) 1.19 10*3/uL 1.32-3.29 L MONO x10^3 (test code = 742-7) 1.02 10*3/uL 0.33-0.92 H EOS x10^3 (test code = 711-2) 0.25 10*3/uL 0.03-0.39 BASO x10^3 (test code = 704-7) 0.05 10*3/uL 0.01-0.07 Lab Interpretation (test code = 27200-5) Abnormal [facility] Notes Date/Time Note Provider Source 2023-11-15 14:01:45 Spoke with Patients and confirmed that the chest Xray was done in August. Patient voiced understanding. Gia Fuentes RN [facility] 2023-11-15 12:10:12 Spouse of Anali Catherine is a 73 year old female is orders be placed for "Chest Scan" for lung cancer. Please contact Spouse or patient to confirm needs [phone] (home) Sandra Ku [facility] 2023-10-31 08:26:29 Patient is scheduled for 10/31 at 9AM Leana Mcallister [facility] 2023-10-30 16:02:48 Route to [facility] to schedule TTE Susanne Townsend RN [facility] 2023-10-30 14:53:10 Ordered [facility] 2023-10-30 12:56:34 Pt is calling wants new orders for the echo the last one and they didn't get them done Please advise [phone] (home) Asad Frey [facility] 2023-10-24 11:48:08 I called patient and relayed provider's msg to stop cholestyramine and use imodium for diarrhea, and she needs to see her PCP if cat scratch shows signs of infection: reddening pain or pus coming from the site then she needs to see her PCP. Patient voiced understanding of instructions. Luis White RN [facility] 2023-10-24 09:39:50 Anali Catherine is a 73 year old female Pt is calling stating that the medication cholestyramine 4 gram packet that cost her 160.00. The medication has caused her to have swollen on her legs, ankles and feet. Her cat scratched her on the ankle and on water came out no blood. Pt needs to speak with the Dr or nurse. Since the medication has not worked and she needs to know what to do next. Mala Avalos [facility] 2023-09-23 11:47:35 Addended by: RENATA LUCAS on: 09/23/2023 11:47 AM Modules accepted: Orders [facility] 2023-09-23 09:13:07 Anali Catherine is a 73 year old female [facility] calling for a medication clarification on Cholestyramine Light 4 gram powder, states the directions say package but quantity is in grams. The medication comes as a can and package. Please advise Vicky Hernandez [facility] 2023-09-19 12:49:16 I called pharmacy to clarify Rx. Patient will be dispensed 3 packets of Cholestyramine daily for 90 days. Luis White RN [facility] 2023-09-19 11:11:18 Anali Catherine is a 73 year old female [facility]'s pharmacy calling requesting clarification on rx Cholestyramine Light 4 gram powder. Please call to discuss. Please advise. Izabella Patel [facility] 2023-08-30 11:19:04 Closing encounter, no documentation. Wendy Pepe RN [facility] 2023-08-26 10:00:00 Patient presented with specimen for drop-off and was identified by and name. Collection information/ total volume were documented accordingly. The following specimens were sent to [facility] laboratories per lab order on 08/26/2023 : 24 hour urine Random urine Stool 2 Swab Other T [facility] 2023-08-22 08:30:00 Patient received their stool kit and was told how to collect and where to drop off specimen. [facility] 2023-08-14 12:25:49 Ct Cantor MA 08/14/2023 9:18 AM CDT .Notified Patient of Test Results and Recommendations T [facility] 2023-08-14 09:16:27 Results given to SOP Patient is feeling better this morning T [facility] 2023-08-14 09:13:49 Images from the original note were not included. Cmp: Kidney markers- within acceptable limits Electrolytes including sodium and potassium within acceptable limits Liver enzymes- ALT a little elevated. Avoid alcohol if consuming. Avoid fried/fatty/greasy foods. Follow-up with GI Cbc: no anemia or wbc abnormality MCV/MCH elevated. Recommend multivitamin with b12 and folate Stool culture negative C diff negative Hep a/b/c- negative Tsh normal Lipase normal Patient Communication Not Released T [facility] 2023-08-14 08:22:11 Anali Catherine is a 73 year old female Patients called stating his has an upset stomach and still need to discuss results from this past . Please contact [phone] (home) Josh Mckinley [facility] 2023-08-13 14:07:14 Attempted to contact patient, left message on voicemail [facility] 2023-08-13 13:42:24 Copied from [facility] #[id number]. Topic: Clinical - Medical Advice >> August 13, 2023 1:41 PM Patient [employer] wrote: Spouse is calling due to him getting a call from nurse and possible lab results he said. Vernell Lopez [facility] 2023-08-09 15:30:00 Patient presented with specimen for drop-off and was identified by and name. Collection information/ total volume were documented accordingly. The following specimens were sent to [facility] laboratories per lab order on 08/09/2023: 24 hour urine Random urine Stool 3 Swab Other Pt brought back three para paks [facility] 2023-08-09 09:15:00 Images from the original note were not included. Venipuncture collection performed by clean technique on the left anticubitus. Total of 1 attempts were made. Slight pressure and a bandage/dressing were applied to the site(s). The patient experienced no complications. The following specimens were processed according to instructions and sent to [facility] laboratories per lab order on 08/09/2023: LT BLUE SST 2 RED LAV 1 PPT DK GREEN (LiHep) DK GREEN (SodH) SCHMID DK BLUE (K2) DK BLUE (S) ACD Blood Culture NIPT/NTD Patient presented with specimen for drop-off and was identified by and name. Collection information/ total volume were documented accordingly. The following specimens were sent to [facility] laboratories per lab order on 08/09/2023: 24 hour urine Random urine Stool 1 Swab Other Pt given stool kit to collect more stool. [facility] 2023-07-15 09:43:05 Cardiac Clearance faxed back to [facility] and scanned into chart along with fax confirmation. Jaclyn Nj MA [facility] 2023-07-11 16:13:25 Cardiac Clearance request received via fax from [facility] and placed in Dr Gilliam's folder to be reviewed. Last O/V - 04/30/2023 Last EKG - 04/30/2023 Last ECHO - 10/04/2021 Jaclyn Nj MA [facility] 2023-06-06 15:28:33 KAYLEY note faxed. Confirmation received. [employer] Wendi Grant RN [facility] 2023-06-06 15:25:25 Faxing now. Grover scan confirmation once received. [facility] 2023-06-06 14:50:39 Received Medical Clearance for Dental Tretment . Placed in provider box. [facility] Josy Davis [facility] 2023-06-06 13:41:15 Plz fax last OVN [facility] 2023-06-06 13:22:02 KAYLEY 1.23.24 [facility] 2023-06-06 13:01:20 Anali Catherine is a 73 year old female Gloria with pt dentist office calling stating she's set for a tooth extraction and local anesthesia today however they need med clearance forms in order to do so [employer] Jose Ricks [facility] 2023-05-17 14:04:54 Images from the original note were not included. Requested Renewals Name from pharmacy: Atorvastatin Calcium 40 MG Oral Tablet Will file in chart as: ATORVASTATIN 40 mg tablet Sig: TAKE 1 TABLET BY MOUTH AT BEDTIME Disp: 100 tablet Refills: 2 Start: 05/17/2023 Class: eRX For: Hypercholesterolemia To pharmacy: Please send a replace/new response with 100-Day Supply if appropriate to maximize member benefit. Requesting 1 year supply. Last ordered: 8 months ago (09/02/2022) by Velia Yoo MD Last refill: 03/12/2023 Rx #: [id number] Cardiovascular: Antilipid - HMG-CoA Reductase Inhibitors Jpibsz2405/17/2023 04:49 AM Protocol Details ALT in normal range and within 360 days Valid encounter within last 12 months Total Cholesterol within 360 days LDL within 360 days HDL within 360 days Triglycerides within 360 days AST in normal range and within 360 days To be filled at: [address] ALTv (U/L) Date Value 10/03/2022 62 (H) Recent Visits Date Type Provider Dept 05/09/23 Office Visit Velia Yoo MD [facility] 04/23/23 Office Visit Velia Yoo MD [facility] 03/21/23 Office Visit Victorina Kendall PA [facility] 07/25/22 Office Visit Velia Yoo MD [facility] 07/02/22 Office Visit Velia Yoo MD [facility] 03/06/22 Office Visit Velia Yoo MD [facility] 12/20/21 Office Visit Velia Yoo MD [facility] 12/13/21 Office Visit Arjun Owens FNP [facility] Showing recent visits within past 540 days with a meds authorizing provider and meeting all other requirements Future Appointments No visits were found meeting these conditions. Showing future appointments within next 150 days with a meds authorizing provider and meeting all other requirements [facility] Isabelle Davidson LVN [facility] 2023-04-30 16:32:16 Images from the original note were not included. Notified patient's spouse per Dr Gilliam: Cuba Gilliam MD P Cardiology Nurse Cholesterol level is a little higher than previous. Continue Lipitor and lifestyle improvement. Spouse verbal understanding. [facility] Jaclyn Nj MA [facility] 2023-04-30 09:45:00 Images from the original note were not included. Venipuncture collection performed by clean technique on the right anticubitus. Total of 1 attempts were made. Slight pressure and a bandage/dressing were applied to the site(s). The patient experienced no complications. The following specimens were processed according to instructions and sent to [facility] laboratories per lab order on 04/30/2023: LT BLUE SST 1 RED LAV PPT DK GREEN (LiHep) DK GREEN (SodH) SCHMID DK BLUE (K2) DK BLUE (S) ACD Blood Culture NIPT/NTD [facility] 2023-04-30 09:20:00 Addended by: CUBA GILLIAM MD on: 10/30/2023 02:53 PM Modules accepted: Orders [facility] 2023-04-12 16:31:01 Spoke with Enoch she ok'd refill on tessalon perles for patients cough Patient stated feeling better no SXS other then cough [facility] 2023-04-11 15:23:48 Pt returning missed call from Dr. Yoo's nurse. Please advise. [employer] Damien Mclean [facility] 2023-04-11 14:18:44 Anali Catherine is a 72 year old female Pt states she is returning a missed call in regards to a Rx refill. Please call back [phone] (home) [employer] Sandra Ku [facility] 2023-04-11 12:47:38 Anali Catherine is a 72 year old female and pt is still experiencing a cough from 03/21/23 visit. Pt stated that her x-rays showed Pneumonia and is out of the medication. Would like a refill on the antiboitic or the Tessalon perles if possible. [employer] Jaz Todd [facility] 2022-11-01 14:36:38 Formatting of this n ote might be different from the original. Provider schedule is full, one provider out on leave. No sooner appt availabe Nettie Rocha MA [facility] 2022-11-01 11:32:26 Formatting of this n ote might be different from the original. Pt called and states that she is in a lot of pain and that she is needing her follow up appointment to go over her MRI results to be CHIQUITA. Please advise and call pt with an update. Haydee Ingram [facility] 2022-10-30 10:21:13 Formatting of this n ote might be different from the original. Patient calling to get mri results. Scheduled appointment, but patient is needing sooner if possible NT Cinthia Lancaster [facility] 2022-10-26 08:58:31 Formatting of this n ote might be different from the original. Attempt to contact Ms. Catherine , voicemail is not set up. Melanie Mueller [facility] 2022-10-25 11:47:40 Formatting of this n ote might be different from the original. Appt needed for mri results Nettie Rocha MA [facility] 2022-10-25 10:54:03 Formatting of this n ote might be different from the original. Patient calling for MRI results. Hafsa Gonzalez [facility]
--- NOTE | 2023-11-26 17:50 | EKG ---
Test Date: 2023-11-24 Test Time: 17:00:04 Supervisor Cell Room: [facility] MEASUREMENT RESULTS: Intervals: Rate: 58 IA: 220 QRSD: 92 QT: 452 QTc: 443 [place]: P: 57 IA: 220 QRS: 9 T: 19 INTERPRETIVE STATEMENTS: Sinus bradycardia with 1st degree AV block Otherwise normal ECG No previous ECG available for comparison Electronically Signed On 11-26-23 17:46:48 CDT by Lai Otero
== END 2023-11-25 15:51 | disposition home or self-care (01) ==
LOC: ER 14:47 → ERHOLD 20:57 → 4TH 22:50
PROVIDERS: ADMIT Internal Medicine; ATTEND Hospitalist
DX: R51.9 Headache, unspecified (principal); N39.0 Urinary tract infection, site not specified; R53.1 Weakness; I10 Essential (primary) hypertension; F17.210 Nicotine dependence, cigarettes, uncomplicated; F10.10 Alcohol abuse, uncomplicated; E78.00 Pure hypercholesterolemia, unspecified; E78.5 Hyperlipidemia, unspecified; R42 Dizziness and giddiness; Z88.2 Allergy status to sulfonamides; Z86.73 Personal history of transient ischemic attack (TIA), and cerebral infarction without residual deficits; Z71.6 Tobacco abuse counseling
CPT/HCPCS: 96361; 85025 ×2; 81001; 80048; 36415; 83735; 85610; 80061; 80076; 84484; 83690; 80053; 83880; 70450; 70496; 70498; 71045; 70553; 97116; 97161; 96375; 96374; 99285; Q9967; A9577; J2765; J1200; J1650; J2405; J7042; J7040; J7030; J0692; 93005; G0378